=== PATIENT | female | born 1930 | race Caucasian/White ===

== ENCOUNTER 2016-09-18 13:57 | Emergency (ER) | payer MEDICARE, OTHER ==
[~2016-09-18] VITALS: Ht 152.4 cm; Wt 88.6 kg
[~2016-09-18 13:57] MED LIST: ASPIRIN; HYZAAR; LASIX; METOPROLOL
[2016-09-18 14:29] VITALS: Ht 152.4 cm; Wt 88.6 kg
[2016-09-18] MEDS ORDERED: morphine 4 MG/ML VIAL IV STA (14:44)
[2016-09-18] MEDS ORDERED: ONDANSETRON 4 MG INJ IV STA (14:44)
[2016-09-18] MEDS ORDERED: SOD CHLORIDE 0.9% 500 ML IV STA (14:44)
[2016-09-18] MEDS ORDERED: KETOROLAC 15 MG INJ IV STA (14:44)
[2016-09-18 15:03] LABS: ADD SCAN DIFF NO
[2016-09-18 15:12] LABS: BASOPHILS % 0.4 % (0.0-2.0); EOSINOPHILS # 0.1 10^3/ul (0.0-0.5); EOSINOPHILS % 1.8 % (0.0-7.0); HEMATOCRIT 33.4 % (37.0-47.0); LYMPHOCYTES # 1.1 10^3/ul (0.8-2.9); LYMPHOCYTES % 19.8 % (15.0-51.0); MEAN CORPUSCULAR HEMOGLOBIN 28.7 pg (29.0-33.0); MEAN CORPUSCULAR HGB CONC 32.9 g/dl (32.0-37.0); MEAN CORPUSCULAR VOLUME 87.2 fl (82.0-101.0); MEAN PLATELET VOLUME 9.4 fl (7.4-10.4); MONOCYTE # 0.4 10^3/ul (0.3-0.9); MONOCYTES % 6.8 % (0.0-11.0); NEUTROPHILS % 70.5 % (39.0-77.0); PLATELET COUNT 179 10^3/UL (140-415); RED BLOOD COUNT 3.83 10^6/ul (4.20-5.40); RED CELL DISTRIBUTION WIDTH 13.3 % (11.5-14.5); WHITE BLOOD COUNT 5.6 10^3/ul (4.8-10.8)
[2016-09-18 15:40] LABS: ALANINE AMINOTRANSFERASE 34 IU/L (13-69); ALBUMIN 4.8 g/dl (3.3-4.9); ALBUMIN/GLOBULIN RATIO 1.54; ALKALINE PHOSPHATASE 74 IU/L (42-121); ANION GAP 12 (8-16); ASPARTATE AMINO TRANSFERASE 33 IU/L (15-46); BILIRUBIN,INDIRECT 0.2 mg/dl (0-1.1); BILIRUBIN,TOTAL 0.2 mg/dl (0.2-1.3); BLOOD UREA NITROGEN 40 mg/dl (7-20); CALCIUM 9.5 mg/dl (8.4-10.2); CARBON DIOXIDE 28 mmol/L (21-31); CHLORIDE 104 mmol/L (97-110); CREATININE 1.04 mg/dl (0.44-1.00); GLUCOSE 93 mg/dl (70-220); POTASSIUM 4.3 mmol/L (3.5-5.1); SODIUM 140 mmol/L (135-144); TOTAL PROTEIN 7.9 g/dl (6.1-8.1)
[2016-09-18 15:53] LABS: TROPONIN-I < 0.012 ng/ml (0.00-0.12)
--- NOTE | 2016-09-18 15:54 | RADRPT ---
PROCEDURE: CHEST 1VW CLINICAL INDICATION: Right shoulder pain TECHNIQUE: Single frontal view of the chest was obtained COMPARISON: 01/13/2007 FINDINGS: The cardiac size is normal. Mild atherosclerotic calcifications are demonstrated. There is no pulmonary vascular congestion. The lungs are clear. No consolidation, effusion, or pneumothorax. Mild degenerative changes of the visualized osseous structures are visualized. IMPRESSION: 1. No acute cardiopulmonary process. 2. Atherosclerosis. RPTAT:PP .Papa Lowery MD, MD Date Time Electronically viewed and signed by .Papa Lowery MD, on 09/18/2016 15:54 .V/
--- NOTE | 2016-09-18 16:07 | RADRPT ---
PROCEDURE: Right shoulder two views CLINICAL INDICATION: Right shoulder pain. TECHNIQUE: AP and transscapular Y views of the right shoulder were obtained COMPARISON: None available FINDINGS: Diffuse osteopenia is identified. Impacted, mildly displaced fracture through the surgical neck of the proximal humerus is identified. The remaining osseous structures appear intact. No destructive bony lesions are observed. Moderate narrowing of the glenohumeral joint is seen. Soft tissues are unremarkable. IMPRESSION: Fracture through the surgical neck of the proximal right humerus. Osteopenia. Moderate degenerative change of the glenohumeral joint. If there is high clinical suspicion for additional traumatic injury, further evaluation with CT shou ld be considered.. RPTAT: AA .Trev Chakraborty MD, MD Date Time Electronically viewed and signed by .Trev Chakraborty MD, on 09/18/2016 16:07 .P/
[2016-09-18] MEDS ORDERED: ESOM40CA PO (16:10)
[2016-09-18] MEDS ORDERED: METO50TA16 PO (16:10)
[2016-09-18] MEDS ORDERED: ASPI-664 PO (16:12)
[2016-09-18] MEDS ORDERED: SERT100T PO (16:15)
[2016-09-18] MEDS ORDERED: VALS1TAB80 PO (16:21)
[2016-09-18] MEDS ORDERED: IBUP-1542 PO (16:41)
[2016-09-18] MEDS ORDERED: OXYC-279 PO (16:41)
--- NOTE | 2016-09-18 17:57 | RADRPT ---
PROCEDURE: Right knee radiographs. CLINICAL INDICATION: Trauma due to a fall. Right knee pain. TECHNIQUE: 4 views. Frontal, lateral, and obliques. COMPARISON: No prior studies are available for comparison. FINDINGS: There is no fracture or dislocation. The soft tissues are normal. There are degenerative changes with osteophytes arising from all 3 joint compartment margins. There is medial and lateral joint compartment narrowing. There is no lytic or blastic lesion. There is no radiopaque foreign body. IMPRESSION: 1. Moderate degenerative changes of the right knee. 2. No acute abnormality. RPTAT: QQ .David Ratliff MD, MD Date Time Electronically viewed and signed by .David Ratliff MD, on 09/18/2016 17:57 .R/
--- NOTE | 2016-09-18 17:58 | RADRPT ---
PROCEDURE: Left knee radiographs. CLINICAL INDICATION: Trauma due to a fall. Left knee pain. TECHNIQUE: Three views. Weight bearing. Frontal, lateral, and oblique. COMPARISON: No prior studies are available for comparison. FINDINGS: There is no fracture or dislocation. The soft tissues are normal. There are degenerative changes with osteophytes arising from all 3 joint compartment margins. There is medial joint compartment narrowing, subarticular sclerosis, and deformity. There is no lytic or blastic lesion. There is no radiopaque foreign body. IMPRESSION: 1. Severe degenerative changes of the left knee. 2. No acute abnormality. RPTAT: QQ .David Ratliff MD, MD Date Time Electronically viewed and signed by .David Ratliff MD, on 09/18/2016 17:58 .R/
[2016-09-18 18:52] VITALS: BP 142/52; PULSE 68; RESP 17
--- NOTE | 2016-09-18 20:42 | ERD ---
ER Documentation Chief Complaint Date/Time DATE: 09/18/16 TIME: 20:33 Chief Complaint right shoulder pain s/p mechanical fall at home HPI 86-year-old woman here for evaluation of the right shoulder pain after mechanical fall when she lost her balance. She does recall the entire episode and denies loss of consciousness. She has a long history of arthritis and difficulty ambulating secondary to bilateral knee pain. She fell onto her right shoulder although injured her bilateral knees anteriorly as well. She denies fevers or chills, no chest pain or shortness of breath, no vomiting or diarrhea, patient denies head or neck injury. ROS All systems reviewed and are negative except as per history of present illness. Medications Home Meds Active Scripts Ibuprofen* (Ibuprofen*) 600 Mg Tablet, 600 MG PO Q8 for PAIN AND/OR INFLAMMATION , #12 TAB Prov:FARIDEH CARR MD 09/18/16 Oxycodone HCl/Acetaminophen (Percocet 5-325 mg Tablet) 1 Each Tablet, 1 EACH PO TID for PAIN, #12 TAB Prov:FARIDEH CARR MD 09/18/16 Reported Medications Valsartan-Hydrochlorothiazide (Valsartan-HCTZ) 320-12.5 Mg Tablet, 1 TAB PO DAILY, #30 TAB 09/18/16 Sertraline Hcl* (Zoloft*) 100 Mg Tablet, 100 MG PO DAILY, #30 TAB 09/18/16 Aspirin* (Aspirin* EC) 81 Mg Tablet.dr, 81 MG PO DAILY, TAB 09/18/16 Esomeprazole Mag Trihydrate (Nexium) 40 Mg Capsule.dr, 40 MG PO DAILY, #30 CAP 09/18/16 Metoprolol Succinate* (Toprol XL*) 50 Mg Tab.er.24h, 50 MG PO DAILY, #30 TAB 09/18/16 Discontinued Reported Medications [Lasix] No Conflict Check 10/26/10 [Aspirin] No Conflict Check 10/26/10 [Hyzaar] No Conflict Check 10/26/10 [Metoprolol] No Conflict Check 10/26/10 Allergies Allergies: Coded Allergies: codeine (Unverified Allergy, Unknown, 09/18/16) Uncoded Allergies: UNKNOWN ANTIBIOTIC (Allergy, Unknown, 09/18/16) PMhx/Soc Obesity, congestive heart failure, hypertension, diabetes mellitus, osteoarthritis, coronary artery disease, chronic peripheral edema History of Surgery: No Anesthesia Reaction: No Hx Neurological Disorder: No Hx Respiratory Disorders: No Hx Cardiac Disorders: Yes (HTN HIGH CHOL) Hx Psychiatric Problems: No Hx Miscellaneous Medical Probl: No Hx Alcohol Use: Yes (SOCIALLY) Hx Substance Use: No Hx Tobacco Use: Yes Smoking Status: Never smoker FmHx Family History: No diabetes Physical Exam Vitals Vital Signs Date Time Temp Pulse Resp B/P Pulse Ox O2 Delivery O2 Flow Rate FiO2 09/18/16 18:52 68 17 142/52 99 Room Air 09/18/16 17:57 81 20 162/148 99 09/18/16 16:33 72 20 170/69 99 09/18/16 14:32 79 24 175/89 99 09/18/16 14:29 98.5 73 20 175/89 100 Physical Exam GENERAL: Well-developed, well-nourished, well-hydrated, in no apparent distress , looks nontoxic in appearance HEENT: Moist mucous membranes, pink conjunctiva, no cervical spine tenderness or step-off deformities, no goiter, no jaundice or icterus, extraocular movements intact without pain. No submandibular induration, and no pharyngeal erythema NEURO: Alert and oriented 3, cranial nerves II through XII intact bilaterally, pupils equal round reactive to light, no focal deficits or facial asymmetry, sensation intact distally Strength 5/5 in upper and lower extremities bilaterally CARDIAC: Regular rate and rhythm, no murmurs rubs or gallops LUNGS: Clear bilaterally no wheezing crackles or stridor ABDOMEN: Soft nontender, no guarding, no rigidity, no rebound, no psoas sign no obturator sign. Normoactive bowel sounds SKIN: Superficial abrasions to the anterior knees bilaterally, no lacerations or bleeding noted EXTREMITIES: Positive bony deformity at the right lateral shoulder although sensation to the axillary nerve, median, ulnar, radial nerves are intact bilaterally, patient has full range of motion at the knees both actively and passively without any bony deformity or tenderness. Manager Of Care strength equal bilateral, patient ambulatory. 1+ pitting edema in the lower extremities bilaterally, calves bilaterally symmetrical. PSYCH: Normal affect without agitation or irritability Result Diagram: 09/18/16 1500 09/18/16 1500 Results 24 hrs Laboratory Tests Test 09/18/16 15:00 White Blood Count 5.610^3/ul Red Blood Count 3.8310^6/ul Hemoglobin 11.0g/dl Hematocrit 33.4% Mean Corpuscular Volume 87.2fl Mean Corpuscular Hemoglobin 28.7pg Mean Corpuscular Hemoglobin Concent 32.9g/dl Red Cell Distribution Width 13.3% Platelet Count 47958^3/UL Mean Platelet Volume 9.4fl Neutrophils % 70.5% Lymphocytes % 19.8% Monocytes % 6.8% Eosinophils % 1.8% Basophils % 0.4% Nucleated Red Blood Cells % 0.0/100WBC Neutrophils # 4.010^3/ul Lymphocytes # 1.110^3/ul Monocytes # 0.410^3/ul Eosinophils # 0.110^3/ul Basophils # 0.010^3/ul Nucleated Red Blood Cells # 0.010^3/ul Sodium Level 140mmol/L Potassium Level 4.3mmol/L Chloride Level 104mmol/L Carbon Dioxide Level 28mmol/L Anion Gap 12 Blood Urea Nitrogen 40mg/dl Creatinine 1.04mg/dl Glucose Level 93mg/dl Calcium Level 9.5mg/dl Total Bilirubin 0.2mg/dl Direct Bilirubin 0.00mg/dl Indirect Bilirubin 0.2mg/dl Aspartate Amino Transf (AST/SGOT) 33IU/L Alanine Aminotransferase (ALT/SGPT) 34IU/L Alkaline Phosphatase 74IU/L Troponin I < 0.012ng/ml Total Protein 7.9g/dl Albumin 4.8g/dl Globulin 3.10g/dl Albumin/Globulin Ratio 1.54 Lipase 134U/L Current Medications Medications (Trade) Dose Ordered Sig/Rubio Route PRN Reason Start Time Stop Time Status Last Admin Dose Admin Sodium Chloride (NS) 500 ml @ 500 mls/hr Q1H STAT IV 09/18/16 14:44 09/18/16 15:43 DC 09/18/16 15:02 Morphine Sulfate (morphine) 4 mg ONCE STAT IV 09/18/16 14:44 09/18/16 14:46 DC 09/18/16 15:02 Ondansetron HCl (Zofran Inj) 4 mg ONCE STAT IV 09/18/16 14:44 09/18/16 14:46 DC 09/18/16 15:01 Ketorolac Tromethamine (Toradol) 15 mg ONCE STAT IV 09/18/16 14:44 09/18/16 14:46 DC 09/18/16 15:01 Procedures/MDM An IV line was established patient was placed on lunchroom monitor rhythm strip revealed a sinus rhythm at about 70 bpm with upright P and T waves. Patient was afebrile. EKG performed, read by me: 73 bpm, normal sinus rhythm, normal axis, no acute ST segment changes, narrow QRS complex, with good R-wave progression in precordial leads. Chest X-ray 1V Interpreted by me: Soft Tissue: No acute abnormalities Bones: No acute abnormalities Mediastinum/Cardiac Silhouette/Lungs: No acute abnormalities X-ray right shoulder 3V Interpreted by me: Bones: Proximal transverse fracture through the right humerus with mild displacement, no other fractures noted Joints: No dislocation Foreign body: None I administered 500 cc normal saline intravenously, morphine 4 mg IV, Zofran 4 mg IV, and later Toradol 50 mg IV for pain control. Patient's pain resolved after medications were administered. X-ray right knee 3V Interpreted by me: Bones: No fracture Joints: No dislocation Foreign body: None X-ray left knee 3V Interpreted by me: Bones: No fracture Joints: No dislocation Foreign body: None CBC was unremarkable, electrolytes revealed dehydration with a BUN/creatinine of 40/1, liver function tests normal, troponin negative. There is no emergent surgical indication at this time, distal pulses are equal, and patient is pain-free. I placed the right upper extremity in a shoulder immobilizer for comfort and supportive measures. Splint Assessment: Neurovascularly intact post splint placement with good fit. Differential diagnoses considered, included but not limited to acute coronary syndrome, pulmonary embolism, aortic dissection, abdominal aortic aneurysm, sepsis, stroke, meningitis, encephalitis, pneumonia, appendicitis, cholecystitis , bowel obstruction, pyelonephritis, nephrolithiasis, cystitis, as well as metabolic, hematologic, and electrolyte abnormalities. As well as abscess, cellulitis, fractures, and dislocations. Patient feels much better at this time, and vital signs are normal, symptoms have improved. I did give strict instructions to return to the ED if symptoms continue or worsen, patient will otherwise follow-up with primary care physician. Patient understood instructions and agreed to plan. Disclaimer: Inadvertent spelling and grammatical errors are likely due to EHR/ dictation software use and do not reflect on the overall quality of patient care. Also, please note that the electronic time recorded on this note does not necessarily reflect the actual time of the patient encounter. Departure Diagnosis: Primary Impression: Fall Encounter type: initial encounter Qualified Code: W19.XXXA - Fall, initial encounter Additional Impressions: Humerus surgical neck fracture Encounter type: initial encounter Fracture type: closed Fracture morphology : unspecified fracture morphology Fracture alignment: displaced Laterality: right Qualified Code: S42.211A - Closed displaced fracture of surgical neck of right humerus, unspecified fracture morphology, initial encounter Abrasion Osteoarthritis Osteoarthritis location: knee Osteoarthritis type: primary Laterality: bilateral Qualified Code: M17.0 - Primary osteoarthritis of both knees Obesity (BMI 30-39.9) Dehydration Condition: Good Patient Instructions: Dehydration (6Y-Adult), Fracture, Shoulder FARIDEH CARR MD Sep 18, 2016 20:42
== END 2016-09-18 19:20 | disposition home or self-care (01) ==
LOC: E/R 13:57
DX: S42.211A Unspecified displaced fracture of surgical neck of right humerus, initial encounter for closed fracture (principal); M17.0 Bilateral primary osteoarthritis of knee; E86.0 Dehydration; S80.212A Abrasion, left knee, initial encounter; S80.211A Abrasion, right knee, initial encounter; I10 Essential (primary) hypertension; I50.9 Heart failure, unspecified; E11.9 Type 2 diabetes mellitus without complications; I25.10 Atherosclerotic heart disease of native coronary artery without angina pectoris; E66.9 Obesity, unspecified; W18.39XA Other fall on same level, initial encounter; Y92.009 Unspecified place in unspecified non-institutional (private) residence as the place of occurrence of the external cause; Z87.891 Personal history of nicotine dependence; Z79.82 Long term (current) use of aspirin; Z68.38 Body mass index [BMI] 38.0-38.9, adult
CPT/HCPCS: 36415; 71010; 73030; 73562; 80053; 83690; 84484; 85025; 93005; 96374; 96375; 99285; J1885; J2270; J2405; J7040

== ENCOUNTER 2018-07-12 11:06 | Inpatient (IN) | payer MEDICARE, OTHER ==
[~2018-07-12] VITALS: Ht 142.2 cm; Wt 84.2 kg
[~2018-07-12 11:06] MED LIST changes: +ASPI-817 PO; -ASPIRIN; +ESOM40CA PO; -HYZAAR; +IBUP-1542 PO; -LASIX; +METO-319 PO; -METOPROLOL; +OXYC-279 PO; +SERT100T PO; +VALS1TAB80 PO
[2018-07-12] MEDS ORDERED: HYDROmorphONE 1 MG/ML SYG IV STA (11:18)
[2018-07-12] MEDS ORDERED: ONDANSETRON 4 MG INJ IV STA (11:18)
--- NOTE | 2018-07-12 11:38 | ERD ---
ER Documentation Chief Complaint Chief Complaint trip and fall at home c/o right hip and knee pain HPI This is an 88-year-old female who was walking in the kitchen and she slipped and fell to her right side. She is brought in by EMS complaining of right hip and right knee pain. There is no loss of consciousness and she denies any neck pain or focal neurological complaints. The pain in her right lower extremity is sharp and worse with movement. No numbness. Denies any low back pain or other extremity pain ROS All systems reviewed and are negative except as per history of present illness. Medications Home Meds Reported Medications Solifenacin* (Vesicare*) 5 Mg Tablet, 5 MG PO DAILY, TAB 07/12/18 Ropinirole Hcl* (Ropinirole Hcl*) 1 Mg Tablet, 1 MG PO HS, TAB 07/12/18 Valsartan-Hydrochlorothiazide (Valsartan-HCTZ) 320-12.5 Mg Tablet, 1 TAB PO DAILY, #30 TAB 07/12/18 Sertraline Hcl* (Sertraline Hcl*) 100 Mg Tablet, 100 MG PO DAILY, #30 TAB 07/12/18 Metoprolol Succinate* (Toprol XL*) 50 Mg Tab.er.24h, 50 MG PO DAILY, #30 TAB 07/12/18 Esomeprazole Mag Trihydrate (Nexium) 40 Mg Capsule.dr, 40 MG PO DAILY, #30 CAP 07/12/18 Aspirin* (Aspirin* EC) 325 Mg Tab, 325 MG PO Q OTHER DAY, TAB 07/12/18 Discontinued Reported Medications Valsartan-Hydrochlorothiazide (Valsartan-HCTZ) 320-12.5 Mg Tablet, 1 TAB PO DAILY, #30 TAB 09/18/16 Sertraline Hcl* (Zoloft*) 100 Mg Tablet, 100 MG PO DAILY, #30 TAB 09/18/16 Aspirin* (Aspirin* EC) 81 Mg Tablet.dr, 81 MG PO DAILY, TAB 09/18/16 Esomeprazole Mag Trihydrate (Nexium) 40 Mg Capsule.dr, 40 MG PO DAILY, #30 CAP 09/18/16 Metoprolol Succinate* (Toprol XL*) 50 Mg Tab.er.24h, 50 MG PO DAILY, #30 TAB 09/18/16 Discontinued Scripts Ibuprofen* (Ibuprofen*) 600 Mg Tablet, 600 MG PO Q8 for PAIN AND/OR INFLAMMATION, #12 TAB Prov:FARIDEH CARR MD 09/18/16 Oxycodone HCl/Acetaminophen (Percocet 5-325 mg Tablet) 1 Each Tablet, 1 EACH PO TID for PAIN, #12 TAB Prov:FARIDEH CARR MD 09/18/16 Allergies Allergies: Coded Allergies: codeine (Unverified Allergy, Unknown, 07/12/18) Uncoded Allergies: UNKNOWN ANTIBIOTIC (Allergy, Unknown, 09/18/16) PMhx/Soc History of Surgery: No Anesthesia Reaction: No Hx Neurological Disorder: No Hx Respiratory Disorders: No Hx Cardiac Disorders: Yes (HTN HIGH CHOL) Hx Psychiatric Problems: No Hx Miscellaneous Medical Probl: No Hx Alcohol Use: Yes (SOCIALLY) Hx Substance Use: No Hx Tobacco Use: Yes Smoking Status: Never smoker FmHx Family History: No coronary disease Physical Exam Vitals Vital Signs Date Temp Pulse Resp B/P (MAP) Pulse Ox O2 O2 Flow FiO2 Time Delivery Rate 07/12/18 98.1 70 18 160/129 100 11:26 (139) Physical Exam Const: Well-developed, well-nourished Head: Atraumatic, normocephalic Eyes: Normal Conjunctiva, PERRLA, EOMI, normal sclera, no nystagmus ENT: Normal External Ears, Nose and Mouth, moist mucus membranes. Neck: Full range of motion. No meningismus, no lymphadenopathy. Resp: Clear to auscultation bilaterally, no wheezing, rhonchi, rales Cardio: Regular rate and rhythm, no murmurs, S1 S2 present Abd: Soft, non tender x 4, non distended. Normal bowel sounds, no guarding or rebound, no pulsitile abdominal masses or bruits Skin: No petechiae or rashes, no ecchymosis , no maculopapular rash Back: No midline or flank tenderness Ext: No cyanosis, or edema, FROM x 4, right hip and knee have market decreased range of motion due to pain, right leg is shortened and externally rotated, neurovascularly intact x 4 Neur: Awake and alert, STR 5/5 x 4, sensation intact x 4, no focal findings, cerebellum intact Psych: Normal Mood and Affect Result Diagram: 07/12/18 1122 07/12/18 1122 Results 24 hrs Laboratory Tests Test 07/12/18 11:22 White Blood Count 7.3 10^3/ul Red Blood Count 3.92 10^6/ul Hemoglobin 10.7 g/dl Hematocrit 33.8 % Mean Corpuscular Volume 86.2 fl Mean Corpuscular Hemoglobin 27.3 pg Mean Corpuscular Hemoglobin Concent 31.7 g/dl Red Cell Distribution Width 14.6 % Platelet Count 218 10^3/UL Mean Platelet Volume 10.3 fl Immature Granulocytes % 0.500 % Neutrophils % 47.4 % Lymphocytes % 43.0 % Monocytes % 6.5 % Eosinophils % 2.2 % Basophils % 0.4 % Nucleated Red Blood Cells % 0.0 /100WBC Immature Granulocytes # 0.040 10^3/ul Neutrophils # 3.5 10^3/ul Lymphocytes # 3.1 10^3/ul Monocytes # 0.5 10^3/ul Eosinophils # 0.2 10^3/ul Basophils # 0.0 10^3/ul Nucleated Red Blood Cells # 0.0 10^3/ul Prothrombin Time 14.7 Sec Prothrombin Time Ratio 1.1 INR International Normalized Ratio 1.14 Activated Partial Thromboplast Time 27.5 Sec Sodium Level 143 mmol/L Potassium Level 4.5 mmol/L Chloride Level 105 mmol/L Carbon Dioxide Level 24 mmol/L Anion Gap 14 Blood Urea Nitrogen 49 mg/dl Creatinine 1.30 mg/dl Est Glomerular Filtrat Rate mL/min mL/min Glucose Level 112 mg/dl Calcium Level 9.6 mg/dl Total Bilirubin 0.4 mg/dl Direct Bilirubin 0.00 mg/dl Indirect Bilirubin 0.4 mg/dl Aspartate Amino Transf (AST/SGOT) 28 IU/L Alanine Aminotransferase (ALT/SGPT) 19 IU/L Alkaline Phosphatase 75 IU/L Troponin I < 0.012 ng/ml Total Protein 8.1 g/dl Albumin 4.4 g/dl Globulin 3.70 g/dl Albumin/Globulin Ratio 1.18 Current Medications Medications Dose Sig/Rubio Start Time Status Last (Trade) Ordered Route PRN Stop Time Admin Dose Reason Admin 0.5 mg ONCE STAT 07/12/18 DC 07/12/18 Hydromorphone IV 11:18 11:30 HCl 07/12/18 11:22 (Dilaudid) Ondansetron 4 mg ONCE STAT 07/12/18 DC 07/12/18 HCl (Zofran IV 11:18 11:29 Inj) 07/12/18 11:22 Procedures/MDM Ordering MD: FARHAN WILBURN DO Location: E/R Room/Bed: PROCEDURE: XR Chest. CLINICAL INDICATION: Trauma . Chest pain TECHNIQUE: Single frontal chest x-ray. COMPARISON: CHEST 09/18/2016 FINDINGS: The lungs are clear of acute infiltrates, edema, effusions, or masses. Calcific atherosclerosis of the aorta is present.. The cardiomediastinal silhouette is unremarkable. The osseous structures are intact. IMPRESSION: No acute cardiopulmonary disease. RPTAT: GG .Massimo Barnard MD, Date Time Electronically viewed and signed by .Massimo Barnard MD, on 07/12/2018 11:50 .L/ CC: FARHAN WILBURN DO [id number] Ordering MD: FARHAN WILBURN DO Location: E/R Room/Bed: PROCEDURE: XR Hip. CLINICAL INDICATION: Trauma TECHNIQUE: AP and lateral views of the right hip were performed. COMPARISON: CR HIP 08/18/2013; CR PELVIS 08/18/2013 FINDINGS: Borderline osteopenia. Comminuted displaced intertrochanteric right femoral fracture with possible focal subtrochanteric extension with varus angulation. Moderate right hip cartilage space narrowing and marginal osteophyte formation. IMPRESSION: 1. Borderline osteopenia. 2. Comminuted displaced intertrochanteric right femoral fracture with possible focal subtrochanteric extension and with varus angulation. 3. Moderate right hip osteoarthritis. RPTAT: AATT Physician Parker Date Time Electronically viewed and signed by Physician Parker on 0 07/12/2018 12:30 RG/ CC: FARHAN WILBURN DO [id number] Patient: ABHIJIT FUENTES : 1930 Age: 88 Sex: F MR #: [id number] DOS: 07/12/18 1118 Ordering MD: FARHAN WILBURN DO Location: E/R Room/Bed: PROCEDURE: XR knee CLINICAL INDICATION: Trauma TECHNIQUE: Single frontal supine view of the right knee COMPARISON: Radiographs right knee 09/18/2016 FINDINGS: The knee is obliqued. No obvious fracture on single oblique view. Tricompartmental marginal osteophyte formation and cartilage space narrowing most prominent likely in the tibio-femoral compartments. IMPRESSION: Single obliqued view of the right knee demonstrating no obvious fracture. Additional views may be obtained if clinically indicated. RPTAT: AATT Suzanne Harvey Physician Date Time Electronically viewed and signed by Suzanne Harvey Physician on 07/12/2018 12:27 RG/ CC: FARHAN WILBURN DO [id number] EKG: Rate/Rhythm: Normal sinus rhythm with PVCs, heart rate 78, right bundle branch block QRS, ST, QT: NORMAL CT, QRS, QT] Impression: Abnormal EKG We will consult orthopedics for operative repair of the fractured right hip. Will admit to panel Departure Diagnosis: Primary Impression: Closed right hip fracture Encounter type: initial encounter Qualified Codes: S72.001A - Fracture of unspecified part of neck of right femur, initial encounter for closed fracture Condition: Stable FARHAN WILBURN DO Jul 12, 2018 11:37
[2018-07-12] MEDS ORDERED: ESOM40CA PO (12:01)
[2018-07-12] MEDS ORDERED: ASPI325T32 PO (12:01)
[2018-07-12] MEDS ORDERED: METO-319 PO (12:02)
[2018-07-12] MEDS ORDERED: SERT-165 PO (12:02)
[2018-07-12] MEDS ORDERED: ROPI1TAB PO (12:03)
[2018-07-12] MEDS ORDERED: VALS1TAB80 PO (12:03)
[2018-07-12] MEDS ORDERED: SOLI5TAB2 PO (12:04)
[2018-07-12] MEDS ORDERED: SOD CHLORIDE 0.9% 1,000 ML IV SCH ×2 (12:45→13:00)
[2018-07-12] MEDS ORDERED: NACL 0.9% 3 ML SYG IV SCH (13:00)
[2018-07-12] MEDS ORDERED: ONDANSETRON 4 MG INJ IV PRN ×2 (13:00)
[2018-07-12] MEDS ORDERED: ACETAMINOPHEN 325 MG TAB PO PRN (13:00)
--- NOTE | 2018-07-12 13:27 | HP ---
Date/Time of Note Date/Time of Note DATE: 07/12/18 TIME: 13:27 Assessment/Plan VTE Prophylaxis Pharmacological prophylaxis: other Lines/Catheters IV Catheter Type (from [facility]): Saline Lock Assessment/Plan Hospital Course Patient is a elderly female the past medical history significant for hypertension, mood disorder, overactive bladder who presents to [facility] for mechanical fall leading to right hip fracture. Patient's daughters are at bedside to help with the story. Patient was going to her routine doctor's appointment and after the finished a doctor's appointment they are walking in the hallway when the patient seems to have lost her balance and attempted to catch herself on the wall. Patient's legs subsequently buckled and she fell incorrectly according to her daughters. Recently patient has been given complaining of 2 days of mild dizziness but it also should be of note that patient's daughter told us that she drinks nearly no water. Currently patient does have pain in her right hip otherwise is doing well. Patient denies chest pain, shortness of breath, headache, abdominal pain, nausea, vomiting. Objective Physical exam General: Patient is laying in bed and answers questions appropriately Mentation: Patient is alert and oriented 4, Head: Normocephalic atraumatic Eyes: EOMI, pupils reactive to light Neck: Supple, nontender, midline Respiratory: Clear to auscultation bilaterally Cardiovascular: regular rate, no obvious murmurs Gastrointestinal: non-tender to palpation, bowel sounds heard. Neurological: Moves all extremities spontaneously, right lower extremity with less movement secondary to pain Skin: No new skin lesions -Muscular skeletal: Very mild edema bilaterally, Assessment and plan Right hip fracture -Seen on x-ray -Orthopedic surgery consulted -Cardiology, Dr. Lopez, consulted for cardiac clearance -Patient had very high functional status before the fracture, no apparent signs of dementia and able to ambulate on her own. -Hold patient's aspirin, patient taking aspirin every other day, last dose was Thursday. Acute kidney injury -According to family, patient barely drinks any water, patient also on diuretic blood pressure medication -Hold hydrochlorothiazide and valsartan for AK I -Mildly hydrate -Nephrology on board - pending Dizziness -Very likely secondary above volume depletion and acute kidney injury -However cannot rule out other etiology as patient may have surgery soon, will order CT of the brain -Not severe however it is worrisome Mechanical fall -Patient appears to have lost her balance for her recent dizziness may have contributed, CT head pending -Patient will likely need PT after orthopedic surgery intervention Hypertension -Continue metoprolol, hold losartan and hydrochlorothiazide, -We will start patient on amlodipine, spoke with patient's family, since patient is not drinking very many fluids, hydrochlorthiazide is probably not the best idea, will need to discharge the patient with other medication instead of hydrochlorothiazide when leaving. Anemia -Mild, monitor Overactive bladder -Continue Vesicare Mood disorder -Continue sertraline Leg itching? swelling? 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 Disposition -Awaiting orthopedic evaluation -Awaiting cardiac clearance -Awaiting nephrology recommendations Result Diagram: 07/12/18 1122 07/12/18 1122 Results 24hrs Laboratory Tests Test 07/12/18 11:22 White Blood Count 7.3 # Red Blood Count 3.92 L Hemoglobin 10.7 L Hematocrit 33.8 L Mean Corpuscular Volume 86.2 Mean Corpuscular Hemoglobin 27.3 L Mean Corpuscular Hemoglobin Concent 31.7 L Red Cell Distribution Width 14.6 H Platelet Count 218 # Mean Platelet Volume 10.3 Immature Granulocytes % 0.500 H Neutrophils % 47.4 Lymphocytes % 43.0 Monocytes % 6.5 Eosinophils % 2.2 Basophils % 0.4 Nucleated Red Blood Cells % 0.0 Immature Granulocytes # 0.040 H Neutrophils # 3.5 Lymphocytes # 3.1 H Monocytes # 0.5 Eosinophils # 0.2 Basophils # 0.0 Nucleated Red Blood Cells # 0.0 Prothrombin Time 14.7 Prothrombin Time Ratio 1.1 INR International Normalized Ratio 1.14 Activated Partial Thromboplast Time 27.5 Sodium Level 143 Potassium Level 4.5 Chloride Level 105 Carbon Dioxide Level 24 Anion Gap 14 H Blood Urea Nitrogen 49 H Creatinine 1.30 H Est Glomerular Filtrat Rate mL/min Glucose Level 112 Calcium Level 9.6 Total Bilirubin 0.4 Direct Bilirubin 0.00 Indirect Bilirubin 0.4 Aspartate Amino Transf (AST/SGOT) 28 Alanine Aminotransferase (ALT/SGPT) 19 Alkaline Phosphatase 75 Troponin I < 0.012 Total Protein 8.1 Albumin 4.4 Globulin 3.70 H Albumin/Globulin Ratio 1.18 HPI/ROS Admit Date/Time Admit Date/Time PMH/Family/Social Past Medical History Medications Current Medications Sodium Chloride 1,000 ml @ 80 mls/hr [id number] IV ; Start 07/12/18 at 12:45; Stop 07/13/18 at 01:14 Ondansetron HCl (Zofran Inj) 4 mg BRIDGE ORDER PRN IV NAUSEA/VOMITING; Start 07/12/18 at 13:00; Stop 07/13/18 at 12:59 Acetaminophen (Tylenol Tab) 650 mg ER BRIDGE PRN PO .MILD PAIN 1-3 OR TEMP; Start 07/12/18 at 13:00; Stop 07/13/18 at 12:59 IV Flush (NS 3 ml) 3 ml PER PROTOCOL IV ; Start 07/12/18 at 13:00 Ondansetron HCl (Zofran Inj) 4 mg Q6H PRN IV NAUSEA/VOMITING; Start 07/12/18 at 13:00 Acetaminophen (Tylenol Tab) 650 mg Q6H PRN PO .PAIN 1-3 OR TEMP; Start 07/12/18 at 13:00 Acetaminophen/ Hydrocodone Bitart (Glynn (5/325)) 1 tab Q6H PRN PO .PAIN 4-6; Start 07/12/18 at 13:00 Morphine Sulfate (morphine) 2 mg Q4H PRN IV .PAIN 7-10; Start 07/12/18 at 13:00 Metoprolol Succinate (Toprol Xl) 50 mg DAILY PO ; Start 07/13/18 at 09:00; Status UNV Ropinirole HCl (Requip) 1 mg HS PO ; Start 07/12/18 at 21:00; Status UNV Sertraline HCl (Zoloft) 100 mg DAILY PO ; Start 07/13/18 at 09:00; Status UNV Solifenacin (Vesicare) 5 mg DAILY PO ; Start 07/13/18 at 09:00; Status UNV Pantoprazole (Protonix Tab) 40 mg DAILY@06 PO ; Start 07/13/18 at 06:00; Status UNV Sodium Chloride 1,000 ml @ 50 mls/hr Q20H IV ; Start 07/12/18 at 13:00; Stop 07/13/18 at 08:59 Hydralazine HCl (Apresoline) 10 mg Q4H PRN IV sbp >160; Start 07/12/18 at 13:30; Status UNV Amlodipine Besylate (Norvasc) 5 mg DAILY PO ; Start 07/13/18 at 09:00; Status UNV Coded Allergies: codeine (Unverified Allergy, Unknown, 07/12/18) Uncoded Allergies: UNKNOWN ANTIBIOTIC (Allergy, Unknown, 09/18/16) Social History Smoking Status: Never smoker Exam/Review of Systems Vital Signs Vitals Vital Signs Date Temp Pulse Resp B/P (MAP) Pulse Ox O2 O2 Flow FiO2 Time Delivery Rate 07/12/18 98.1 70 18 160/129 100 11:26 (139) FARIDEH MANTILLA Jul 12, 2018 13:27
[2018-07-12] MEDS ORDERED: morphine 2 MG INJ ONE (15:00)
[2018-07-12] MEDS: morphine 2 MG INJ IV PRN (15:01)
[2018-07-12 15:27] VITALS: BP 174/78; PULSE 78; RESP 18
[2018-07-12 16:14] VITALS: Ht 142.2 cm; Wt 84.2 kg
--- NOTE | 2018-07-12 16:32 | CONS ---
DATE OF ADMISSION: 07/12/2018 DATE OF CONSULTATION: 07/12/2018 TYPE OF CONSULTATION: Nephrology. REASON FOR CONSULTATION: Acute kidney injury. PHYSICIAN REQUESTING CONSULT: Dr. Farideh Ortiz. HISTORY OF PRESENT ILLNESS: This is an 88-year-old female with past medical history of hypertension, history of mood disorder, history of overactive bladder, who presents to [facility] after a mechanical fall leading to right hip fracture. The patient's history is obtained by randy glover's daughter at bedside. Accordingly, the patient was walking today to her physician's appointment w hen she underwent a mechanical fall. The patient developed severe pain. As a result he was brought in to [facility] where she had x-rays of the right hip which showed evidence of a f racture. The patient in the Emergency Room was given pain medications and was given IV fluids. In terms of patient's renal history, per patient and the patient's family, there is no prior history of acute kidney injury, or chronic kidney disease. The patient denies any hemoptysis, hematemesis, o r hematochezia. PAST MEDICAL HISTORY: History of hypertension, history of overactive bladder. FAMILY HISTORY: No family history of kidney disease. SOCIAL HISTORY: Does not drink, smoke or do drugs. PAST SURGICAL HISTORY: Reviewed. ALLERGIES: Have been reviewed, please see list. MEDICATIONS: The patient's medications have been reviewed. REVIEW OF SYSTEMS: A 14-point review of systems was conducted. Pertinent positives stated in HPI, o therwise negative. PHYSICAL EXAMINATION: VITAL SIGNS: Blood pressure is 142/63, respiration 20, pulse 71, temperature 98.1. HEENT: Head is normocephalic. NECK: Supple. HEART: Regular rate. LUNGS: Diminished breath sounds at the base. ABDOMEN: Soft, nontender to palpation. No rebound or guarding. EXTREMITIES: Negative for clubbing, cyanosis. Trace edema. DERMATOLOGIC: No rashes. MUSCULOSKELETAL: No joint effusions. NEUROLOGIC: No focal deficits. LABORATORY DATA: From 07/12/2018 was reviewed. IMAGING STUDIES: Were reviewed. ASSESSMENT AND PLAN: This is an 88-year-old female who presents with: 1. Nonoliguric acute kidney injury with unknown baseline creatinine. Etiology of acute kidney injur y is likely multifactorial secondary to diuretics, ARB , hemodynamics. The patient will have a full evaluation. Plan is to check UA with microanalysis. Will check urine electrolytes, calculate a FENa, fractional excretion of urea. Agree with giving the patient gentle IV hydration. Would hold diuretics and EMILIANO inhibitor or ARB at this time. Otherwise, continue current treatment plan, support cha care, renally dose all meds. We will also anticipate checking a renal ultrasound to rule out obst ruction although suspicion is low. 2. Anemia. Monitor hemoglobin and hematocrit levels. 3. Mineral bone disorder, monitor calcium and phosphorus levels. 4. Hypertension. Blood pressure is currently controlled. Continue metoprolol. Agree with holding EMILIANO inhibitor, diuretics. Will monitor closely. 5. Right hip fracture. The patient's x-ray was reviewed. The patient is being evaluated for possib le arthroplasty. Continue to monitor, continue pain control. 6. Dizziness, continue to monitor. CT scan of the brain is pending. 7. History of overactive bladder. Continue VESIcare. 8. History of restless leg syndrome. Continue medical management. 9. Lower extremity edema, etiology may be secondary to venous insufficiency. Continue to monitor. 10. Low suspicion for heart failure. Thank you, Dr. Ortiz, for this interesting consult. It will be a pleasure to follow patient with you belen escaleraout the hospital course. Dictated By: STEPH MARTINEZ DO NR/NTS Conf#: [id number] DID#: [id number] CC: FARIDEH ORTIZ MD;*EndCC*
--- NOTE | 2018-07-12 16:48 | RADRPT ---
Echocardiogram Report Patient Name: Monty FUENTEStient ID: [id number] : [id number] (88y 3m)Study Date: 07/12/2018 3:19:44 PM Gender: FAccession #: [id number] Tech: Location: Ref.Physician: FARIDEH MANTILLA Height(Cm): BSA: Weight(Kg): Quality: GoodAccount #: Procedures: Echocardiographic Report: Transthoracic echocardiogram with complete 2D, M-Mode, and doppler examination. Indications: Pre-op. Measurements: 2D/M Mode Doppler Measurement Value Normal Range Measurement Value Normal Range LVIDd 2D 4.8 [ 3.8 - 5.2 ] cm AV Peak William 1.5 [ 100.0 - 170.0 ] cm/sec LVIDs 2D 3.4 [ 2.2 - 3.5 ] cm AV Peak PG 9.0 [ 2.0 - 9.0 ] mmHg LVPWd 2D 1.2 [ 0.6 - 0.9 ] cm LVOT Mean William 0.5 [ 60.0 - 80.0 ] cm/sec IVSd 2D 1.2 [ 0.6 - 0.9 ] cm LVOT Mean PG 1.0 [ 1.0 - 3.0 ] mmHg AoR Diam 2D 2.5 [ 2.3 - 3.1 ] cm LVOT Peak William 0.8 [ 70.0 - 110.0 ] cm/sec EDV 2D 108.0 [ 46.0 - 106.0 ] ml LVOT Peak PG 3.0 [ 2.0 - 6.0 ] mmHg ESV 2D 47.4 [ 14.0 - 42.0 ] ml LVOT VTI 25.8 [ 20.0 - 30.0 ] cm EF 2D 56.1 [ 54.0 - 74.0 ] percent MV E Peak William 0.9 [ 60.0 - 130.0 ] cm/sec LA Dimen 2D 4.2 [ 2.7 - 3.8 ] cm MV A Peak William 1.2 [ 100.0 - 120.0 ] cm/sec MV E/A 0.7 [ 0.8 - 1.5 ] ratio MV Decel Time 127 [ 104 - 258 ] msec Lat E` William 0.1 [ 10.0 - 15.0 ] cm/sec Lateral E/E` 14.0 [ 1.0 - 2.0 ] ratio MV E/A 0.7 [ 0.8 - 1.5 ] ratio TR Peak William 2.3 [ 100.0 - 280.0 ] cm/sec TR Peak PG 22.0 mmHg RVSP 32.0 [ 10.0 - 36.0 ] mmHg RA Pressure 10.0 mmHg Findings: Left Ventricle: Normal left ventricular systolic function. Normal left ventricular cavity size. Mild concentric left ventricular hypertrophy. Ejection fraction is visually estimated at 60 %. Tissue Doppler/Mitral Doppler indices are consistent with impaired relaxation (Stage I diastolic dysfunction). Right Ventricle: Normal right ventricular size. Normal right ventricular systolic function. Left Atrium: There is mild enlargement of left atrium. Right Atrium: The right atrium is normal in size. Mitral Valve: Normal appearance of the mitral valve. Mild mitral annular calcification. Trace mitral regurgitation. Aortic Valve: No significant aortic stenosis or insufficiency. Aortic cusps appear mildly calcified. Tricuspid Valve: Normal appearance of the tricuspid valve. Estimated peak PA systolic pressure 32 mmHg. There is trace to mild tricuspid regurgitation. Pulmonic Valve: Pulmonic valve not well visualized. Pericardium: Normal pericardium with no significant pericardial effusion. Aorta: Normal aortic root. IVC: Normal size and normal respiratory collapse consistent with normal right atrial pressure. Conclusions: Normal left ventricular systolic function. Normal left ventricular cavity size. Mild concentric left ventricular hypertrophy. Ejection fraction is visually estimated at 60 %. Tissue Doppler/Mitral Doppler indices are consistent with impaired relaxation (Stage I diastolic dysfunction). Normal appearance of the mitral valve. Mild mitral annular calcification. Trace mitral regurgitation. No significant aortic stenosis or insufficiency. Aortic cusps appear mildly calcified. Normal appearance of the tricuspid valve. Estimated peak PA systolic pressure 32 mmHg. There is trace to mild tricuspid regurgitation. Electronically Signed By: Donaldo Lopez 2018-07-12 16:47:57 PDT
[2018-07-12] MEDS: HYDROCODONE/APAP (5/325) TAB PO PRN (17:32)
--- NOTE | 2018-07-12 17:35 | CONS ---
Assessment/Plan Assessment/Plan Hospital Course (Demo Recall) Cardiovascular preop evaluation Hip fracture Hypertension Chronic kidney disease Severe hip pain secondary to above History of mood disorder History of overactive bladder Recommendations: We will check a baseline EKG Continue with the beta-mirian including of the day of the surgery. I will start the patient on her metoprolol but I will start her nightly Her blood pressures currently elevated probably up partially at least related to her severe pain This was discussed with the patient daughter in detail and explained to her that given her multiple risk factors including advanced age and history of hypertension she would be at at least moderate risk of cardiovascular event. But otherwise no further cardiac workup would be indicated and patient considered optimized from the cardiac standpoint for proposed surgery. Thank you for his referral. We will continue to follow him with you MARIBEL ABARCA MD [facility] Consultation Date/Type/Reason Admit Date/Time Date of Consultation: Jul 12, 2018 Type of Consult Cardiology Reason for Consultation cv preop evaluation Requesting Provider: FARIDEH MANTILLA Date/Time of Note DATE: 07/12/18 TIME: 17:29 Hx of Present Illness Interventional cardiology consultation note Chief complaint: Status post fall with hip pain Reason for consult: Cardiovascular preop evaluation History of present illness: Thank you for this referral. History was obtained from the patient from discussion with HER-2 daughters review of the chart discussion physician staff. This is a very pleasant 89-year-old female (per family is reported her through age is 89 and not 88) with past medical history of hypertension, history of mood disorder, history of overactive bladder, who presents to [facility] after a mechanical fall leading to right hip fracture. Accordingly, the patient was walking today to her physician's appointment when she underwent a mechanical fall. No syncope or presyncope is reported. The patient developed severe sharp shooting pain in her hip which is worse with any movement and touch. As a result he was brought in to [facility] where she had x-rays of the right hip which showed evidence of a fracture. Patient is being considered for hip surgery we were kindly asked to evaluate and optimize prior to the surgery According to the family patient has never had any cardiac disorder. She never complains of any chest pain PND orthopnea. She does not walk much but according to daughters patient is very active for a 89-year-old PAST MEDICAL HISTORY: History of hypertension, history of overactive bladder. See above FAMILY HISTORY: No family history of kidney disease. SOCIAL HISTORY: Does not drink, smoke or do drugs. PAST SURGICAL HISTORY: Hysterectomy ALLERGIES: Codeine. Some antibiotic family is not sure at this point MEDICATIONS: The patient's medications have been reviewed. Review of system: Patient denies all others except for above-mentioned Past Medical History Home Meds Reported Medications Solifenacin* (Vesicare*) 5 Mg Tablet, 5 MG PO DAILY, TAB 07/12/18 Ropinirole Hcl* (Ropinirole Hcl*) 1 Mg Tablet, 1 MG PO HS, TAB 07/12/18 Valsartan-Hydrochlorothiazide (Valsartan-HCTZ) 320-12.5 Mg Tablet, 1 TAB PO DAILY, #30 TAB 07/12/18 Sertraline Hcl* (Sertraline Hcl*) 100 Mg Tablet, 100 MG PO DAILY, #30 TAB 07/12/18 Metoprolol Succinate* (Toprol XL*) 50 Mg Tab.er.24h, 50 MG PO DAILY, #30 TAB 07/12/18 Esomeprazole Mag Trihydrate (Nexium) 40 Mg Capsule.dr, 40 MG PO DAILY, #30 CAP 07/12/18 Aspirin* (Aspirin* EC) 325 Mg Tab, 325 MG PO Q OTHER DAY, TAB 07/12/18 Discontinued Reported Medications Valsartan-Hydrochlorothiazide (Valsartan-HCTZ) 320-12.5 Mg Tablet, 1 TAB PO DAILY, #30 TAB 09/18/16 Sertraline Hcl* (Zoloft*) 100 Mg Tablet, 100 MG PO DAILY, #30 TAB 09/18/16 Aspirin* (Aspirin* EC) 81 Mg Tablet.dr, 81 MG PO DAILY, TAB 09/18/16 Esomeprazole Mag Trihydrate (Nexium) 40 Mg Capsule.dr, 40 MG PO DAILY, #30 CAP 09/18/16 Metoprolol Succinate* (Toprol XL*) 50 Mg Tab.er.24h, 50 MG PO DAILY, #30 TAB 09/18/16 Discontinued Scripts Ibuprofen* (Ibuprofen*) 600 Mg Tablet, 600 MG PO Q8 for PAIN AND/OR INFLAMMATION, #12 TAB Prov:FARIDEH CARR MD 09/18/16 Oxycodone HCl/Acetaminophen (Percocet 5-325 mg Tablet) 1 Each Tablet, 1 EACH PO TID for PAIN, #12 TAB Prov:FARIDEH CARR MD 09/18/16 Medications Current Medications Sodium Chloride 1,000 ml @ 80 mls/hr [id number] IV ; Start 07/12/18 at 12:45; Stop 07/13/18 at 01:14 Ondansetron HCl (Zofran Inj) 4 mg BRIDGE ORDER PRN IV NAUSEA/VOMITING; Start 07/12/18 at 13:00; Stop 07/13/18 at 12:59 Acetaminophen (Tylenol Tab) 650 mg ER BRIDGE PRN PO .MILD PAIN 1-3 OR TEMP; Start 07/12/18 at 13:00; Stop 07/13/18 at 12:59 IV Flush (NS 3 ml) 3 ml PER PROTOCOL IV ; Start 07/12/18 at 13:00 Ondansetron HCl (Zofran Inj) 4 mg Q6H PRN IV NAUSEA/VOMITING; Start 07/12/18 at 13:00 Acetaminophen (Tylenol Tab) 650 mg Q6H PRN PO .PAIN 1-3 OR TEMP; Start 07/12/18 at 13:00 Acetaminophen/ Hydrocodone Bitart ([place] (5/325)) 1 tab Q6H PRN PO .PAIN 4-6; Start 07/12/18 at 13:00 Morphine Sulfate (morphine) 2 mg Q4H PRN IV .PAIN 7-10 Last administered on 07/12/18at 15:01; Admin Dose 2 MG; Start 07/12/18 at 13:00 Metoprolol Succinate (Toprol Xl) 50 mg DAILY PO ; Start 07/13/18 at 09:00 Ropinirole HCl (Requip) 1 mg HS PO ; Start 07/12/18 at 21:00 Sertraline HCl (Zoloft) 100 mg DAILY PO ; Start 07/13/18 at 09:00 Solifenacin (Vesicare) 5 mg DAILY PO ; Start 07/13/18 at 09:00 Pantoprazole (Protonix Tab) 40 mg DAILY@06 PO ; Start 07/13/18 at 06:00 Sodium Chloride 1,000 ml @ 50 mls/hr Q20H IV Last administered on 07/12/18at 17:14; Admin Dose 50 MLS/HR; Start 07/12/18 at 13:00; Stop 07/13/18 at 08:59 Hydralazine HCl (Apresoline) 10 mg Q4H PRN IV sbp >160; Start 07/12/18 at 13:30 Amlodipine Besylate (Norvasc) 5 mg DAILY PO ; Start 07/13/18 at 09:00 Allergies: Coded Allergies: codeine (Unverified Allergy, Unknown, 07/12/18) Uncoded Allergies: UNKNOWN ANTIBIOTIC (Allergy, Unknown, 09/18/16) Social History Smoking Status: Current every day smoker Exam/Review of Systems Vital Signs Vitals Vital Signs Date Temp Pulse Resp B/P (MAP) Pulse Ox O2 O2 Flow FiO2 Time Delivery Rate 07/12/18 98.4 78 18 174/78 99 Room Air 15:27 (110) Exam Exam General: no acute distress but appears to be in pain with any movement HEENT: NC/AT. pupils are equal. round. NECK: NO JVD. no stridor. CV: RRR. systolic murmur; no gallop or rubs. PULM: no wheezing or rhonchi. GI: SOFT, NT, ND, no rebound or guarding Extremity: trace B/L LE edema. no clubbing. neuro: awake and alert, OX3. Psych: calm and pleasant rectal: deferred Echocardiogram was personally reviewed which shows: Normal left ventricular systolic function. Normal left ventricular cavity size. Mild concentric left ventricular hypertrophy. Ejection fraction is visually estimated at 60 %. Tissue Doppler/Mitral Doppler indices are consistent with impaired relaxation (Stage I diastolic dysfunction). Normal appearance of the mitral valve. Mild mitral annular calcification. Trace mitral regurgitation. No significant aortic stenosis or insufficiency. Aortic cusps appear mildly calcified. Normal appearance of the tricuspid valve. Estimated peak PA systolic pressure 32 mmHg. There is trace to mild tricuspid regurgitation. Hip x-ray shows: 1. Borderline osteopenia. 2. Comminuted displaced intertrochanteric right femoral fracture with possible focal subtrochanteric extension and with varus angulation. 3. Moderate right hip osteoarthritis. Labs Result Diagram: 07/12/18 1122 07/12/18 1122 Results 24hrs Laboratory Tests Test 07/12/18 11:22 07/12/18 14:21 White Blood Count 7.3 # Red Blood Count 3.92 L Hemoglobin 10.7 L Hematocrit 33.8 L Mean Corpuscular Volume 86.2 Mean Corpuscular Hemoglobin 27.3 L Mean Corpuscular Hemoglobin Concent 31.7 L Red Cell Distribution Width 14.6 H Platelet Count 218 # Mean Platelet Volume 10.3 Immature Granulocytes % 0.500 H Neutrophils % 47.4 Lymphocytes % 43.0 Monocytes % 6.5 Eosinophils % 2.2 Basophils % 0.4 Nucleated Red Blood Cells % 0.0 Immature Granulocytes # 0.040 H Neutrophils # 3.5 Lymphocytes # 3.1 H Monocytes # 0.5 Eosinophils # 0.2 Basophils # 0.0 Nucleated Red Blood Cells # 0.0 Prothrombin Time 14.7 Prothrombin Time Ratio 1.1 INR International Normalized Ratio 1.14 Activated Partial Thromboplast Time 27.5 Sodium Level 143 Potassium Level 4.5 Chloride Level 105 Carbon Dioxide Level 24 Anion Gap 14 H Blood Urea Nitrogen 49 H Creatinine 1.30 H Est Glomerular Filtrat Rate mL/min Glucose Level 112 Calcium Level 9.6 Total Bilirubin 0.4 Direct Bilirubin 0.00 Indirect Bilirubin 0.4 Aspartate Amino Transf (AST/SGOT) 28 Alanine Aminotransferase (ALT/SGPT) 19 Alkaline Phosphatase 75 Troponin I < 0.012 Total Protein 8.1 Albumin 4.4 Globulin 3.70 H Albumin/Globulin Ratio 1.18 Urine Color YELLOW Urine Clarity SLIGHTLY CLOUDY A Urine pH 5.0 Urine Specific [place] 1.016 Urine Ketones NEGATIVE Urine Nitrite NEGATIVE Urine Bilirubin NEGATIVE Urine Urobilinogen NEGATIVE Urine Leukocyte Esterase NEGATIVE Urine Microscopic RBC 0 Urine Microscopic WBC 1 Urine Bacteria MANY A Urine Hemoglobin NEGATIVE Urine Random Creatinine 70.44 Urine Random Sodium 111 H Urine Glucose NEGATIVE Urine Total Protein 10.0 Medications Medications Current Medications Sodium Chloride 1,000 ml @ 80 mls/hr [id number] IV ; Start 07/12/18 at 12:45; Stop 07/13/18 at 01:14 Ondansetron HCl (Zofran Inj) 4 mg BRIDGE ORDER PRN IV NAUSEA/VOMITING; Start 07/12/18 at 13:00; Stop 07/13/18 at 12:59 Acetaminophen (Tylenol Tab) 650 mg ER BRIDGE PRN PO .MILD PAIN 1-3 OR TEMP; Start 07/12/18 at 13:00; Stop 07/13/18 at 12:59 IV Flush (NS 3 ml) 3 ml PER PROTOCOL IV ; Start 07/12/18 at 13:00 Ondansetron HCl (Zofran Inj) 4 mg Q6H PRN IV NAUSEA/VOMITING; Start 07/12/18 at 13:00 Acetaminophen (Tylenol Tab) 650 mg Q6H PRN PO .PAIN 1-3 OR TEMP; Start 07/12/18 at 13:00 Acetaminophen/ Hydrocodone Bitart ([place] (5/325)) 1 tab Q6H PRN PO .PAIN 4-6; Start 07/12/18 at 13:00 Morphine Sulfate (morphine) 2 mg Q4H PRN IV .PAIN 7-10 Last administered on 07/12/18at 15:01; Admin Dose 2 MG; Start 07/12/18 at 13:00 Metoprolol Succinate (Toprol Xl) 50 mg DAILY PO ; Start 07/13/18 at 09:00 Ropinirole HCl (Requip) 1 mg HS PO ; Start 07/12/18 at 21:00 Sertraline HCl (Zoloft) 100 mg DAILY PO ; Start 07/13/18 at 09:00 Solifenacin (Vesicare) 5 mg DAILY PO ; Start 07/13/18 at 09:00 Pantoprazole (Protonix Tab) 40 mg DAILY@06 PO ; Start 07/13/18 at 06:00 Sodium Chloride 1,000 ml @ 50 mls/hr Q20H IV Last administered on 07/12/18at 17:14; Admin Dose 50 MLS/HR; Start 07/12/18 at 13:00; Stop 07/13/18 at 08:59 Hydralazine HCl (Apresoline) 10 mg Q4H PRN IV sbp >160; Start 07/12/18 at 13:30 Amlodipine Besylate (Norvasc) 5 mg DAILY PO ; Start 07/13/18 at 09:00 MARIBEL ABARCA MD Jul 12, 2018 17:35
[2018-07-12 20:00] VITALS: BP 156/69; PULSE 78; RESP 18
[2018-07-12] MEDS: ROPINIROLE 1 MG TAB PO SCH (21:39)
[2018-07-12] MEDS: METOPROLOL (XL) 50 MG TAB PO SCH (21:40)
--- NOTE | 2018-07-12 23:12 | CONS ---
DATE OF ADMISSION: 07/12/2018 DATE OF CONSULTATION: 07/12/2018 HISTORY OF PRESENT ILLNESS: The patient is an 88-year-old female with a known history of hypertensio n, mood disorder, overactive bladder who was admitted on 07/12/2018 when she was brought into the [facility] room because of the painful swelling and limit of motion involving her right hip. She lost he r balance in the hallway of a doctor's office and fell landing on her right hip. Following the fall, there was a painful swelling and limit of motion involving her right hip. PHYSICAL EXAMINATION: GENERAL: My examination revealed an 88-year-old female who was not in any acute distress. EXTREMITIES: There was tenderness and swelling over the right hip. Range of motion of the right hip was not tested because of the obvious pain. There was an obvious shortening and external rotation o f the right lower extremity. There were no signs of acute neurovascular compromise involving the rig ht lower extremity. There was no neurovascular compromise involving the right lower extremity. DIAGNOSTIC STUDIES: X-rays of the right hip revealed an intertrochanteric fracture with subtrochante devora extension. There was a possible shadow that might be suggestive of femoral and basilar neck frac ture; however, this was not clear. DIAGNOSTIC IMPRESSION: Intertrochanteric fracture with subtrochanteric extension of the right hip. TREATMENT PLAN: To carry out the open reduction and internal fixation as soon as she can be medicall y cleared for surgery. Dictated By: JANIS GARCIA MD IK/NTS Conf#: [id number] DID#: [id number] CC: FARIDEH MANTILLA MD;*EndCC*
[2018-07-13 02:00] VITALS: BP 132/63; PULSE 72; RESP 17
[2018-07-13] MEDS: SOD CHLORIDE 0.9% 1,000 ML IV SCH ×3 (03:30→21:49)
[2018-07-13] MEDS: PANTOPRAZOLE (EC) 40 MG TAB PO SCH (06:05)
[2018-07-13] MEDS: morphine 2 MG INJ IV PRN ×3 (06:41→20:19)
[2018-07-13 08:00] VITALS: BP 120/56; PULSE 69; RESP 18
[2018-07-13] MEDS ORDERED: METOPROLOL (XL) 50 MG TAB PO SCH ×2 (09:00)
[2018-07-13] MEDS: SOLIFENACIN 5 MG TAB PO SCH (09:19)
[2018-07-13] MEDS: SERTRALINE 100 MG TAB PO SCH (09:19)
[2018-07-13] MEDS: AMLODIPINE 5 MG TAB PO SCH (09:19)
--- NOTE | 2018-07-13 11:26 | PN ---
Date/Time of Note Date/Time of Note DATE: 07/13/18 TIME: 11:26 Assessment/Plan VTE Prophylaxis Risk score (from Ns)>0 risk: 10 SCD applied (from Ns): Yes Pharmacological prophylaxis: NA/contraindicated Pharm contraindication: surgical contra Lines/Catheters IV Catheter Type (from Nrsg): Peripheral IV Urinary Cath still in place: Yes Reason Cath still needed: terminal illness/intractable pain Assessment/Plan Assessment/Plan 1. Right hip fracture s/p mechanical fall - Patient cleared from Cardiology perspective for surgical intervention - Ortho on board and plans for ORIF. Discussed discharge planning based on how patient progresses with PT following intervention - Patient had very high functional status before the fracture, no apparent signs of dementia and able to ambulate on her own. 2. Acute kidney injury - Cr improving after IVF - Nephrology on board and appreciate recommendations. - avoid nephrotoxic agents 3. Dizziness - CT head negative for acute abnormalities - most likely associated with dehydration 4. Hypertension - Continue metoprolol, hold losartan and hydrochlorothiazide, - will avoid restarting on hctz given patient does not hydrate well at home 5. Anemia - Mild, monitor 6. Overactive bladder - Continue Vesicare 7. Mood disorder -Continue sertraline 8. Restless leg syndrome - continue on ropinirole 9. Disposition - Patient cleared from cardiac and medical standpoint for surgical repair of right hip fracture Result Diagram: 07/13/18 0540 07/13/18 0541 Results 24hrs Laboratory Tests Test 07/12/18 14:21 07/13/18 05:40 07/13/18 05:41 Urine Color YELLOW Urine Clarity SLIGHTLY CLOUDY A Urine pH 5.0 Urine Specific [place] 1.016 Urine Ketones NEGATIVE Urine Nitrite NEGATIVE Urine Bilirubin NEGATIVE Urine Urobilinogen NEGATIVE Urine Leukocyte Esterase NEGATIVE Urine Microscopic RBC 0 Urine Microscopic WBC 1 Urine Bacteria MANY A Urine Hemoglobin NEGATIVE Urine Random Creatinine 70.44 Urine Random Sodium 111 H Urine Glucose NEGATIVE Urine Total Protein 10.0 White Blood Count 5.7 # Red Blood Count 3.43 L Hemoglobin 9.4 L Hematocrit 30.1 L Mean Corpuscular Volume 87.8 Mean Corpuscular Hemoglobin 27.4 L Mean Corpuscular 31.2 L Hemoglobin Concent Red Cell Distribution Width 14.1 Platelet Count 164 # Mean Platelet Volume 9.6 Immature Granulocytes % 0.500 H Neutrophils % 74.4 Lymphocytes % 17.5 Monocytes % 6.5 Eosinophils % 0.9 Basophils % 0.2 Nucleated Red Blood Cells % 0.0 Immature Granulocytes # 0.030 Neutrophils # 4.3 Lymphocytes # 1.0 Monocytes # 0.4 Eosinophils # 0.1 Basophils # 0.0 Nucleated Red Blood Cells # 0.0 Hemoglobin A1c 5.6 Sodium Level 142 Potassium Level 4.7 Chloride Level 107 Carbon Dioxide Level 28 Anion Gap 7 Blood Urea Nitrogen 38 #H Creatinine 1.06 H Est Glomerular Filtrat Rate mL/min Glucose Level 109 Calcium Level 8.7 Magnesium Level 2.0 Total Bilirubin 0.6 Direct Bilirubin 0.00 Indirect Bilirubin 0.6 Aspartate Amino 25 Transf (AST/SGOT) Alanine 20 Aminotransferase (ALT/SGPT) Alkaline Phosphatase 47 Total Protein 6.6 # Albumin 3.5 Globulin 3.10 Albumin/Globulin Ratio 1.12 Triglycerides Level 151 H Cholesterol Level 189 LDL Cholesterol, Calculated 119 HDL Cholesterol 40 Cholesterol/HDL Ratio 4.7 Thyroid Stimulating 0.314 L Hormone (TSH) Subjective 24 Hr Interval Summary Free Text/Dictation Patient is complaining of pain in right hip. Denies any chest pain or shortness of breath. Plan of care discussed with daughter at bedside Exam/Review of Systems Exam Vitals Vital Signs Date Temp Pulse Resp B/P (MAP) Pulse Ox O2 O2 Flow FiO2 Time Delivery Rate 07/13/18 98.6 69 18 120/56 96 08:00 (77) 07/12/18 Nasal 2.0 20:00 Cannula Intake and Output 07/12/18 07/12/18 07/13/18 1515:00 23:00 07:00 IntakeIntake Total 120 ml OutputOutput Total 350 ml 800 ml BalanceBalance -230 ml -800 ml Exam General: Patient is laying in bed and answers questions appropriately Neck: Supple, nontender, midline Respiratory: Clear to auscultation bilaterally. no wheezing Cardiovascular: regular rate and rhythm, no obvious murmurs Gastrointestinal: soft, non-tender to palpation, bowel sounds heard. Neurological: Moves all extremities spontaneously, right lower extremity with less movement secondary to pain Skin: No new skin lesions Results Results 24hrs Laboratory Tests Test 07/12/18 14:21 07/13/18 05:40 07/13/18 05:41 Urine Color YELLOW Urine Clarity SLIGHTLY CLOUDY A Urine pH 5.0 Urine Specific [place] 1.016 Urine Ketones NEGATIVE Urine Nitrite NEGATIVE Urine Bilirubin NEGATIVE Urine Urobilinogen NEGATIVE Urine Leukocyte Esterase NEGATIVE Urine Microscopic RBC 0 Urine Microscopic WBC 1 Urine Bacteria MANY A Urine Hemoglobin NEGATIVE Urine Random Creatinine 70.44 Urine Random Sodium 111 H Urine Glucose NEGATIVE Urine Total Protein 10.0 White Blood Count 5.7 # Red Blood Count 3.43 L Hemoglobin 9.4 L Hematocrit 30.1 L Mean Corpuscular Volume 87.8 Mean Corpuscular Hemoglobin 27.4 L Mean Corpuscular 31.2 L Hemoglobin Concent Red Cell Distribution Width 14.1 Platelet Count 164 # Mean Platelet Volume 9.6 Immature Granulocytes % 0.500 H Neutrophils % 74.4 Lymphocytes % 17.5 Monocytes % 6.5 Eosinophils % 0.9 Basophils % 0.2 Nucleated Red Blood Cells % 0.0 Immature Granulocytes # 0.030 Neutrophils # 4.3 Lymphocytes # 1.0 Monocytes # 0.4 Eosinophils # 0.1 Basophils # 0.0 Nucleated Red Blood Cells # 0.0 Hemoglobin A1c 5.6 Sodium Level 142 Potassium Level 4.7 Chloride Level 107 Carbon Dioxide Level 28 Anion Gap 7 Blood Urea Nitrogen 38 #H Creatinine 1.06 H Est Glomerular Filtrat Rate mL/min Glucose Level 109 Calcium Level 8.7 Magnesium Level 2.0 Total Bilirubin 0.6 Direct Bilirubin 0.00 Indirect Bilirubin 0.6 Aspartate Amino 25 Transf (AST/SGOT) Alanine 20 Aminotransferase (ALT/SGPT) Alkaline Phosphatase 47 Total Protein 6.6 # Albumin 3.5 Globulin 3.10 Albumin/Globulin Ratio 1.12 Triglycerides Level 151 H Cholesterol Level 189 LDL Cholesterol, Calculated 119 HDL Cholesterol 40 Cholesterol/HDL Ratio 4.7 Thyroid Stimulating 0.314 L Hormone (TSH) Medications Medication Current Medications Ondansetron HCl (Zofran Inj) 4 mg BRIDGE ORDER PRN IV NAUSEA/VOMITING; Start 07/12/18 at 13:00; Stop 07/13/18 at 12:59 Acetaminophen (Tylenol Tab) 650 mg ER BRIDGE PRN PO .MILD PAIN 1-3 OR TEMP; Start 07/12/18 at 13:00; Stop 07/13/18 at 12:59 IV Flush (NS 3 ml) 3 ml PER PROTOCOL IV ; Start 07/12/18 at 13:00 Ondansetron HCl (Zofran Inj) 4 mg Q6H PRN IV NAUSEA/VOMITING; Start 07/12/18 at 13:00 Acetaminophen (Tylenol Tab) 650 mg Q6H PRN PO .PAIN 1-3 OR TEMP; Start 07/12/18 at 13:00 Acetaminophen/ Hydrocodone Bitart ([place] (5/325)) 1 tab Q6H PRN PO .PAIN 4-6 Last administered on 07/12/18 17:32; Admin Dose 1 TAB; Start 07/12/18 at 13:00 Morphine Sulfate (morphine) 2 mg Q4H PRN IV .PAIN 7-10 Last administered on 07/13/18 11:00; Admin Dose 2 MG; Start 07/12/18 at 13:00 Ropinirole HCl (Requip) 1 mg HS PO Last administered on 07/12/18 21:39; Admin Dose 1 MG; Start 07/12/18 at 21:00 Sertraline HCl (Zoloft) 100 mg DAILY PO Last administered on 07/13/18 09:19; Admin Dose 100 MG; Start 07/13/18 at 09:00 Solifenacin (Vesicare) 5 mg DAILY PO Last administered on 07/13/18 09:19; Admin Dose 5 MG; Start 07/13/18 at 09:00 Pantoprazole (Protonix Tab) 40 mg DAILY@06 PO Last administered on 07/13/18 06:05; Admin Dose 40 MG; Start 07/13/18 at 06:00 Hydralazine HCl (Apresoline) 10 mg Q4H PRN IV sbp >160; Start 07/12/18 at 13:30 Amlodipine Besylate (Norvasc) 5 mg DAILY PO Last administered on 07/13/18 09:19; Admin Dose 5 MG; Start 07/13/18 at 09:00 Metoprolol Succinate (Toprol Xl) 50 mg QHS PO Last administered on 07/12/18 21:40; Admin Dose 50 MG; Start 07/12/18 at 21:30 Sodium Chloride 1,000 ml @ 50 mls/hr Q20H IV Last administered on 07/13/18 11:05; Admin Dose 50 MLS/HR; Start 07/13/18 at 03:30 SHIRLENE MCDANIEL MD Jul 13, 2018 11:26
[2018-07-13 14:00] VITALS: BP_SYST 107; BP_SYST 145; BP_DIAS 65; BP_DIAS 68; PULSE 107; PULSE 66; RESP 18; RESP 20
--- NOTE | 2018-07-13 14:43 | PN ---
DATE: 07/13/2018 SUBJECTIVE: The patient is stable. No events overnight. No fevers, chills, nausea, vomiting. OBJECTIVE: VITAL SIGNS: Blood pressure is 120/56, respiration 19, pulse 69, temperature 98.6. HEENT: Head is normocephalic. NECK: Supple. HEART: Regular rate. LUNGS: Show diminished breath sounds at the base. ABDOMEN: Soft, nontender to palpation without rebound or guarding. EXTREMITIES: Negative for clubbing, cyanosis. No edema. DERMATOLOGIC: No rashes. MUSCULOSKELETAL: No joint effusion. NEUROLOGIC: No change in exam. MEDICATIONS: Have been reviewed. LABORATORY DATA: Have been reviewed. MICROBIOLOGY: Urinalysis was reviewed. IMAGING STUDIES: Reviewed. ASSESSMENT AND PLAN: 1. Nonoliguric acute kidney injury with unknown baseline creatinine. Etiology is secondary to hemod ynamics, diuretics, ARB effect. The patient's renal function is improving with gentle IV hydration. The patient's urinalysis was reviewed, has a bland sediment. Renal ultrasound shows no significant evidence of obstruction. Plan will be to continue current treatment plan. Continue gentle IV hydrat ion. Continue supportive care, renally dose all meds. We would defer any diuretics, EMILIANO inhibitor a nd ARBs at this time. 2. Anemia. Monitor hemoglobin and hematocrit levels. 3. Mineral bone disorder. Monitor calcium and phosphorus levels. 4. Hypertension. The patient is currently normotensive. Continue to monitor. Continue current blo od pressure regimen. Continue pain control. 5. Restless leg syndrome. Continue Requip. 6. History of overactive bladder. We will continue VESIcare. 7. Right hip fracture. The patient is evaluated by orthopedist, pending right hip arthroplasty. 8. Lower extremity edema. We will continue to monitor. Likely due to venous insufficiency. The ashley stoner's 2D echo was reviewed with preserved ejection fraction. Dictated By: STEPH MARTINEZ DO NR/NTS Conf#: [id number] DID#: [id number] CC: FARIDEH MANTILLA MD; MARIBEL ABARCA MD; SHIRLENE MCDANIEL MD;*EndCC*
--- NOTE | 2018-07-13 17:35 | RADRPT ---
Vent Rate: 65 bpm RR Interval: 0 msec VA Interval: 198 msec QRS Duration: 130 msec QT Interval: 434 msec QTC Interval: 451 msec P-R-T [place]: 73 - 81 - 60 degrees Sinus rhythm with occasional premature ventricular complexes Right bundle branch block Abnormal ECG Electronically Signed By: Romeo Guaman
--- NOTE | 2018-07-13 18:24 | CONS ---
Consult Date/Type/Reason Admit Date/Time Jul 12, 2018 at 12:46 Initial Consult Date 07/12/18 Requesting Provider: FARIDEH MANTILLA Date/Time of Note DATE: 07/13/18 TIME: 18:22 Subjective Neurology follow-up progress note Subjective: Discussed with the staff and daughter. Patient with no chest pain or pressure no palpitation. She still has hip pain but appears to be better controlled at the moment Patient and family are awaiting surgery Objective: General: no acute distress but appears to be in pain with any movement HEENT: NC/AT. pupils are equal. round. NECK: NO JVD. no stridor. CV: RRR. systolic murmur; no gallop or rubs. PULM: no wheezing or rhonchi. GI: SOFT, NT, ND, no rebound or guarding Extremity: trace B/L LE edema. no clubbing. neuro: awake and alert, OX3. Psych: calm and pleasant rectal: deferred EKG was personally reviewed showed normal sinus rhythm with right bundle branch block Echocardiogram was personally reviewed which shows: Normal left ventricular systolic function. Normal left ventricular cavity size. Mild concentric left ventricular hypertrophy. Ejection fraction is visually estimated at 60 %. Tissue Doppler/Mitral Doppler indices are consistent with impaired relaxation (Stage I diastolic dysfunction). Normal appearance of the mitral valve. Mild mitral annular calcification. Trace mitral regurgitation. No significant aortic stenosis or insufficiency. Aortic cusps appear mildly calcified. Normal appearance of the tricuspid valve. Estimated peak PA systolic pressure 32 mmHg. There is trace to mild tricuspid regurgitation. Hip x-ray shows: 1. Borderline osteopenia. 2. Comminuted displaced intertrochanteric right femoral fracture with possible focal subtrochanteric extension and with varus angulation. 3. Moderate right hip osteoarthritis. Objective Vitals Vital Signs Date Temp Pulse Resp B/P (MAP) Pulse Ox O2 O2 Flow FiO2 Time Delivery Rate 07/13/18 98.6 66 18 145/65 96 14:00 (91) 07/13/18 Nasal 2.0 08:35 Cannula Intake and Output 07/12/18 07/12/18 07/13/18 1515:00 23:00 07:00 IntakeIntake Total 120 ml OutputOutput Total 350 ml 800 ml BalanceBalance -230 ml -800 ml Results/Medications Result Diagram: 07/13/18 0540 07/13/18 0541 Results 24 hrs Laboratory Tests Test 07/13/18 05:40 07/13/18 05:41 White Blood Count 5.7 # Red Blood Count 3.43 L Hemoglobin 9.4 L Hematocrit 30.1 L Mean Corpuscular Volume 87.8 Mean Corpuscular Hemoglobin 27.4 L Mean Corpuscular Hemoglobin Concent 31.2 L Red Cell Distribution Width 14.1 Platelet Count 164 # Mean Platelet Volume 9.6 Immature Granulocytes % 0.500 H Neutrophils % 74.4 Lymphocytes % 17.5 Monocytes % 6.5 Eosinophils % 0.9 Basophils % 0.2 Nucleated Red Blood Cells % 0.0 Immature Granulocytes # 0.030 Neutrophils # 4.3 Lymphocytes # 1.0 Monocytes # 0.4 Eosinophils # 0.1 Basophils # 0.0 Nucleated Red Blood Cells # 0.0 Hemoglobin A1c 5.6 Sodium Level 142 Potassium Level 4.7 Chloride Level 107 Carbon Dioxide Level 28 Anion Gap 7 Blood Urea Nitrogen 38 #H Creatinine 1.06 H Est Glomerular Filtrat Rate mL/min Glucose Level 109 Calcium Level 8.7 Magnesium Level 2.0 Total Bilirubin 0.6 Direct Bilirubin 0.00 Indirect Bilirubin 0.6 Aspartate Amino Transf (AST/SGOT) 25 Alanine Aminotransferase (ALT/SGPT) 20 Alkaline Phosphatase 47 Total Protein 6.6 # Albumin 3.5 Globulin 3.10 Albumin/Globulin Ratio 1.12 Triglycerides Level 151 H Cholesterol Level 189 LDL Cholesterol, Calculated 119 HDL Cholesterol 40 Cholesterol/HDL Ratio 4.7 Thyroid Stimulating Hormone (TSH) 0.314 L Home Meds Reported Medications Solifenacin* (Vesicare*) 5 Mg Tablet, 5 MG PO DAILY, TAB 07/12/18 Ropinirole Hcl* (Ropinirole Hcl*) 1 Mg Tablet, 1 MG PO HS, TAB 07/12/18 Valsartan-Hydrochlorothiazide (Valsartan-HCTZ) 320-12.5 Mg Tablet, 1 TAB PO DAILY, #30 TAB 07/12/18 Sertraline Hcl* (Sertraline Hcl*) 100 Mg Tablet, 100 MG PO DAILY, #30 TAB 07/12/18 Metoprolol Succinate* (Toprol XL*) 50 Mg Tab.er.24h, 50 MG PO DAILY, #30 TAB 07/12/18 Esomeprazole Mag Trihydrate (Nexium) 40 Mg Capsule.dr, 40 MG PO DAILY, #30 CAP 4/15/19 Aspirin* (Aspirin* EC) 325 Mg Tab, 325 MG PO Q OTHER DAY, TAB 07/12/18 Discontinued Reported Medications Valsartan-Hydrochlorothiazide (Valsartan-HCTZ) 320-12.5 Mg Tablet, 1 TAB PO DAILY, #30 TAB 09/18/16 Sertraline Hcl* (Zoloft*) 100 Mg Tablet, 100 MG PO DAILY, #30 TAB 09/18/16 Aspirin* (Aspirin* EC) 81 Mg Tablet.dr, 81 MG PO DAILY, TAB 09/18/16 Esomeprazole Mag Trihydrate (Nexium) 40 Mg Capsule.dr, 40 MG PO DAILY, #30 CAP 09/18/16 Metoprolol Succinate* (Toprol XL*) 50 Mg Tab.er.24h, 50 MG PO DAILY, #30 TAB 09/18/16 Discontinued Scripts Ibuprofen* (Ibuprofen*) 600 Mg Tablet, 600 MG PO Q8 for PAIN AND/OR INFLAMMATION, #12 TAB Prov:FARIDEH CARR MD 09/18/16 Oxycodone HCl/Acetaminophen (Percocet 5-325 mg Tablet) 1 Each Tablet, 1 EACH PO TID for PAIN, #12 TAB Prov:FARIDEH CARR MD 09/18/16 Medications Current Medications IV Flush (NS 3 ml) 3 ml PER PROTOCOL IV ; Start 07/12/18 at 13:00 Ondansetron HCl (Zofran Inj) 4 mg Q6H PRN IV NAUSEA/VOMITING; Start 07/12/18 at 13:00 Acetaminophen (Tylenol Tab) 650 mg Q6H PRN PO .PAIN 1-3 OR TEMP; Start 07/12/18 at 13:00 Acetaminophen/ Hydrocodone Bitart ([place] (5/325)) 1 tab Q6H PRN PO .PAIN 4-6 Last administered on 07/12/18at 17:32; Admin Dose 1 TAB; Start 07/12/18 at 13:00 Morphine Sulfate (morphine) 2 mg Q4H PRN IV .PAIN 7-10 Last administered on 07/13/18at 11:00; Admin Dose 2 MG; Start 07/12/18 at 13:00 Ropinirole HCl (Requip) 1 mg HS PO Last administered on 07/12/18at 21:39; Admin Dose 1 MG; Start 07/12/18 at 21:00 Sertraline HCl (Zoloft) 100 mg DAILY PO Last administered on 07/13/18at 09:19; Admin Dose 100 MG; Start 07/13/18 at 09:00 Solifenacin (Vesicare) 5 mg DAILY PO Last administered on 07/13/18at 09:19; Admin Dose 5 MG; Start 07/13/18 at 09:00 Pantoprazole (Protonix Tab) 40 mg DAILY@06 PO Last administered on 07/13/18at 06:05; Admin Dose 40 MG; Start 07/13/18 at 06:00 Hydralazine HCl (Apresoline) 10 mg Q4H PRN IV sbp >160; Start 07/12/18 at 13:30 Amlodipine Besylate (Norvasc) 5 mg DAILY PO Last administered on 07/13/18at 09:19; Admin Dose 5 MG; Start 07/13/18 at 09:00 Metoprolol Succinate (Toprol Xl) 50 mg QHS PO Last administered on 07/12/18at 21:40; Admin Dose 50 MG; Start 07/12/18 at 21:30 Sodium Chloride 1,000 ml @ 50 mls/hr Q20H IV Last administered on 07/13/18at 11:05; Admin Dose 50 MLS/HR; Start 07/13/18 at 03:30 Assessment/Plan Hospital Course (Demo Recall) Cardiovascular preop evaluation Hip fracture Hypertension Chronic kidney disease Severe hip pain secondary to above History of mood disorder History of overactive bladder Abnormal EKG right bundle branch block Recommendations: Continue with the beta-mirian including of the day of the surgery. Her blood pressures currently elevated probably up partially at least related to her severe pain appears to be better controlled now discussed with the patient daughter in detail and explained to her that given her multiple risk factors including advanced age and history of hypertension she would be at at least moderate risk of cardiovascular event. But otherwise no further cardiac workup would be indicated and patient considered optimized from the cardiac standpoint for proposed surgery. Thank you for his referral. We will continue to follow him with you MARIBEL ABARCA MD [facility] MARIBEL ABARCA MD Jul 13, 2018 18:24
[2018-07-13 20:00] VITALS: BP 165/72; PULSE 73; RESP 18
[2018-07-13 21:17] VITALS: BP 136/61; PULSE 73; RESP 16
[2018-07-13] MEDS: METOPROLOL (XL) 50 MG TAB PO SCH (21:50)
[2018-07-13] MEDS: ROPINIROLE 1 MG TAB PO SCH (22:51)
[2018-07-13] MEDS: HYDROCODONE/APAP (5/325) TAB PO PRN (22:55)
[2018-07-14] VITALS (26 sets, daily range): BP systolic 104–184; BP diastolic 53–82; PULSE 67–92; RESP 16–21
[2018-07-14] MEDS: PANTOPRAZOLE (EC) 40 MG TAB PO SCH (02:56)
[2018-07-14] MEDS: morphine 2 MG INJ IV PRN (06:42)
[2018-07-14] MEDS ORDERED: EPHEDrine 25 MG/5 ML SYG ONE (07:00)
[2018-07-14] MEDS ORDERED: CEFAZOLIN 1 GM INJ ONE (07:00)
[2018-07-14] MEDS ORDERED: DESFLURANE 15 MIN ONE (07:00)
--- NOTE | 2018-07-14 08:43 | PN ---
DATE: 07/14/2018 SUBJECTIVE: The patient is stable. The patient is pending a hip surgery today. No other events not ed. OBJECTIVE: VITAL SIGNS: Blood pressure is 166/71, pulse 60, temperature 98.6. HEENT: Head is normocephalic. NECK: Supple. HEART: Regular rate. LUNGS: Show diminished breath sounds at the base. ABDOMEN: Soft, nontender to palpation without rebound or guarding. EXTREMITIES: Negative for clubbing, cyanosis, no edema. DERMATOLOGIC: No rashes. MUSCULOSKELETAL: No joint effusion. NEUROLOGIC: No change in exam. MEDICATIONS: The patient's medications have been reviewed. LABORATORY DATA: From 07/13/2018 was reviewed. ASSESSMENT AND PLAN: 1. Nonoliguric acute kidney injury with unknown baseline creatinine. Etiology of acute kidney injur y is secondary to hemodynamics, diuretics, ARB effect. The patient's renal function has improved wit h gentle IV hydration and adjusting blood pressure regimen. At this point, continue current treatmen t plans, supportive care, renally dose all medicines. 2. Anemia. Continue to monitor hemoglobin and hematocrit levels. 3. Mineral bone disorder. Monitor calcium and phosphorus levels. 4. Hypertension. Continue current blood pressure regimen. Monitor closely and IV fluids. 5. Restless leg syndrome. Continue Requip. 6. Right hip fracture. The patient is pending arthroplasty. 7. Overactive bladder. Continue VESIcare. 8. Lower extremity edema, likely due to venous insufficiency. The patient is clinically compensated on exam. Dictated By: STEPH MARTINEZ DO NR/NTS Conf#: [id number] DID#: [id number] CC: FARIDEH MANTILLA MD; MARIBEL ABARCA MD; SHIRLENE MCDANIEL MD;*EndCC*
[2018-07-14] MEDS: AMLODIPINE 5 MG TAB PO SCH (08:55)
[2018-07-14] MEDS: SOLIFENACIN 5 MG TAB PO SCH (08:56)
[2018-07-14] MEDS: SERTRALINE 100 MG TAB PO SCH (08:56)
--- NOTE | 2018-07-14 09:21 | CONS ---
Consult Date/Type/Reason Admit Date/Time Jul 12, 2018 at 12:46 Initial Consult Date 07/12/18 Requesting Provider: FARIDEH MANTILLA Date/Time of Note DATE: 07/14/18 TIME: 09:19 Subjective Neurology follow-up progress note Subjective: Discussed with the staff and daughter. Patient with no chest pain or pressure no palpitation. no PND orthopnea. She still has hip pain but appears to be better controlled at the moment Patient and family are awaiting surgery Objective: General: no acute distress but appears to be in pain with any movement HEENT: NC/AT. pupils are equal. round. NECK: NO JVD. no stridor. CV: RRR. systolic murmur; no gallop or rubs. PULM: no wheezing or rhonchi. GI: SOFT, NT, ND, no rebound or guarding Extremity: trace B/L LE edema. no clubbing. neuro: awake and alert, OX3. Psych: calm and pleasant rectal: deferred EKG was personally reviewed showed normal sinus rhythm with right bundle branch block Echocardiogram was personally reviewed which shows: Normal left ventricular systolic function. Normal left ventricular cavity size. Mild concentric left ventricular hypertrophy. Ejection fraction is visually estimated at 60 %. Tissue Doppler/Mitral Doppler indices are consistent with impaired relaxation (Stage I diastolic dysfunction). Normal appearance of the mitral valve. Mild mitral annular calcification. Trace mitral regurgitation. No significant aortic stenosis or insufficiency. Aortic cusps appear mildly calcified. Normal appearance of the tricuspid valve. Estimated peak PA systolic pressure 32 mmHg. There is trace to mild tricuspid regurgitation. Hip x-ray shows: 1. Borderline osteopenia. 2. Comminuted displaced intertrochanteric right femoral fracture with possible focal subtrochanteric extension and with varus angulation. 3. Moderate right hip osteoarthritis. Objective Vitals Vital Signs Date Temp Pulse Resp B/P (MAP) Pulse Ox O2 O2 Flow FiO2 Time Delivery Rate 07/14/18 98.6 68 18 166/71 96 Nasal 07:58 (102) Cannula 07/13/18 2.0 08:35 Intake and Output 07/13/18 07/13/18 07/14/18 1515:00 23:00 07:00 IntakeIntake Total 1000 ml 1150 ml 800 ml OutputOutput Total 450 ml 500 ml BalanceBalance 1000 ml 700 ml 300 ml Results/Medications Result Diagram: 07/14/1818 07/14/18 0818 Results 24 hrs Laboratory Tests Test 07/14/18 07:27 07/14/18 08:18 Lab Scanned Report BLOOD TRANSFUSION White Blood Count 6.0 Red Blood Count 3.73 L Hemoglobin 10.4 L Hematocrit 32.8 L Mean Corpuscular Volume 87.9 Mean Corpuscular Hemoglobin 27.9 L Mean Corpuscular Hemoglobin Concent 31.7 L Red Cell Distribution Width 14.0 Platelet Count 140 Mean Platelet Volume 10.2 Immature Granulocytes % 0.500 H Neutrophils % 76.9 Lymphocytes % 13.8 L Monocytes % 7.9 Eosinophils % 0.7 Basophils % 0.2 Nucleated Red Blood Cells % 0.0 Immature Granulocytes # 0.030 Neutrophils # 4.6 Lymphocytes # 0.8 Monocytes # 0.5 Eosinophils # 0.0 Basophils # 0.0 Nucleated Red Blood Cells # 0.0 Sodium Level 141 Potassium Level 4.5 Chloride Level 107 Carbon Dioxide Level 26 Anion Gap 8 Blood Urea Nitrogen 29 H Creatinine 0.86 Est Glomerular Filtrat Rate mL/min Glucose Level 109 Calcium Level 8.6 Phosphorus Level 3.9 Magnesium Level 1.9 Home Meds Reported Medications Solifenacin* (Vesicare*) 5 Mg Tablet, 5 MG PO DAILY, TAB 07/12/18 Ropinirole Hcl* (Ropinirole Hcl*) 1 Mg Tablet, 1 MG PO HS, TAB 07/12/18 Valsartan-Hydrochlorothiazide (Valsartan-HCTZ) 320-12.5 Mg Tablet, 1 TAB PO DAILY, #30 TAB 07/12/18 Sertraline Hcl* (Sertraline Hcl*) 100 Mg Tablet, 100 MG PO DAILY, #30 TAB 07/12/18 Metoprolol Succinate* (Toprol XL*) 50 Mg Tab.er.24h, 50 MG PO DAILY, #30 TAB 07/12/18 Esomeprazole Mag Trihydrate (Nexium) 40 Mg Capsule.dr, 40 MG PO DAILY, #30 CAP 07/12/18 Aspirin* (Aspirin* EC) 325 Mg Tab, 325 MG PO Q OTHER DAY, TAB 07/12/18 Discontinued Reported Medications Valsartan-Hydrochlorothiazide (Valsartan-HCTZ) 320-12.5 Mg Tablet, 1 TAB PO DAILY, #30 TAB 6/22/17 Sertraline Hcl* (Zoloft*) 100 Mg Tablet, 100 MG PO DAILY, #30 TAB 09/18/16 Aspirin* (Aspirin* EC) 81 Mg Tablet.dr, 81 MG PO DAILY, TAB 09/18/16 Esomeprazole Mag Trihydrate (Nexium) 40 Mg Capsule.dr, 40 MG PO DAILY, #30 CAP 09/18/16 Metoprolol Succinate* (Toprol XL*) 50 Mg Tab.er.24h, 50 MG PO DAILY, #30 TAB 09/18/16 Discontinued Scripts Ibuprofen* (Ibuprofen*) 600 Mg Tablet, 600 MG PO Q8 for PAIN AND/OR INFLAMMATION, #12 TAB Prov:FARIDEH CARR MD 09/18/16 Oxycodone HCl/Acetaminophen (Percocet 5-325 mg Tablet) 1 Each Tablet, 1 EACH PO TID for PAIN, #12 TAB Prov:FARIDEH CARR MD 09/18/16 Medications Current Medications IV Flush (NS 3 ml) 3 ml PER PROTOCOL IV Last administered on 07/13/18at 21:54; Admin Dose 3 ML; Start 07/12/18 at 13:00 Ondansetron HCl (Zofran Inj) 4 mg Q6H PRN IV NAUSEA/VOMITING; Start 07/12/18 at 13:00 Acetaminophen (Tylenol Tab) 650 mg Q6H PRN PO .PAIN 1-3 OR TEMP; Start 07/12/18 at 13:00 Acetaminophen/ Hydrocodone Bitart ([place] (5/325)) 1 tab Q6H PRN PO .PAIN 4-6 Last administered on 07/13/18at 22:55; Admin Dose 1 TAB; Start 07/12/18 at 13:00 Morphine Sulfate (morphine) 2 mg Q4H PRN IV .PAIN 7-10 Last administered on 07/14/18at 06:42; Admin Dose 2 MG; Start 07/12/18 at 13:00 Ropinirole HCl (Requip) 1 mg HS PO Last administered on 07/13/18at 22:51; Admin Dose 1 MG; Start 07/12/18 at 21:00 Sertraline HCl (Zoloft) 100 mg DAILY PO Last administered on 07/13/18at 09:19; Admin Dose 100 MG; Start 07/13/18 at 09:00 Solifenacin (Vesicare) 5 mg DAILY PO Last administered on 07/13/18 09:19; Admin Dose 5 MG; Start 07/13/18 at 09:00 Pantoprazole (Protonix Tab) 40 mg DAILY@06 PO Last administered on 07/13/18at 06:05; Admin Dose 40 MG; Start 07/13/18 at 06:00 Hydralazine HCl (Apresoline) 10 mg Q4H PRN IV sbp >160; Start 07/12/18 at 13:30 Amlodipine Besylate (Norvasc) 5 mg DAILY PO Last administered on 07/13/18 09:19; Admin Dose 5 MG; Start 07/13/18 at 09:00 Metoprolol Succinate (Toprol Xl) 50 mg QHS PO Last administered on 07/13/18 21:50; Admin Dose 50 MG; Start 07/12/18 at 21:30 Sodium Chloride 1,000 ml @ 50 mls/hr Q20H IV Last administered on 07/13/18 21:49; Admin Dose 50 MLS/HR; Start 07/13/18 at 03:30 Assessment/Plan Hospital Course (Demo Recall) Cardiovascular preop evaluation Hip fracture Hypertension Chronic kidney disease Severe hip pain secondary to above History of mood disorder History of overactive bladder Abnormal EKG right bundle branch block Recommendations: Continue with the beta-mirian and norvasc. Her blood pressure is currently elevated probably up partially at least related to her severe pain discussed with the patient daughter in detail and explained to her that given her multiple risk factors including advanced age and history of hypertension she would be at at least moderate risk of cardiovascular event. But otherwise no further cardiac workup would be indicated and patient considered optimized from the cardiac standpoint for proposed surgery. awaiting ortho surgery Thank you for his referral. We will continue to follow him with you MARIBEL ABARCA MD [facility] MARIBEL ABARCA MD Jul 14, 2018 09:21
[2018-07-14] MEDS: hydrALAzine 20 MG INJ IV PRN (11:43)
--- NOTE | 2018-07-14 12:24 | PREAC ---
Date/Time of Note Date/Time of Note DATE: 07/14/18 TIME: 12:22 Anesthesia Eval and Record Evaluation Time Pre-Procedure Interview DATE: 07/14/18 TIME: 12:22 Age 88 Sex female NPO: 8 hrs Preoperative diagnosis right hip fracture Planned procedure ORIF right hip Past Medical History Past Medical History: Includes Cardio: HTN Renal: NISHANT Heme: Anemia Surgery & Anesthesia Issues No known issue Meds Anticoagulation: No Beta Barbara within 24 hr: Yes Reported Medications Solifenacin* (Vesicare*) 5 Mg Tablet, 5 MG PO DAILY, TAB 07/12/18 Ropinirole Hcl* (Ropinirole Hcl*) 1 Mg Tablet, 1 MG PO HS, TAB 07/12/18 Valsartan-Hydrochlorothiazide (Valsartan-HCTZ) 320-12.5 Mg Tablet, 1 TAB PO DAILY, #30 TAB 07/12/18 Sertraline Hcl* (Sertraline Hcl*) 100 Mg Tablet, 100 MG PO DAILY, #30 TAB 07/12/18 Metoprolol Succinate* (Toprol XL*) 50 Mg Tab.er.24h, 50 MG PO DAILY, #30 TAB 07/12/18 Esomeprazole Mag Trihydrate (Nexium) 40 Mg Capsule., 40 MG PO DAILY, #30 CAP 07/12/18 Aspirin* (Aspirin* EC) 325 Mg Tab, 325 MG PO Q OTHER DAY, TAB 07/12/18 Discontinued Reported Medications Valsartan-Hydrochlorothiazide (Valsartan-HCTZ) 320-12.5 Mg Tablet, 1 TAB PO DAILY, #30 TAB 09/18/16 Sertraline Hcl* (Zoloft*) 100 Mg Tablet, 100 MG PO DAILY, #30 TAB 09/18/16 Aspirin* (Aspirin* EC) 81 Mg Tablet., 81 MG PO DAILY, TAB 09/18/16 Esomeprazole Mag Trihydrate (Nexium) 40 Mg Capsule., 40 MG PO DAILY, #30 CAP 09/18/16 Metoprolol Succinate* (Toprol XL*) 50 Mg Tab.er.24h, 50 MG PO DAILY, #30 TAB 09/18/16 Discontinued Scripts Ibuprofen* (Ibuprofen*) 600 Mg Tablet, 600 MG PO Q8 for PAIN AND/OR INFLAMMATION, #12 TAB Prov:FARIDEH CARR MD 09/18/16 Oxycodone HCl/Acetaminophen (Percocet 5-325 mg Tablet) 1 Each Tablet, 1 EACH PO TID for PAIN, #12 TAB Prov:FARIDEH CARR MD 09/18/16 Current Medications IV Flush (NS 3 ml) 3 ml PER PROTOCOL IV Last administered on 07/13/18 21:54; Admin Dose 3 ML; Start 07/12/18 at 13:00 Ondansetron HCl (Zofran Inj) 4 mg Q6H PRN IV NAUSEA/VOMITING; Start 07/12/18 at 13:00 Acetaminophen (Tylenol Tab) 650 mg Q6H PRN PO .PAIN 1-3 OR TEMP; Start 07/12/18 at 13:00 Acetaminophen/ Hydrocodone Bitart ([place] (5/325)) 1 tab Q6H PRN PO .PAIN 4-6 Last administered on 07/13/18 22:55; Admin Dose 1 TAB; Start 07/12/18 at 13:00 Morphine Sulfate (morphine) 2 mg Q4H PRN IV .PAIN 7-10 Last administered on 07/14/18 06:42; Admin Dose 2 MG; Start 07/12/18 at 13:00 Ropinirole HCl (Requip) 1 mg HS PO Last administered on 07/13/18 22:51; Admin Dose 1 MG; Start 07/12/18 at 21:00 Sertraline HCl (Zoloft) 100 mg DAILY PO Last administered on 07/14/18 08:56; Admin Dose 100 MG; Start 07/13/18 at 09:00 Solifenacin (Vesicare) 5 mg DAILY PO Last administered on 07/14/18 08:56; Admin Dose 5 MG; Start 07/13/18 at 09:00 Pantoprazole (Protonix Tab) 40 mg DAILY@06 PO Last administered on 07/13/18 06:05; Admin Dose 40 MG; Start 07/13/18 at 06:00 Hydralazine HCl (Apresoline) 10 mg Q4H PRN IV sbp >160 Last administered on 07/14/18 11:43; Admin Dose 10 MG; Start 07/12/18 at 13:30 Amlodipine Besylate (Norvasc) 5 mg DAILY PO Last administered on 07/14/18 08:55; Admin Dose 5 MG; Start 07/13/18 at 09:00 Metoprolol Succinate (Toprol Xl) 50 mg QHS PO Last administered on 07/13/18at 21:50; Admin Dose 50 MG; Start 07/12/18 at 21:30 Sodium Chloride 1,000 ml @ 50 mls/hr Q20H IV Last administered on 07/13/18at 21:49; Admin Dose 50 MLS/HR; Start 07/13/18 at 03:30 Meds reviewed: Yes Allergies Coded Allergies: codeine (Unverified Allergy, Unknown, 07/12/18) Uncoded Allergies: UNKNOWN ANTIBIOTIC (Allergy, Unknown, 09/18/16) Allergies Reviewed: Yes Labs/Studies Labs Reviewed: Reviewed by anesthesiologist Result Diagram: 07/14/1818 07/14/1818 Laboratory Tests 07/14/18 08:18 Blood Bank Test 07/13/18 21:53 Antibody Screen NEGATIVE Blood Product Summary Counts Blood Type O POSITIVE Crossmatch Red Blood Cells test: N/A Studies: ECG (SR), CXR (The lungs are clear of acute infiltrates, edema, effusions, or masses. Calcific atherosclerosis of the aorta is present.. The cardiomediastinal silhouette is unremarkable. The osseous structures are intact. ), 2D Echo (EF 60%) Pre-procedure Exam Last vitals Vital Signs Date Temp Pulse Resp B/P (MAP) Pulse Ox O2 O2 Flow FiO2 Time Delivery Rate 07/14/18 98.6 68 18 166/71 96 Nasal 07:58 (102) Cannula 07/13/18 2.0 08:35 Airway: Adequate mouth opening Mallampati: Mallampati II Teeth: Normal Lung: Normal Heart: Normal ASA Physical Status ASA physical status: 3 Emergency: None Planned Anesthetic General/MAC: ETT Pre-operative Attestations Prior to commencing anesthesia and surgery, the patient was re-evaluated, there was verification of: *The patient's identity *The results of appropriate recent lab work and preoperative vital signs *The above evaluation not changing prior to induction *Anesthetic plan, risk benefits, alternative and complications discussed with patient/family; questions answered; patient/family understands, accepts and wishes to proceed. TANYA MARTINEZ Jul 14, 2018 12:24
[2018-07-14] MEDS ORDERED: FENTAnyl 50 MCG/ML VIAL ONE ×2 (13:37→13:44)
[2018-07-14] MEDS ORDERED: MIDAZOLAM 1 MG/ML 2 ML INJ ONE (13:37)
[2018-07-14] MEDS ORDERED: morphine SULFATE/PF (10 MG/10 ML) INJ ONE (13:37)
[2018-07-14] MEDS ORDERED: ETOMIDATE 20 MG INJ ONE (13:37)
[2018-07-14] MEDS ORDERED: ROCURONIUM 50 MG INJ ONE (14:34)
[2018-07-14] MEDS ORDERED: PROPOFOL 20 ML ONE (14:34)
[2018-07-14] MEDS ORDERED: ROPIVACAINE 0.5 % 30 ML VIAL ONE (14:35)
[2018-07-14] MEDS ORDERED: METOCLOPRAMIDE 10 MG INJ ONE (14:35)
[2018-07-14] MEDS ORDERED: ONDANSETRON 4 MG INJ ONE (14:35)
[2018-07-14] MEDS ORDERED: POLYMYXIN/BACITRACIN 1L IRRIG IRR ONE (14:50)
--- NOTE | 2018-07-14 15:16 | PN ---
Date/Time of Note Date/Time of Note DATE: 07/14/18 TIME: 15:10 Assessment/Plan VTE Prophylaxis Risk score (from Ns)>0 risk: 8 SCD applied (from Ns): Yes Pharmacological prophylaxis: NA/contraindicated Pharm contraindication: surgical contra Lines/Catheters IV Catheter Type (from Nrsg): Peripheral IV Urinary Cath still in place: Yes Reason Cath still needed: terminal illness/intractable pain Assessment/Plan Assessment/Plan 1. Right hip fracture s/p mechanical fall - plans for OR today with Dr. Ott. Appreciate consultation - Patient cleared from Cardiology perspective for surgical intervention - Patient had very high functional status before the fracture, no apparent signs of dementia and able to ambulate on her own. 2. Acute kidney injury- resolved - Nephrology on board and appreciate recommendations. - avoid nephrotoxic agents 3. Dizziness- resolved - CT head negative for acute abnormalities - most likely associated with dehydration 4. Hypertension - Continue metoprolol and will restart losartan given BP has been elevated - will avoid restarting on hctz given patient does not hydrate well at home 5. Anemia - Mild, monitor 6. Overactive bladder - Continue Vesicare 7. Mood disorder -Continue sertraline 8. Restless leg syndrome - continue on ropinirole 9. Disposition - Plans for ORIF today. Will determine placement based on progress with physical therapy following surgical intervention Result Diagram: 07/14/18 0818 07/14/18 0818 Results 24hrs Laboratory Tests Test 07/14/18 07:27 07/14/18 08:18 Lab Scanned Report BLOOD TRANSFUSION White Blood Count 6.0 Red Blood Count 3.73 L Hemoglobin 10.4 L Hematocrit 32.8 L Mean Corpuscular Volume 87.9 Mean Corpuscular Hemoglobin 27.9 L Mean Corpuscular Hemoglobin Concent 31.7 L Red Cell Distribution Width 14.0 Platelet Count 140 Mean Platelet Volume 10.2 Immature Granulocytes % 0.500 H Neutrophils % 76.9 Lymphocytes % 13.8 L Monocytes % 7.9 Eosinophils % 0.7 Basophils % 0.2 Nucleated Red Blood Cells % 0.0 Immature Granulocytes # 0.030 Neutrophils # 4.6 Lymphocytes # 0.8 Monocytes # 0.5 Eosinophils # 0.0 Basophils # 0.0 Nucleated Red Blood Cells # 0.0 Sodium Level 141 Potassium Level 4.5 Chloride Level 107 Carbon Dioxide Level 26 Anion Gap 8 Blood Urea Nitrogen 29 H Creatinine 0.86 Est Glomerular Filtrat Rate mL/min Glucose Level 109 Calcium Level 8.6 Phosphorus Level 3.9 Magnesium Level 1.9 Subjective 24 Hr Interval Summary Free Text/Dictation Patient states shes doing okay and pain currently controlled with medications. Plans for OR today. Exam/Review of Systems Exam Vitals Vital Signs Date Temp Pulse Resp B/P (MAP) Pulse Ox O2 O2 Flow FiO2 Time Delivery Rate 07/14/18 80 16 175/74 92 Nasal 1.0 12:23 (107) Cannula 07/14/18 98.6 07:58 Intake and Output 07/13/18 07/13/18 07/14/18 1515:00 23:00 07:00 IntakeIntake Total 1000 ml 1150 ml 800 ml OutputOutput Total 450 ml 500 ml BalanceBalance 1000 ml 700 ml 300 ml Exam General: Patient is laying in bed and answers questions appropriately Neck: Supple Respiratory: Clear to auscultation bilaterally. no wheezing Cardiovascular: regular rate and rhythm, no obvious murmurs Gastrointestinal: soft, non-tender to palpation, bowel sounds heard. Neurological: Moves all extremities spontaneously, right lower extremity with less movement secondary to pain Skin: No new skin lesions Results Results 24hrs Laboratory Tests Test 07/14/18 07:27 07/14/18 08:18 Lab Scanned Report BLOOD TRANSFUSION White Blood Count 6.0 Red Blood Count 3.73 L Hemoglobin 10.4 L Hematocrit 32.8 L Mean Corpuscular Volume 87.9 Mean Corpuscular Hemoglobin 27.9 L Mean Corpuscular Hemoglobin Concent 31.7 L Red Cell Distribution Width 14.0 Platelet Count 140 Mean Platelet Volume 10.2 Immature Granulocytes % 0.500 H Neutrophils % 76.9 Lymphocytes % 13.8 L Monocytes % 7.9 Eosinophils % 0.7 Basophils % 0.2 Nucleated Red Blood Cells % 0.0 Immature Granulocytes # 0.030 Neutrophils # 4.6 Lymphocytes # 0.8 Monocytes # 0.5 Eosinophils # 0.0 Basophils # 0.0 Nucleated Red Blood Cells # 0.0 Sodium Level 141 Potassium Level 4.5 Chloride Level 107 Carbon Dioxide Level 26 Anion Gap 8 Blood Urea Nitrogen 29 H Creatinine 0.86 Est Glomerular Filtrat Rate mL/min Glucose Level 109 Calcium Level 8.6 Phosphorus Level 3.9 Magnesium Level 1.9 Medications Medication Current Medications IV Flush (NS 3 ml) 3 ml PER PROTOCOL IV Last administered on 07/13/18 21:54; Admin Dose 3 ML; Start 07/12/18 at 13:00 Ondansetron HCl (Zofran Inj) 4 mg Q6H PRN IV NAUSEA/VOMITING; Start 07/12/18 at 13:00 Acetaminophen (Tylenol Tab) 650 mg Q6H PRN PO .PAIN 1-3 OR TEMP; Start 07/12/18 at 13:00 Acetaminophen/ Hydrocodone Bitart ([place] (5/325)) 1 tab Q6H PRN PO .PAIN 4-6 Last administered on 07/13/18 22:55; Admin Dose 1 TAB; Start 07/12/18 at 13:00 Morphine Sulfate (morphine) 2 mg Q4H PRN IV .PAIN 7-10 Last administered on 07/14/18 06:42; Admin Dose 2 MG; Start 07/12/18 at 13:00 Ropinirole HCl (Requip) 1 mg HS PO Last administered on 07/13/18 22:51; Admin Dose 1 MG; Start 07/12/18 at 21:00 Sertraline HCl (Zoloft) 100 mg DAILY PO Last administered on 07/14/18 08:56; Admin Dose 100 MG; Start 07/13/18 at 09:00 Solifenacin (Vesicare) 5 mg DAILY PO Last administered on 07/14/18 08:56; Admin Dose 5 MG; Start 07/13/18 at 09:00 Pantoprazole (Protonix Tab) 40 mg DAILY@06 PO Last administered on 07/13/18 06:05; Admin Dose 40 MG; Start 07/13/18 at 06:00 Hydralazine HCl (Apresoline) 10 mg Q4H PRN IV sbp >160 Last administered on 07/14/18 11:43; Admin Dose 10 MG; Start 07/12/18 at 13:30 Amlodipine Besylate (Norvasc) 5 mg DAILY PO Last administered on 07/14/18 08:55; Admin Dose 5 MG; Start 07/13/18 at 09:00 Metoprolol Succinate (Toprol Xl) 50 mg QHS PO Last administered on 07/13/18 21:50; Admin Dose 50 MG; Start 07/12/18 at 21:30 Sodium Chloride 1,000 ml @ 50 mls/hr Q20H IV Last administered on 07/13/18at 21:49; Admin Dose 50 MLS/HR; Start 07/13/18 at 03:30 SHIRLENE MCDANIEL MD Jul 14, 2018 15:15
[2018-07-14] MEDS ORDERED: HYDROmorphONE 1 MG/5 ML IV SYRINGE IV PRN ×3 (18:00)
[2018-07-14] MEDS ORDERED: hydrALAzine 20 MG INJ IV PRN (18:00)
[2018-07-14] MEDS ORDERED: NACL 0.9% 3 ML SYG IV SCH (18:00)
[2018-07-14] MEDS ORDERED: FENTAnyl 50 MCG/ML VIAL IV PRN ×2 (18:00)
[2018-07-14] MEDS ORDERED: DIPHENHYDRAMINE 50 MG INJ IV PRN (18:00)
[2018-07-14] MEDS ORDERED: MEPERIDINE 25 MG INJ IV PRN ×2 (18:00)
[2018-07-14] MEDS ORDERED: LABETALOL HCL 20MG INJ IV PRN (18:00)
[2018-07-14] MEDS ORDERED: EPHEDrine SULFATE 50 MG/5 ML SYG IV PRN (18:00)
[2018-07-14] MEDS ORDERED: ONDANSETRON 4 MG INJ IV PRN (18:00)
--- NOTE | 2018-07-14 18:07 | SIPON ---
Date/Time of Note Date/Time of Note DATE: 07/14/18 TIME: 18:00 Operative Report Preoperative Diagnosis intertrochanteric and subtrochanterfic fracture cody right femur Postoperative Diagnosis same Operation/Procedure Performed O.R.I.Fof right hip fracture Surgeon see signature line virtual customer assistant none Anesthesia: general Estimated blood loss: 100 - 150 ml's Transfusion Required none Specimen none Grafts/Implants deepak nail Complications none ULISES GARCIA MD Jul 14, 2018 18:07
--- NOTE | 2018-07-14 18:08 | HPN ---
Date/Time of Note Date/Time of Note DATE: 07/14/18 TIME: 18:08 Interval H&P Admission Note Pt. seen H&P reviewed: No system changes ULISES GARCIA MD Jul 14, 2018 18:08
[2018-07-14] MEDS: FENTAnyl 50 MCG/ML VIAL IV PRN ×2 (18:30→18:42)
[2018-07-14] MEDS ORDERED: CEFAZOLIN 2 GM/50 ML (PMX) 50 ML IVPB SCH (20:00)
[2018-07-14] MEDS: SOD CHLORIDE 0.9% 1,000 ML IV SCH (20:35)
--- NOTE | 2018-07-14 20:36 | OPR ---
DATE OF OPERATION: 07/14/2018 PREOPERATIVE DIAGNOSIS: Intertrochanteric and subtrochanteric fracture of the right hip. POSTOPERATIVE DIAGNOSIS: Intertrochanteric and subtrochanteric fracture of the right hip. PROCEDURE PERFORMED: Open reduction and internal fixation of the intertrochanteric and subtrochanter ic fracture of the right hip utilizing Gamma Nail System. SURGEON: Janis Ott MD ANESTHESIA: General anesthesia. PROCEDURE AND FINDINGS: Under general anesthesia, the patient was placed in supine position upon the fracture table. Utilizing fracture table and under fluoroscopic examination, preliminary manipulati ve reduction was carried out as much as possible. Because of the unusual situation, one leg of the c rutch had to be placed under the right femur and alignment of the fracture was manipulated and improv ed by lowering the fracture table during the period of manipulation. After confirming acceptable alignment, procedure was started. First, the greater trochanteric area o f the right hip was approached through the lateral longitudinal incision. By blunt and sharp dissect ion, the area was exposed and guide pin was threaded through the trochanter. After confirming the sa tisfactory position of the guide pin, opening was enlarged with the cannulated drill and reamer guide was introduced into the intramedullary canal. After proper adjustment, measurement was made and it was my impression that 32 cm long intramedullary xenia with a 125-degree angle was the proper choice. After reaming up to 12 mm, the selected intramedullary device in the length of 32 cm was pounded in. After the insertion of the intramedullary xenia and after proper adjustment, guide pin for the lag scr ew was properly positioned and the measurement revealed that the length of the lag screw might be 105 mm. After reaming along the guide pin for the lag screw, the selected lag screw in the size of 1.5 mm was screwed in. After confirming satisfactory alignment of the fracture and proper position of th e fixation device, 1 distal locking screw was placed enough to stabilize the system. After confirming satisfactory alignment of the fracture and proper position of the fixation device an d after irrigation and hemostasis, closure of the incision was carried out using 0 Vicryl for muscle and fascia and 2-0 Vicryl for subcutaneous tissues. Final skin closure was carried out with skin sta ples. Usual sterile pressure dressings were applied. The patient tolerated the entire procedure very well and was sent to the recovery room in excellent c ondition. Dictated By: JANIS ARCEO/NAVID Conf#: [id number] DID#: [id number] CC: FARIDEH MANTILLA MD; MARIBEL ABARCA MD; SHIRLENE MCDANIEL MD;*EndCC*
[2018-07-14] MEDS: ROPINIROLE 1 MG TAB PO SCH (21:08)
[2018-07-14] MEDS: METOPROLOL (XL) 50 MG TAB PO SCH (21:08)
[2018-07-14] MEDS: CEFAZOLIN 2 GM/50 ML (PMX) 50 ML IVPB SCH (22:30)
[2018-07-15 00:05] VITALS: BP 94/55; PULSE 93; RESP 20
[2018-07-15] MEDS ORDERED: SOD CHLORIDE 0.9% 250 ML IV ONE ×2 (01:00→07:00)
[2018-07-15] MEDS: morphine 2 MG INJ IV PRN (01:14)
[2018-07-15 01:57] VITALS: BP 98/60; PULSE 94; RESP 20
[2018-07-15] MEDS: PANTOPRAZOLE (EC) 40 MG TAB PO SCH (05:35)
[2018-07-15] MEDS: CEFAZOLIN 2 GM/50 ML (PMX) 50 ML IVPB SCH ×2 (05:36→15:44)
[2018-07-15] MEDS: SOD CHLORIDE 0.9% 1,000 ML IV SCH ×2 (05:37→15:43)
[2018-07-15 06:11] VITALS: BP 111/69; PULSE 82; RESP 20
[2018-07-15 07:24] VITALS: BP 126/58; PULSE 76; RESP 18
[2018-07-15] MEDS: SERTRALINE 100 MG TAB PO SCH (08:42)
[2018-07-15] MEDS: SOLIFENACIN 5 MG TAB PO SCH (08:42)
[2018-07-15] MEDS: AMLODIPINE 5 MG TAB PO SCH (08:42)
--- NOTE | 2018-07-15 08:43 | PN ---
DATE: 07/15/2018 SUBJECTIVE: The patient is status post arthroplasty yesterday. Overnight, the patient was noted to be hypotensive, was given fluid bolus and IV fluids. No other events noted. No hemoptysis, hemateme sis or hematochezia. OBJECTIVE: VITAL SIGNS: Blood pressure is 126/58, respirations 18, pulse 76, temperature 98.6. HEENT: Head is normocephalic. NECK: Supple. HEART: Regular rate. LUNGS: Show diminished breath sounds at the base. ABDOMEN: Soft, nontender to palpation without rebound or guarding. EXTREMITIES: Negative for clubbing, cyanosis, no edema. MUSCULOSKELETAL: The patient has dressing over right hip. NEUROLOGIC: No change in exam. DERMATOLOGIC: No rashes. MEDICATIONS: The patient's medications have been reviewed. LABORATORY DATA: Reviewed. ASSESSMENT AND PLAN: 1. Nonoliguric acute kidney injury with unknown baseline creatinine. Etiology of acute kidney injur y was initially secondary to hemodynamics, diuretics and ARB effect. The patient's renal function mills s improved; however, over the last 24 hours renal function is declined. This may be again due to hem odynamics, volume depletion. The patient is currently receiving IV fluids and continue. We will con tinue to monitor renal function and urinary output closely. 2. Anemia. Continue to monitor hemoglobin and hematocrit levels. 3. Mineral bone disorder. Monitor calcium and phosphorus levels. 4. Hypertension. The patient is currently on IV fluids. We will continue. 5. History of restless legs syndrome. Continue Requip. 6. Right hip fracture, status post arthroplasty, postop day #1. Continue to monitor. Follow up wit h surgery. 7. History of overactive bladder. 8. History of lower extremity edema. Continue to monitor. Dictated By: STEPH MARTINEZ DO NR/NTS Conf#: [id number] DID#: [id number] CC: MARIBEL ABARCA MD; FARIDEH MANTILLA MD; SHIRLENE MCDANIEL MD;*End*
--- NOTE | 2018-07-15 08:44 | CONS ---
Consult Date/Type/Reason Admit Date/Time Jul 12, 2018 at 12:46 Initial Consult Date 07/12/18 Type of Consultation: cv Requesting Provider: FARIDEH MANTILLA Date/Time of Note DATE: 07/15/18 TIME: 08:42 Subjective Neurology follow-up progress note Subjective: Discussed with the staff and daughter. Patient with no chest pain or pressure no palpitation. no PND orthopnea. She still has hip pain but better now sp hip surgery 07/14 Objective: General: no acute distress but appears to be in pain with any movement HEENT: NC/AT. pupils are equal. round. NECK: NO JVD. no stridor. CV: RRR. systolic murmur; no gallop or rubs. PULM: no wheezing or rhonchi. GI: SOFT, NT, ND, no rebound or guarding Extremity: trace B/L LE edema. no clubbing. neuro: awake and alert, OX3. Psych: calm and pleasant rectal: deferred EKG was personally reviewed showed normal sinus rhythm with right bundle branch block Echocardiogram was personally reviewed which shows: Normal left ventricular systolic function. Normal left ventricular cavity size. Mild concentric left ventricular hypertrophy. Ejection fraction is visually estimated at 60 %. Tissue Doppler/Mitral Doppler indices are consistent with impaired relaxation (Stage I diastolic dysfunction). Normal appearance of the mitral valve. Mild mitral annular calcification. Trace mitral regurgitation. No significant aortic stenosis or insufficiency. Aortic cusps appear mildly calcified. Normal appearance of the tricuspid valve. Estimated peak PA systolic pressure 32 mmHg. There is trace to mild tricuspid regurgitation. Objective Vitals Vital Signs Date Temp Pulse Resp B/P (MAP) Pulse Ox O2 O2 Flow FiO2 Time Delivery Rate 07/15/18 98.6 76 18 126/58 96 Nasal 07:24 (80) Cannula 07/15/18 2.0 06:11 Intake and Output 07/14/18 07/14/18 07/15/18 1515:00 23:00 07:00 IntakeIntake Total 280 ml 2050 ml 920 ml OutputOutput Total 300 ml 250 ml BalanceBalance 280 ml 1750 ml 670 ml Results/Medications Result Diagram: 07/15/18 0457 07/15/18 0457 Results 24 hrs Laboratory Tests Test 07/14/18 18:35 07/15/18 04:57 White Blood Count 11.4 #H 8.5 # Red Blood Count 4.07 L 3.25 #L Hemoglobin 11.2 L 9.0 L Hematocrit 37.8 28.8 #L Mean Corpuscular Volume 92.9 88.6 Mean Corpuscular Hemoglobin 27.5 L 27.7 L Mean Corpuscular Hemoglobin Concent 29.6 L 31.3 L Red Cell Distribution Width 14.2 14.3 Platelet Count 158 152 Mean Platelet Volume 10.5 H 10.4 Immature Granulocytes % 0.900 H 0.600 H Neutrophils % 82.1 H Segmented Neutrophils % (Manual) 81 H Lymphocytes % 9.0 L Lymphocytes % (Manual) 9 L Monocytes % 8.3 Monocytes % (Manual) 9 Eosinophils % 0.0 Basophils % 0.0 Myelocytes % (Manual) 1 H Nucleated Red Blood Cells % 0.0 0.0 Immature Granulocytes # 0.100 H 0.050 H Neutrophils # 7.0 Lymphocytes (Manual) 1.0 Lymphocytes # 0.8 Monocytes # 0.7 Monocytes # (Manual) 1.0 H Eosinophils # 0.0 Basophils # 0.0 Myelocytes # 0.1 H Nucleated Red Blood Cells # 0.0 Platelet Estimate NORMAL Polychromasia 3+ Poikilocytosis 1+ Ovalocytes 1+ Sodium Level 142 141 Potassium Level 4.2 4.3 Chloride Level 107 108 Carbon Dioxide Level 19 L 23 Anion Gap 16 #H 10 # Blood Urea Nitrogen 29 H 36 H Creatinine 1.04 H 1.42 H Est Glomerular Filtrat Rate mL/min Glucose Level 153 144 Calcium Level 8.5 8.0 L Phosphorus Level 5.3 H Magnesium Level 1.7 Home Meds Reported Medications Solifenacin* (Vesicare*) 5 Mg Tablet, 5 MG PO DAILY, TAB 07/12/18 Ropinirole Hcl* (Ropinirole Hcl*) 1 Mg Tablet, 1 MG PO HS, TAB 07/12/18 Valsartan-Hydrochlorothiazide (Valsartan-HCTZ) 320-12.5 Mg Tablet, 1 TAB PO DAILY, #30 TAB 07/12/18 Sertraline Hcl* (Sertraline Hcl*) 100 Mg Tablet, 100 MG PO DAILY, #30 TAB 07/12/18 Metoprolol Succinate* (Toprol XL*) 50 Mg Tab.er.24h, 50 MG PO DAILY, #30 TAB 07/12/18 Esomeprazole Mag Trihydrate (Nexium) 40 Mg Capsule.dr, 40 MG PO DAILY, #30 CAP 07/12/18 Aspirin* (Aspirin* EC) 325 Mg Tab, 325 MG PO Q OTHER DAY, TAB 07/12/18 Discontinued Reported Medications Valsartan-Hydrochlorothiazide (Valsartan-HCTZ) 320-12.5 Mg Tablet, 1 TAB PO DAILY, #30 TAB 09/18/16 Sertraline Hcl* (Zoloft*) 100 Mg Tablet, 100 MG PO DAILY, #30 TAB 09/18/16 Aspirin* (Aspirin* EC) 81 Mg Tablet.dr, 81 MG PO DAILY, TAB 09/18/16 Esomeprazole Mag Trihydrate (Nexium) 40 Mg Capsule.dr, 40 MG PO DAILY, #30 CAP 09/18/16 Metoprolol Succinate* (Toprol XL*) 50 Mg Tab.er.24h, 50 MG PO DAILY, #30 TAB 09/18/16 Discontinued Scripts Ibuprofen* (Ibuprofen*) 600 Mg Tablet, 600 MG PO Q8 for PAIN AND/OR INFLAMMATION, #12 TAB Prov:FARIDEH CARR MD 09/18/16 Oxycodone HCl/Acetaminophen (Percocet 5-325 mg Tablet) 1 Each Tablet, 1 EACH PO TID for PAIN, #12 TAB Prov:FARIDEH CARR MD 09/18/16 Medications Current Medications IV Flush (NS 3 ml) 3 ml PER PROTOCOL IV Last administered on 07/13/18at 21:54; Admin Dose 3 ML; Start 07/12/18 at 13:00 Ondansetron HCl (Zofran Inj) 4 mg Q6H PRN IV NAUSEA/VOMITING; Start 07/12/18 at 13:00 Acetaminophen (Tylenol Tab) 650 mg Q6H PRN PO .PAIN 1-3 OR TEMP; Start 07/12/18 at 13:00 Acetaminophen/ Hydrocodone Bitart ([place] (5/325)) 1 tab Q6H PRN PO .PAIN 4-6 Last administered on 07/13/18at 22:55; Admin Dose 1 TAB; Start 07/12/18 at 13:00 Morphine Sulfate (morphine) 2 mg Q4H PRN IV .PAIN 7-10 Last administered on 07/15/18at 01:14; Admin Dose 2 MG; Start 07/12/18 at 13:00 Ropinirole HCl (Requip) 1 mg HS PO Last administered on 07/14/18at 21:08; Admin Dose 1 MG; Start 07/12/18 at 21:00 Sertraline HCl (Zoloft) 100 mg DAILY PO Last administered on 07/14/18at 08:56; Admin Dose 100 MG; Start 07/13/18 at 09:00 Solifenacin (Vesicare) 5 mg DAILY PO Last administered on 07/14/18 08:56; Admin Dose 5 MG; Start 07/13/18 at 09:00 Pantoprazole (Protonix Tab) 40 mg DAILY@06 PO Last administered on 07/15/18 05:35; Admin Dose 40 MG; Start 07/13/18 at 06:00 Hydralazine HCl (Apresoline) 10 mg Q4H PRN IV sbp >160 Last administered on 07/14/18at 11:43; Admin Dose 10 MG; Start 07/12/18 at 13:30 Amlodipine Besylate (Norvasc) 5 mg DAILY PO Last administered on 07/14/18at 08:55; Admin Dose 5 MG; Start 07/13/18 at 09:00 Metoprolol Succinate (Toprol Xl) 50 mg QHS PO Last administered on 07/14/18at 21:08; Admin Dose 50 MG; Start 07/12/18 at 21:30 Sodium Chloride 1,000 ml @ 80 mls/hr [id number] IV Last administered on 07/14/18at 20:35; Admin Dose 80 MLS/HR; Start 07/14/18 at 17:38 IV Flush (NS 3 ml) 3 ml per protocol IV ; Start 07/14/18 at 18:00 Enoxaparin Sodium (Lovenox) 30 mg DAILY SC ; Start 07/15/18 at 09:00 Meperidine HCl (Demerol) 25 mg Q4H PRN IV SEVERE PAIN LEVEL 7-10; Start 07/14/18 at 18:00; Status UNV Cefazolin Sodium/ Dextrose 50 ml @ 100 mls/hr Q8H IVPB Last administered on 07/15/18at 05:36; Admin Dose 100 MLS/HR; Start 07/14/18 at 22:30; Stop 07/15/18 at 14:59 Assessment/Plan Hospital Course (Demo Recall) Cardiovascular preop evaluation Hip fracture: s/p surgery 07/14 Hypertension Chronic kidney disease Severe hip pain secondary to above History of mood disorder History of overactive bladder Abnormal EKG right bundle branch block . Postop anemia Recommendations: Continue with the beta-mirian and norvasc. Postop care as per orthopedic surgery Continue with a DVT and GI prophylaxis Follow H&H and renal function Thank you for his referral. We will continue to follow him with you MARIBEL ABARCA MD [facility] MARIBEL ABARCA MD Jul 15, 2018 08:44
[2018-07-15] MEDS: ENOXAPARIN 30 MG/0.3 ML SYG SC SCH (08:48)
[2018-07-15] MEDS: HYDROCODONE/APAP (5/325) TAB PO PRN ×2 (08:49→13:16)
--- NOTE | 2018-07-15 10:25 | PAC ---
Date/Time of Note Date/Time of Note DATE: 07/15/18 TIME: 10:24 Post-Anesthesia Notes Post-Anesthesia Note Last documented vital signs Vital Signs Date Temp Pulse Resp B/P (MAP) Pulse Ox O2 O2 Flow FiO2 Time Delivery Rate 07/15/18 98.6 76 18 126/58 96 Nasal 07:24 (80) Cannula 07/15/18 2.0 06:11 Activity: WNL Respiratory function: WNL Cardiovascular function: WNL Mental status: Baseline Pain reasonably controlled: Yes Hydration appropriate: Yes Nausea/Vomiting absent: No JOSE WILSON MD Jul 15, 2018 10:25
[2018-07-15] MEDS ORDERED: OXYCODONE/ACETAMINOPHEN (10/325) TAB PO PRN (14:00)
--- NOTE | 2018-07-15 14:04 | PN ---
Date/Time of Note Date/Time of Note DATE: 07/15/18 TIME: 13:58 Assessment/Plan VTE Prophylaxis Risk score (from Nsg)>0 risk: 9 SCD applied (from Nsg): Yes Pharmacological prophylaxis: LMWH Lines/Catheters IV Catheter Type (from Nrsg): Peripheral IV Urinary Cath still in place: Yes Reason Cath still needed: terminal illness/intractable pain Assessment/Plan Assessment/Plan 1. Right hip fracture s/p ORIF 07/14/18 - Appreciate ortho consultation. PT on board - ARU evaluation placed and CM aware 2. Acute kidney injury - Nephrology on board and appreciate recommendations. most likely secondary to hemodynamics - avoid nephrotoxic agents 3. Dizziness- resolved - CT head negative for acute abnormalities 4. Hypertension - stable 5. Anemia - Mild, monitor 6. Overactive bladder - Continue Vesicare 7. Mood disorder - Continue sertraline 8. Restless leg syndrome - continue on ropinirole 9. Disposition - PT on board and will place ARU consultation for evaluation Result Diagram: 07/15/18 0457 07/15/18 0457 Results 24hrs Laboratory Tests Test 07/14/18 18:35 07/15/18 04:57 White Blood Count 11.4 #H 8.5 # Red Blood Count 4.07 L 3.25 #L Hemoglobin 11.2 L 9.0 L Hematocrit 37.8 28.8 #L Mean Corpuscular Volume 92.9 88.6 Mean Corpuscular Hemoglobin 27.5 L 27.7 L Mean Corpuscular Hemoglobin Concent 29.6 L 31.3 L Red Cell Distribution Width 14.2 14.3 Platelet Count 158 152 Mean Platelet Volume 10.5 H 10.4 Immature Granulocytes % 0.900 H 0.600 H Neutrophils % 82.1 H Segmented Neutrophils % (Manual) 81 H Lymphocytes % 9.0 L Lymphocytes % (Manual) 9 L Monocytes % 8.3 Monocytes % (Manual) 9 Eosinophils % 0.0 Basophils % 0.0 Myelocytes % (Manual) 1 H Nucleated Red Blood Cells % 0.0 0.0 Immature Granulocytes # 0.100 H 0.050 H Neutrophils # 7.0 Lymphocytes (Manual) 1.0 Lymphocytes # 0.8 Monocytes # 0.7 Monocytes # (Manual) 1.0 H Eosinophils # 0.0 Basophils # 0.0 Myelocytes # 0.1 H Nucleated Red Blood Cells # 0.0 Platelet Estimate NORMAL Polychromasia 3+ Poikilocytosis 1+ Ovalocytes 1+ Sodium Level 142 141 Potassium Level 4.2 4.3 Chloride Level 107 108 Carbon Dioxide Level 19 L 23 Anion Gap 16 #H 10 # Blood Urea Nitrogen 29 H 36 H Creatinine 1.04 H 1.42 H Est Glomerular Filtrat Rate mL/min Glucose Level 153 144 Calcium Level 8.5 8.0 L Phosphorus Level 5.3 H Magnesium Level 1.7 Subjective 24 Hr Interval Summary Free Text/Dictation Patient states pain is controlled but per nursing, morphine has been causing hallucinations. Patient admits to feeling tired after working with PT this am but no acute chest pain or shortness of breath. Exam/Review of Systems Exam Vitals Vital Signs Date Temp Pulse Resp B/P (MAP) Pulse Ox O2 O2 Flow FiO2 Time Delivery Rate 07/15/18 Nasal 2.0 09:25 Cannula 07/15/18 98.6 76 18 126/58 96 07:24 (80) Intake and Output 07/14/18 07/14/18 07/15/18 1515:00 23:00 07:00 IntakeIntake Total 280 ml 2050 ml 920 ml OutputOutput Total 300 ml 250 ml BalanceBalance 280 ml 1750 ml 670 ml Exam General: Patient is laying in bed and answers questions appropriately Neck: Supple Respiratory: Clear to auscultation bilaterally. no wheezing Cardiovascular: regular rate and rhythm, no obvious murmurs Gastrointestinal: soft, non-tender to palpation, bowel sounds heard. Neurological: no focal deficits Ext: right hip dressing in place Skin: No new skin lesions Results Results 24hrs Laboratory Tests Test 07/14/18 18:35 07/15/18 04:57 White Blood Count 11.4 #H 8.5 # Red Blood Count 4.07 L 3.25 #L Hemoglobin 11.2 L 9.0 L Hematocrit 37.8 28.8 #L Mean Corpuscular Volume 92.9 88.6 Mean Corpuscular Hemoglobin 27.5 L 27.7 L Mean Corpuscular Hemoglobin Concent 29.6 L 31.3 L Red Cell Distribution Width 14.2 14.3 Platelet Count 158 152 Mean Platelet Volume 10.5 H 10.4 Immature Granulocytes % 0.900 H 0.600 H Neutrophils % 82.1 H Segmented Neutrophils % (Manual) 81 H Lymphocytes % 9.0 L Lymphocytes % (Manual) 9 L Monocytes % 8.3 Monocytes % (Manual) 9 Eosinophils % 0.0 Basophils % 0.0 Myelocytes % (Manual) 1 H Nucleated Red Blood Cells % 0.0 0.0 Immature Granulocytes # 0.100 H 0.050 H Neutrophils # 7.0 Lymphocytes (Manual) 1.0 Lymphocytes # 0.8 Monocytes # 0.7 Monocytes # (Manual) 1.0 H Eosinophils # 0.0 Basophils # 0.0 Myelocytes # 0.1 H Nucleated Red Blood Cells # 0.0 Platelet Estimate NORMAL Polychromasia 3+ Poikilocytosis 1+ Ovalocytes 1+ Sodium Level 142 141 Potassium Level 4.2 4.3 Chloride Level 107 108 Carbon Dioxide Level 19 L 23 Anion Gap 16 #H 10 # Blood Urea Nitrogen 29 H 36 H Creatinine 1.04 H 1.42 H Est Glomerular Filtrat Rate mL/min Glucose Level 153 144 Calcium Level 8.5 8.0 L Phosphorus Level 5.3 H Magnesium Level 1.7 Medications Medication Current Medications IV Flush (NS 3 ml) 3 ml PER PROTOCOL IV Last administered on 07/13/18at 21:54; Admin Dose 3 ML; Start 07/12/18 at 13:00 Ondansetron HCl (Zofran Inj) 4 mg Q6H PRN IV NAUSEA/VOMITING; Start 07/12/18 at 13:00 Acetaminophen (Tylenol Tab) 650 mg Q6H PRN PO .PAIN 1-3 OR TEMP; Start 07/12/18 at 13:00 Acetaminophen/ Hydrocodone Bitart ([place] (5/325)) 1 tab Q6H PRN PO .PAIN 4-6 Last administered on 07/15/18at 13:16; Admin Dose 1 TAB; Start 07/12/18 at 13:00 Morphine Sulfate (morphine) 2 mg Q4H PRN IV .PAIN 7-10 Last administered on 07/15/18 01:14; Admin Dose 2 MG; Start 07/12/18 at 13:00 Ropinirole HCl (Requip) 1 mg HS PO Last administered on 07/14/18 21:08; Admin Dose 1 MG; Start 07/12/18 at 21:00 Sertraline HCl (Zoloft) 100 mg DAILY PO Last administered on 07/15/18at 08:42; Admin Dose 100 MG; Start 07/13/18 at 09:00 Solifenacin (Vesicare) 5 mg DAILY PO Last administered on 07/15/18 08:42; Admin Dose 5 MG; Start 07/13/18 at 09:00 Pantoprazole (Protonix Tab) 40 mg DAILY@06 PO Last administered on 07/15/18 05:35; Admin Dose 40 MG; Start 07/13/18 at 06:00 Hydralazine HCl (Apresoline) 10 mg Q4H PRN IV sbp >160 Last administered on 07/14/18at 11:43; Admin Dose 10 MG; Start 07/12/18 at 13:30 Amlodipine Besylate (Norvasc) 5 mg DAILY PO Last administered on 07/15/18 08:42; Admin Dose 5 MG; Start 07/13/18 at 09:00 Metoprolol Succinate (Toprol Xl) 50 mg QHS PO Last administered on 07/14/18 21:08; Admin Dose 50 MG; Start 07/12/18 at 21:30 Sodium Chloride 1,000 ml @ 80 mls/hr [id number] IV Last administered on 07/14/18 20:35; Admin Dose 80 MLS/HR; Start 07/14/18 at 17:38 IV Flush (NS 3 ml) 3 ml per protocol IV ; Start 07/14/18 at 18:00 Enoxaparin Sodium (Lovenox) 30 mg DAILY SC Last administered on 07/15/18 08:48; Admin Dose 30 MG; Start 07/15/18 at 09:00 Meperidine HCl (Demerol) 25 mg Q4H PRN IV SEVERE PAIN LEVEL 7-10; Start 07/14/18 at 18:00; Status UNV Cefazolin Sodium/ Dextrose 50 ml @ 100 mls/hr Q8H IVPB Last administered on 07/15/18 05:36; Admin Dose 100 MLS/HR; Start 07/14/18 at 22:30; Stop 07/15/18 at 14:59 SHIRLENE MCDANIEL MD Jul 15, 2018 14:04
[2018-07-15 15:03] VITALS: BP 113/53; PULSE 78; RESP 19
[2018-07-15] MEDS: OXYCODONE/ACETAMINOPHEN (5/325) TAB PO PRN (19:07)
[2018-07-15 19:35] VITALS: BP 126/58; PULSE 82; RESP 18
[2018-07-15] MEDS: ROPINIROLE 1 MG TAB PO SCH (22:36)
[2018-07-15] MEDS: METOPROLOL (XL) 50 MG TAB PO SCH (22:37)
[2018-07-16 02:00] VITALS: BP 108/52; PULSE 89; RESP 18
[2018-07-16] MEDS: SOD CHLORIDE 0.9% 1,000 ML IV SCH (05:25)
[2018-07-16] MEDS: PANTOPRAZOLE (EC) 40 MG TAB PO SCH (05:28)
[2018-07-16] MEDS: OXYCODONE/ACETAMINOPHEN (5/325) TAB PO PRN (06:26)
[2018-07-16 07:38] VITALS: BP 119/62; PULSE 78; RESP 18
[2018-07-16] MEDS: SERTRALINE 100 MG TAB PO SCH (08:24)
[2018-07-16] MEDS: SOLIFENACIN 5 MG TAB PO SCH (08:24)
[2018-07-16] MEDS: ENOXAPARIN 30 MG/0.3 ML SYG SC SCH ×2 (08:29→08:42)
[2018-07-16] MEDS ORDERED: HYDROCODONE/APAP (5/325) TAB PO PRN (09:00)
--- NOTE | 2018-07-16 09:07 | PN ---
DATE: 07/16/2018 SUBJECTIVE: The patient is stable overnight. No fevers, chills, nausea, or vomiting. OBJECTIVE: VITAL SIGNS: Blood pressure is 119/62, respirations 18, pulse 97.2. HEENT: Head is normocephalic. NECK: Supple. HEART: Regular rate. LUNGS: Show diminished breath sounds at the base. ABDOMEN: Soft, nontender to palpation without rebound or guarding. EXTREMITIES: Negative for clubbing, cyanosis, no edema. DERMATOLOGIC: No rashes. MUSCULOSKELETAL: The patient has dressing over right hip, clean, dry, and intact. NEUROLOGIC: No change in exam. MEDICATIONS: Reviewed. LABORATORY DATA: Reviewed. The patient's hemoglobin is 6.8, BUN 41, creatinine 1.42. ASSESSMENT AND PLAN: 1. Nonoliguric acute kidney injury with unknown baseline creatinine. Etiology of acute kidney injur y is secondary to hemodynamics, questionable tubular injury. The patient's renal function has stabil ized in the last 24 hours. At this point, continue current treatment plans, supportive care, renally dose all medicines. We will continue gentle IV hydration. 2. Anemia. The patient had a drop in hemoglobin and hematocrit levels. Repeat hemoglobin level is pending. If remains low, consider blood transfusion. 3. Mineral bone disorder. Monitor calcium and phosphorus levels. 4. Hypotension. Blood pressure is improving. Continue gentle IV hydration. 5. History of restless legs syndrome. 6. Right hip fracture, status post arthroplasty, postop day #1. Continue to monitor. Follow up wit h surgery. Continue pain control. 7. History of overactive bladder. 8. Lower extremity edema. Continue to monitor. Dictated By: STEPH MARTINEZ DO NR/NTS Conf#: [id number] DID#: [id number] CC: FARIDEH MANTILLA MD; SHIRLENE MCDANIEL MD; MARIBEL ABARCA MD;*EndCC*
--- NOTE | 2018-07-16 12:09 | CONS ---
Consult Date/Type/Reason Admit Date/Time Jul 12, 2018 at 12:46 Initial Consult Date 07/12/18 Type of Consultation: cv Requesting Provider: FARIDEH MANTILLA Date/Time of Note DATE: 07/16/18 TIME: 12:07 Subjective Neurology follow-up progress note Subjective: Discussed with the staff Patient with no report of any chest pain or pressure no palpitation. no PND orthopnea. sp hip surgery 07/14 Objective: General: no acute distress but appears to be in pain with any movement HEENT: NC/AT. pupils are equal. round. NECK: NO JVD. no stridor. CV: RRR. systolic murmur; no gallop or rubs. PULM: no wheezing or rhonchi. GI: SOFT, NT, ND, no rebound or guarding Extremity: trace B/L LE edema. no clubbing. neuro: sleeping Psych: calm and pleasant rectal: deferred EKG was personally reviewed showed normal sinus rhythm with right bundle branch block Echocardiogram was personally reviewed which shows: Normal left ventricular systolic function. Normal left ventricular cavity size. Mild concentric left ventricular hypertrophy. Ejection fraction is visually estimated at 60 %. Tissue Doppler/Mitral Doppler indices are consistent with impaired relaxation (Stage I diastolic dysfunction). Normal appearance of the mitral valve. Mild mitral annular calcification. Trace mitral regurgitation. No significant aortic stenosis or insufficiency. Aortic cusps appear mildly calcified. Normal appearance of the tricuspid valve. Estimated peak PA systolic pressure 32 mmHg. There is trace to mild tricuspid regurgitation. Objective Vitals Vital Signs Date Temp Pulse Resp B/P (MAP) Pulse Ox O2 O2 Flow FiO2 Time Delivery Rate 07/16/18 97.2 18 119/62 98 07:38 (81) 07/16/18 89 02:00 07/15/18 Nasal 2.0 20:10 Cannula Intake and Output 07/15/18 07/15/18 07/16/18 1414:59 22:59 06:59 IntakeIntake Total 250 ml 845 ml 1000 ml OutputOutput Total 300 ml 375 ml BalanceBalance 250 ml 545 ml 625 ml Results/Medications Result Diagram: 07/16/18 1008 07/16/18 0501 Results 24 hrs Laboratory Tests Test 07/16/18 04:59 07/16/18 05:01 07/16/18 10:08 Iron Level < 10 L Total Iron Binding Capacity 198 L Percent Iron Saturation White Blood Count 6.1 # 7.5 # Red Blood Count 2.38 #L 2.54 L Hemoglobin 6.8 #*L 7.1 L Hematocrit 21.3 #L 22.7 L Mean Corpuscular Volume 89.5 89.4 Mean Corpuscular Hemoglobin 28.6 L 28.0 L Mean Corpuscular Hemoglobin Concent 31.9 L 31.3 L Red Cell Distribution Width 14.6 H 14.6 H Platelet Count 121 #L 136 L Mean Platelet Volume 10.8 H 10.1 Immature Granulocytes % 0.700 H 0.800 H Neutrophils % 82.9 H Segmented Neutrophils % (Manual) 86 H Lymphocytes % 10.2 L Lymphocytes % (Manual) 10 L Monocytes % 5.1 Monocytes % (Manual) 1 Eosinophils % 0.9 Eosinophils % (Manual) 2 Basophils % 0.1 Basophils % (Manual) 1 Nucleated Red Blood Cells % 0.0 0.0 Immature Granulocytes # 0.040 H 0.060 H Neutrophils # 6.2 Lymphocytes (Manual) 0.6 L Lymphocytes # 0.8 Monocytes # 0.4 Monocytes # (Manual) 0.0 L Eosinophils # 0.1 Basophils # 0.0 Basophils # (Manual) 0.0 Nucleated Red Blood Cells # 0.0 Platelet Estimate DECREASED Giant Platelets 2 H Anisocytosis 1+ Microcytosis 1+ Sodium Level 139 Potassium Level 3.9 Chloride Level 110 Carbon Dioxide Level 21 Anion Gap 8 Blood Urea Nitrogen 41 H Creatinine 1.42 H Est Glomerular Filtrat Rate mL/min Glucose Level 98 # Calcium Level 7.2 L Phosphorus Level 4.0 Magnesium Level 1.7 Home Meds Reported Medications Solifenacin* (Vesicare*) 5 Mg Tablet, 5 MG PO DAILY, TAB 07/12/18 Ropinirole Hcl* (Ropinirole Hcl*) 1 Mg Tablet, 1 MG PO HS, TAB 07/12/18 Valsartan-Hydrochlorothiazide (Valsartan-HCTZ) 320-12.5 Mg Tablet, 1 TAB PO DAILY, #30 TAB 07/12/18 Sertraline Hcl* (Sertraline Hcl*) 100 Mg Tablet, 100 MG PO DAILY, #30 TAB 07/12/18 Metoprolol Succinate* (Toprol XL*) 50 Mg Tab.er.24h, 50 MG PO DAILY, #30 TAB 07/12/18 Esomeprazole Mag Trihydrate (Nexium) 40 Mg Capsule.dr, 40 MG PO DAILY, #30 CAP 07/12/18 Aspirin* (Aspirin* EC) 325 Mg Tab, 325 MG PO Q OTHER DAY, TAB 07/12/18 Discontinued Reported Medications Valsartan-Hydrochlorothiazide (Valsartan-HCTZ) 320-12.5 Mg Tablet, 1 TAB PO DAILY, #30 TAB 09/18/16 Sertraline Hcl* (Zoloft*) 100 Mg Tablet, 100 MG PO DAILY, #30 TAB 09/18/16 Aspirin* (Aspirin* EC) 81 Mg Tablet.dr, 81 MG PO DAILY, TAB 09/18/16 Esomeprazole Mag Trihydrate (Nexium) 40 Mg Capsule.dr, 40 MG PO DAILY, #30 CAP 09/18/16 Metoprolol Succinate* (Toprol XL*) 50 Mg Tab.er.24h, 50 MG PO DAILY, #30 TAB 09/18/16 Discontinued Scripts Ibuprofen* (Ibuprofen*) 600 Mg Tablet, 600 MG PO Q8 for PAIN AND/OR INFLAMMATION, #12 TAB Prov:FARIDEH CARR MD 09/18/16 Oxycodone HCl/Acetaminophen (Percocet 5-325 mg Tablet) 1 Each Tablet, 1 EACH PO TID for PAIN, #12 TAB Prov:FARIDEH CARR MD 09/18/16 Medications Current Medications Ondansetron HCl (Zofran Inj) 4 mg Q6H PRN IV NAUSEA/VOMITING; Start 07/12/18 at 13:00 Acetaminophen (Tylenol Tab) 650 mg Q6H PRN PO .PAIN 1-3 OR TEMP; Start 07/12/18 at 13:00 Ropinirole HCl (Requip) 1 mg HS PO Last administered on 07/15/18at 22:36; Admin Dose 1 MG; Start 07/12/18 at 21:00 Sertraline HCl (Zoloft) 100 mg DAILY PO Last administered on 07/16/18at 08:24; Admin Dose 100 MG; Start 07/13/18 at 09:00 Solifenacin (Vesicare) 5 mg DAILY PO Last administered on 07/16/18at 08:24; Admin Dose 5 MG; Start 07/13/18 at 09:00 Pantoprazole (Protonix Tab) 40 mg DAILY@06 PO Last administered on 07/15/18 05:35; Admin Dose 40 MG; Start 07/13/18 at 06:00 Hydralazine HCl (Apresoline) 10 mg Q4H PRN IV sbp >160 Last administered on 07/14/18at 11:43; Admin Dose 10 MG; Start 07/12/18 at 13:30 Amlodipine Besylate (Norvasc) 5 mg DAILY PO Last administered on 07/15/18 08:42; Admin Dose 5 MG; Start 07/13/18 at 09:00; Status Hold Metoprolol Succinate (Toprol Xl) 50 mg QHS PO Last administered on 07/15/18 22:37; Admin Dose 50 MG; Start 07/12/18 at 21:30 Sodium Chloride 1,000 ml @ 40 mls/hr Q24H IV Last administered on 07/16/18 05:25; Admin Dose 80 MLS/HR; Start 07/14/18 at 17:38 IV Flush (NS 3 ml) 3 ml per protocol IV ; Start 07/14/18 at 18:00 Tramadol HCl (Ultram) 50 mg Q6H PRN PO MODERATE PAIN LEVEL 4-6; Start 07/16/18 at 09:00 Acetaminophen/ Hydrocodone Bitart ([place] (5/325)) 1 tab Q4H PRN PO PAIN LEVEL 7-10 Last administered on 07/16/18at 10:22; Admin Dose 1 TAB; Start 07/16/18 at 09:00 Aspirin (Aspirin) 81 mg BID PO ; Start 07/16/18 at 21:00 Assessment/Plan Hospital Course (Demo Recall) Cardiovascular preop evaluation Hip fracture: s/p surgery 07/14 Hypertension Chronic kidney disease Severe hip pain secondary to above History of mood disorder History of overactive bladder Abnormal EKG right bundle branch block . Postop anemia NISHANT Recommendations: Continue with the beta-mirian Postop care as per orthopedic surgery Continue with a DVT and GI prophylaxis Follow H&H and renal function Thank you for his referral. We will continue to follow him with you as needed over the weekend MARIBEL ABARCA MD [facility] MARIBEL ABARCA MD Jul 16, 2018 12:09
[2018-07-16] MEDS: traMADol 50 MG TAB PO PRN (13:31)
[2018-07-16 14:06] VITALS: BP 111/58; PULSE 78; RESP 19
--- NOTE | 2018-07-16 14:38 | PN ---
Date/Time of Note Date/Time of Note DATE: 07/16/18 TIME: 14:32 Assessment/Plan VTE Prophylaxis Risk score (from Ns)>0 risk: 12 SCD applied (from Ns): Yes Pharmacological prophylaxis: other Pharm contraindication: anticoag not tolerated Lines/Catheters IV Catheter Type (from Nrsg): Saline Lock Urinary Cath still in place: Yes Reason Cath still needed: terminal illness/intractable pain Assessment/Plan Assessment/Plan 1. Right hip fracture s/p ORIF 07/14/18 - Appreciate ortho consultation. PT on board and plans for ARU once stable 2. Acute kidney injury - Nephrology on board and appreciate recommendations. most likely secondary to hemodynamics - avoid nephrotoxic agents 3. Hypertension - stable 4. Anemia - Repeat 7.1 but in no acute respiratory distress so will hold off on transfusions - iron levels noted and will give IV iron - continue monitoring and if hgb <7 will transfuse. will d/c LMWH for now 5. Overactive bladder - Continue Vesicare 6. Mood disorder - Continue sertraline 7. Restless leg syndrome - continue on ropinirole 8. Disposition - Anemic this am and will continue monitoring hgb. Will start IV iron given low iron stores. Once stable, will d/c to ARU Result Diagram: 07/16/18 1008 07/16/18 0501 Results 24hrs Laboratory Tests Test 07/16/18 04:59 07/16/18 05:01 07/16/18 10:08 Iron Level < 10 L Total Iron Binding Capacity 198 L Percent Iron Saturation White Blood Count 6.1 # 7.5 # Red Blood Count 2.38 #L 2.54 L Hemoglobin 6.8 #*L 7.1 L Hematocrit 21.3 #L 22.7 L Mean Corpuscular Volume 89.5 89.4 Mean Corpuscular Hemoglobin 28.6 L 28.0 L Mean Corpuscular Hemoglobin Concent 31.9 L 31.3 L Red Cell Distribution Width 14.6 H 14.6 H Platelet Count 121 #L 136 L Mean Platelet Volume 10.8 H 10.1 Immature Granulocytes % 0.700 H 0.800 H Neutrophils % 82.9 H Segmented Neutrophils % (Manual) 86 H Lymphocytes % 10.2 L Lymphocytes % (Manual) 10 L Monocytes % 5.1 Monocytes % (Manual) 1 Eosinophils % 0.9 Eosinophils % (Manual) 2 Basophils % 0.1 Basophils % (Manual) 1 Nucleated Red Blood Cells % 0.0 0.0 Immature Granulocytes # 0.040 H 0.060 H Neutrophils # 6.2 Lymphocytes (Manual) 0.6 L Lymphocytes # 0.8 Monocytes # 0.4 Monocytes # (Manual) 0.0 L Eosinophils # 0.1 Basophils # 0.0 Basophils # (Manual) 0.0 Nucleated Red Blood Cells # 0.0 Platelet Estimate DECREASED Giant Platelets 2 H Anisocytosis 1+ Microcytosis 1+ Sodium Level 139 Potassium Level 3.9 Chloride Level 110 Carbon Dioxide Level 21 Anion Gap 8 Blood Urea Nitrogen 41 H Creatinine 1.42 H Est Glomerular Filtrat Rate mL/min Glucose Level 98 # Calcium Level 7.2 L Phosphorus Level 4.0 Magnesium Level 1.7 Subjective 24 Hr Interval Summary Free Text/Dictation Patient sleepy this am and per daughter secondary to pain medications. Adjustments made per family request. Exam/Review of Systems Exam Vitals Vital Signs Date Temp Pulse Resp B/P (MAP) Pulse Ox O2 O2 Flow FiO2 Time Delivery Rate 07/16/18 98.2 78 19 111/58 96 14:06 (75) 07/16/18 Nasal 2.0 09:00 Cannula Intake and Output 07/15/18 07/15/18 07/16/18 1515:00 23:00 07:00 IntakeIntake Total 250 ml 845 ml 1000 ml OutputOutput Total 300 ml 375 ml BalanceBalance 250 ml 545 ml 625 ml Exam General: Patient is laying in bed and answers questions appropriately Neck: Supple Respiratory: Clear to auscultation bilaterally. no wheezing Cardiovascular: regular rate and rhythm, no obvious murmurs Gastrointestinal: soft, non-tender to palpation, bowel sounds heard. Neurological: no focal deficits Ext: right hip dressing in place. Skin: No new skin lesions Results Results 24hrs Laboratory Tests Test 07/16/18 04:59 07/16/18 05:01 07/16/18 10:08 Iron Level < 10 L Total Iron Binding Capacity 198 L Percent Iron Saturation White Blood Count 6.1 # 7.5 # Red Blood Count 2.38 #L 2.54 L Hemoglobin 6.8 #*L 7.1 L Hematocrit 21.3 #L 22.7 L Mean Corpuscular Volume 89.5 89.4 Mean Corpuscular Hemoglobin 28.6 L 28.0 L Mean Corpuscular Hemoglobin Concent 31.9 L 31.3 L Red Cell Distribution Width 14.6 H 14.6 H Platelet Count 121 #L 136 L Mean Platelet Volume 10.8 H 10.1 Immature Granulocytes % 0.700 H 0.800 H Neutrophils % 82.9 H Segmented Neutrophils % (Manual) 86 H Lymphocytes % 10.2 L Lymphocytes % (Manual) 10 L Monocytes % 5.1 Monocytes % (Manual) 1 Eosinophils % 0.9 Eosinophils % (Manual) 2 Basophils % 0.1 Basophils % (Manual) 1 Nucleated Red Blood Cells % 0.0 0.0 Immature Granulocytes # 0.040 H 0.060 H Neutrophils # 6.2 Lymphocytes (Manual) 0.6 L Lymphocytes # 0.8 Monocytes # 0.4 Monocytes # (Manual) 0.0 L Eosinophils # 0.1 Basophils # 0.0 Basophils # (Manual) 0.0 Nucleated Red Blood Cells # 0.0 Platelet Estimate DECREASED Giant Platelets 2 H Anisocytosis 1+ Microcytosis 1+ Sodium Level 139 Potassium Level 3.9 Chloride Level 110 Carbon Dioxide Level 21 Anion Gap 8 Blood Urea Nitrogen 41 H Creatinine 1.42 H Est Glomerular Filtrat Rate mL/min Glucose Level 98 # Calcium Level 7.2 L Phosphorus Level 4.0 Magnesium Level 1.7 Medications Medication Current Medications Ondansetron HCl (Zofran Inj) 4 mg Q6H PRN IV NAUSEA/VOMITING; Start 07/12/18 at 13:00 Acetaminophen (Tylenol Tab) 650 mg Q6H PRN PO .PAIN 1-3 OR TEMP; Start 07/12/18 at 13:00 Ropinirole HCl (Requip) 1 mg HS PO Last administered on 07/15/18at 22:36; Admin Dose 1 MG; Start 07/12/18 at 21:00 Sertraline HCl (Zoloft) 100 mg DAILY PO Last administered on 07/16/18 08:24; Admin Dose 100 MG; Start 07/13/18 at 09:00 Solifenacin (Vesicare) 5 mg DAILY PO Last administered on 07/16/18at 08:24; Admin Dose 5 MG; Start 07/13/18 at 09:00 Pantoprazole (Protonix Tab) 40 mg DAILY@06 PO Last administered on 07/15/18at 05:35; Admin Dose 40 MG; Start 07/13/18 at 06:00 Hydralazine HCl (Apresoline) 10 mg Q4H PRN IV sbp >160 Last administered on 07/14/18 11:43; Admin Dose 10 MG; Start 07/12/18 at 13:30 Amlodipine Besylate (Norvasc) 5 mg DAILY PO Last administered on 07/15/18 08:42; Admin Dose 5 MG; Start 07/13/18 at 09:00; Status Hold Metoprolol Succinate (Toprol Xl) 50 mg QHS PO Last administered on 07/15/18at 22:37; Admin Dose 50 MG; Start 07/12/18 at 21:30 Sodium Chloride 1,000 ml @ 40 mls/hr Q24H IV Last administered on 07/16/18 05:25; Admin Dose 80 MLS/HR; Start 07/14/18 at 17:38 IV Flush (NS 3 ml) 3 ml per protocol IV ; Start 07/14/18 at 18:00 Tramadol HCl (Ultram) 50 mg Q6H PRN PO MODERATE PAIN LEVEL 4-6 Last administered on 07/16/18at 13:31; Admin Dose 50 MG; Start 07/16/18 at 09:00 Acetaminophen/ Hydrocodone Bitart ([place] (5/325)) 1 tab Q4H PRN PO PAIN LEVEL 7-10 Last administered on 07/16/18at 10:22; Admin Dose 1 TAB; Start 07/16/18 at 09:00 Aspirin (Aspirin) 81 mg BID PO ; Start 07/16/18 at 21:00 SHIRLENE MCDANIEL MD Jul 16, 2018 14:38
[2018-07-16] MEDS: SOD FERRIC GLUC COMPLX 125 MG in SOD CHLORIDE 0.9% 100 ML IVPB SCH (16:31)
[2018-07-16 19:20] VITALS: BP 119/60; PULSE 85; RESP 18
[2018-07-16] MEDS: ASPIRIN 81 MG TAB PO SCH (21:05)
[2018-07-16] MEDS: METOPROLOL (XL) 50 MG TAB PO SCH (21:06)
[2018-07-16] MEDS: POLYETHYLENE GLYCOL 17 GM PACKET PO SCH (21:06)
[2018-07-16] MEDS: ROPINIROLE 1 MG TAB PO SCH (21:06)
[2018-07-17] MEDS: PANTOPRAZOLE (EC) 40 MG TAB PO SCH (06:16)
[2018-07-17] MEDS: SOD CHLORIDE 0.9% 1,000 ML IV SCH ×3 (06:37→09:26)
[2018-07-17 07:42] VITALS: BP 117/57; PULSE 75; RESP 18
[2018-07-17] MEDS: SOLIFENACIN 5 MG TAB PO SCH (09:13)
[2018-07-17] MEDS: POLYETHYLENE GLYCOL 17 GM PACKET PO SCH (09:13)
[2018-07-17] MEDS: SERTRALINE 100 MG TAB PO SCH (09:14)
[2018-07-17] MEDS: traMADol 50 MG TAB PO PRN (09:19)
--- NOTE | 2018-07-17 10:12 | PN ---
Date/Time of Note Date/Time of Note DATE: 07/17/18 TIME: 10:09 Assessment/Plan VTE Prophylaxis Risk score (from Ns)>0 risk: 12 SCD applied (from Ns): Yes Pharmacological prophylaxis: other Pharm contraindication: anticoag not tolerated Lines/Catheters IV Catheter Type (from Nrsg): Peripheral IV Urinary Cath still in place: Yes Reason Cath still needed: terminal illness/intractable pain Assessment/Plan Assessment/Plan 1. Right hip fracture s/p ORIF 07/14/18 - Appreciate ortho consultation. PT on board and plans for ARU once stable 2. Acute kidney injury- improving - Nephrology on board and appreciate recommendations. most likely secondary to hemodynamics - avoid nephrotoxic agents 3. Hypertension - stable 4. Anemia, blood loss and iron deficiency - will order 1 unit PRBC and hold aspirin for now - iron levels noted and continue on IV iron. will need PO at time of discharge 5. Overactive bladder - Continue Vesicare 6. Mood disorder - Continue sertraline 7. Restless leg syndrome - continue on ropinirole 8. Disposition - Given low hgb will give 1 unit of PRBC and hold all anticoagulation. Monitor for any active bleeding - Renal function improving - Once hgb and renal function stable, will d/c to ARU Result Diagram: 07/17/187 07/17/187 Results 24hrs Laboratory Tests Test 07/17/18 04:47 White Blood Count 4.6 #L Red Blood Count 2.33 L Hemoglobin 6.6 *L Hematocrit 21.0 L Mean Corpuscular Volume 90.1 Mean Corpuscular Hemoglobin 28.3 L Mean Corpuscular Hemoglobin Concent 31.4 L Red Cell Distribution Width 14.7 H Platelet Count 134 L Mean Platelet Volume 10.9 H Immature Granulocytes % 0.700 H Neutrophils % 75.8 Lymphocytes % 14.0 L Monocytes % 7.7 Eosinophils % 1.8 Basophils % 0.0 Nucleated Red Blood Cells % 0.0 Immature Granulocytes # 0.030 Neutrophils # 3.5 Lymphocytes # 0.6 L Monocytes # 0.4 Eosinophils # 0.1 Basophils # 0.0 Nucleated Red Blood Cells # 0.0 Sodium Level 138 Potassium Level 4.2 Chloride Level 108 Carbon Dioxide Level 22 Anion Gap 8 Blood Urea Nitrogen 47 H Creatinine 1.34 H Est Glomerular Filtrat Rate mL/min Glucose Level 89 Calcium Level 7.8 L Phosphorus Level 4.2 Magnesium Level 2.1 Subjective 24 Hr Interval Summary Free Text/Dictation Patient complaining of pain after being cleaned/turned. She has not had a BM and also noted with low hgb this am. No acute overnight events. Per daughter, patient has been experiencing hallucinations and discussed pain medication and hospital delirium as most likely cause. Exam/Review of Systems Exam Vitals Vital Signs Date Temp Pulse Resp B/P (MAP) Pulse Ox O2 O2 Flow FiO2 Time Delivery Rate 07/17/18 99.0 75 18 117/57 98 Room Air 07:42 (77) 07/16/18 2.0 20:42 Intake and Output 07/16/18 07/16/18 07/17/18 1515:00 23:00 07:00 IntakeIntake Total 540 ml 680 ml 300 ml OutputOutput Total 800 ml 1300 ml BalanceBalance 540 ml -120 ml -1000 ml Exam General: Patient is laying in bed and answers questions appropriately. discomfort from pain Neck: Supple Respiratory: Clear to auscultation bilaterally. no wheezing Cardiovascular: regular rate and rhythm, no obvious murmurs Gastrointestinal: soft, non-tender to palpation, bowel sounds heard. Neurological: no focal deficits Ext: right hip dressing in place. Skin: No new skin lesions Results Results 24hrs Laboratory Tests Test 07/17/18 04:47 White Blood Count 4.6 #L Red Blood Count 2.33 L Hemoglobin 6.6 *L Hematocrit 21.0 L Mean Corpuscular Volume 90.1 Mean Corpuscular Hemoglobin 28.3 L Mean Corpuscular Hemoglobin Concent 31.4 L Red Cell Distribution Width 14.7 H Platelet Count 134 L Mean Platelet Volume 10.9 H Immature Granulocytes % 0.700 H Neutrophils % 75.8 Lymphocytes % 14.0 L Monocytes % 7.7 Eosinophils % 1.8 Basophils % 0.0 Nucleated Red Blood Cells % 0.0 Immature Granulocytes # 0.030 Neutrophils # 3.5 Lymphocytes # 0.6 L Monocytes # 0.4 Eosinophils # 0.1 Basophils # 0.0 Nucleated Red Blood Cells # 0.0 Sodium Level 138 Potassium Level 4.2 Chloride Level 108 Carbon Dioxide Level 22 Anion Gap 8 Blood Urea Nitrogen 47 H Creatinine 1.34 H Est Glomerular Filtrat Rate mL/min Glucose Level 89 Calcium Level 7.8 L Phosphorus Level 4.2 Magnesium Level 2.1 Medications Medication Current Medications Ondansetron HCl (Zofran Inj) 4 mg Q6H PRN IV NAUSEA/VOMITING; Start 07/12/18 at 13:00 Acetaminophen (Tylenol Tab) 650 mg Q6H PRN PO .PAIN 1-3 OR TEMP; Start 07/12/18 at 13:00 Ropinirole HCl (Requip) 1 mg HS PO Last administered on 07/16/18 21:06; Admin Dose 1 MG; Start 07/12/18 at 21:00 Sertraline HCl (Zoloft) 100 mg DAILY PO Last administered on 07/17/18 09:14; Admin Dose 100 MG; Start 07/13/18 at 09:00 Solifenacin (Vesicare) 5 mg DAILY PO Last administered on 07/17/18 09:13; Admin Dose 5 MG; Start 07/13/18 at 09:00 Pantoprazole (Protonix Tab) 40 mg DAILY@06 PO Last administered on 07/17/18 06:16; Admin Dose 40 MG; Start 07/13/18 at 06:00 Hydralazine HCl (Apresoline) 10 mg Q4H PRN IV sbp >160 Last administered on 07/14/18at 11:43; Admin Dose 10 MG; Start 07/12/18 at 13:30 Amlodipine Besylate (Norvasc) 5 mg DAILY PO Last administered on 07/15/18 08:42; Admin Dose 5 MG; Start 07/13/18 at 09:00; Status Hold Metoprolol Succinate (Toprol Xl) 50 mg QHS PO Last administered on 07/16/18 21:06; Admin Dose 50 MG; Start 07/12/18 at 21:30 Sodium Chloride 1,000 ml @ 40 mls/hr Q24H IV Last administered on 07/17/18 09:26; Admin Dose 40 MLS/HR; Start 07/14/18 at 17:38 IV Flush (NS 3 ml) 3 ml per protocol IV ; Start 07/14/18 at 18:00 Tramadol HCl (Ultram) 50 mg Q6H PRN PO MODERATE PAIN LEVEL 4-6 Last administered on 07/17/18 09:19; Admin Dose 50 MG; Start 07/16/18 at 09:00 Acetaminophen/ Hydrocodone Bitart ([place] (5/325)) 1 tab Q4H PRN PO PAIN LEVEL 7-10 Last administered on 07/16/18at 10:22; Admin Dose 1 TAB; Start 07/16/18 at 09:00 Aspirin (Aspirin) 81 mg BID PO Last administered on 07/16/18at 21:05; Admin Dose 81 MG; Start 07/16/18 at 21:00; Status Hold Ferric Sodium Gluconate Complex 125 mg/Sodium Chloride 100 ml @ 100 mls/hr DAILY@1300 IVPB Last administered on 07/16/18at 16:31; Admin Dose 100 MLS/HR; Start 07/16/18 at 16:00; Stop 07/18/18 at 13:59 Polyethylene Glycol (Miralax) 17 gm DAILY PO Last administered on 07/17/18at 09:13; Admin Dose 17 GM; Start 07/16/18 at 19:00 Senna/Docusate Sodium (Senokot-S) 1 tab BID PO ; Start 07/17/18 at 10:30; Status UNV Bisacodyl (Dulcolax) 10 mg DAILY PRN PO CONSTIPATION; Start 07/17/18 at 10:30; Status UNV SHIRLENE MCDANIEL MD Jul 17, 2018 10:12
[2018-07-17] MEDS ORDERED: BISACODYL (EC) 5 MG TAB PO PRN (10:30)
--- NOTE | 2018-07-17 10:39 | CONS ---
Assessment/Plan Assessment/Plan Assessment/Plan (Daily) 1. Nonoliguric acute kidney injury with unknown baseline creatinine. Etiology of acute kidney injury is secondary to hemodynamics, questionable tubular injury. renal function continues to improve. At this point, continue current treatment plans, supportive care, renally dose all medicines. We will continue gentle IV hydration. 2. Anemia. The patient had a drop in hemoglobin and hematocrit levels. agree with prbc 3. Mineral bone disorder. Monitor calcium and phosphorus levels. 4. Hypotension. Blood pressure is improving. Continue gentle IV hydration. 5. History of restless legs syndrome. 6. Right hip fracture, status post arthroplasty. Continue to monitor. Follow up with surgery. Continue pain control. 7. History of overactive bladder. 8. Lower extremity edema. Continue to monitor. Consultation Date/Type/Reason Admit Date/Time Jul 12, 2018 at 12:46 Initial Consult Date 07/12/18 Requesting Provider: FARIDEH MANTILLA Date/Time of Note DATE: 07/17/18 TIME: 10:38 24 HR Interval Summary Free Text/Dictation denies shortness of breath, n/v, or urinary issues d/w rn gen nad cv rrr pulm ctab abd soft, nd, nt +bs ext: no edema Exam/Review of Systems Exam Vitals Vital Signs Date Temp Pulse Resp B/P (MAP) Pulse Ox O2 O2 Flow FiO2 Time Delivery Rate 07/17/18 99.0 75 18 117/57 98 Room Air 07:42 (77) 07/16/18 2.0 20:42 Intake and Output 07/16/18 07/16/18 07/17/18 1515:00 23:00 07:00 IntakeIntake Total 540 ml 680 ml 300 ml OutputOutput Total 800 ml 1300 ml BalanceBalance 540 ml -120 ml -1000 ml Results Result Diagram: 07/17/18 0447 07/17/18 0447 Results 24hrs Laboratory Tests Test 07/17/18 04:47 White Blood Count 4.6 #L Red Blood Count 2.33 L Hemoglobin 6.6 *L Hematocrit 21.0 L Mean Corpuscular Volume 90.1 Mean Corpuscular Hemoglobin 28.3 L Mean Corpuscular Hemoglobin Concent 31.4 L Red Cell Distribution Width 14.7 H Platelet Count 134 L Mean Platelet Volume 10.9 H Immature Granulocytes % 0.700 H Neutrophils % 75.8 Lymphocytes % 14.0 L Monocytes % 7.7 Eosinophils % 1.8 Basophils % 0.0 Nucleated Red Blood Cells % 0.0 Immature Granulocytes # 0.030 Neutrophils # 3.5 Lymphocytes # 0.6 L Monocytes # 0.4 Eosinophils # 0.1 Basophils # 0.0 Nucleated Red Blood Cells # 0.0 Sodium Level 138 Potassium Level 4.2 Chloride Level 108 Carbon Dioxide Level 22 Anion Gap 8 Blood Urea Nitrogen 47 H Creatinine 1.34 H Est Glomerular Filtrat Rate mL/min Glucose Level 89 Calcium Level 7.8 L Phosphorus Level 4.2 Magnesium Level 2.1 Medications Medication Current Medications Ondansetron HCl (Zofran Inj) 4 mg Q6H PRN IV NAUSEA/VOMITING; Start 07/12/18 at 13:00 Acetaminophen (Tylenol Tab) 650 mg Q6H PRN PO .PAIN 1-3 OR TEMP; Start 07/12/18 at 13:00 Ropinirole HCl (Requip) 1 mg HS PO Last administered on 07/16/18at 21:06; Admin Dose 1 MG; Start 07/12/18 at 21:00 Sertraline HCl (Zoloft) 100 mg DAILY PO Last administered on 07/17/18at 09:14; Admin Dose 100 MG; Start 07/13/18 at 09:00 Solifenacin (Vesicare) 5 mg DAILY PO Last administered on 07/17/18at 09:13; Admin Dose 5 MG; Start 07/13/18 at 09:00 Pantoprazole (Protonix Tab) 40 mg DAILY@06 PO Last administered on 07/17/18at 06:16; Admin Dose 40 MG; Start 07/13/18 at 06:00 Hydralazine HCl (Apresoline) 10 mg Q4H PRN IV sbp >160 Last administered on 07/14/18at 11:43; Admin Dose 10 MG; Start 07/12/18 at 13:30 Amlodipine Besylate (Norvasc) 5 mg DAILY PO Last administered on 07/15/18at 08:42; Admin Dose 5 MG; Start 07/13/18 at 09:00; Status Hold Metoprolol Succinate (Toprol Xl) 50 mg QHS PO Last administered on 07/16/18at 21:06; Admin Dose 50 MG; Start 07/12/18 at 21:30 Sodium Chloride 1,000 ml @ 40 mls/hr Q24H IV Last administered on 07/17/18 09:26; Admin Dose 40 MLS/HR; Start 07/14/18 at 17:38 IV Flush (NS 3 ml) 3 ml per protocol IV ; Start 07/14/18 at 18:00 Tramadol HCl (Ultram) 50 mg Q6H PRN PO MODERATE PAIN LEVEL 4-6 Last administered on 07/17/18 09:19; Admin Dose 50 MG; Start 07/16/18 at 09:00 Acetaminophen/ Hydrocodone Bitart ([place] (5/325)) 1 tab Q4H PRN PO PAIN LEVEL 7-10 Last administered on 07/16/18 10:22; Admin Dose 1 TAB; Start 07/16/18 at 09:00 Aspirin (Aspirin) 81 mg BID PO Last administered on 07/16/18 21:05; Admin Dose 81 MG; Start 07/16/18 at 21:00; Status Hold Ferric Sodium Gluconate Complex 125 mg/Sodium Chloride 100 ml @ 100 mls/hr DAILY@1300 IVPB Last administered on 07/16/18at 16:31; Admin Dose 100 MLS/HR; Start 07/16/18 at 16:00; Stop 07/18/18 at 13:59 Polyethylene Glycol (Miralax) 17 gm DAILY PO Last administered on 07/17/18 09:13; Admin Dose 17 GM; Start 07/16/18 at 19:00 Senna/Docusate Sodium (Senokot-S) 1 tab BID PO ; Start 07/17/18 at 10:30 Bisacodyl (Dulcolax) 10 mg DAILY PRN PO CONSTIPATION; Start 07/17/18 at 10:30 GALE MANTILLA MD Jul 17, 2018 10:39
[2018-07-17] MEDS: SENNA/DOCUSATE NA (8.6MG/50MG) TAB PO SCH ×2 (13:34→21:07)
[2018-07-17 14:28] VITALS: BP 119/58; PULSE 73
[2018-07-17 17:02] VITALS: BP 120/58; PULSE 73; RESP 18
[2018-07-17] MEDS: SOD FERRIC GLUC COMPLX 125 MG in SOD CHLORIDE 0.9% 100 ML IVPB SCH (19:16)
[2018-07-17 19:20] VITALS: BP 129/61; PULSE 75; RESP 18
[2018-07-17] MEDS: ROPINIROLE 1 MG TAB PO SCH (21:07)
[2018-07-17] MEDS: METOPROLOL (XL) 50 MG TAB PO SCH (21:08)
[2018-07-18 02:00] VITALS: BP 135/64; PULSE 67; RESP 18
[2018-07-18] MEDS: PANTOPRAZOLE (EC) 40 MG TAB PO SCH (06:18)
[2018-07-18 08:52] VITALS: BP 149/66; PULSE 70; RESP 18
[2018-07-18] MEDS: POLYETHYLENE GLYCOL 17 GM PACKET PO SCH (08:58)
[2018-07-18] MEDS: SOLIFENACIN 5 MG TAB PO SCH (08:58)
[2018-07-18] MEDS: SERTRALINE 100 MG TAB PO SCH (08:58)
[2018-07-18] MEDS: SENNA/DOCUSATE NA (8.6MG/50MG) TAB PO SCH ×2 (08:58→20:26)
[2018-07-18] MEDS ORDERED: ALBUTEROL 0.083% (NEB) 2.5 MG/3 ML AMP HHN PRN (09:00)
[2018-07-18] MEDS: traMADol 50 MG TAB PO PRN ×2 (09:07→20:25)
[2018-07-18] MEDS ORDERED: BISACODYL 10 MG SUPP PR PRN (10:00)
--- NOTE | 2018-07-18 12:16 | CONS ---
Assessment/Plan Assessment/Plan Assessment/Plan (Daily) 1. Nonoliguric acute kidney injury with unknown baseline creatinine. Etiology of acute kidney injury is secondary to hemodynamics, questionable tubular injury. renal function continues to improve. At this point, continue current treatment plans, supportive care, renally dose all medicines. We will continue gentle IV hydration. 2. Anemia. s/p prbc. monitor hg 3. Mineral bone disorder. Monitor calcium and phosphorus levels. 4. Hypotension. Blood pressure is improving. Continue gentle IV hydration. 5. History of restless legs syndrome. 6. Right hip fracture, status post arthroplasty. Continue to monitor. Follow up with surgery. Continue pain control. 7. History of overactive bladder. 8. Lower extremity edema. Continue to monitor. Consultation Date/Type/Reason Admit Date/Time Jul 12, 2018 at 12:46 Initial Consult Date 07/12/18 Requesting Provider: FARIDEH MANTILLA Date/Time of Note DATE: 07/18/18 TIME: 12:15 24 HR Interval Summary Free Text/Dictation denies n/v, shortness of breath or urinary issues dw rn gen nad cv rrr pulm ctab abd soft, nd, nt +bs ext: no edema Exam/Review of Systems Exam Vitals Vital Signs Date Temp Pulse Resp B/P (MAP) Pulse Ox O2 O2 Flow FiO2 Time Delivery Rate 07/18/18 98.4 70 18 149/66 94 Room Air 08:52 (93) 07/18/18 1.0 08:00 Intake and Output 07/17/18 07/17/18 07/18/18 1515:00 23:00 07:00 IntakeIntake Total 20 ml 600 ml 420 ml OutputOutput Total 1200 ml 800 ml BalanceBalance 20 ml -600 ml -380 ml Results Result Diagram: 07/18/18 0446 07/18/18 0447 Results 24hrs Laboratory Tests Test 07/17/18 14:31 07/18/18 04:46 07/18/18 04:47 Albumin 2.6 L 2.7 L White Blood Count 4.1 L Red Blood Count 2.57 L Hemoglobin 7.2 L Hematocrit 22.9 L Mean Corpuscular Volume 89.1 Mean Corpuscular Hemoglobin 28.0 L Mean Corpuscular Hemoglobin Concent 31.4 L Red Cell Distribution Width 14.4 Platelet Count 142 Mean Platelet Volume 10.6 H Immature Granulocytes % 0.700 H Neutrophils % 72.3 Lymphocytes % 15.5 Monocytes % 8.6 Eosinophils % 2.7 Basophils % 0.2 Nucleated Red Blood Cells % 0.0 Immature Granulocytes # 0.030 Neutrophils # 2.9 Lymphocytes # 0.6 L Monocytes # 0.4 Eosinophils # 0.1 Basophils # 0.0 Nucleated Red Blood Cells # 0.0 Sodium Level 139 Potassium Level 4.4 Chloride Level 108 Carbon Dioxide Level 22 Anion Gap 9 Blood Urea Nitrogen 45 H Creatinine 1.14 H Glucose Level 98 Calcium Level 8.1 L Phosphorus Level 3.6 Magnesium Level 2.2 Medications Medication Current Medications Ondansetron HCl (Zofran Inj) 4 mg Q6H PRN IV NAUSEA/VOMITING; Start 07/12/18 at 13:00 Acetaminophen (Tylenol Tab) 650 mg Q6H PRN PO .PAIN 1-3 OR TEMP; Start 07/12/18 at 13:00 Ropinirole HCl (Requip) 1 mg HS PO Last administered on 07/17/18at 21:07; Admin Dose 1 MG; Start 07/12/18 at 21:00 Sertraline HCl (Zoloft) 100 mg DAILY PO Last administered on 07/18/18at 08:58; Admin Dose 100 MG; Start 07/13/18 at 09:00 Solifenacin (Vesicare) 5 mg DAILY PO Last administered on 07/18/18at 08:58; Admin Dose 5 MG; Start 07/13/18 at 09:00 Pantoprazole (Protonix Tab) 40 mg DAILY@06 PO Last administered on 07/18/18at 06:18; Admin Dose 40 MG; Start 07/13/18 at 06:00 Hydralazine HCl (Apresoline) 10 mg Q4H PRN IV sbp >160 Last administered on 07/14/18at 11:43; Admin Dose 10 MG; Start 07/12/18 at 13:30 Amlodipine Besylate (Norvasc) 5 mg DAILY PO Last administered on 07/15/18at 08:42; Admin Dose 5 MG; Start 07/13/18 at 09:00; Status Hold Metoprolol Succinate (Toprol Xl) 50 mg QHS PO Last administered on 07/17/18at 21:08; Admin Dose 50 MG; Start 07/12/18 at 21:30 Sodium Chloride 1,000 ml @ 40 mls/hr Q24H IV Last administered on 07/17/18 09:26; Admin Dose 40 MLS/HR; Start 07/14/18 at 17:38 IV Flush (NS 3 ml) 3 ml per protocol IV ; Start 07/14/18 at 18:00 Tramadol HCl (Ultram) 50 mg Q6H PRN PO MODERATE PAIN LEVEL 4-6 Last administered on 07/18/18 09:07; Admin Dose 50 MG; Start 07/16/18 at 09:00 Acetaminophen/ Hydrocodone Bitart ([place] (5/325)) 1 tab Q4H PRN PO PAIN LEVEL 7-10 Last administered on 07/16/18 10:22; Admin Dose 1 TAB; Start 07/16/18 at 09:00 Aspirin (Aspirin) 81 mg BID PO Last administered on 07/16/18 21:05; Admin Dose 81 MG; Start 07/16/18 at 21:00; Status Hold Ferric Sodium Gluconate Complex 125 mg/Sodium Chloride 100 ml @ 100 mls/hr DAILY@1300 IVPB Last administered on 07/17/18 19:16; Admin Dose 100 MLS/HR; Start 07/16/18 at 16:00; Stop 07/18/18 at 13:59 Polyethylene Glycol (Miralax) 17 gm DAILY PO Last administered on 07/18/18 08:58; Admin Dose 17 GM; Start 07/16/18 at 19:00 Senna/Docusate Sodium (Senokot-S) 1 tab BID PO Last administered on 07/18/18 08:58; Admin Dose 1 TAB; Start 07/17/18 at 10:30 Albuterol (Proventil 0.083% (Neb)) 2.5 mg Q2H RESP THERAPY PRN HHN SHORTNESS OF BREATH; Start 07/18/18 at 09:00 Bisacodyl (Dulcolax Supp) 10 mg DAILY PRN [place] CONSTIPATION Last administered on 07/18/18 10:33; Admin Dose 10 MG; Start 07/18/18 at 10:00 GALE MANTILLA MD Jul 18, 2018 12:16
--- NOTE | 2018-07-18 13:10 | PN ---
Date/Time of Note Date/Time of Note DATE: 07/18/18 TIME: 13:07 Assessment/Plan VTE Prophylaxis Risk score (from Ns)>0 risk: 6 SCD applied (from Ns): Yes Pharmacological prophylaxis: NA/contraindicated Pharm contraindication: anticoag not tolerated Lines/Catheters IV Catheter Type (from Nrsg): Peripheral IV Urinary Cath still in place: Yes Reason Cath still needed: terminal illness/intractable pain Assessment/Plan Assessment/Plan 1. Right hip fracture s/p ORIF 07/14/18 - Appreciate ortho consultation. PT on board and plans for ARU once stable 2. Acute kidney injury- improving - Nephrology on board and appreciate recommendations. most likely secondary to hemodynamics - avoid nephrotoxic agents 3. Hypertension - stable 4. Anemia, blood loss and iron deficiency - little improvement after 1 unit and will order another unit of PRBC - iron levels noted and continue on IV iron. will need PO at time of discharge 5. Overactive bladder - Continue Vesicare 6. Mood disorder - Continue sertraline 7. Restless leg syndrome - continue on ropinirole 8. Constipation - bowel regime and enema if no relief 9. Disposition - Will give another PRBC today and recheck hgb - Renal function continues to improve - Bowel regime for constipation - if hgb stable in the am, can d/c to ARU Result Diagram: 07/18/18 0446 07/18/18 0447 Results 24hrs Laboratory Tests Test 07/17/18 14:31 07/18/18 04:46 07/18/18 04:47 Albumin 2.6 L 2.7 L White Blood Count 4.1 L Red Blood Count 2.57 L Hemoglobin 7.2 L Hematocrit 22.9 L Mean Corpuscular Volume 89.1 Mean Corpuscular Hemoglobin 28.0 L Mean Corpuscular Hemoglobin Concent 31.4 L Red Cell Distribution Width 14.4 Platelet Count 142 Mean Platelet Volume 10.6 H Immature Granulocytes % 0.700 H Neutrophils % 72.3 Lymphocytes % 15.5 Monocytes % 8.6 Eosinophils % 2.7 Basophils % 0.2 Nucleated Red Blood Cells % 0.0 Immature Granulocytes # 0.030 Neutrophils # 2.9 Lymphocytes # 0.6 L Monocytes # 0.4 Eosinophils # 0.1 Basophils # 0.0 Nucleated Red Blood Cells # 0.0 Sodium Level 139 Potassium Level 4.4 Chloride Level 108 Carbon Dioxide Level 22 Anion Gap 9 Blood Urea Nitrogen 45 H Creatinine 1.14 H Glucose Level 98 Calcium Level 8.1 L Phosphorus Level 3.6 Magnesium Level 2.2 Subjective 24 Hr Interval Summary Free Text/Dictation Patient complaining of constipation and requesting to sit on bedside commode. No acute overnight events. Exam/Review of Systems Exam Vitals Vital Signs Date Temp Pulse Resp B/P (MAP) Pulse Ox O2 O2 Flow FiO2 Time Delivery Rate 07/18/18 98.4 70 18 149/66 94 Room Air 08:52 (93) 07/18/18 1.0 08:00 Intake and Output 07/17/18 07/17/18 07/18/18 1414:59 22:59 06:59 IntakeIntake Total 20 ml 600 ml 420 ml OutputOutput Total 1200 ml 800 ml BalanceBalance 20 ml -600 ml -380 ml Exam General: Patient is laying in bed and answers questions appropriately. discomfort from constipation Neck: Supple Respiratory: Clear to auscultation bilaterally. no wheezing Cardiovascular: regular rate and rhythm, no obvious murmurs Gastrointestinal: soft, discomfort to palpation, bowel sounds heard. Neurological: no focal deficits Ext: right hip dressing in place. Skin: No new skin lesions Results Results 24hrs Laboratory Tests Test 07/17/18 14:31 07/18/18 04:46 07/18/18 04:47 Albumin 2.6 L 2.7 L White Blood Count 4.1 L Red Blood Count 2.57 L Hemoglobin 7.2 L Hematocrit 22.9 L Mean Corpuscular Volume 89.1 Mean Corpuscular Hemoglobin 28.0 L Mean Corpuscular Hemoglobin Concent 31.4 L Red Cell Distribution Width 14.4 Platelet Count 142 Mean Platelet Volume 10.6 H Immature Granulocytes % 0.700 H Neutrophils % 72.3 Lymphocytes % 15.5 Monocytes % 8.6 Eosinophils % 2.7 Basophils % 0.2 Nucleated Red Blood Cells % 0.0 Immature Granulocytes # 0.030 Neutrophils # 2.9 Lymphocytes # 0.6 L Monocytes # 0.4 Eosinophils # 0.1 Basophils # 0.0 Nucleated Red Blood Cells # 0.0 Sodium Level 139 Potassium Level 4.4 Chloride Level 108 Carbon Dioxide Level 22 Anion Gap 9 Blood Urea Nitrogen 45 H Creatinine 1.14 H Glucose Level 98 Calcium Level 8.1 L Phosphorus Level 3.6 Magnesium Level 2.2 Medications Medication Current Medications Ondansetron HCl (Zofran Inj) 4 mg Q6H PRN IV NAUSEA/VOMITING; Start 07/12/18 at 13:00 Acetaminophen (Tylenol Tab) 650 mg Q6H PRN PO .PAIN 1-3 OR TEMP; Start 07/12/18 at 13:00 Ropinirole HCl (Requip) 1 mg HS PO Last administered on 07/17/18 21:07; Admin Dose 1 MG; Start 07/12/18 at 21:00 Sertraline HCl (Zoloft) 100 mg DAILY PO Last administered on 07/18/18 08:58; Admin Dose 100 MG; Start 07/13/18 at 09:00 Solifenacin (Vesicare) 5 mg DAILY PO Last administered on 07/18/18 08:58; Admin Dose 5 MG; Start 07/13/18 at 09:00 Pantoprazole (Protonix Tab) 40 mg DAILY@06 PO Last administered on 07/18/18 06:18; Admin Dose 40 MG; Start 07/13/18 at 06:00 Hydralazine HCl (Apresoline) 10 mg Q4H PRN IV sbp >160 Last administered on 07/14/18 11:43; Admin Dose 10 MG; Start 07/12/18 at 13:30 Amlodipine Besylate (Norvasc) 5 mg DAILY PO Last administered on 07/15/18 08:42; Admin Dose 5 MG; Start 07/13/18 at 09:00; Status Hold Metoprolol Succinate (Toprol Xl) 50 mg QHS PO Last administered on 07/17/18 21:08; Admin Dose 50 MG; Start 07/12/18 at 21:30 Sodium Chloride 1,000 ml @ 40 mls/hr Q24H IV Last administered on 07/17/18 09:26; Admin Dose 40 MLS/HR; Start 07/14/18 at 17:38 IV Flush (NS 3 ml) 3 ml per protocol IV ; Start 07/14/18 at 18:00 Tramadol HCl (Ultram) 50 mg Q6H PRN PO MODERATE PAIN LEVEL 4-6 Last administered on 07/18/18 09:07; Admin Dose 50 MG; Start 07/16/18 at 09:00 Acetaminophen/ Hydrocodone Bitart ([place] (5/325)) 1 tab Q4H PRN PO PAIN LEVEL 7-10 Last administered on 07/16/18 10:22; Admin Dose 1 TAB; Start 07/16/18 at 09:00 Aspirin (Aspirin) 81 mg BID PO Last administered on 07/16/18at 21:05; Admin Dose 81 MG; Start 07/16/18 at 21:00; Status Hold Ferric Sodium Gluconate Complex 125 mg/Sodium Chloride 100 ml @ 100 mls/hr DAILY@1300 IVPB Last administered on 07/17/18at 19:16; Admin Dose 100 MLS/HR; Start 07/16/18 at 16:00; Stop 07/18/18 at 13:59 Polyethylene Glycol (Miralax) 17 gm DAILY PO Last administered on 07/18/18 08:58; Admin Dose 17 GM; Start 07/16/18 at 19:00 Senna/Docusate Sodium (Senokot-S) 1 tab BID PO Last administered on 07/18/18 08:58; Admin Dose 1 TAB; Start 07/17/18 at 10:30 Albuterol (Proventil 0.083% (Neb)) 2.5 mg Q2H RESP THERAPY PRN HHN SHORTNESS OF BREATH; Start 07/18/18 at 09:00 Bisacodyl (Dulcolax Supp) 10 mg DAILY PRN [place] CONSTIPATION Last administered on 07/18/18at 10:33; Admin Dose 10 MG; Start 07/18/18 at 10:00 SHIRLENE MCDANIEL MD Jul 18, 2018 13:10
[2018-07-18] MEDS: SOD FERRIC GLUC COMPLX 125 MG in SOD CHLORIDE 0.9% 100 ML IVPB SCH (13:54)
[2018-07-18 17:19] VITALS: BP 141/66; PULSE 75; RESP 19
[2018-07-18 20:22] VITALS: BP 161/72; PULSE 72; RESP 17
[2018-07-18] MEDS: ROPINIROLE 1 MG TAB PO SCH (20:24)
[2018-07-18] MEDS: METOPROLOL (XL) 50 MG TAB PO SCH (20:25)
[2018-07-18 22:05] VITALS: BP 161/72; PULSE 72; RESP 18
[2018-07-19 02:15] VITALS: BP 135/62; PULSE 69; RESP 19
[2018-07-19] MEDS: SOD CHLORIDE 0.9% 1,000 ML IV SCH (06:08)
[2018-07-19] MEDS: PANTOPRAZOLE (EC) 40 MG TAB PO SCH (06:08)
[2018-07-19 08:00] VITALS: BP 168/72; PULSE 71; RESP 17
--- NOTE | 2018-07-19 08:53 | PN ---
DATE: 07/19/2018 SUBJECTIVE: The patient is stable, no events overnight. OBJECTIVE: VITAL SIGNS: Blood pressure is 135/62, respirations 19, pulse 69, temperature 98.2. HEENT: Head is normocephalic. NECK: Supple. HEART: Regular rate. LUNGS: Show diminished breath sounds at the base. ABDOMEN: Soft, nontender to palpation without rebound or guarding. EXTREMITIES: Negative for clubbing, cyanosis, no edema. DERMATOLOGIC: No rashes. MUSCULOSKELETAL: No joint effusion. NEUROLOGIC: No change in exam. MEDICATIONS: The patient's medications have been reviewed. LABORATORY DATA: From 07/19/2018 was reviewed. ASSESSMENT AND PLAN: 1. Nonoliguric acute kidney injury with unknown baseline creatinine. Etiology of acute kidney injur y is secondary to hemodynamics, possible tubular injury. Renal function is improved. At this point, we will discontinue IV fluids, continue supportive care and renally dose all medicines. 2. Anemia. The patient is status post blood transfusion, monitor hemoglobin and hematocrit levels. 3. Mineral bone disorder, monitor calcium and phosphorus levels. 4. Hypertension. Blood pressure improved. Continue to monitor. Discontinue IV fluids. 5. History of restless legs syndrome. 6. Right hip fracture, status post arthroplasty. Continue to monitor. Follow up with surgery. Con tinue pain control. 7. History of overactive bladder. 8. Leukopenia, mild. Continue to monitor. Dictated By: STEPH MARTINEZ DO NR/NTS Conf#: [id number] DID#: [id number] CC: FARIDEH MANITLLA MD; SHIRLENE MCDANIEL MD; MARIBEL ABARCA MD;*EndCC*
[2018-07-19] MEDS: POLYETHYLENE GLYCOL 17 GM PACKET PO SCH (09:10)
[2018-07-19] MEDS: SENNA/DOCUSATE NA (8.6MG/50MG) TAB PO SCH ×2 (09:11→21:48)
[2018-07-19] MEDS: SOLIFENACIN 5 MG TAB PO SCH (09:11)
[2018-07-19] MEDS: SERTRALINE 100 MG TAB PO SCH (09:11)
[2018-07-19] MEDS: ACETAMINOPHEN 325 MG TAB PO PRN ×2 (09:19→21:50)
[2018-07-19 09:21] VITALS: BP 158/70; PULSE 73
--- NOTE | 2018-07-19 11:32 | PN ---
Date/Time of Note Date/Time of Note DATE: 07/19/18 TIME: 11:30 Objective Vitals Vital Signs Date Temp Pulse Resp B/P (MAP) Pulse Ox O2 O2 Flow FiO2 Time Delivery Rate 07/19/18 73 158/70 09:21 (99) 07/19/18 98.4 17 97 08:00 07/18/18 Nasal 2.0 20:22 Cannula Intake and Output 07/18/18 07/18/18 07/19/18 1515:00 23:00 07:00 IntakeIntake Total 100 ml 1240 ml 960 ml OutputOutput Total 450 ml 1000 ml BalanceBalance -350 ml 1240 ml -40 ml Results Result Diagram: 07/19/186 07/19/18 0436 Medications Medications Current Medications Ondansetron HCl (Zofran Inj) 4 mg Q6H PRN IV NAUSEA/VOMITING; Start 07/12/18 at 13:00 Acetaminophen (Tylenol Tab) 650 mg Q6H PRN PO .PAIN 1-3 OR TEMP Last admi nistered on 07/19/18at 09:19; Admin Dose 650 MG; Start 07/12/18 at 13:00 Ropinirole HCl (Requip) 1 mg HS PO Last administered on 07/18/18 20:24; Admin Dose 1 MG; Start 07/12/18 at 21:00 Sertraline HCl (Zoloft) 100 mg DAILY PO Last administered on 07/19/18 09:11; Admin Dose 100 MG; Start 07/13/18 at 09:00 Solifenacin (Vesicare) 5 mg DAILY PO Last administered on 07/19/18 09:11; Admin Dose 5 MG; Start 07/13/18 at 09:00 Pantoprazole (Protonix Tab) 40 mg DAILY@06 PO Last administered on 07/19/18 06:08; Admin Dose 40 MG; Start 07/13/18 at 06:00 Hydralazine HCl (Apresoline) 10 mg Q4H PRN IV sbp >160 Last administered on 07/14/18 11:43; Admin Dose 10 MG; Start 07/12/18 at 13:30 Amlodipine Besylate (Norvasc) 5 mg DAILY PO Last administered on 07/15/18 08:42; Admin Dose 5 MG; Start 07/13/18 at 09:00; Status Hold Metoprolol Succinate (Toprol Xl) 50 mg QHS PO Last administered on 07/18/18 20:25; Admin Dose 50 MG; Start 07/12/18 at 21:30 IV Flush (NS 3 ml) 3 ml per protocol IV ; Start 07/14/18 at 18:00 Tramadol HCl (Ultram) 50 mg Q6H PRN PO MODERATE PAIN LEVEL 4-6 Last administere d on 07/18/18 20:25; Admin Dose 50 MG; Start 07/16/18 at 09:00 Acetaminophen/ Hydrocodone Bitart ([place] (5/325)) 1 tab Q4H PRN PO PAIN LEVEL 7-10 Last administered on 07/16/18 10:22; Admin Dose 1 TAB; Start 07/16/18 at 09:00 Aspirin (Aspirin) 81 mg BID PO Last administered on 07/16/18 21:05; Admin Dose 81 MG; Start 07/16/18 at 21:00; Status Hold Polyethylene Glycol (Miralax) 17 gm DAILY PO Last administered on 07/19/18 09:10; Admin Dose 17 GM; Start 07/16/18 at 19:00 Senna/Docusate Sodium (Senokot-S) 1 tab BID PO Last administered on 07/19/18 09:11; Admin Dose 1 TAB; Start 07/17/18 at 10:30 Albuterol (Proventil 0.083% (Neb)) 2.5 mg Q2H RESP THERAPY PRN HHN SHORTNESS OF BREATH; Start 07/18/18 at 09:00 Bisacodyl (Dulcolax Supp) 10 mg DAILY PRN [place] CONSTIPATION Last administered on 07/18/18at 10:33; Admin Dose 10 MG; Start 07/18/18 at 10:00 VTE Prophylaxis Risk score (from Nsg)>0 risk: 9 SCD applied (from Nsg): Yes Lines/Catheters IV Catheter Type: Goldman in Place: No Assessment/Plan Hospital Course Subjective Patient just complaining of right hip pain, has poor p.o. intake Objective Physical exam General: Patient is laying in bed and answers questions appropriately Mentation: Patient is alert and oriented 4, Head: Normocephalic atraumatic Eyes: EOMI, pupils reactive to light Neck: Supple, nontender, midline Respiratory: Clear to auscultation bilaterally Cardiovascular: regular rate, no obvious murmurs Gastrointestinal: non-tender to palpation, bowel sounds heard. Neurological: Moves all extremities spontaneously but limited to pain Skin: No new skin lesions Assessment/Plan 1. Right hip fracture s/p ORIF 07/14/18 - Appreciate ortho consultation. PT on board and plans for ARU once stable 2. Acute kidney injury- improving - Nephrology on board and appreciate recommendations. most likely secondary to hemodynamics - avoid nephrotoxic agents 3. Hypertension - stable 4. Anemia, blood loss and iron deficiency - stable after receiving blood. - iron levels noted and continue on IV iron. will need PO at time of discharge 5. Overactive bladder - Continue Vesicare 6. Mood disorder - Continue sertraline 7. Restless leg syndrome - continue on ropinirole 8. Constipation - bowel regimen and enema if no relief 9. Disposition - Renal function continues to improve - Bowel regimen for constipation - if hgb stable in the am, can d/c to ARU -FARIDEH Soto Jul 19, 2018 11:32
[2018-07-19] MEDS ORDERED: AMLODIPINE 5 MG TAB PO ONE (13:00)
[2018-07-19 15:00] VITALS: BP 142/68; PULSE 78; RESP 19
[2018-07-19] MEDS ORDERED: traMADol 50 MG TAB PO PRN (15:00)
--- NOTE | 2018-07-19 15:12 | CONS ---
Consult Date/Type/Reason Admit Date/Time Jul 12, 2018 at 12:46 Initial Consult Date 07/12/18 Type of Consultation: cv Requesting Provider: FARIDEH MANTILLA Date/Time of Note DATE: 07/19/18 TIME: 15:10 Subjective cardiology follow-up progress note Subjective: Discussed with the staff Patient with no report of any chest pain or pressure no palpitation. no PND orthopnea. still with hip pain worse with activity sp hip surgery 07/14 Objective: General: no acute distress but appears to be in pain with any movement HEENT: NC/AT. pupils are equal. round. NECK: NO JVD. no stridor. CV: RRR. systolic murmur; no gallop or rubs. PULM: no wheezing or rhonchi. GI: SOFT, NT, ND, no rebound or guarding Extremity: trace B/L LE edema. no clubbing. neuro: sleeping Psych: calm and pleasant rectal: deferred EKG was personally reviewed showed normal sinus rhythm with right bundle branch block Echocardiogram was personally reviewed which shows: Normal left ventricular systolic function. Normal left ventricular cavity size. Mild concentric left ventricular hypertrophy. Ejection fraction is visually estimated at 60 %. Tissue Doppler/Mitral Doppler indices are consistent with impaired relaxation (Stage I diastolic dysfunction). Normal appearance of the mitral valve. Mild mitral annular calcification. Trace mitral regurgitation. No significant aortic stenosis or insufficiency. Aortic cusps appear mildly calcified. Normal appearance of the tricuspid valve. Estimated peak PA systolic pressure 32 mmHg. There is trace to mild tricuspid regurgitation. Objective Vitals Vital Signs Date Temp Pulse Resp B/P (MAP) Pulse Ox O2 O2 Flow FiO2 Time Delivery Rate 07/19/18 98.2 78 19 142/68 96 15:00 (92) 07/18/18 Nasal 2.0 20:22 Cannula Intake and Output 07/18/18 07/18/18 07/19/18 1515:00 23:00 07:00 IntakeIntake Total 100 ml 1240 ml 960 ml OutputOutput Total 450 ml 1000 ml BalanceBalance -350 ml 1240 ml -40 ml Results/Medications Result Diagram: 07/19/18 0436 07/19/18 0436 Results 24 hrs Laboratory Tests Test 07/19/18 04:36 White Blood Count 4.7 L Red Blood Count 2.85 L Hemoglobin 8.1 L Hematocrit 25.3 L Mean Corpuscular Volume 88.8 Mean Corpuscular Hemoglobin 28.4 L Mean Corpuscular Hemoglobin Concent 32.0 Red Cell Distribution Width 14.3 Platelet Count 175 # Mean Platelet Volume 10.8 H Immature Granulocytes % 1.100 H Neutrophils % 74.4 Lymphocytes % 13.3 L Monocytes % 8.7 Eosinophils % 2.1 Basophils % 0.4 Nucleated Red Blood Cells % 0.4 H Immature Granulocytes # 0.050 H Neutrophils # 3.5 Lymphocytes # 0.6 L Monocytes # 0.4 Eosinophils # 0.1 Basophils # 0.0 Nucleated Red Blood Cells # 0.0 Sodium Level 140 Potassium Level 4.2 Chloride Level 108 Carbon Dioxide Level 24 Anion Gap 8 Blood Urea Nitrogen 38 H Creatinine 0.94 Glucose Level 83 Calcium Level 8.1 L Phosphorus Level 3.0 Magnesium Level 2.0 Albumin 2.4 L Home Meds Reported Medications Solifenacin* (Vesicare*) 5 Mg Tablet, 5 MG PO DAILY, TAB 07/12/18 Ropinirole Hcl* (Ropinirole Hcl*) 1 Mg Tablet, 1 MG PO HS, TAB 07/12/18 Valsartan-Hydrochlorothiazide (Valsartan-HCTZ) 320-12.5 Mg Tablet, 1 TAB PO DAILY, #30 TAB 07/12/18 Sertraline Hcl* (Sertraline Hcl*) 100 Mg Tablet, 100 MG PO DAILY, #30 TAB 07/12/18 Metoprolol Succinate* (Toprol XL*) 50 Mg Tab.er.24h, 50 MG PO DAILY, #30 TAB 07/12/18 Esomeprazole Mag Trihydrate (Nexium) 40 Mg Capsule.dr, 40 MG PO DAILY, #30 CAP 07/12/18 Aspirin* (Aspirin* EC) 325 Mg Tab, 325 MG PO Q OTHER DAY, TAB 07/12/18 Discontinued Reported Medications Valsartan-Hydrochlorothiazide (Valsartan-HCTZ) 320-12.5 Mg Tablet, 1 TAB PO DAILY, #30 TAB 09/18/16 Sertraline Hcl* (Zoloft*) 100 Mg Tablet, 100 MG PO DAILY, #30 TAB 09/18/16 Aspirin* (Aspirin* EC) 81 Mg Tablet.dr, 81 MG PO DAILY, TAB 09/18/16 Esomeprazole Mag Trihydrate (Nexium) 40 Mg Capsule.dr, 40 MG PO DAILY, #30 CAP 09/18/16 Metoprolol Succinate* (Toprol XL*) 50 Mg Tab.er.24h, 50 MG PO DAILY, #30 TAB 09/18/16 Discontinued Scripts Ibuprofen* (Ibuprofen*) 600 Mg Tablet, 600 MG PO Q8 for PAIN AND/OR INF LAMMATION, #12 TAB Prov:FARIDEH CARR MD 09/18/16 Oxycodone HCl/Acetaminophen (Percocet 5-325 mg Tablet) 1 Each Tablet, 1 EACH PO TID for PAIN, #12 TAB Prov:FARIDEH CARR MD 09/18/16 Medications Current Medications Ondansetron HCl (Zofran Inj) 4 mg Q6H PRN IV NAUSEA/VOMITING; Start 07/12/18 at 13:00 Acetaminophen (Tylenol Tab) 650 mg Q6H PRN PO .PAIN 1-3 OR TEMP Last administered on 07/19/18 09:19; Admin Dose 650 MG; Start 07/12/18 at 13:00 Ropinirole HCl (Requip) 1 mg HS PO Last administered on 07/18/18at 20:24; Admin Dose 1 MG; Start 07/12/18 at 21:00 Sertraline HCl (Zoloft) 100 mg DAILY PO Last administered on 07/19/18at 09:11; Admin Dose 100 MG; Start 07/13/18 at 09:00 Solifenacin (Vesicare) 5 mg DAILY PO Last administered on 07/19/18at 09:11; Admin Dose 5 MG; Start 07/13/18 at 09:00 Pantoprazole (Protonix Tab) 40 mg DAILY@06 PO Last administered on 07/19/18at 06:08; Admin Dose 40 MG; Start 07/13/18 at 06:00 Hydralazine HCl (Apresoline) 10 mg Q4H PRN IV sbp >160 Last administered on 07/14/18at 11:43; Admin Dose 10 MG; Start 07/12/18 at 13:30 Amlodipine Besylate (Norvasc) 5 mg DAILY PO Last administered on 07/15/18 08:42; Admin Dose 5 MG; Start 07/13/18 at 09:00 Metoprolol Succinate (Toprol Xl) 50 mg QHS PO Last administered on 4/21/19at 20:25; Admin Dose 50 MG; Start 07/12/18 at 21:30 IV Flush (NS 3 ml) 3 ml per protocol IV ; Start 07/14/18 at 18:00 Acetaminophen/ Hydrocodone Bitart ([place] (5/325)) 1 tab Q4H PRN PO PAIN LEVEL 7-10 Last administered on 07/16/18 10:22; Admin Dose 1 TAB; Start 07/16/18 at 09:00 Aspirin (Aspirin) 81 mg BID PO Last administered on 07/16/18at 21:05; Admin Dose 81 MG; Start 07/16/18 at 21:00; Status Hold Polyethylene Glycol (Miralax) 17 gm DAILY PO Last administered on 07/19/18 09:10; Admin Dose 17 GM; Start 07/16/18 at 19:00 Senna/Docusate Sodium (Senokot-S) 1 tab BID PO Last administered on 07/19/18at 09:11; Admin Dose 1 TAB; Start 07/17/18 at 10:30 Albuterol (Proventil 0.083% (Neb)) 2.5 mg Q2H RESP THERAPY PRN HHN SHORTNESS OF BREATH; Start 07/18/18 at 09:00 Bisacodyl (Dulcolax Supp) 10 mg DAILY PRN [place] CONSTIPATION Last administered on 07/18/18at 10:33; Admin Dose 10 MG; Start 07/18/18 at 10:00 Tramadol HCl (Ultram) 25 mg Q6H PRN PO MODERATE PAIN LEVEL 4-6; Start 07/19/18 at 15:00 Assessment/Plan Hospital Course (Demo Recall) Cardiovascular preop evaluation Hip fracture: s/p surgery 07/14 Hypertension Chronic kidney disease Severe hip pain secondary to above History of mood disorder History of overactive bladder Abnormal EKG right bundle branch block . Postop anemia NISHANT Recommendations: Continue with the beta-mirian Postop care as per orthopedic surgery Continue with a DVT and GI prophylaxis Follow H&H and renal function Thank you for his referral. We will continue to follow him with you MARIBEL ABARCA MD [facility] MARIBEL ABARCA MD Jul 19, 2018 15:12
[2018-07-19 20:18] VITALS: BP 168/69; PULSE 69; RESP 18
[2018-07-19] MEDS: ROPINIROLE 1 MG TAB PO SCH (21:48)
[2018-07-19] MEDS: METOPROLOL (XL) 50 MG TAB PO SCH (21:49)
--- NOTE | 2018-07-19 21:58 | PN ---
DATE: 07/19/2018 Stable vital signs. H and H is 8.1/25.3. After 1 unit of packed cells, one more unit is given. Inc ision is clean and dry even though there is a considerable swelling around the right hip. To be pizarro sferred to acute rehab in a day or two. No major problems. Dictated By: JANIS ARCEO/NAVID Conf#: [id number] DID#: [id number]
[2018-07-20 02:15] VITALS: BP 162/73; PULSE 68; RESP 18
[2018-07-20] MEDS: PANTOPRAZOLE (EC) 40 MG TAB PO SCH (06:43)
[2018-07-20 07:21] VITALS: BP 143/70; PULSE 72; RESP 19
--- NOTE | 2018-07-20 08:34 | PN ---
DATE: 07/20/2018 SUBJECTIVE: The patient is stable, no events overnight. OBJECTIVE: VITAL SIGNS: Blood pressure is 143/70, pulse 72, respirations 18, temperature 98.4. HEENT: Head is normocephalic. NECK: Supple. HEART: Regular rate. LUNGS: Show diminished breath sounds at the base. ABDOMEN: Soft, nontender to palpation without rebound or guarding. EXTREMITIES: Negative for clubbing, cyanosis, no edema. DERMATOLOGIC: No rashes. MUSCULOSKELETAL: No joint effusion. NEUROLOGIC: No change in exam. MEDICATIONS: Reviewed. LABORATORY DATA: Reviewed. ASSESSMENT AND PLAN: 1. Nonoliguric acute kidney injury with unknown baseline creatinine. Etiology is secondary to hemod ynamics. Renal function is improved. Continue current treatment plan, supportive care, renally dose all medications. 2. Anemia. Continue to monitor hemoglobin and hematocrit levels. 3. Mineral bone disorder. Continue to monitor calcium and phosphorus levels. 4. Hypertension. Continue current blood pressure regimen. 5. History of restless legs syndrome. Continue medical management. 6. Right hip fracture, status post arthroplasty. Continue physical therapy, continue pain control. 7. History of overactive bladder. 8. Mild leukopenia. Resolved. Dictated By: STEPH MARTINEZ DO NR/NTS Conf#: [id number] DID#: [id number] CC: FARIDEH MANTILLA MD; MARIBEL ABARCA MD;*End*
[2018-07-20] MEDS: POLYETHYLENE GLYCOL 17 GM PACKET PO SCH (09:00)
[2018-07-20] MEDS: SENNA/DOCUSATE NA (8.6MG/50MG) TAB PO SCH (09:00)
[2018-07-20] MEDS: SOLIFENACIN 5 MG TAB PO SCH (09:42)
[2018-07-20] MEDS: ACETAMINOPHEN 325 MG TAB PO PRN ×3 (09:43→21:02)
[2018-07-20] MEDS: AMLODIPINE 10 MG TAB PO SCH (09:44)
[2018-07-20] MEDS: SERTRALINE 100 MG TAB PO SCH (09:44)
[2018-07-20] MEDS: ASPIRIN 81 MG TAB PO SCH ×2 (09:45→20:57)
[2018-07-20] MEDS: DOCUSATE SODIUM 100 MG CAP PO SCH ×2 (11:29→20:58)
--- NOTE | 2018-07-20 12:29 | PN ---
Date/Time of Note Date/Time of Note DATE: 07/20/18 TIME: 12:28 Objective Vitals Vital Signs Date Temp Pulse Resp B/P (MAP) Pulse Ox O2 O2 Flow FiO2 Time Delivery Rate 07/20/18 98.4 72 19 143/70 96 07:21 (94) 07/20/18 2.0 04:08 07/20/18 Nasal 02:15 Cannula Intake and Output 07/19/18 07/19/18 07/20/18 1414:59 22:59 06:59 IntakeIntake Total 320 ml 100 ml 400 ml OutputOutput Total 100 ml 700 ml BalanceBalance 220 ml -600 ml 400 ml Results Result Diagram: 07/20/189 07/20/18428 Medications Medications Current Medications Ondansetron HCl (Zofran Inj) 4 mg Q6H PRN IV NAUSEA/VOMITING; Start 07/12/18 at 13:00 Acetaminophen (Tylenol Tab) 650 mg Q6H PRN PO .PAIN 1-3 OR TEMP Last adminis tered on 07/20/18at 09:43; Admin Dose 650 MG; Start 07/12/18 at 13:00 Ropinirole HCl (Requip) 1 mg HS PO Last administered on 07/19/18 21:48; Admin Dose 1 MG; Start 07/12/18 at 21:00 Sertraline HCl (Zoloft) 100 mg DAILY PO Last administered on 07/20/18 09:44; Admin Dose 100 MG; Start 07/13/18 at 09:00 Solifenacin (Vesicare) 5 mg DAILY PO Last administered on 07/20/18 09:42; Admin Dose 5 MG; Start 07/13/18 at 09:00 Pantoprazole (Protonix Tab) 40 mg DAILY@06 PO Last administered on 07/20/18 06:43; Admin Dose 40 MG; Start 07/13/18 at 06:00 Hydralazine HCl (Apresoline) 10 mg Q4H PRN IV sbp >160 Last administered on 07/14/18at 11:43; Admin Dose 10 MG; Start 07/12/18 at 13:30 Metoprolol Succinate (Toprol Xl) 50 mg QHS PO Last administered on 07/19/18at 21:49; Admin Dose 50 MG; Start 07/12/18 at 21:30 IV Flush (NS 3 ml) 3 ml per protocol IV Last administered on 07/19/18at 21:51; Admin Dose 3 ML; Start 07/14/18 at 18:00 Acetaminophen/ Hydrocodone Bitart ([place] (5/325)) 1 tab Q4H PRN PO PAIN LEVEL 7-10 Last administered on 07/16/18at 10:22; Admin Dose 1 TAB; Start 07/16/18 at 09:00 Aspirin (Aspirin) 81 mg BID PO Last administered on 07/20/18at 09:45; Admin Dose 81 MG; Start 07/16/18 at 21:00 Albuterol (Proventil 0.083% (Neb)) 2.5 mg Q2H RESP THERAPY PRN HHN SHORTNESS OF BREATH; Start 07/18/18 at 09:00 Bisacodyl (Dulcolax Supp) 10 mg DAILY PRN [place] CONSTIPATION Last administered on 07/18/18at 10:33; Admin Dose 10 MG; Start 07/18/18 at 10:00 Tramadol HCl (Ultram) 25 mg Q6H PRN PO MODERATE PAIN LEVEL 4-6; Start 07/19/18 at 15:00 Amlodipine Besylate (Norvasc) 10 mg DAILY PO Last administered on 07/20/18at 09:44; Admin Dose 10 MG; Start 07/20/18 at 09:00 Docusate Sodium (Colace) 100 mg BID PO ; Start 07/20/18 at 10:00 VTE Prophylaxis Risk score (from Ns)>0 risk: 5 SCD applied (from Ns): Yes Lines/Catheters IV Catheter Type: Goldman in Place: No Assessment/Plan Hospital Course Subjective Patient just complaining of right hip pain, otherwise doing well Objective Physical exam General: Patient is laying in bed and answers questions appropriately Mentation: Patient is alert and oriented 4, Head: Normocephalic atraumatic Eyes: EOMI, pupils reactive to light Neck: Supple, nontender, midline Respiratory: Clear to auscultation bilaterally Cardiovascular: regular rate, no obvious murmurs Gastrointestinal: non-tender to palpation, bowel sounds heard. Neurological: Moves all extremities spontaneously but limited to pain Skin: No new skin lesions Assessment/Plan 1. Right hip fracture s/p ORIF 07/14/18 - Appreciate ortho consultation. PT on board and plans for ARU once stable 2. Acute kidney injury- resolved - Nephrology on board and appreciate recommendations. most likely secondary to hemodynamics - avoid nephrotoxic agents 3. Hypertension - stable, some likely due to pain, but will add medications as needed 4. Anemia, blood loss and iron deficiency - stable after receiving blood. - iron levels noted and continue on IV iron. will need PO at time of discharge - restart asa 5. Overactive bladder - Continue Vesicare 6. Mood disorder - Continue sertraline 7. Restless leg syndrome - continue on ropinirole 8. Constipation - bowel regimen and enema if no relief 9. Disposition - Bowel regimen for constipation - if hgb stable in the am while on asa, can d/c to ARU FARIDEH MANTILLA Jul 20, 2018 12:29
[2018-07-20] MEDS ORDERED: LISINOPRIL 5 MG TAB PO SCH (12:30)
[2018-07-20 14:13] VITALS: BP 153/72; PULSE 70; RESP 18
--- NOTE | 2018-07-20 15:55 | CONS ---
Consult Date/Type/Reason Admit Date/Time Jul 12, 2018 at 12:46 Initial Consult Date 07/12/18 Type of Consultation: cv Requesting Provider: FARIDEH MANTILLA Date/Time of Note DATE: 07/20/18 TIME: 15:53 Subjective cardiology follow-up progress note Subjective: Discussed with the staff and family Patient with no report of any chest pain or pressure no palpitation. no PND orthopnea. still with hip pain worse with activity and does not want to move it much sp hip surgery 07/14 Objective: General: no acute distress but appears to be in pain with any movement HEENT: NC/AT. pupils are equal. round. NECK: NO JVD. no stridor. CV: RRR. systolic murmur; no gallop or rubs. PULM: no wheezing or rhonchi. GI: SOFT, NT, ND, no rebound or guarding Extremity: trace B/L LE edema. no clubbing. neuro: sleeping Psych: calm and pleasant rectal: deferred EKG was personally reviewed showed normal sinus rhythm with right bundle branch block Echocardiogram was personally reviewed which shows: Normal left ventricular systolic function. Normal left ventricular cavity size. Mild concentric left ventricular hypertrophy. Ejection fraction is visually estimated at 60 %. Tissue Doppler/Mitral Doppler indices are consistent with impaired relaxation (Stage I diastolic dysfunction). Normal appearance of the mitral valve. Mild mitral annular calcification. Trace mitral regurgitation. No significant aortic stenosis or insufficiency. Aortic cusps appear mildly calcified. Normal appearance of the tricuspid valve. Estimated peak PA systolic pressure 32 mmHg. There is trace to mild tricuspid regurgitation. Objective Vitals Vital Signs Date Temp Pulse Resp B/P (MAP) Pulse Ox O2 O2 Flow FiO2 Time Delivery Rate 07/20/18 98.0 70 18 153/72 94 Nasal 1.0 14:13 (99) Cannula Intake and Output 07/19/18 07/19/18 07/20/18 1515:00 23:00 07:00 IntakeIntake Total 320 ml 100 ml 400 ml OutputOutput Total 100 ml 700 ml BalanceBalance 220 ml -600 ml 400 ml Results/Medications Result Diagram: 07/20/18 0429 07/20/18 0429 Results 24 hrs Laboratory Tests Test 07/20/18 04:29 07/20/18 07:17 White Blood Count 4.9 Red Blood Count 2.97 L Hemoglobin 8.3 L Hematocrit 26.3 L Mean Corpuscular Volume 88.6 Mean Corpuscular Hemoglobin 27.9 L Mean Corpuscular Hemoglobin Concent 31.6 L Red Cell Distribution Width 14.4 Platelet Count 191 Mean Platelet Volume 10.1 Immature Granulocytes % 2.000 H Neutrophils % 68.3 Lymphocytes % 17.8 Monocytes % 9.1 Eosinophils % 2.4 Basophils % 0.4 Nucleated Red Blood Cells % 0.0 Immature Granulocytes # 0.100 H Neutrophils # 3.4 Lymphocytes # 0.9 Monocytes # 0.5 Eosinophils # 0.1 Basophils # 0.0 Nucleated Red Blood Cells # 0.0 Sodium Level 142 Potassium Level 4.0 Chloride Level 112 H Carbon Dioxide Level 25 Anion Gap 5 Blood Urea Nitrogen 31 H Creatinine 0.99 Glucose Level 84 Calcium Level 8.8 Phosphorus Level 2.9 Magnesium Level 2.0 Albumin 2.6 L Lab Scanned Report BLOOD TRANSFUSION Home Meds Reported Medications Solifenacin* (Vesicare*) 5 Mg Tablet, 5 MG PO DAILY, TAB 07/12/18 Ropinirole Hcl* (Ropinirole Hcl*) 1 Mg Tablet, 1 MG PO HS, TAB 07/12/18 Valsartan-Hydrochlorothiazide (Valsartan-HCTZ) 320-12.5 Mg Tablet, 1 TAB PO DAILY, #30 TAB 07/12/18 Sertraline Hcl* (Sertraline Hcl*) 100 Mg Tablet, 100 MG PO DAILY, #30 TAB 07/12/18 Metoprolol Succinate* (Toprol XL*) 50 Mg Tab.er.24h, 50 MG PO DAILY, #30 TAB 07/12/18 Esomeprazole Mag Trihydrate (Nexium) 40 Mg Capsule.dr, 40 MG PO DAILY, #30 CAP 07/12/18 Aspirin* (Aspirin* EC) 325 Mg Tab, 325 MG PO Q OTHER DAY, TAB 07/12/18 Medications Current Medications Ondansetron HCl (Zofran Inj) 4 mg Q6H PRN IV NAUSEA/VOMITING; Start 07/12/18 at 13:00 Acetaminophen (Tylenol Tab) 650 mg Q6H PRN PO .PAIN 1-3 OR TEMP Last administered on 07/20/18at 15:20; Admin Dose 650 MG; Start 07/12/18 at 13:00 Ropinirole HCl (Requip) 1 mg HS PO Last administered on 07/19/18 21:48; Admin Dose 1 MG; Start 07/12/18 at 21:00 Sertraline HCl (Zoloft) 100 mg DAILY PO Last administered on 07/20/18 09:44; Admin Dose 100 MG; Start 07/13/18 at 09:00 Solifenacin (Vesicare) 5 mg DAILY PO Last administered on 07/20/18 09:42; Admin Dose 5 MG; Start 07/13/18 at 09:00 Pantoprazole (Protonix Tab) 40 mg DAILY@06 PO Last administered on 07/20/18 06:43; Admin Dose 40 MG; Start 07/13/18 at 06:00 Hydralazine HCl (Apresoline) 10 mg Q4H PRN IV sbp >160 Last administered on 07/14/18 11:43; Admin Dose 10 MG; Start 07/12/18 at 13:30 Metoprolol Succinate (Toprol Xl) 50 mg QHS PO Last administered on 07/19/18 21:49; Admin Dose 50 MG; Start 07/12/18 at 21:30 IV Flush (NS 3 ml) 3 ml per protocol IV Last administered on 07/19/18 21:51; Admin Dose 3 ML; Start 07/14/18 at 18:00 Acetaminophen/ Hydrocodone Bitart ([place] (5/325)) 1 tab Q4H PRN PO PAIN LEVEL 7-10 Last administered on 07/16/18 10:22; Admin Dose 1 TAB; Start 07/16/18 at 09:00 Aspirin (Aspirin) 81 mg BID PO Last administered on 07/20/18 09:45; Admin Dose 81 MG; Start 07/16/18 at 21:00 Albuterol (Proventil 0.083% (Neb)) 2.5 mg Q2H RESP THERAPY PRN HHN SHORTNESS OF BREATH; Start 07/18/18 at 09:00 Bisacodyl (Dulcolax Supp) 10 mg DAILY PRN [place] CONSTIPATION Last administered on 07/18/18 10:33; Admin Dose 10 MG; Start 07/18/18 at 10:00 Tramadol HCl (Ultram) 25 mg Q6H PRN PO MODERATE PAIN LEVEL 4-6; Start 07/19/18 at 15:00 Amlodipine Besylate (Norvasc) 10 mg DAILY PO Last administered on 07/20/18at 09:44; Admin Dose 10 MG; Start 07/20/18 at 09:00 Docusate Sodium (Colace) 100 mg BID PO ; Start 07/20/18 at 10:00 Lisinopril (Zestril) 5 mg DAILY PO Last administered on 07/20/18at 14:40; Admin Dose 5 MG; Start 07/20/18 at 12:30 Assessment/Plan Hospital Course (Demo Recall) Cardiovascular preop evaluation Hip fracture: s/p surgery 07/14 Hypertension Chronic kidney disease Severe hip pain secondary to above History of mood disorder History of overactive bladder Abnormal EKG right bundle branch block . Postop anemia NISHANT Recommendations: Continue with the beta-mirian Postop care as per orthopedic surgery Continue with a DVT and GI prophylaxis Follow H&H and renal function PT as tolerated Thank you for his referral. We will continue to follow him with you MARIBEL ABARCA MD [facility] MARIBEL ABARCA MD Jul 20, 2018 15:55
[2018-07-20 20:05] VITALS: BP 179/74; PULSE 79; RESP 18
[2018-07-20] MEDS: ROPINIROLE 1 MG TAB PO SCH (20:57)
[2018-07-20] MEDS: METOPROLOL (XL) 50 MG TAB PO SCH (20:58)
[2018-07-21] VITALS (7 sets, daily range): BP systolic 139–189; BP diastolic 62–81; PULSE 61–74; RESP 18–19
[2018-07-21] MEDS: PANTOPRAZOLE (EC) 40 MG TAB PO SCH (05:46)
[2018-07-21] MEDS: hydrALAzine 20 MG INJ IV PRN (05:53)
--- NOTE | 2018-07-21 07:55 | CONS ---
Consult Date/Type/Reason Admit Date/Time Jul 12, 2018 at 12:46 Initial Consult Date 07/12/18 Type of Consultation: cv Requesting Provider: FARIDEH MANTILLA Date/Time of Note DATE: 07/21/18 TIME: 07:53 Subjective cardiology follow-up progress note Subjective: Discussed with the staff and daughter Patient with no report of any chest pain or pressure no palpitation. no PND orthopnea. still with hip pain worse with activity according to the daughter she is doing better today sp hip surgery 07/14 Objective: General: no acute distress but appears to be in pain with any movement HEENT: NC/AT. pupils are equal. round. NECK: NO JVD. no stridor. CV: RRR. systolic murmur; no gallop or rubs. PULM: no wheezing or rhonchi. GI: SOFT, NT, ND, no rebound or guarding Extremity: trace B/L LE edema. no clubbing. neuro: sleeping Psych: calm and pleasant rectal: deferred EKG was personally reviewed showed normal sinus rhythm with right bundle branch block Echocardiogram was personally reviewed which shows: Normal left ventricular systolic function. Normal left ventricular cavity size. Mild concentric left ventricular hypertrophy. Ejection fraction is visually estimated at 60 %. Tissue Doppler/Mitral Doppler indices are consistent with impaired relaxation (Stage I diastolic dysfunction). Normal appearance of the mitral valve. Mild mitral annular calcification. Trace mitral regurgitation. No significant aortic stenosis or insufficiency. Aortic cusps appear mildly calcified. Normal appearance of the tricuspid valve. Estimated peak PA systolic pressure 32 mmHg. There is trace to mild tricuspid regurgitation. Objective Vitals Vital Signs Date Temp Pulse Resp B/P (MAP) Pulse Ox O2 O2 Flow FiO2 Time Delivery Rate 07/21/18 61 167/68 06:53 (101) 07/21/18 97.8 18 100 02:55 07/20/18 Nasal 1.0 14:13 Cannula Intake and Output 07/20/18 07/20/18 07/21/18 1515:00 23:00 07:00 IntakeIntake Total 420 ml 340 ml 250 ml OutputOutput Total 1 ml BalanceBalance 419 ml 340 ml 250 ml Results/Medications Result Diagram: 07/21/18 0425 07/21/18 0425 Results 24 hrs Laboratory Tests Test 07/21/18 04:25 White Blood Count 6.1 # Red Blood Count 3.10 L Hemoglobin 8.7 L Hematocrit 27.4 L Mean Corpuscular Volume 88.4 Mean Corpuscular Hemoglobin 28.1 L Mean Corpuscular Hemoglobin Concent 31.8 L Red Cell Distribution Width 14.4 Platelet Count 229 Mean Platelet Volume 10.3 Immature Granulocytes % 2.600 H Neutrophils % 72.5 Lymphocytes % 14.3 L Monocytes % 7.5 Eosinophils % 2.8 Basophils % 0.3 Nucleated Red Blood Cells % 0.3 H Immature Granulocytes # 0.160 H Neutrophils # 4.4 Lymphocytes # 0.9 Monocytes # 0.5 Eosinophils # 0.2 Basophils # 0.0 Nucleated Red Blood Cells # 0.0 Sodium Level 142 Potassium Level 3.8 Chloride Level 110 Carbon Dioxide Level 27 Anion Gap 5 Blood Urea Nitrogen 27 H Creatinine 0.93 Est Glomerular Filtrat Rate mL/min Glucose Level 101 Calcium Level 8.6 Phosphorus Level 3.0 Magnesium Level 1.7 Home Meds Reported Medications Solifenacin* (Vesicare*) 5 Mg Tablet, 5 MG PO DAILY, TAB 07/12/18 Ropinirole Hcl* (Ropinirole Hcl*) 1 Mg Tablet, 1 MG PO HS, TAB 07/12/18 Valsartan-Hydrochlorothiazide (Valsartan-HCTZ) 320-12.5 Mg Tablet, 1 TAB PO DAILY, #30 TAB 07/12/18 Sertraline Hcl* (Sertraline Hcl*) 100 Mg Tablet, 100 MG PO DAILY, #30 TAB 07/12/18 Metoprolol Succinate* (Toprol XL*) 50 Mg Tab.er.24h, 50 MG PO DAILY, #30 TAB 07/12/18 Esomeprazole Mag Trihydrate (Nexium) 40 Mg Capsule.dr, 40 MG PO DAILY, #30 CAP 07/12/18 Aspirin* (Aspirin* EC) 325 Mg Tab, 325 MG PO Q OTHER DAY, TAB 07/12/18 Medications Current Medications Ondansetron HCl (Zofran Inj) 4 mg Q6H PRN IV NAUSEA/VOMITING; Start 07/12/18 at 13:00 Acetaminophen (Tylenol Tab) 650 mg Q6H PRN PO .PAIN 1-3 OR TEMP Last administered on 07/20/18at 21:02; Admin Dose 650 MG; Start 07/12/18 at 13:00 Ropinirole HCl (Requip) 1 mg HS PO Last administered on 07/20/18 20:57; Admin Dose 1 MG; Start 07/12/18 at 21:00 Sertraline HCl (Zoloft) 100 mg DAILY PO Last administered on 07/20/18 09:44; Admin Dose 100 MG; Start 07/13/18 at 09:00 Solifenacin (Vesicare) 5 mg DAILY PO Last administered on 07/20/18 09:42; Admin Dose 5 MG; Start 07/13/18 at 09:00 Pantoprazole (Protonix Tab) 40 mg DAILY@06 PO Last administered on 07/21/18 05:46; Admin Dose 40 MG; Start 07/13/18 at 06:00 Hydralazine HCl (Apresoline) 10 mg Q4H PRN IV sbp >160 Last administered on 07/21/18 05:53; Admin Dose 10 MG; Start 07/12/18 at 13:30 Metoprolol Succinate (Toprol Xl) 50 mg QHS PO Last administered on 07/20/18 20:58; Admin Dose 50 MG; Start 07/12/18 at 21:30 IV Flush (NS 3 ml) 3 ml per protocol IV Last administered on 07/19/18 21:51; Admin Dose 3 ML; Start 07/14/18 at 18:00 Acetaminophen/ Hydrocodone Bitart ([place] (5/325)) 1 tab Q4H PRN PO PAIN LEVEL 7-10 Last administered on 07/16/18 10:22; Admin Dose 1 TAB; Start 07/16/18 at 09:00 Aspirin (Aspirin) 81 mg BID PO Last administered on 07/20/18 20:57; Admin Dose 81 MG; Start 07/16/18 at 21:00 Albuterol (Proventil 0.083% (Neb)) 2.5 mg Q2H RESP THERAPY PRN HHN SHORTNESS OF BREATH; Start 07/18/18 at 09:00 Bisacodyl (Dulcolax Supp) 10 mg DAILY PRN [place] CONSTIPATION Last administered on 07/18/18 10:33; Admin Dose 10 MG; Start 07/18/18 at 10:00 Tramadol HCl (Ultram) 25 mg Q6H PRN PO MODERATE PAIN LEVEL 4-6; Start 07/19/18 at 15:00 Amlodipine Besylate (Norvasc) 10 mg DAILY PO Last administered on 07/20/18at 09:44; Admin Dose 10 MG; Start 07/20/18 at 09:00 Docusate Sodium (Colace) 100 mg BID PO ; Start 07/20/18 at 10:00 Lisinopril (Zestril) 5 mg DAILY PO Last administered on 07/20/18at 14:40; Admin Dose 5 MG; Start 07/20/18 at 12:30 Assessment/Plan Hospital Course (Demo Recall) Cardiovascular preop evaluation Hip fracture: s/p surgery 07/14 Hypertension Chronic kidney disease Severe hip pain secondary to above History of mood disorder History of overactive bladder Abnormal EKG right bundle branch block . Postop anemia NISHANT Recommendations: Continue with Norvasc and Toprol Clonidine as needed Postop care as per orthopedic surgery Continue with a DVT and GI prophylaxis Follow H&H and renal function PT as tolerated Thank you for his referral. We will continue to follow him with you MARIBEL ABARCA MD [facility] MARIBEL ABARCA MD Jul 21, 2018 07:55
[2018-07-21] MEDS: DOCUSATE SODIUM 100 MG CAP PO SCH ×2 (09:00→21:00)
[2018-07-21] MEDS: SOLIFENACIN 5 MG TAB PO SCH (09:03)
[2018-07-21] MEDS: SERTRALINE 100 MG TAB PO SCH (09:03)
[2018-07-21] MEDS: AMLODIPINE 10 MG TAB PO SCH (09:04)
[2018-07-21] MEDS: ASPIRIN 81 MG TAB PO SCH ×2 (09:05→21:33)
[2018-07-21] MEDS: ACETAMINOPHEN 325 MG TAB PO PRN ×2 (09:08→21:31)
[2018-07-21] MEDS ORDERED: LISINOPRIL 10 MG TAB PO SCH (09:30)
--- NOTE | 2018-07-21 10:19 | PN ---
DATE: 07/21/2018 SUBJECTIVE: The patient is stable, no events overnight. OBJECTIVE: VITAL SIGNS: Blood pressure is 180/74, pulse 74, respirations 19, temperature 98.6. HEENT: Head is normocephalic. NECK: Supple. HEART: Regular rate. LUNGS: Show diminished breath sounds at the base. ABDOMEN: Soft, nontender to palpation without rebound or guarding. EXTREMITIES: Negative for clubbing, cyanosis. No edema. DERMATOLOGIC: No rashes. MUSCULOSKELETAL: No joint effusion. NEUROLOGIC: No change in exam. MEDICATIONS: Reviewed. LABORATORY DATA: Reviewed. ASSESSMENT AND PLAN: 1. Nonoliguric acute kidney injury with unknown baseline creatinine. Etiology is secondary to hemod ynamics. Renal function is improved. Continue current treatment plan. 2. Anemia. Monitor hemoglobin and hematocrit levels. 3. Mineral bone disorder. Continue to monitor calcium and phosphorus levels. 4. Hypertension. Blood pressure remains elevated, we will up titrate lisinopril to 20 mg daily. Co ntinue to monitor. 4. History of restless legs syndrome. Continue current medical management. 5. Right hip fracture, status post arthroplasty. Continue physical therapy. 6. History of overactive bladder. Dictated By: STEPH MARTINEZ DO NR/NTS Conf#: [id number] DID#: [id number] CC: FARIDEH MANTILLA MD; MARIBEL ABARCA MD;*End*
--- NOTE | 2018-07-21 16:14 | PN ---
Date/Time of Note Date/Time of Note DATE: 07/21/18 TIME: 16:13 Objective Vitals Vital Signs Date Temp Pulse Resp B/P (MAP) Pulse Ox O2 O2 Flow FiO2 Time Delivery Rate 07/21/18 98.6 72 18 139/62 Nasal 13:49 (87) Cannula 07/21/18 93 08:50 07/21/18 2.0 08:00 Intake and Output 07/20/18 07/20/18 07/21/18 1515:00 23:00 07:00 IntakeIntake Total 420 ml 340 ml 250 ml OutputOutput Total 1 ml BalanceBalance 419 ml 340 ml 250 ml Results Result Diagram: 07/21/18 0425 07/21/185 Medications Medications Current Medications Ondansetron HCl (Zofran Inj) 4 mg Q6H PRN IV NAUSEA/VOMITING; Start 07/12/18 at 13:00 Acetaminophen (Tylenol Tab) 650 mg Q6H PRN PO .PAIN 1-3 OR TEMP Last administered on 07/21/18 09:08; Admin Dose 650 MG; Start 07/12/18 at 13:00 Ropinirole HCl (Requip) 1 mg HS PO Last administered on 07/20/18 20:57; Admin Dose 1 MG; Start 07/12/18 at 21:00 Sertraline HCl (Zoloft) 100 mg DAILY PO Last administered on 07/21/18 09:03; Admin Dose 100 MG; Start 07/13/18 at 09:00 Solifenacin (Vesicare) 5 mg DAILY PO Last administered on 07/21/18 09:03; Admin Dose 5 MG; Start 07/13/18 at 09:00 Pantoprazole (Protonix Tab) 40 mg DAILY@06 PO Last administered on 07/21/18 05:46; Admin Dose 40 MG; Start 07/13/18 at 06:00 Hydralazine HCl (Apresoline) 10 mg Q4H PRN IV sbp >160 Last administered on 07/21/18 05:53; Admin Dose 10 MG; Start 07/12/18 at 13:30 Metoprolol Succinate (Toprol Xl) 50 mg QHS PO Last administered on 07/20/18 20:58; Admin Dose 50 MG; Start 07/12/18 at 21:30 IV Flush (NS 3 ml) 3 ml per protocol IV Last administered on 07/19/18 21:51; Admin Dose 3 ML; Start 07/14/18 at 18:00 Acetaminophen/ Hydrocodone Bitart ([place] (5/325)) 1 tab Q4H PRN PO PAIN LEVEL 7-10 Last administered on 07/16/18 10:22; Admin Dose 1 TAB; Start 07/16/18 at 09:00 Aspirin (Aspirin) 81 mg BID PO Last administered on 07/21/18 09:05; Admin Dose 81 MG; Start 07/16/18 at 21:00 Albuterol (Proventil 0.083% (Neb)) 2.5 mg Q2H RESP THERAPY PRN HHN SHORTNESS OF BREATH; Start 07/18/18 at 09:00 Bisacodyl (Dulcolax Supp) 10 mg DAILY PRN [place] CONSTIPATION Last administered on 07/18/18at 10:33; Admin Dose 10 MG; Start 07/18/18 at 10:00 Tramadol HCl (Ultram) 25 mg Q6H PRN PO MODERATE PAIN LEVEL 4-6; Start 07/19/18 at 15:00 Amlodipine Besylate (Norvasc) 10 mg DAILY PO Last administered on 07/21/18 09:04; Admin Dose 10 MG; Start 07/20/18 at 09:00 Docusate Sodium (Colace) 100 mg BID PO ; Start 07/20/18 at 10:00 Clonidine (Catapres) 0.1 mg Q6H PRN PO SBP > 175 Last administered on 07/21/18 09:12; Admin Dose 0.1 MG; Start 07/21/18 at 08:00 Lisinopril (Zestril) 10 mg DAILY PO Last administered on 07/21/18 09:49; Admin Dose 10 MG; Start 07/21/18 at 09:30 VTE Prophylaxis Risk score (from Nsg)>0 risk: 6 SCD applied (from Nsg): Yes Lines/Catheters IV Catheter Type: Goldman in Place: No Assessment/Plan Hospital Course Subjective Was hypertensive overnight, patient doing better now Objective Physical exam General: Patient is laying in bed and answers questions appropriately Mentation: Patient is alert and oriented 4, Head: Normocephalic atraumatic Eyes: EOMI, pupils reactive to light Neck: Supple, nontender, midline Respiratory: Clear to auscultation bilaterally Cardiovascular: regular rate, no obvious murmurs Gastrointestinal: non-tender to palpation, bowel sounds heard. Neurological: Moves all extremities spontaneously but limited to pain Skin: No new skin lesions Assessment/Plan 1. Right hip fracture s/p ORIF 07/14/18 - Appreciate ortho consultation. PT on board and plans for ARU once stable 2. Acute kidney injury- resolved - Nephrology on board and appreciate recommendations. most likely secondary to hemodynamics - avoid nephrotoxic agents 3. Hypertension - stable, some likely due to pain, but will add medications as needed -Had episode of elevated hypertension overnight, adjust medications. 4. Anemia, blood loss and iron deficiency - stable after receiving blood. - iron levels noted and continue on IV iron. will need PO at time of discharge - restart asa 5. Overactive bladder - Continue Vesicare 6. Mood disorder - Continue sertraline 7. Restless leg syndrome - continue on ropinirole 8. Constipation - bowel regimen and enema if no relief 9. Disposition -We will need to ensure proper blood pressure control before transfer to acute rehab unit FARIDEH MANTILLA Jul 21, 2018 16:14
[2018-07-21] MEDS: METOPROLOL (XL) 50 MG TAB PO SCH (21:32)
[2018-07-21] MEDS: ROPINIROLE 1 MG TAB PO SCH (21:32)
[2018-07-22 02:28] VITALS: BP 139/69; PULSE 74; RESP 18
[2018-07-22] MEDS: PANTOPRAZOLE (EC) 40 MG TAB PO SCH (05:55)
[2018-07-22 07:30] VITALS: BP 168/74; PULSE 65; RESP 18
[2018-07-22] MEDS ORDERED: MAGNESIUM SULFATE 2 GM/50 ML 50 ML IVPB ONE (09:00)
[2018-07-22] MEDS ORDERED: LISINOPRIL 10 MG TAB PO SCH (09:00)
[2018-07-22] MEDS: ASPIRIN 81 MG TAB PO SCH (09:18)
[2018-07-22] MEDS: DOCUSATE SODIUM 100 MG CAP PO SCH (09:18)
[2018-07-22] MEDS: SOLIFENACIN 5 MG TAB PO SCH (09:18)
[2018-07-22] MEDS: SERTRALINE 100 MG TAB PO SCH (09:18)
[2018-07-22] MEDS: AMLODIPINE 10 MG TAB PO SCH (09:19)
[2018-07-22] MEDS: ACETAMINOPHEN 325 MG TAB PO PRN (09:24)
--- NOTE | 2018-07-22 09:29 | PN ---
DATE: 07/22/2018 SUBJECTIVE: The patient is stable. No events overnight. OBJECTIVE: VITAL SIGNS: Blood pressure is 168/74, pulse 65, respiration 18, temperature 98.7. HEENT: Head is normocephalic. NECK: Supple. HEART: Regular rate. LUNGS: Show diminished breath sounds at the base. ABDOMEN: Soft, nontender to palpation without rebound or guarding. EXTREMITIES: Negative for clubbing, cyanosis, no edema. DERMATOLOGIC: No rashes. MUSCULOSKELETAL: No joint effusion. NEUROLOGIC: No change in exam. MEDICATIONS: Reviewed. LABORATORY DATA: Has been reviewed. ASSESSMENT AND PLAN: 1. Nonoliguric acute kidney injury with unknown baseline creatinine. Etiology is secondary to hemod ynamics. Renal function is improved. Continue to monitor. 2. Hypomagnesemia. We will replete with magnesium sulfate. 3. Anemia. Monitor hemoglobin and hematocrit levels. 4. Mineral bone disorder, monitor calcium and phosphorus levels. 5. Hypertension. Blood pressure remains elevated, will increase lisinopril to 20 mg daily. Continu e to monitor. 6. History of restless leg syndrome. Continue current medical management. 7. Right hip fracture, status post arthroplasty. Continue physical therapy, pain control. 8. History of overactive bladder. Dictated By: STEPH MARTINEZ DO NR/NTS Conf#: [id number] DID#: [id number] CC: FARIDEH MANTILLA MD; MARIBEL ABARCA MD;*End*
[2018-07-22] MEDS ORDERED: MAGNESIUM OXIDE 400 MG TAB PO ONE (09:30)
[2018-07-22] MEDS ORDERED: LISI10TA2 PO (10:05)
[2018-07-22] MEDS ORDERED: ASPI-831 PO (10:05)
[2018-07-22] MEDS ORDERED: AMLO-147 PO (10:05)
--- NOTE | 2018-07-22 10:09 | DS ---
Date/Time of Note Date/Time of Note DATE: 07/22/18 TIME: 10:09 Discharge Summary Admission/Discharge Info Admit Date/Time Jul 12, 2018 at 12:46 Discharge Date/Time Patient Condition: Stable Hospital Course Patient is an elderly female past medical history significant for hypertension, anemia, overactive bladder, restless leg syndrome who presented to [facility] for mechanical fall and subsequent right hip fracture. Patient received ORIF on July 14, 2018 has been doing well. Patient was seen by nephrology for acute kidney injury and for hypertension. Patient received some blood for mild anemia and also has iron deficiency anemia. Patient had some blood pressure issues which is chronic for this patient and as long as blo od pressure is safe patient will be discharged to the acute rehab unit for rehabilitation status post Ortho hip fracture corrective surgery. Patient will need to be on aspirin for DVT prophylaxis for at least 6 weeks from the surgery and needs to follow-up with the orthopedic surgeon 1 week after discharge from the acute rehab unit. Discharge diagnosis Right hip fracture, status post ORIF on July 14, 2018 Acute kidney injury Hypertension Anemia Refractory overactive bladder Mood disorder Restless leg syndrome Constipation Home Meds Active Scripts Aspirin (Aspirin) 81 Mg Chew, 81 MG PO BID for 30 Days, TAB Prov:FARIDEH MANTILLA 07/22/18 Lisinopril* (Lisinopril*) 10 Mg Tablet, 20 MG PO DAILY for 30 Days, TAB Prov:FARIDEH MANTILLA 07/22/18 Amlodipine Besylate* (Amlodipine Besylate*) 10 Mg Tablet, 10 MG PO DAILY for 30 Days, TAB Prov:FARIDEH MANTILLA 07/22/18 Reported Medications Solifenacin* (Vesicare*) 5 Mg Tablet, 5 MG PO DAILY, TAB 07/12/18 Ropinirole Hcl* (Ropinirole Hcl*) 1 Mg Tablet, 1 MG PO HS, TAB 07/12/18 Sertraline Hcl* (Sertraline Hcl*) 100 Mg Tablet, 100 MG PO DAILY, #30 TAB 07/12/18 Metoprolol Succinate* (Toprol XL*) 50 Mg Tab.er.24h, 50 MG PO DAILY, #30 TAB 07/12/18 Esomeprazole Mag Trihydrate (Nexium) 40 Mg Capsule.dr, 40 MG PO DAILY, #30 CAP 07/12/18 Discontinued Reported Medications Valsartan-Hydrochlorothiazide (Valsartan-HCTZ) 320-12.5 Mg Tablet, 1 TAB PO DAILY, #30 TAB 07/12/18 Aspirin* (Aspirin* EC) 325 Mg Tab, 325 MG PO Q OTHER DAY, TAB 07/12/18 Primary Care Provider Andrew Rios MD Time spent on discharge: > 30 minutes Pending Labs Laboratory Tests Test 07/22/18 04:49 White Blood Count 6.8 10^3/ul (4.8-10.8) Red Blood Count 3.26 10^6/ul (4.20-5.40) Hemoglobin 9.1 g/dl (12.0-16.0) Hematocrit 28.9 % (37.0-47.0) Mean Corpuscular Volume 88.7 fl (82.0-101.0) Mean Corpuscular Hemoglobin 27.9 pg (29.0-33.0) Mean Corpuscular Hemoglobin Concent 31.5 g/dl (32.0-37.0) Red Cell Distribution Width 14.6 % (11.5-14.5) Platelet Count 246 10^3/UL (140-415) Mean Platelet Volume 9.9 fl (7.4-10.4) Immature Granulocytes % 2.900 % (0.001-0.429) Neutrophils % 70.0 % (39.0-77.0) Lymphocytes % 17.7 % (15.0-51.0) Monocytes % 5.6 % (0.0-11.0) Eosinophils % 3.4 % (0.0-7.0) Basophils % 0.4 % (0.0-2.0) Nucleated Red Blood Cells % 0.0 /100WBC (0.0-0.0) Immature Granulocytes # 0.200 10^3/ul (0.0-0.031) Neutrophils # 4.8 10^3/ul (1.6-7.5) Lymphocytes # 1.2 10^3/ul (0.8-2.9) Monocytes # 0.4 10^3/ul (0.3-0.9) Eosinophils # 0.2 10^3/ul (0.0-0.5) Basophils # 0.0 10^3/ul (0.0-0.1) Nucleated Red Blood Cells # 0.0 10^3/ul (0.0-0.0) Sodium Level 142 mmol/L (135-144) Potassium Level 3.9 mmol/L (3.5-5.1) Chloride Level 110 mmol/L (97-110) Carbon Dioxide Level 28 mmol/L (21-31) Anion Gap 4 (5-13) Blood Urea Nitrogen 24 mg/dl (7-20) Creatinine 0.94 mg/dl (0.44-1.00) Est Glomerular Filtrat Rate mL/min mL/min (>60) Glucose Level 103 mg/dl (70-220) Calcium Level 9.0 mg/dl (8.4-10.2) Phosphorus Level 3.4 mg/dl (2.5-4.9) Magnesium Level 1.6 mg/dl (1.7-2.5) FARIDEH MANTILLA Jul 22, 2018 10:09
[2018-07-22 12:10] VITALS: BP 151/69; PULSE 69; RESP 18
[2018-07-22 15:10] VITALS: BP 135/64; PULSE 72; RESP 18
[2018-07-22] MEDS ORDERED: HYDROCORTISONE 1% 26 GM RECT CR PR ONE (17:00)
== END 2018-07-22 15:20 | DRG 481 ==
LOC: E/R 11:06 → PP2 12:46 → SUATTDRO 12:47 → PP2 21:55 → MS1 07-13 21:00
PROVIDERS: ADMIT Internal Medicine; ATTEND Internal Medicine
PROC: 30233N1 Transfusion of Nonautologous Red Blood Cells into Peripheral Vein, Percutaneous Approach (ICD-10-PCS; 2018-07-14)
PROC: 0QS606Z Reposition Right Upper Femur with Intramedullary Internal Fixation Device, Open Approach (ICD-10-PCS; principal; 2018-07-14 13:00)
DX: S72.141A Displaced intertrochanteric fracture of right femur, initial encounter for closed fracture (principal); N17.9 Acute kidney failure, unspecified; D62 Acute posthemorrhagic anemia; I45.10 Unspecified right bundle-branch block; E78.00 Pure hypercholesterolemia, unspecified; I10 Essential (primary) hypertension; N32.81 Overactive bladder; G25.81 Restless legs syndrome; F39 Unspecified mood [affective] disorder; I95.9 Hypotension, unspecified; K59.00 Constipation, unspecified; W18.39XA Other fall on same level, initial encounter; Y92.59 Other trade areas as the place of occurrence of the external cause; M16.11 Unilateral primary osteoarthritis, right hip; S72.21XA Displaced subtrochanteric fracture of right femur, initial encounter for closed fracture; E83.42 Hypomagnesemia
CPT/HCPCS: 36415; 36430; 70450; 71045; 73500; 73510; 73530; 73560; 73700; 76775; 80048; 80053; 80061; 80069; 81001; 81003; 82040; 82043; 83036; 83540; 83735; 84100; 84155; 84300; 84443; 84484; 85025; 85610; 85730; 86850; 86900; 86901; 86920; 93005; 93306; 96374; 96375; 97110; 97162; 97530; J0360; J0690; J1170; J1650; J2175; J2250; J2270; J2274; J2405; J2765; J2795; J2916; J3010; J3475; J7030; J7040; P9016

== ENCOUNTER 2018-07-22 15:38 | Inpatient (IN) | payer MEDICARE, OTHER ==
[~2018-07-22] VITALS: Ht 144.8 cm; Wt 84.0 kg
[~2018-07-22 15:38] MED LIST changes: +AMLO-147 PO; -ASPI-817 PO; +ASPI-831 PO; +ASPI325T32 PO; -IBUP-1542 PO; +LISI10TA2 PO; -OXYC-279 PO; +ROPI1TAB PO; +SERT-165 PO; -SERT100T PO; +SOLI5TAB2 PO
[2018-07-22 15:57] VITALS: BP 161/75; PULSE 72; RESP 18
[2018-07-22] MEDS ORDERED: MAGNESIUM HYDROXIDE 30ML CUP PO PRN (16:00)
[2018-07-22] MEDS ORDERED: PENDING SANTYL ORDER FOR WOUND CARE XX PRN (16:00)
[2018-07-22] MEDS ORDERED: BISACODYL 10 MG SUPP PR PRN (16:00)
[2018-07-22] MEDS ORDERED: LACTULOSE 30ML CUP PO PRN (16:00)
[2018-07-22 16:13] VITALS: Ht 144.8 cm; Wt 84.0 kg
[2018-07-22] MEDS ORDERED: ONDANSETRON 4 MG INJ IV PRN (16:30)
[2018-07-22] MEDS ORDERED: hydrALAzine 20 MG INJ IV PRN (16:30)
[2018-07-22] MEDS ORDERED: HYDROCORTISONE 1% 26 GM RECT CR PR PRN (16:30)
[2018-07-22] MEDS ORDERED: traMADol 50 MG TAB GTB PRN (16:30)
[2018-07-22] MEDS ORDERED: HYDROCODONE/APAP (5/325) TAB PO PRN (16:30)
[2018-07-22 20:04] VITALS: BP 173/75; PULSE 78; RESP 18
[2018-07-22] MEDS ORDERED: METOPROLOL (XL) 50 MG TAB PO SCH (21:00)
[2018-07-22] MEDS: ACETAMINOPHEN 325 MG TAB PO PRN (21:04)
[2018-07-22] MEDS: ROPINIROLE 1 MG TAB PO SCH (21:04)
[2018-07-22] MEDS: ASPIRIN 81 MG TAB PO SCH (21:05)
[2018-07-22 22:00] VITALS: BP 160/72; PULSE 75; RESP 18
[2018-07-23 02:06] VITALS: BP 173/77; PULSE 73; RESP 18
[2018-07-23 04:01] VITALS: BP 144/67; PULSE 61
[2018-07-23] MEDS: PANTOPRAZOLE (EC) 40 MG TAB PO SCH (06:21)
[2018-07-23 07:30] VITALS: BP 153/72; PULSE 66; RESP 20
[2018-07-23] MEDS: SOLIFENACIN 5 MG TAB PO SCH (09:00)
[2018-07-23] MEDS ORDERED: LISINOPRIL 20 MG TAB PO SCH (09:00)
[2018-07-23] MEDS: ASPIRIN 81 MG TAB PO SCH ×2 (09:40→20:32)
[2018-07-23] MEDS: AMLODIPINE 10 MG TAB PO SCH (09:41)
[2018-07-23] MEDS: SERTRALINE 100 MG TAB PO SCH (09:42)
--- NOTE | 2018-07-23 09:50 | PN ---
DATE: 07/23/2018 SUBJECTIVE: The patient was transferred to acute rehabilitation. No other events noted. OBJECTIVE: VITAL SIGNS: Blood pressure is 153/72, respiratory rate 20, pulse 66, temperature 97.9. HEENT: Head is normocephalic. NECK: Supple. HEART: Regular rate. LUNGS: Show diminished breath sounds at base. ABDOMEN: Soft, nontender to palpation. No rebound or guarding. EXTREMITIES: Negative for clubbing, cyanosis, no edema. DERMATOLOGIC: No rashes. MUSCULOSKELETAL: No joint effusion. NEUROLOGIC: No change in exam. MEDICATIONS: Have been reviewed. LABORATORY DATA: Has been reviewed. ASSESSMENT AND PLAN: 1. Nonoliguric acute kidney injury with unknown baseline creatinine. Etiology secondary to hemodyna mics. Renal function is improved. Continue to monitor. 2. Hypomagnesemia. Continue to monitor and replete as needed. 3. Anemia. Monitor hemoglobin and hematocrit levels. 4. Mineral bone disorder, monitor calcium and phosphorus levels. 5. Hypertension. Continue current blood pressure regimen. 6. History of restless leg syndrome. 7. Right hip fracture, status post arthroplasty. Continue physical therapy. 8. Overactive bladder. Dictated By: STEPH MARTINEZ DO NR/NTS Conf#: [id number] DID#: [id number] CC: KIARA GARCIA MD;*EndCC*
[2018-07-23] MEDS: ACETAMINOPHEN 325 MG TAB PO PRN ×2 (12:11→21:33)
--- NOTE | 2018-07-23 12:49 | HP ---
Date/Time of Note Date/Time of Note DATE: 07/23/18 TIME: 12:48 Assessment/Plan VTE Prophylaxis Risk score (from Ns)>0 risk: 12 SCD applied (from Ns): Yes Pharmacological prophylaxis: NA/contraindicated Pharm contraindication: low risk/ambulating, other (asa bid) Lines/Catheters IV [facility]from [facility] Saline Lock Urinary Cath still in place: No Assessment/Plan Hospital Course SUBJECTIVE: No acute distress. OBJECTIVE: Vital signs-see below PHYSICAL EXAM: Constitutional: Adequately built, elderly female not in acute distress. HEENT: Head atraumatic and normocephalic. Eyes: Extraocular muscles intact. Anicteric sclerae. Pupils equal bilaterally, reactive to light. NECK: Supple without lymph node. CHEST: Clear and good breath sounds equally. No wheezing. No rhonchi. HEART: S1, S2. Regular rate and rhythm. ABDOMEN: Soft/non tender with no rebound tenderness. Bowel sounds were present. EXTREMITIES: RLE w/ intact dressing. No cyanosis, clubbing or edema. NEUROLOGIC: Alert and oriented x3. No focal deficit. No sensory deficit. PSYCHOSOCIAL: No signs of depression. INTEGUMENTARY: No open wounds. ASSESSMENT AND PLAN: 88-year-old female, status post right hip ORIF transferred to acute rehabilitation unit for inpatient rehab. Right hip fracture s/p ORIF 07/14/18 - DVT ppx,pain control - Rehab -Ortho f/u in 2 weeks Hypertension -Patient required couple of IV hydralazine doses overnight, at this time, I will increase Lopressor dose and monitor over 24 hours. Iron deficient anemia -Continue oral replacement Mood disorder -Continue sertraline Restless leg syndrome -on ropinirole Constipation - bowel regimen History of overactive bladder -Currently stable and patient refuses to take Vesicare DVT prophylaxis: Aspirin per orthopedic recommendations. Patient is medically stable for physical therapy and acute rehabilitation unit. Approximately 60 m spent on this history and physical. Patient is seen in collaboration with Result Diagram: 07/23/18 0717 07/23/18 0717 Results 24hrs Laboratory Tests Test 07/22/18 19:54 07/23/18 07:17 Urine Color YELLOW Urine Clarity SLIGHTLY CLOUDY A Urine pH 5.0 Urine Specific [place] 1.012 Urine Ketones NEGATIVE Urine Nitrite NEGATIVE Urine Bilirubin NEGATIVE Urine Urobilinogen NEGATIVE Urine Leukocyte Esterase 1+ H Urine Microscopic RBC 5 Urine Microscopic WBC 4 Urine Squamous Epithelial Cells MODERATE Urine Bacteria FEW A Urine Hemoglobin 2+ H Urine Glucose NEGATIVE Urine Total Protein NEGATIVE White Blood Count 6.2 Red Blood Count 3.34 L Hemoglobin 9.4 L Hematocrit 29.4 L Mean Corpuscular Volume 88.0 Mean Corpuscular Hemoglobin 28.1 L Mean Corpuscular Hemoglobin Concent 32.0 Red Cell Distribution Width 14.5 Platelet Count 263 Mean Platelet Volume 10.0 Immature Granulocytes % 2.600 H Neutrophils % 69.2 Segmented Neutrophils % (Manual) 69 Band Neutrophils % (Manual) 7 H Lymphocytes % 17.8 Lymphocytes % (Manual) 13 L Monocytes % 6.9 Monocytes % (Manual) 3 Eosinophils % 2.9 Eosinophils % (Manual) 7 Basophils % 0.6 Basophils % (Manual) 1 Nucleated Red Blood Cells % 0.0 Immature Granulocytes # 0.160 H Neutrophils # 4.3 Neutrophils # (Manual) 4.3 Band Neutrophils # 0.4 Lymphocytes (Manual) 0.8 Lymphocytes # 1.1 Monocytes # 0.4 Monocytes # (Manual) 0.1 L Eosinophils # 0.2 Basophils # 0.0 Basophils # (Manual) 0.0 Nucleated Red Blood Cells # 0.0 Platelet Estimate NORMAL Polychromasia 1+ Hypochromasia 1+ Anisocytosis 1+ Microcytosis 1+ Sodium Level 144 Potassium Level 4.7 Chloride Level 110 Carbon Dioxide Level 27 Anion Gap 7 Blood Urea Nitrogen 22 H Creatinine 0.89 Est Glomerular Filtrat Rate mL/min Glucose Level 104 Calcium Level 9.3 Total Bilirubin 0.3 Direct Bilirubin 0.00 Indirect Bilirubin 0.3 Aspartate Amino Transf (AST/SGOT) 65 H Alanine Aminotransferase (ALT/SGPT) 13 Alkaline Phosphatase 81 Total Protein 6.3 Albumin 3.0 L Globulin 3.30 H Albumin/Globulin Ratio 0.90 HPI/ROS Admit Date/Time Admit Date/Time Jul 22, 2018 at 15:38 Hx of Present Illness This is a 88-year-old female with a past medical history of hypertension, restless leg syndrome, overactive bladder, chronic anemia, admitted at [facility] on 07/12/2018 with right hip fracture secondary to mechanical fall. Patient underwent ORIF on 07/14/2018. Postoperative course was noted for acute kidney injury and hypertension which was optimized. Patient was then evaluated by physical therapist who recommended acute rehabilitation unit for further inpatient rehabilitation. At my encounter with the patient, she is comfortable, denies any chest pain, palpitation, shortness of breath, nausea, vomiting, abdominal pain, numbness, tingling, fever, chills, diarrhea or other constitutional symptoms. Labs with hemoglobin 9.4, hematocrit 29.4, otherwise unremarkable. Vital signs with blood pressure 153/72. ROS A 12 point review of system was assessed and is negative other than what is mentioned in HPI. PMH/Family/Social Past Medical History See HPI Medications Current Medications Magnesium Hydroxide (Milk Of Mag) 30 ml BID PRN PO CONSTIPATION; Start 07/22/18 at 16:00 Lactulose (Enulose) 20 gm DAILY PRN PO CONSTIPATION; Start 07/22/18 at 16:00 Bisacodyl (Dulcolax Supp) 10 mg DAILY PRN [place] CONSTIPATION; Start 07/22/18 at 16:00 Acetaminophen (Tylenol Tab) 650 mg Q4H PRN PO PAIN Last administered on 07/23/18at 12:11; Admin Dose 650 MG; Start 07/22/18 at 16:00 [facility] 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 PRN PRN XX WOUND CARE; Start 07/22/18 at 16:00 Amlodipine Besylate (Norvasc) 10 mg DAILY PO Last administered on 07/23/18at 09:41; Admin Dose 10 MG; Start 07/23/18 at 09:00 Clonidine (Catapres) 0.1 mg Q6H PRN PO ELEVATED BLOOD PRESSURE Last administered on 07/23/18at 02:11; Admin Dose 0.1 MG; Start 07/22/18 at 16:30 Acetaminophen/ Hydrocodone Bitart ([place] (5/325)) 1 tab Q4H PRN PO MODERATE PAIN LEVEL 4-6; Start 07/22/18 at 16:30 Lisinopril (Zestril) 20 mg DAILY PO Last administered on 07/23/18at 09:44; Admin Dose 20 MG; Start 07/23/18 at 09:00 Ondansetron HCl (Zofran Inj) 4 mg Q6H PRN IV NAUSEA AND/OR VOMITING; Start 07/22/18 at 16:30 Pantoprazole (Protonix Tab) 40 mg DAILY@06 PO Last administered on 07/23/18at 06:21; Admin Dose 40 MG; Start 07/23/18 at 06:00 Ropinirole HCl (Requip) 1 mg HS PO Last administered on 07/22/18at 21:04; Admin Dose 1 MG; Start 07/22/18 at 21:00 Sertraline HCl (Zoloft) 100 mg DAILY PO Last administered on 07/23/18at 09:42; Admin Dose 100 MG; Start 07/23/18 at 09:00 Solifenacin (Vesicare) 5 mg DAILY PO ; Start 07/23/18 at 09:00 Tramadol HCl (Ultram) 25 mg Q6H PRN GTB MODERATE PAIN LEVEL 4-6; Start 07/22/18 at 16:30 Aspirin (Aspirin) 81 mg BID PO Last administered on 07/23/18at 09:40; Admin Dose 81 MG; Start 07/22/18 at 21:00 Hydrocortisone (Procto-Juan Antonio) 1 applic DAILY PRN [place] HEMORROID PAIN/ITCHING; Start 07/22/18 at 16:30 Metoprolol Succinate (Toprol Xl) 50 mg Q12H PO ; Start 07/23/18 at 13:00 Coded Allergies: codeine (Unverified Allergy, Unknown, ITCHING, RASH, 07/14/18) Uncoded Allergies: UNKNOWN ANTIBIOTIC (Allergy, Unknown, 09/18/16) Past Surgical History See HPI Social History Denied history of alcohol, smoking or illicit drug use. Exam/Review of Systems Vital Signs Vitals Vital Signs Date Temp Pulse Resp B/P (MAP) Pulse Ox O2 O2 Flow FiO2 Time Delivery Rate 07/23/18 97.9 66 20 153/72 95 Nasal 2.0 07:30 (99) Cannula Intake and Output 07/22/18 07/22/18 07/23/18 1515:00 23:00 07:00 OutputOutput Total 150 ml BalanceBalance -150 ml DARLENE RODRÍGUEZ NP Jul 23, 2018 12:49
[2018-07-23] MEDS ORDERED: DOCUSATE SODIUM 100 MG CAP PO PRN (13:00)
[2018-07-23] MEDS ORDERED: METOPROLOL (XL) 50 MG TAB PO SCH (13:00)
[2018-07-23 14:00] VITALS: BP 154/70; PULSE 69; RESP 18
--- NOTE | 2018-07-23 14:38 | CONS ---
DATE OF ADMISSION: 07/22/2018 DATE OF CONSULTATION: 07/23/2018 REHABILITATION POST-ADMISSION PHYSICIAN EVALUATION REHABILITATION IMPAIRMENT CATEGORY: Right intertrochanteric hip fracture status post ORIF. ACTIVE COMORBIDITIES: 1. Acute pain syndrome. 2. Acute kidney injury. 3. Hypertension. 4. Anemia. 5. History of right shoulder fracture treated conservatively. Currently with decreased range of mot ion. 6. Impairments in self-care and mobility. HISTORY OF PRESENT ILLNESS: The patient is a very pleasant 88-year-old female who is status post a m echanical fall at home with resultant right intertrochanteric hip fracture. The patient was admitted to [facility] and did undergo an ORIF. Her hospital course has been notable for s ignificant pain, acute kidney injury, anemia, constipation with subsequent loose stools which now has improved, and significant impairments in self-care and mobility as compared to baseline. The patien t has been cleared to transfer to the rehabilitation unit for comprehensive interdisciplinary rehab c are. FUNCTIONAL HISTORY: Prior to recent events, she ambulated independently. Currently, she is a CITTIO assist for self-care and mobility tasks. I have reviewed the preadmission screen and patient's current functional status is consistent with e preadmission screen. FAMILY AND SOCIAL HISTORY: The patient lives at home with her family and hopes to return there upon discharge. PAST MEDICAL HISTORY: 1. History of right shoulder fracture treated conservatively, but with decreased range of motion. 2. Hypertension. 3. Overactive bladder. 4. Restless leg syndrome. 5. Mineral bone disease. CURRENT MEDICATIONS: 1. Norvasc 10 mg p.o. daily. 2. Aspirin 81 mg p.o. b.i.d. 3. Catapres p.r.n. 4. Colace 100 mg p.o. b.i.d. 5. Apresoline p.r.n. 6. [place] p.r.n. 7. Zestril 20 mg p.o. daily. 8. Toprol-XL 50 mg p.o. at bedtime. 9. Protonix 40 mg p.o. daily. 10. Requip 1 mg p.o. at bedtime. 11. Zoloft 100 mg p.o. daily. 12. VESIcare 5 mg p.o. daily. 13. Ultram p.r.n. 14. Hydrocortisone rectally p.r.n. ALLERGIES: CODEINE. PHYSICAL EXAMINATION: VITAL SIGNS: The patient is currently afebrile with stable vital signs. HEENT: Extraocular motions are intact. Oropharynx clear. NECK: Supple. LUNGS: Clear anteriorly. CARDIAC: S1, S2. ABDOMEN: Soft, nontender, positive bowel sounds. NEUROLOGIC: She is awake and alert. She is oriented to person and hospital. She does not know the date. She will follow simple 1-step commands. She demonstrates good strength in the left upper extr emity. She has good distal strength in the right upper extremity, but limited shoulder forward flexi on and abduction and she has antigravity strength in the left lower extremity. She is able to dorsif seun and plantar flex on the right. PLAN: The patient has been admitted for comprehensive interdisciplinary acute rehab and is anticipat ed to tolerate 3 hours of daily therapy in divided doses for at least 5/7 days a week. The treatment plan will include: 1. Physical therapy to focus on bed mobility, transfers, and household ambulation with the goal of h aving the patient reach a standby assist level at the wheelchair level and minimal assist for limited ambulation. 2. Occupational therapy to focus on hygiene, grooming, dressing, bathing, and toileting activities w ith the goal of having the patient reach a standby assist at the seated level. 3. Rehabilitation nursing for carryover of therapeutic interventions, the goal of continent of bowel and bladder, and the goal of pain adequately managed on oral medications. ESTIMATED LENGTH OF STAY: 14 days. DISPOSITION GOAL: Home with family. REHABILITATION BARRIER: Toe-touch weightbearing. INTERVENTION FOR BARRIER: Interdisciplinary approach. As a board certified network support specialist in physical medicine and rehabilitation, I attest that this patient qualifies for an interdisciplinary acute rehabilitation unit stay and is best managed a t this level of care. After thorough review of this patient's medical records and full examination I believe that this patient meets criteria for ARU level of care under CMS guidelines and is anticipat ed to make reasonable goals in a reasonable period of time as outlined above. Dictated By: KIARA GUTIÉRREZ/NAVID Conf#: [id number] DID#: [id number]
[2018-07-23] MEDS: ROPINIROLE 1 MG TAB PO SCH (20:32)
[2018-07-23] MEDS: FERROUS SULFATE (EC) 325 MG TAB PO SCH (20:32)
[2018-07-23] MEDS: METOPROLOL (XL) 50 MG TAB PO SCH (20:32)
[2018-07-23 20:35] VITALS: BP 146/67; PULSE 73; RESP 18
[2018-07-24 02:00] VITALS: BP 158/76; PULSE 71; RESP 18
[2018-07-24] MEDS: PANTOPRAZOLE (EC) 40 MG TAB PO SCH (06:20)
[2018-07-24 08:00] VITALS: BP 153/74; PULSE 76; RESP 18
[2018-07-24] MEDS: SOLIFENACIN 5 MG TAB PO SCH (09:00)
[2018-07-24] MEDS: METOPROLOL (XL) 50 MG TAB PO SCH ×3 (09:00→21:01)
[2018-07-24] MEDS: ASPIRIN 81 MG TAB PO SCH ×2 (09:15→21:00)
[2018-07-24] MEDS: SERTRALINE 100 MG TAB PO SCH (09:16)
[2018-07-24] MEDS: AMLODIPINE 10 MG TAB PO SCH (09:18)
[2018-07-24] MEDS: FERROUS SULFATE (EC) 325 MG TAB PO SCH ×2 (09:19→21:01)
[2018-07-24] MEDS: LISINOPRIL 20 MG TAB PO SCH (09:19)
--- NOTE | 2018-07-24 09:41 | PN ---
DATE: 07/24/2018 SUBJECTIVE: The patient is stable, no events overnight. OBJECTIVE: VITAL SIGNS: Blood pressure is 158/76, respiration 18, pulse 76, temperature 97.8. HEENT: Head is normocephalic. NECK: Supple. HEART: Regular rate. LUNGS: Show diminished breath sounds at the base. ABDOMEN: Soft, nontender to palpation. No rebound or guarding. EXTREMITIES: Negative for clubbing, cyanosis, no edema. DERMATOLOGIC: No rashes. MUSCULOSKELETAL: No joint effusion. NEUROLOGIC: No change in exam. MEDICATIONS: The patient's medications have been reviewed. LABORATORY DATA: Has been reviewed. ASSESSMENT AND PLAN: 1. Nonoliguric acute kidney injury with unknown baseline creatinine. Etiology is secondary to hemod ynamics. Renal function is improved. Continue current treatment plan, supportive care, renally dose all medication. 2. Hypomagnesemia. Continue to monitor and replete as needed. 3. Anemia. Monitor hemoglobin and hematocrit levels. 4. Mineral bone disorder. Monitor calcium and phosphorus levels. 5. Hypertension. Blood pressure controlled. Continue current blood pressure regimen, adjust as nee ded. 6. Right hip fracture, status post arthroplasty. Continue physical therapy. Dictated By: STEPH MARTINEZ DO NR/NTS Conf#: [id number] DID#: [id number] CC: FRANSISCO TOLEDO MD; KIARA GARCIA MD;*End*
--- NOTE | 2018-07-24 12:49 | PN ---
Date/Time of Note Date/Time of Note DATE: 07/24/18 TIME: 12:47 Assessment/Plan VTE Prophylaxis [place] [facility] risk: 11 SCD applied [place] [facility] Yes Pharmacological prophylaxis: heparin Lines/Catheters IV Catheter Type (from [facility]): Saline Lock Urinary Cath still in place: No Assessment/Plan Problems: (1) Closed right hip fracture Status: Acute Comment: Stable postoperatively now going through rehabilitation Qualifiers: Encounter type: initial encounter Qualified Codes: S72.001A - Fracture of unspecified part of neck of right femur, initial encounter for closed fracture (2) Status post open reduction with internal fixation of fracture Onset Date: ~ 07/14/2018 Status: Acute Comment: Recuperating well and in no apparent surgical complications (3) Hematuria Status: Acute Comment: Cultures pending. Will recheck in 2 days to make sure that this is clearing Qualifiers: Hematuria type: benign essential microscopic Qualified Codes: R31.1 - Benign essential microscopic hematuria (4) Iron deficiency anemia due to chronic blood loss Status: Chronic Comment: On oral replacement therapy. (5) Abnormal liver function test Status: Chronic Comment: Noted. Recheck in a few days (6) OAB (overactive bladder) Status: Chronic Comment: Noted. Result Diagram: 07/23/18 0717 07/23/18 0717 Subjective 24 Hr Interval Summary Free Text/Dictation Patient reports that she is doing well and is actually been sitting up now for over 4 hours. Constitutional: no complaints Respiratory: no complaints Cardiovascular: no complaints Gastrointestinal: no complaints Musculoskeletal: other (Occasional pain at operative site) Exam/Review of Systems Exam Vitals Vital Signs Date Temp Pulse Resp B/P (MAP) Pulse Ox O2 O2 Flow FiO2 Time Delivery Rate 07/24/18 97.8 71 18 158/76 95 Room Air 02:00 (103) 07/23/18 2.0 20:00 Intake and Output 07/23/18 07/23/18 07/24/18 1515:00 23:00 07:00 IntakeIntake Total 420 ml BalanceBalance 420 ml Constitutional: alert, oriented Neck: supple, non-tender Respiratory: clear to auscultation, normal air movement Medications Medication Current Medications Magnesium Hydroxide (Milk Of Mag) 30 ml BID PRN PO CONSTIPATION; Start 07/22/18 at 16:00 Lactulose (Enulose) 20 gm DAILY PRN PO CONSTIPATION; Start 07/22/18 at 16:00 Bisacodyl (Dulcolax Supp) 10 mg DAILY PRN [place] CONSTIPATION; Start 07/22/18 at 16:00 Acetaminophen (Tylenol Tab) 650 mg Q4H PRN PO PAIN Last administered on at 21:33; Admin Dose 650 MG; Start 07/22/18 at 16:00 Miscellaneous Information (Pending [facility]yl Order For Wound Care) 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 PRN PRN XX WOUND CARE; Start 07/22/18 at 16:00 Amlodipine Besylate (Norvasc) 10 mg DAILY PO Last administered on 07/24/18 09:18; Admin Dose 10 MG; Start 07/23/18 at 09:00 Clonidine (Catapres) 0.1 mg Q6H PRN PO ELEVATED BLOOD PRESSURE Last administered on 07/24/18 06:20; Admin Dose 0.1 MG; Start 07/22/18 at 16:30 Acetaminophen/ Hydrocodone Bitart ([place] (5/325)) 1 tab Q4H PRN PO MODERATE PAIN LEVEL 4-6; Start 07/22/18 at 16:30 Ondansetron HCl (Zofran Inj) 4 mg Q6H PRN IV NAUSEA AND/OR VOMITING; Start 07/22/18 at 16:30 Pantoprazole (Protonix Tab) 40 mg DAILY@06 PO Last administered on 07/24/18 06:20; Admin Dose 40 MG; Start 07/23/18 at 06:00 Ropinirole HCl (Requip) 1 mg HS PO Last administered on 07/23/18at 20:32; Admin Dose 1 MG; Start 07/22/18 at 21:00 Sertraline HCl (Zoloft) 100 mg DAILY PO Last administered on 07/24/18 09:16; Admin Dose 100 MG; Start 07/23/18 at 09:00 Solifenacin (Vesicare) 5 mg DAILY PO ; Start 07/23/18 at 09:00 Tramadol HCl (Ultram) 25 mg Q6H PRN GTB MODERATE PAIN LEVEL 4-6; Start 07/22/18 at 16:30 Aspirin (Aspirin) 81 mg BID PO Last administered on 07/24/18at 09:15; Admin Dose 81 MG; Start 07/22/18 at 21:00 Hydrocortisone (Procto-Juan Antonio) 1 applic DAILY PRN [place] HEMORROID PAIN/ITCHING; Start 07/22/18 at 16:30 Ferrous Sulfate (Ferrous Sulfate (Ec)) 325 mg BID PO Last administered on 07/24/18at 09:19; Admin Dose 325 MG; Start 07/23/18 at 21:00; Stop 08/22/18 at 20:59 Docusate Sodium (Colace) 100 mg BID PRN PO CONSTIPATION Last administered on 07/24/18at 12:11; Admin Dose 100 MG; Start 07/23/18 at 13:00 Lisinopril (Zestril) 40 mg DAILY PO Last administered on 07/24/18at 09:19; Admin Dose 40 MG; Start 07/24/18 at 09:00 Metoprolol Succinate (Toprol Xl) 50 mg Q12 PO Last administered on 07/24/18at 12:21; Admin Dose 50 MG; Start 07/24/18 at 11:00 Ascorbic Acid (Vitamin C) 500 mg BID PO ; Start 07/24/18 at 21:00; Stop 08/23/18 at 20:59 DARLIN MINOR MD Jul 24, 2018 12:49
[2018-07-24 14:00] VITALS: BP 137/69; PULSE 81; RESP 20
[2018-07-24] MEDS ORDERED: FOSFOMYCIN 3 GM PACKET PO ONE (14:00)
[2018-07-24 20:00] VITALS: BP 165/72; PULSE 67; RESP 18
[2018-07-24] MEDS: ROPINIROLE 1 MG TAB PO SCH (21:00)
[2018-07-24] MEDS: ASCORBIC ACID 500 MG TAB PO SCH (21:01)
[2018-07-25 02:30] VITALS: BP 181/79; PULSE 67; RESP 18
[2018-07-25 04:15] VITALS: BP 166/74; PULSE 62; RESP 18
[2018-07-25] MEDS: PANTOPRAZOLE (EC) 40 MG TAB PO SCH (06:01)
[2018-07-25 08:00] VITALS: BP 137/64; PULSE 67
[2018-07-25] MEDS ORDERED: MAGNESIUM OXIDE 400 MG TAB PO ONE ×2 (08:00→12:30)
--- NOTE | 2018-07-25 08:12 | PN ---
Date/Time of Note Date/Time of Note DATE: 07/25/18 TIME: 08:11 Subjective Comfortable. reports no BM for a few days Objective Vital Signs Date Temp Pulse Resp B/P (MAP) Pulse Ox O2 O2 Flow FiO2 Time Delivery Rate 07/25/18 98.1 62 18 166/74 95 Room Air 04:15 (104) 07/23/18 20:00 Intake and Output 07/24/18 07/24/18 07/25/18 1414:59 22:59 06:59 IntakeIntake Total 480 ml BalanceBalance 480 ml Exam pulm-cta abd-soft max transfer Results/Medications Result Diagram: 07/25/18 0639 07/25/18 0630 Results 24 hrs Laboratory Tests Test 07/25/18 06:30 07/25/18 06:39 Sodium Level 142 Potassium Level 3.7 Chloride Level 106 Carbon Dioxide Level 30 Anion Gap 6 Blood Urea Nitrogen 17 Creatinine 0.82 Est Glomerular Filtrat Rate mL/min Glucose Level 99 Calcium Level 8.6 Phosphorus Level 3.7 Magnesium Level 1.6 L White Blood Count 5.9 Red Blood Count 3.16 L Hemoglobin 8.8 L Hematocrit 28.2 L Mean Corpuscular Volume 89.2 Mean Corpuscular Hemoglobin 27.8 L Mean Corpuscular Hemoglobin Concent 31.2 L Red Cell Distribution Width 14.6 H Platelet Count 278 Mean Platelet Volume 9.9 Immature Granulocytes % 2.000 H Neutrophils % 68.6 Lymphocytes % 20.0 Monocytes % 6.7 Eosinophils % 2.4 Basophils % 0.3 Nucleated Red Blood Cells % 0.0 Immature Granulocytes # 0.120 H Neutrophils # 4.0 Lymphocytes # 1.2 Monocytes # 0.4 Eosinophils # 0.1 Basophils # 0.0 Nucleated Red Blood Cells # 0.0 Medications Current Medications Magnesium Hydroxide (Milk Of Mag) 30 ml BID PRN PO CONSTIPATION; Start 07/22/18 at 16:00 Lactulose (Enulose) 20 gm DAILY PRN PO CONSTIPATION; Start 07/22/18 at 16:00 Bisacodyl (Dulcolax Supp) 10 mg DAILY PRN [place] CONSTIPATION; Start 07/22/18 at 1 6:00 Acetaminophen (Tylenol Tab) 650 mg Q4H PRN PO PAIN Last administered on 07/23/18at 21:33; Admin Dose 650 MG; Start 07/22/18 at 16:00 Miscellaneous Information (Pending [facility] Order For Wound Care) 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 PRN PRN XX WOUND CARE; Start 07/22/18 at 16:00 Amlodipine Besylate (Norvasc) 10 mg DAILY PO Last administered on 07/24/18at 09:18; Admin Dose 10 MG; Start 07/23/18 at 09:00 Clonidine (Catapres) 0.1 mg Q6H PRN PO ELEVATED BLOOD PRESSURE Last administered on 07/25/18at 02:49; Admin Dose 0.1 MG; Start 07/22/18 at 16:30 Acetaminophen/ Hydrocodone Bitart ([place] (5/325)) 1 tab Q4H PRN PO MODERATE PAIN LEVEL 4-6; Start 07/22/18 at 16:30 Ondansetron HCl (Zofran Inj) 4 mg Q6H PRN IV NAUSEA AND/OR VOMITING; Start 07/22/18 at 16:30 Pantoprazole (Protonix Tab) 40 mg DAILY@06 PO Last administered on 07/25/18at 06:01; Admin Dose 40 MG; Start 07/23/18 at 06:00 Ropinirole HCl (Requip) 1 mg HS PO Last administered on 07/24/18at 21:00; Admin Dose 1 MG; Start 07/22/18 at 21:00 Sertraline HCl (Zoloft) 100 mg DAILY PO Last administered on 07/24/18at 09:16; Admin Dose 100 MG; Start 07/23/18 at 09:00 Solifenacin (Vesicare) 5 mg DAILY PO ; Start 07/23/18 at 09:00 Tramadol HCl (Ultram) 25 mg Q6H PRN GTB MODERATE PAIN LEVEL 4-6; Start 07/22/18 at 16:30 Aspirin (Aspirin) 81 mg BID PO Last administered on 07/24/18at 21:00; Admin Dose 81 MG; Start 07/22/18 at 21:00 Hydrocortisone (Procto-Juan Antonio) 1 applic DAILY PRN [place] HEMORROID PAIN/ITCHING; Start 07/22/18 at 16:30 Ferrous Sulfate (Ferrous Sulfate (Ec)) 325 mg BID PO Last administered on 07/24/18at 21:01; Admin Dose 325 MG; Start 07/23/18 at 21:00; Stop 08/22/18 at 20:59 Docusate Sodium (Colace) 100 mg BID PRN PO CONSTIPATION Last administered on 07/24/18at 12:11; Admin Dose 100 MG; Start 07/23/18 at 13:00 Lisinopril (Zestril) 40 mg DAILY PO Last administered on 07/24/18at 09:19; Admin Dose 40 MG; Start 07/24/18 at 09:00 Ascorbic Acid (Vitamin C) 500 mg BID PO Last administered on 07/24/18at 21:01; Admin Dose 500 MG; Start 07/24/18 at 21:00; Stop 08/23/18 at 20:59 Metoprolol Succinate (Toprol Xl) 50 mg Q12H PO ; Start 07/25/18 at 11:00 Assessment/Plan Additional Assessment/Plan Rehab- Right intertrochanteric hip fracture status post ORIF; History of right shoulder fracture arthropathy with decreased ROM Patient tolerating interdisciplinary rehab treatment plan Acute pain syndrome-continue current medications Acute kidney injury- improved Hypertension. Anemia- monitor KIARA GARCIA MD Jul 25, 2018 08:12
--- NOTE | 2018-07-25 08:29 | PN ---
DATE: 07/25/2018 SUBJECTIVE: The patient is stable. No events overnight. No fevers, chills, nausea, or vomiting. OBJECTIVE: VITAL SIGNS: Blood pressure is 166/74, respirations 18, pulse 62, temperature 98.1. HEENT: Head is normocephalic. NECK: Supple. HEART: Regular rate. LUNGS: Show diminished breath sounds at the base. ABDOMEN: Soft, nontender to palpation without rebound or guarding. EXTREMITIES: Negative for clubbing, cyanosis, no edema. DERMATOLOGIC: No rashes. MUSCULOSKELETAL: No joint effusion. NEUROLOGIC: No change in exam. MEDICATIONS: Reviewed. LABORATORY DATA: From 07/25/2018 was reviewed. Magnesium is 1.6. ASSESSMENT AND PLAN: 1. Nonoliguric acute kidney injury with unknown baseline creatinine. Etiology is secondary to hemod ynamics. Renal function is improved. Continue current treatment plans, supportive care, renally dos e all medicines. 2. Hypomagnesemia. We will replete with magnesium oxide. 3. Anemia. Monitor hemoglobin and hematocrit levels. 4. Mineral bone disorder. Monitor calcium and phosphorus levels. 5. Hypertension. Blood pressure remains elevated. We will continue to monitor and adjust as needed . 6. Right hip fracture, status post arthroplasty. Continue physical therapy. Dictated By: STEPH MARTINEZ DO NR/NTS Conf#: [id number] DID#: [id number] CC: KIARA GARCIA MD; FRANSISCO TOLEDO MD;*EndCC*
[2018-07-25] MEDS: SOLIFENACIN 5 MG TAB PO SCH (09:00)
[2018-07-25] MEDS: AMLODIPINE 10 MG TAB PO SCH (09:48)
[2018-07-25] MEDS: LISINOPRIL 20 MG TAB PO SCH (09:48)
[2018-07-25] MEDS: SERTRALINE 100 MG TAB PO SCH (09:48)
[2018-07-25] MEDS: ASCORBIC ACID 500 MG TAB PO SCH ×2 (09:48→21:06)
[2018-07-25] MEDS: ASPIRIN 81 MG TAB PO SCH ×2 (09:48→21:06)
[2018-07-25] MEDS: FERROUS SULFATE (EC) 325 MG TAB PO SCH ×2 (09:48→21:06)
[2018-07-25] MEDS: METOPROLOL (XL) 50 MG TAB PO SCH ×2 (12:10→23:18)
--- NOTE | 2018-07-25 12:30 | PN ---
Date/Time of Note Date/Time of Note DATE: 07/25/18 TIME: 12:27 Assessment/Plan VTE Prophylaxis Risk score [place] [facility] [place] risk: 11 SCD applied (from [facility] [place] Yes Pharmacological prophylaxis: heparin Lines/Catheters IV Catheter Type (from [facility]): Saline Lock Urinary Cath still in place: No Assessment/Plan Problems: (1) Closed right hip fracture Status: Acute Comment: Going through rehabilitation without issue Qualifiers: Encounter type: initial encounter Qualified Codes: S72.001A - Fracture of unspecified part of neck of right femur, initial encounter for closed fracture (2) Status post open reduction with internal fixation of fracture Onset Date: ~ 07/14/2018 Status: Acute Comment: Progressing with protocol the acute rehabilitation unit (3) Iron deficiency anemia due to chronic blood loss Status: Chronic Comment: On replacement therapy (4) Hematuria Status: Acute Comment: Scheduled for follow-up exam tomorrow Qualifiers: Hematuria type: benign essential microscopic Qualified Codes: R31.1 - Benign essential microscopic hematuria Result Diagram: 07/25/18 0639 07/25/18 0630 Results 24hrs Laboratory Tests Test 07/25/18 06:30 07/25/18 06:39 Sodium Level 142 Potassium Level 3.7 Chloride Level 106 Carbon Dioxide Level 30 Anion Gap 6 Blood Urea Nitrogen 17 Creatinine 0.82 Est Glomerular Filtrat Rate mL/min Glucose Level 99 Calcium Level 8.6 Phosphorus Level 3.7 Magnesium Level 1.6 L White Blood Count 5.9 Red Blood Count 3.16 L Hemoglobin 8.8 L Hematocrit 28.2 L Mean Corpuscular Volume 89.2 Mean Corpuscular Hemoglobin 27.8 L Mean Corpuscular Hemoglobin Concent 31.2 L Red Cell Distribution Width 14.6 H Platelet Count 278 Mean Platelet Volume 9.9 Immature Granulocytes % 2.000 H Neutrophils % 68.6 Lymphocytes % 20.0 Monocytes % 6.7 Eosinophils % 2.4 Basophils % 0.3 Nucleated Red Blood Cells % 0.0 Immature Granulocytes # 0.120 H Neutrophils # 4.0 Lymphocytes # 1.2 Monocytes # 0.4 Eosinophils # 0.1 Basophils # 0.0 Nucleated Red Blood Cells # 0.0 Subjective 24 Hr Interval Summary Constitutional: no complaints Respiratory: no complaints Cardiovascular: no complaints Gastrointestinal: no complaints Exam/Review of Systems Exam Vitals Vital Signs Date Temp Pulse Resp B/P (MAP) Pulse Ox O2 O2 Flow FiO2 Time Delivery Rate 07/25/18 98.4 67 137/64 Room Air 08:00 (88) 07/25/18 18 04:15 Intake and Output 07/24/18 07/24/18 07/25/18 1515:00 23:00 07:00 IntakeIntake Total 480 ml BalanceBalance 480 ml Exam Charming and pleasant woman in no aj distress Constitutional: alert, oriented Neck: supple, non-tender Respiratory: clear to auscultation, normal air movement Cardiovascular: regular rate and rhythm, nl pulses Results Results 24hrs Laboratory Tests Test 07/25/18 06:30 07/25/18 06:39 Sodium Level 142 Potassium Level 3.7 Chloride Level 106 Carbon Dioxide Level 30 Anion Gap 6 Blood Urea Nitrogen 17 Creatinine 0.82 Est Glomerular Filtrat Rate mL/min Glucose Level 99 Calcium Level 8.6 Phosphorus Level 3.7 Magnesium Level 1.6 L White Blood Count 5.9 Red Blood Count 3.16 L Hemoglobin 8.8 L Hematocrit 28.2 L Mean Corpuscular Volume 89.2 Mean Corpuscular Hemoglobin 27.8 L Mean Corpuscular Hemoglobin Concent 31.2 L Red Cell Distribution Width 14.6 H Platelet Count 278 Mean Platelet Volume 9.9 Immature Granulocytes % 2.000 H Neutrophils % 68.6 Lymphocytes % 20.0 Monocytes % 6.7 Eosinophils % 2.4 Basophils % 0.3 Nucleated Red Blood Cells % 0.0 Immature Granulocytes # 0.120 H Neutrophils # 4.0 Lymphocytes # 1.2 Monocytes # 0.4 Eosinophils # 0.1 Basophils # 0.0 Nucleated Red Blood Cells # 0.0 Medications Medication Current Medications Magnesium Hydroxide (Milk Of Mag) 30 ml BID PRN PO CONSTIPATION; Start 07/22/18 at 16:00 Lactulose (Enulose) 20 gm DAILY PRN PO CONSTIPATION; Start 07/22/18 at 16:00 Bisacodyl (Dulcolax Supp) 10 mg DAILY PRN [place] CONSTIPATION; Start 07/22/18 at 16:00 Acetaminophen (Tylenol Tab) 650 mg Q4H PRN PO PAIN Last administered on 07/23/18at 21:33; Admin Dose 650 MG; Start 07/22/18 at 16:00 [facility]isc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 PRN PRN XX WOUND CARE; Start 07/22/18 at 16:00 Amlodipine Besylate (Norvasc) 10 mg DAILY PO Last administered on 07/25/18 09:48; Admin Dose 10 MG; Start 07/23/18 at 09:00 Clonidine (Catapres) 0.1 mg Q6H PRN PO ELEVATED BLOOD PRESSURE Last administered on 07/25/18 02:49; Admin Dose 0.1 MG; Start 07/22/18 at 16:30 Acetaminophen/ Hydrocodone Bitart ([place] (5/325)) 1 tab Q4H PRN PO MODERATE PAIN LEVEL 4-6; Start 07/22/18 at 16:30 Ondansetron HCl (Zofran Inj) 4 mg Q6H PRN IV NAUSEA AND/OR VOMITING; Start 07/22/18 at 16:30 Pantoprazole (Protonix Tab) 40 mg DAILY@06 PO Last administered on 07/25/18 06:01; Admin Dose 40 MG; Start 07/23/18 at 06:00 Ropinirole HCl (Requip) 1 mg HS PO Last administered on 07/24/18 21:00; Admin Dose 1 MG; Start 07/22/18 at 21:00 Sertraline HCl (Zoloft) 100 mg DAILY PO Last administered on 07/25/18 09:48; Admin Dose 100 MG; Start 07/23/18 at 09:00 Solifenacin (Vesicare) 5 mg DAILY PO ; Start 07/23/18 at 09:00 Tramadol HCl (Ultram) 25 mg Q6H PRN GTB MODERATE PAIN LEVEL 4-6; Start 07/22/18 at 16:30 Aspirin (Aspirin) 81 mg BID PO Last administered on 07/25/18 09:48; Admin Dose 81 MG; Start 07/22/18 at 21:00 Hydrocortisone (Procto-Juan Antonio) 1 applic DAILY PRN [place] HEMORROID PAIN/ITCHING; Start 07/22/18 at 16:30 Ferrous Sulfate (Ferrous Sulfate (Ec)) 325 mg BID PO Last administered on 07/25/18 09:48; Admin Dose 325 MG; Start 07/23/18 at 21:00; Stop 08/22/18 at 20:59 Docusate Sodium (Colace) 100 mg BID PRN PO CONSTIPATION Last administered on 4/27/19at 12:11; Admin Dose 100 MG; Start 07/23/18 at 13:00 Lisinopril (Zestril) 40 mg DAILY PO Last administered on 07/25/18 09:48; Admin Dose 40 MG; Start 07/24/18 at 09:00 Ascorbic Acid (Vitamin C) 500 mg BID PO Last administered on 07/25/18 09:48; Admin Dose 500 MG; Start 07/24/18 at 21:00; Stop 08/23/18 at 20:59 Metoprolol Succinate (Toprol Xl) 50 mg Q12H PO Last administered on 07/25/18 12:10; Admin Dose 50 MG; Start 07/25/18 at 11:00 DARLIN MINOR MD Jul 25, 2018 12:30
[2018-07-25 20:30] VITALS: BP 191/78; PULSE 70
[2018-07-25] MEDS: ROPINIROLE 1 MG TAB PO SCH (21:06)
[2018-07-25 23:00] VITALS: BP 145/62; PULSE 68; RESP 18
[2018-07-26 02:30] VITALS: BP 152/76; PULSE 68; RESP 18
[2018-07-26] MEDS: PANTOPRAZOLE (EC) 40 MG TAB PO SCH (06:07)
[2018-07-26 08:00] VITALS: BP 137/64; PULSE 70; RESP 19
[2018-07-26] MEDS: SOLIFENACIN 5 MG TAB PO SCH (09:00)
[2018-07-26] MEDS: MAGNESIUM OXIDE 400 MG TAB PO SCH (09:34)
--- NOTE | 2018-07-26 09:34 | PN ---
DATE: 07/26/2018 SUBJECTIVE: The patient is stable, no events overnight. OBJECTIVE: VITAL SIGNS: Blood pressure is 152/76, respirations 18, pulse 68, temperature 98.2. HEENT: Head is normocephalic. NECK: Supple. HEART: Regular rate. LUNGS: Show diminished breath sounds at the base. ABDOMEN: Soft, nontender to palpation. No rebound or guarding. EXTREMITIES: Negative for clubbing, cyanosis, no edema. DERMATOLOGIC: No rashes. MUSCULOSKELETAL: No joint effusion. NEUROLOGIC: No change in exam. MEDICATIONS: Reviewed. LABORATORY DATA: Reviewed. ASSESSMENT AND PLAN: 1. Nonoliguric acute kidney injury with unknown baseline creatinine. Etiology is secondary to hemod ynamics. Renal function is improved. Continue current treatment plan, supportive care, renally dose all medicines. 2. Hypomagnesemia. Continue to monitor and replete as needed. 3. Anemia. Continue to monitor hemoglobin and hematocrit levels. 4. Mineral bone disorder, monitor calcium and phosphorus levels. 5. Hypertension. Blood pressure is elevated, but improving. Continue current blood pressure regime n, adjust as needed. 6. Right hip fracture, status post arthroplasty. Continue physical therapy. Dictated By: STEPH MARTINEZ DO NR/NTS Conf#: [id number] DID#: [id number] CC: KIARA GARCIA MD; FRANSISCO TOLEDO MD;*End*
[2018-07-26] MEDS: ASPIRIN 81 MG TAB PO SCH ×2 (09:35→21:07)
[2018-07-26] MEDS: SERTRALINE 100 MG TAB PO SCH (09:35)
[2018-07-26] MEDS: LISINOPRIL 20 MG TAB PO SCH (09:41)
[2018-07-26] MEDS: FERROUS SULFATE (EC) 325 MG TAB PO SCH ×2 (09:43→21:08)
[2018-07-26] MEDS: AMLODIPINE 10 MG TAB PO SCH (09:43)
[2018-07-26] MEDS: ASCORBIC ACID 500 MG TAB PO SCH ×2 (09:43→21:08)
--- NOTE | 2018-07-26 11:21 | PN ---
Date/Time of Note Date/Time of Note DATE: 07/26/18 TIME: 11: Assessment/Plan VTE Prophylaxis Risk score (from Ns)>0 risk: 11 SCD applied (from Ns): Yes Pharmacological prophylaxis: other (aspirin per ortho) Lines/Catheters IV Catheter Type (from Nrs): Saline Lock Urinary Cath still in place: No Assessment/Plan Hospital Course SUBJECTIVE: No acute distress.no hematuria reported. OBJECTIVE: Vital signs-see below PHYSICAL EXAM: Constitutional: Adequately built, elderly female not in acute distress. HEENT: Head atraumatic and normocephalic. Eyes: Extraocular muscles intact. Anicteric sclerae. Pupils equal bilaterally, reactive to light. NECK: Supple without lymph node. CHEST: Clear and good breath sounds equally. No wheezing. No rhonchi. HEART: S1, S2. Regular rate and rhythm. ABDOMEN: Soft/non tender with no rebound tenderness. Bowel sounds were present. EXTREMITIES: RLE w/ intact dressing. No cyanosis, clubbing or edema. NEUROLOGIC: Alert and oriented x3. No focal deficit. No sensory deficit. PSYCHOSOCIAL: No signs of depression. INTEGUMENTARY: No open wounds. ASSESSMENT AND PLAN: 88-year-old female, status post right hip ORIF transferred to acute rehabilitation unit for inpatient rehab. Right hip fracture s/p ORIF 07/14/18 - DVT ppx,pain control - Rehab -Ortho f/u in 2 weeks Hypertension -Ricky stable.cont.antihypertensives. Iron deficient anemia -Continue oral replacement Mood disorder -Continue sertraline Restless leg syndrome -on ropinirole Constipation - bowel regimen History of overactive bladder -Currently stable and patient refuses to take Vesicare. Her bladder fxn is stable. DVT prophylaxis: Aspirin per orthopedic recommendations. Patient is seen in collaboration with Result Diagram: 07/25/18 0639 07/25/18 0630 Exam/Review of Systems Exam Vitals Vital Signs Date Temp Pulse Resp B/P (MAP) Pulse Ox O2 O2 Flow FiO2 Time Delivery Rate 07/26/18 98.2 68 18 152/76 94 Room Air 02:30 (101) 07/25/18 08:00 Intake and Output 07/25/18 07/25/18 07/26/18 1515:00 23:00 07:00 IntakeIntake Total 490 ml 300 ml BalanceBalance 490 ml 300 ml Medications Medication Current Medications Magnesium Hydroxide (Milk Of Mag) 30 ml BID PRN PO CONSTIPATION; Start 07/22/18 at 16:00 Lactulose (Enulose) 20 gm DAILY PRN PO CONSTIPATION Last administered on 9at 14:25; Admin Dose 20 GM; Start 07/22/18 at 16:00 Bisacodyl (Dulcolax Supp) 10 mg DAILY PRN [place] CONSTIPATION; Start 07/22/18 at 16:00 Acetaminophen (Tylenol Tab) 650 mg Q4H PRN PO PAIN Last administered on 07/23/18at 21:33; Admin Dose 650 MG; Start 07/22/18 at 16:00 Miscellaneous Information (Pending [facility] Order For Wound Care) 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 PRN PRN XX WOUND CARE; Start 07/22/18 at 16:00 Amlodipine Besylate (Norvasc) 10 mg DAILY PO Last administered on 07/26/18at 09:43; Admin Dose 10 MG; Start 07/23/18 at 09:00 Clonidine (Catapres) 0.1 mg Q6H PRN PO ELEVATED BLOOD PRESSURE Last admi nistered on 07/25/18at 21:06; Admin Dose 0.1 MG; Start 07/22/18 at 16:30 Acetaminophen/ Hydrocodone Bitart ([place] (5/325)) 1 tab Q4H PRN PO MODERATE PAIN LEVEL 4-6; Start 07/22/18 at 16:30 Ondansetron HCl (Zofran Inj) 4 mg Q6H PRN IV NAUSEA AND/OR VOMITING; Start 07/22/18 at 16:30 Pantoprazole (Protonix Tab) 40 mg DAILY@06 PO Last administered on 07/26/18at 06:07; Admin Dose 40 MG; Start 07/23/18 at 06:00 Ropinirole HCl (Requip) 1 mg HS PO Last administered on 07/25/18at 21:06; Admin Dose 1 MG; Start 07/22/18 at 21:00 Sertraline HCl (Zoloft) 100 mg DAILY PO Last administered on 07/26/18at 09:35; Admin Dose 100 MG; Start 07/23/18 at 09:00 Solifenacin (Vesicare) 5 mg DAILY PO ; Start 07/23/18 at 09:00 Tramadol HCl (Ultram) 25 mg Q6H PRN GTB MODERATE PAIN LEVEL 4-6; Start 07/22/18 at 16:30 Aspirin (Aspirin) 81 mg BID PO Last administered on 07/26/18 09:35; Admin Dose 81 MG; Start 07/22/18 at 21:00 Hydrocortisone (Procto-Juan Antonio) 1 applic DAILY PRN [place] HEMORROID PAIN/ITCHING; Start 07/22/18 at 16:30 Ferrous Sulfate (Ferrous Sulfate (Ec)) 325 mg BID PO Last administered on 07/26/18 09:43; Admin Dose 325 MG; Start 07/23/18 at 21:00; Stop 08/22/18 at 20:59 Docusate Sodium (Colace) 100 mg BID PRN PO CONSTIPATION Last administered on 07/24/18 12:11; Admin Dose 100 MG; Start 07/23/18 at 13:00 Lisinopril (Zestril) 40 mg DAILY PO Last administered on 07/26/18 09:41; Admin Dose 40 MG; Start 07/24/18 at 09:00 Ascorbic Acid (Vitamin C) 500 mg BID PO Last administered on 07/26/18 09:43; Admin Dose 500 MG; Start 07/24/18 at 21:00; Stop 08/23/18 at 20:59 Metoprolol Succinate (Toprol Xl) 50 mg Q12H PO Last administered on 07/25/18 23:18; Admin Dose 50 MG; Start 07/25/18 at 11:00 Magnesium Oxide (Mag-Ox 400) 400 mg DAILY PO Last administered on 07/26/18 09:34; Admin Dose 400 MG; Start 07/26/18 at 09:00 DARLENE RODRÍGUEZ NP Jul 26, 2018 11:21
[2018-07-26] MEDS: METOPROLOL (XL) 50 MG TAB PO SCH ×2 (11:59→23:14)
--- NOTE | 2018-07-26 13:26 | PN ---
Date/Time of Note Date/Time of Note DATE: 07/26/18 TIME: 13:25 Objective Vital Signs Date Temp Pulse Resp B/P (MAP) Pulse Ox O2 O2 Flow FiO2 Time Delivery Rate 07/26/18 98.2 68 18 152/76 94 Room Air 02:30 (101) 07/25/18 08:00 Intake and Output 07/25/18 07/25/18 07/26/18 1414:59 22:59 06:59 IntakeIntake Total 490 ml 300 ml BalanceBalance 490 ml 300 ml Exam INTERDISCIPLINARY TEAM CONFERENCE Attended by PT, OT, ST, Monotype Setter, Social Work, Rehabilitation Nursing, Land Surveying Party Chief and Bead FlipperAirplane Gastank Liner Assembler Exam: Pulm- cta Abd-soft BOWEL- Cont BLADDER-Cont SKIN- improving OT- DRESSING-max/dep BATHING-dep TOILETING-dep PT- BED MOBILITY-max TRANSFERS-max AMBULATION- UA WHEELCHAIR- mod A/P- Interdisciplinary team conference held today. Please see interdisciplinary sheet. Working toward d.c. on 08/09 with post discharge follow up of physical therapy, occupational therapy. 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 PRN PRN XX WOUND CARE; Start 07/22/18 at 16:00 Amlodipine Besylate (Norvasc) 10 mg DAILY PO Last administered on 07/26/18at 09:43; Admin Dose 10 MG; Start 07/23/18 at 09:00 Clonidine (Catapres) 0.1 mg Q6H PRN PO ELEVATED BLOOD PRESSURE Last administered on 07/25/18at 21:06; Admin Dose 0.1 MG; Start 07/22/18 at 16:30 Acetaminophen/ Hydrocodone Bitart ([place] (5/325)) 1 tab Q4H PRN PO MODERATE PAIN LEVEL 4-6; Start 07/22/18 at 16:30 Ondansetron HCl (Zofran Inj) 4 mg Q6H PRN IV NAUSEA AND/OR VOMITING; Start 07/22/18 at 16:30 Pantoprazole (Protonix Tab) 40 mg DAILY@06 PO Last administered on 07/26/18 06:07; Admin Dose 40 MG; Start 07/23/18 at 06:00 Ropinirole HCl (Requip) 1 mg HS PO Last administered on 07/25/18 21:06; Admin Dose 1 MG; Start 07/22/18 at 21:00 Sertraline HCl (Zoloft) 100 mg DAILY PO Last administered on 07/26/18 09:35; Admin Dose 100 MG; Start 07/23/18 at 09:00 Solifenacin (Vesicare) 5 mg DAILY PO ; Start 07/23/18 at 09:00 Tramadol HCl (Ultram) 25 mg Q6H PRN GTB MODERATE PAIN LEVEL 4-6; Start 07/22/18 at 16:30 Aspirin (Aspirin) 81 mg BID PO Last administered on 07/26/18 09:35; Admin Dose 81 MG; Start 07/22/18 at 21:00 Hydrocortisone (Procto-Juan Antonio) 1 applic DAILY PRN [place] HEMORROID PAIN/ITCHING; Start 07/22/18 at 16:30 Ferrous Sulfate (Ferrous Sulfate (Ec)) 325 mg BID PO Last administered on 07/26/18 09:43; Admin Dose 325 MG; Start 07/23/18 at 21:00; Stop 08/22/18 at 20:59 Docusate Sodium (Colace) 100 mg BID PRN PO CONSTIPATION Last administered on 07/24/18 12:11; Admin Dose 100 MG; Start 07/23/18 at 13:00 Lisinopril (Zestril) 40 mg DAILY PO Last administered on 07/26/18 09:41; Admin Dose 40 MG; Start 07/24/18 at 09:00 Ascorbic Acid (Vitamin C) 500 mg BID PO Last administered on 07/26/18 09:43; Admin Dose 500 MG; Start 07/24/18 at 21:00; Stop 08/23/18 at 20:59 Metoprolol Succinate (Toprol Xl) 50 mg Q12H PO Last administered on 07/26/18at 11:59; Admin Dose 50 MG; Start 07/25/18 at 11:00 Magnesium Oxide (Mag-Ox 400) 400 mg DAILY PO Last administered on 07/26/18at 09:34; Admin Dose 400 MG; Start 07/26/18 at 09:00 KIARA GARCIA MD Jul 26, 2018 13:25
[2018-07-26 20:00] VITALS: BP 158/70; PULSE 70; RESP 18
[2018-07-26] MEDS: ROPINIROLE 1 MG TAB PO SCH (21:10)
[2018-07-26 23:12] VITALS: BP 129/70; PULSE 70; RESP 18
[2018-07-26] MEDS: ACETAMINOPHEN 325 MG TAB PO PRN (23:14)
[2018-07-27 04:00] VITALS: BP 147/72; PULSE 68; RESP 18
[2018-07-27] MEDS: PANTOPRAZOLE (EC) 40 MG TAB PO SCH ×2 (06:30→20:19)
[2018-07-27] MEDS: ACETAMINOPHEN 325 MG TAB PO PRN (08:04)
[2018-07-27 08:11] VITALS: BP 171/74; PULSE 66; RESP 20
[2018-07-27] MEDS: MAGNESIUM OXIDE 400 MG TAB PO SCH (08:47)
[2018-07-27] MEDS: AMLODIPINE 10 MG TAB PO SCH (08:47)
[2018-07-27] MEDS: ASCORBIC ACID 500 MG TAB PO SCH ×2 (08:47→20:19)
[2018-07-27] MEDS: LISINOPRIL 20 MG TAB PO SCH (08:48)
[2018-07-27] MEDS: ASPIRIN 81 MG TAB PO SCH ×2 (08:48→20:19)
[2018-07-27] MEDS: SERTRALINE 100 MG TAB PO SCH (08:48)
[2018-07-27] MEDS: FERROUS SULFATE (EC) 325 MG TAB PO SCH ×2 (09:00→20:19)
[2018-07-27] MEDS: MULTIVITAMINS THERAPEUTIC TAB PO SCH (09:00)
--- NOTE | 2018-07-27 09:00 | PN ---
DATE: 07/27/2018 SUBJECTIVE: The patient is stable, no events overnight. No fevers, chills, nausea, or vomiting. OBJECTIVE: VITAL SIGNS: Blood pressure is 171/74, pulse 66, respirations 20, temperature 98.1. HEENT: Head is normocephalic. NECK: Supple. HEART: Regular rate. LUNGS: Show diminished breath sounds at the base. ABDOMEN: Soft, nontender to palpation. No rebound or guarding. EXTREMITIES: Negative for clubbing, cyanosis, no edema. DERMATOLOGIC: No rashes. MUSCULOSKELETAL: No joint effusion. NEUROLOGIC: No change in exam. MEDICATIONS: Reviewed. LABORATORY DATA: Reviewed. ASSESSMENT AND PLAN: 1. Nonoliguric acute kidney injury on top of chronic kidney disease. Etiology of acute kidney injur y is secondary to hemodynamics. Renal function is improved. Continue current treatment plans, suppo rtive care, renally dose all medicines. 2. Hypomagnesemia. Continue to monitor and replete as needed. 3. Anemia. Monitor hemoglobin and hematocrit levels. 4. Mineral bone disorder, monitor calcium and phosphorus levels. 5. Hypertension. Continue current blood pressure regimen. Blood pressure appears to be improving. Adjust medications as needed. 6. Right hip fracture, status post arthroplasty. Continue physical therapy. Dictated By: STEPH MARTINEZ DO NR/NTS Conf#: [id number] DID#: [id number] CC: FRANSISCO TOLEDO MD; KIARA GARCIA MD;*EndCC*
[2018-07-27] MEDS ORDERED: AL HYDROX/MG HYDROX/SIMETH 30 ML CUP PO PRN (12:00)
--- NOTE | 2018-07-27 12:00 | PN ---
Date/Time of Note Date/Time of Note DATE: 07/27/18 TIME: 11:58 Assessment/Plan VTE Prophylaxis Risk score (from Ns)>0 risk: 13 SCD applied (from Ns): Yes Pharmacological prophylaxis: other (asa bid) Lines/Catheters IV [facility]from [facility] Saline Lock Urinary Cath still in place: No Assessment/Plan Hospital Course SUBJECTIVE: Had some acid reflux/epigastric discomfort w/meals. OBJECTIVE: Vital signs-see below PHYSICAL EXAM: Constitutional: Adequately built, elderly female not in acute distress. HEENT: Head atraumatic and normocephalic. Eyes: Extraocular muscles intact. Anicteric sclerae. Pupils equal bilaterally, reactive to light. NECK: Supple without lymph node. CHEST: Clear and good breath sounds equally. No wheezing. No rhonchi. HEART: S1, S2. Regular rate and rhythm. ABDOMEN: Soft/non tender with no rebound tenderness. Bowel sounds were present. EXTREMITIES: RLE w/ intact dressing. No cyanosis, clubbing or edema. NEUROLOGIC: Alert and oriented x3. No focal deficit. No sensory deficit. PSYCHOSOCIAL: No signs of depression. INTEGUMENTARY: No open wounds. ASSESSMENT AND PLAN: 88-year-old female, status post right hip ORIF transferred to acute rehabilitation unit for inpatient rehab. Right hip fracture s/p ORIF 07/14/18 - DVT ppx,pain control - Rehab - Ortho f/u in 2 weeks Hypertension -Ricky stable.cont.antihypertensives. Iron deficient anemia -Continue oral replacement Mood disorder -Continue sertraline Restless leg syndrome -on ropinirole Constipation - bowel regimen History of overactive bladder -Currently stable and patient refuses to take Vesicare. Her bladder fxn is stable. Possible GERD -Start PPI bid, Carafate,PRN Mylanta -Outpatient EGD eval after dc. DVT prophylaxis: Aspirin per orthopedic recommendations. Patient is seen in collaboration with Result Diagram: 07/25/18 0639 07/25/18 0630 Results 24hrs Laboratory Tests Test 07/27/18 01:00 Urine Color YELLOW Urine Clarity SLIGHTLY CLOUDY A Urine pH 6.0 Urine Specific [place] 1.012 Urine Ketones NEGATIVE Urine Nitrite NEGATIVE Urine Bilirubin NEGATIVE Urine Urobilinogen NEGATIVE Urine Leukocyte Esterase TRACE A Urine Microscopic RBC 0 Urine Microscopic WBC 4 Urine Squamous Epithelial Cells FEW Urine Bacteria FEW A Urine Hemoglobin NEGATIVE Urine Glucose NEGATIVE Urine Total Protein NEGATIVE Exam/Review of Systems Exam Vitals Vital Signs Date Temp Pulse Resp B/P (MAP) Pulse Ox O2 O2 Flow FiO2 Time Delivery Rate 07/27/18 98.1 66 20 171/74 97 Room Air 08:11 (106) 07/25/18 08:00 Intake and Output 07/26/18 07/26/18 07/27/18 1515:00 23:00 07:00 IntakeIntake Total 400 ml OutputOutput Total 200 ml BalanceBalance -200 ml 400 ml Results Results 24hrs Laboratory Tests Test 07/27/18 01:00 Urine Color YELLOW Urine Clarity SLIGHTLY CLOUDY A Urine pH 6.0 Urine Specific [place] 1.012 Urine Ketones NEGATIVE Urine Nitrite NEGATIVE Urine Bilirubin NEGATIVE Urine Urobilinogen NEGATIVE Urine Leukocyte Esterase TRACE A Urine Microscopic RBC 0 Urine Microscopic WBC 4 Urine Squamous Epithelial Cells FEW Urine Bacteria FEW A Urine Hemoglobin NEGATIVE Urine Glucose NEGATIVE Urine Total Protein NEGATIVE Medications Medication Current Medications Magnesium Hydroxide (Milk Of Mag) 30 ml BID PRN PO CONSTIPATION; Start 07/22/18 at 16:00 Lactulose (Enulose) 20 gm DAILY PRN PO CONSTIPATION Last administered on 07/25/18at 14:25; Admin Dose 20 GM; Start 07/22/18 at 16:00 Bisacodyl (Dulcolax Supp) 10 mg DAILY PRN [place] CONSTIPATION; Start 07/22/18 at 16:00 Acetaminophen (Tylenol Tab) 650 mg Q4H PRN PO PAIN Last administered on 07/27/18at 08:04; Admin Dose 650 MG; Start 07/22/18 at 16:00 Miscellaneous Information (Pending Santyl Order For Wound Care) 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 PRN PRN XX WOUND CARE; Start 07/22/18 at 16:00 Amlodipine Besylate (Norvasc) 10 mg DAILY PO Last administered on 07/27/18at 08:47; Admin Dose 10 MG; Start 07/23/18 at 09:00 Clonidine (Catapres) 0.1 mg Q6H PRN PO ELEVATED BLOOD PRESSURE Last administered on 07/25/18at 21:06; Admin Dose 0.1 MG; Start 07/22/18 at 16:30 Acetaminophen/ Hydrocodone Bitart ([place] (5/325)) 1 tab Q4H PRN PO MODERATE PAIN LEVEL 4-6; Start 07/22/18 at 16:30 Ondansetron HCl (Zofran Inj) 4 mg Q6H PRN IV NAUSEA AND/OR VOMITING; Start 07/22/18 at 16:30 Pantoprazole (Protonix Tab) 40 mg DAILY@06 PO Last administered on 07/27/18 06:30; Admin Dose 40 MG; Start 07/23/18 at 06:00 Ropinirole HCl (Requip) 1 mg HS PO Last administered on 07/26/18 21:10; Admin Dose 1 MG; Start 07/22/18 at 21:00 Sertraline HCl (Zoloft) 100 mg DAILY PO Last administered on 07/27/18 08:48; Admin Dose 100 MG; Start 07/23/18 at 09:00 Tramadol HCl (Ultram) 25 mg Q6H PRN GTB MODERATE PAIN LEVEL 4-6; Start 07/22/18 at 16:30 Aspirin (Aspirin) 81 mg BID PO Last administered on 07/27/18 08:48; Admin Dose 81 MG; Start 07/22/18 at 21:00 Hydrocortisone (Procto-Juan Antonio) 1 applic DAILY PRN [place] HEMORROID PAIN/ITCHING; Start 07/22/18 at 16:30 Ferrous Sulfate (Ferrous Sulfate (Ec)) 325 mg BID PO Last administered on 07/26/18 21:08; Admin Dose 325 MG; Start 07/23/18 at 21:00; Stop 08/22/18 at 20:59 Docusate Sodium (Colace) 100 mg BID PRN PO CONSTIPATION Last administered on 07/24/18 12:11; Admin Dose 100 MG; Start 07/23/18 at 13:00 Lisinopril (Zestril) 40 mg DAILY PO Last administered on 07/27/18 08:48; Admin Dose 40 MG; Start 07/24/18 at 09:00 Ascorbic Acid (Vitamin C) 500 mg BID PO Last administered on 07/27/18 08:47; Admin Dose 500 MG; Start 07/24/18 at 21:00; Stop 08/23/18 at 20:59 Metoprolol Succinate (Toprol Xl) 50 mg Q12H PO Last administered on 07/26/18 23:14; Admin Dose 50 MG; Start 07/25/18 at 11:00 Magnesium Oxide (Mag-Ox 400) 400 mg DAILY PO Last administered on 07/27/18at 08:47; Admin Dose 400 MG; Start 07/26/18 at 09:00 Multivitamins Therapeutic (Theragran) 1 tab DAILY PO ; Start 07/27/18 at 09:00 DARLENE RODRÍGUEZ NP Jul 27, 2018 12:00
[2018-07-27] MEDS: SUCRALFATE (100 MG/ML) 10ML CUP PO SCH ×3 (12:53→20:19)
[2018-07-27] MEDS: METOPROLOL (XL) 50 MG TAB PO SCH ×2 (12:53→22:04)
--- NOTE | 2018-07-27 13:12 | PN ---
Date/Time of Note Date/Time of Note DATE: 07/27/18 TIME: 13:11 Subjective She reports her pain has improved Objective Vital Signs Date Temp Pulse Resp B/P (MAP) Pulse Ox O2 O2 Flow FiO2 Time Delivery Rate 07/27/18 98.1 66 20 171/74 97 Room Air 08:11 (106) 07/25/18 08:00 Intake and Output 07/26/18 07/26/18 07/27/18 1515:00 23:00 07:00 IntakeIntake Total 400 ml OutputOutput Total 200 ml BalanceBalance -200 ml 400 ml Exam [id number] mod assist wheelchair propulsion Results/Medications Result Diagram: 07/25/18 0639 07/25/18 0630 Results 24 hrs Laboratory Tests Test 07/27/18 01:00 Urine Color YELLOW Urine Clarity SLIGHTLY CLOUDY A Urine pH 6.0 Urine Specific [place] 1.012 Urine Ketones NEGATIVE Urine Nitrite NEGATIVE Urine Bilirubin NEGATIVE Urine Urobilinogen NEGATIVE Urine Leukocyte Esterase TRACE A Urine Microscopic RBC 0 Urine Microscopic WBC 4 Urine Squamous Epithelial Cells FEW Urine Bacteria FEW A Urine Hemoglobin NEGATIVE Urine Glucose NEGATIVE Urine Total Protein NEGATIVE Medications Current Medications Magnesium Hydroxide (Milk Of Mag) 30 ml BID PRN PO CONSTIPATION; Start 07/22/18 at 16:00 Lactulose (Enulose) 20 gm DAILY PRN PO CONSTIPATION Last administered on 07/25/18at 14:25; Admin Dose 20 GM; Start 07/22/18 at 16:00 Bisacodyl (Dulcolax Supp) 10 mg DAILY PRN [place] CONSTIPATION; Start 07/22/18 at 16:00 Acetaminophen (Tylenol Tab) 650 mg Q4H PRN PO PAIN Last administered on 07/27/18at 08:04; Admin Dose 650 MG; Start 07/22/18 at 16:00 Miscellaneous Information (Pending Santyl Order For Wound Care) 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 PRN PRN XX WOUND CARE; Start 07/22/18 at 16:00 Amlodipine Besylate (Norvasc) 10 mg DAILY PO Last administered on 07/27/18at 08:47; Admin Dose 10 MG; Start 07/23/18 at 09:00 Clonidine (Catapres) 0.1 mg Q6H PRN PO ELEVATED BLOOD PRESSURE Last administered on 07/25/18at 21:06; Admin Dose 0.1 MG; Start 07/22/18 at 16:30 Acetaminophen/ Hydrocodone Bitart ([place] (5/325)) 1 tab Q4H PRN PO MODERATE PAIN LEVEL 4-6; Start 07/22/18 at 16:30 Ondansetron HCl (Zofran Inj) 4 mg Q6H PRN IV NAUSEA AND/OR VOMITING; Start 07/22/18 at 16:30 Ropinirole HCl (Requip) 1 mg HS PO Last administered on 07/26/18 21:10; Admin Dose 1 MG; Start 07/22/18 at 21:00 Sertraline HCl (Zoloft) 100 mg DAILY PO Last administered on 07/27/18 08:48; Admin Dose 100 MG; Start 07/23/18 at 09:00 Tramadol HCl (Ultram) 25 mg Q6H PRN GTB MODERATE PAIN LEVEL 4-6; Start 07/22/18 at 16:30 Aspirin (Aspirin) 81 mg BID PO Last administered on 07/27/18 08:48; Admin Dose 81 MG; Start 07/22/18 at 21:00 Hydrocortisone (Procto-Juan Antonio) 1 applic DAILY PRN [place] HEMORROID PAIN/ITCHING; Start 07/22/18 at 16:30 Ferrous Sulfate (Ferrous Sulfate (Ec)) 325 mg BID PO Last administered on 07/26/18 21:08; Admin Dose 325 MG; Start 07/23/18 at 21:00; Stop 08/22/18 at 20:59 Docusate Sodium (Colace) 100 mg BID PRN PO CONSTIPATION Last administered on 07/24/18 12:11; Admin Dose 100 MG; Start 07/23/18 at 13:00 Lisinopril (Zestril) 40 mg DAILY PO Last administered on 07/27/18 08:48; Admin Dose 40 MG; Start 07/24/18 at 09:00 Ascorbic Acid (Vitamin C) 500 mg BID PO Last administered on 07/27/18 08:47; Admin Dose 500 MG; Start 07/24/18 at 21:00; Stop 08/23/18 at 20:59 Metoprolol Succinate (Toprol Xl) 50 mg Q12H PO Last administered on 07/27/18 12:53; Admin Dose 50 MG; Start 07/25/18 at 11:00 Magnesium Oxide (Mag-Ox 400) 400 mg DAILY PO Last administered on 07/27/18at 08:47; Admin Dose 400 MG; Start 07/26/18 at 09:00 Multivitamins Therapeutic (Theragran) 1 tab DAILY PO ; Start 07/27/18 at 09:00 Pantoprazole (Protonix Tab) 40 mg BID PO ; Start 07/27/18 at 21:00 Al Hydrox/Mg Hydrox/Simethicone (Mag-Al Plus) 30 ml Q4H PRN PO GASTROINTESTINAL UPSET; Start 07/27/18 at 12:00 Sucralfate (Carafate Susp) 1 gm QID PO Last administered on 07/27/18at 12:53; Ad min Dose 1 GM; Start 07/27/18 at 13:00; Stop 08/10/18 at 12:59 Assessment/Plan Additional Assessment/Plan Rehab- Right intertrochanteric hip fracture status post ORIF; 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 Anemia- monitor KIARA GARCIA MD Jul 27, 2018 13:12
[2018-07-27] MEDS ORDERED: ALPRAZOLAM 0.25 MG TAB PO PRN ×2 (17:00→20:30)
--- NOTE | 2018-07-27 19:47 | CONS ---
DATE OF ADMISSION: 07/22/2018 DATE OF CONSULTATION: 07/27/2018 TYPE OF CONSULTATION: Psychological. REFERRING PHYSICIAN: Kiara Suarez MD CONSULTING PSYCHOLOGIST: Rosibel Batista, PhD. REASON FOR CONSULTATION: This consultation was requested by Dr. Moreno Suarez in order to evaluate the cognitive and emotional functioning of this patient related to her present medical condition. HISTORY OF PRESENT ILLNESS: The patient is an 88-year-old female. The patient had a fall at home and fractured her right hip. The patient was admitted to [facility] and did undergo an ORIF. The patient was cleared medically and sent to the acute rehabilitation unit for acute multidisciplinary rehabilitation. The patient was independent prior to the fall. The patient is presently incapacitated by the fall. The patient is very anxious about what has happened. The patient does have a history of depression and has been on antidepressant medications for the last 2 to 3 years. The patient is motivated to get better and wants to return to her previous level of functioning. FAMILY AND SOCIAL HISTORY: The patient reports that she lives in a home with her daughter in her daughter's house. The patient does want to return there after discharge. MEDICATIONS: The patient is currently on Zoloft 100 mg daily. SUBSTANCE USE: The patient reports that she does not smoke at the present time, but she used to have 1 every now and then with her coffee needing a cigarette. She used to drink but "not too much." Overall, the patient does not seem to have a problem with substance use, but does still smoke time to time. MENTAL STATUS EXAMINATION: APPEARANCE: The patient was seen in bed. She appears to be of average height and weight. The patient is right-handed. BEHAVIOR: The patient was cooperative during the consultation. The patient did report that she was not feeling well. The patient did attempt to answer all questions presented to him by the interviewer. MOOD AND AFFECT: The patient's mood appears to be depressed. Affect does appear to be anxious. PERCEPTION: The patient reports no hallucinations or delusions. The patient was alert to person, place, situation and time. MEMORY AND COGNITION: The patient's memory and cognition appear to be relatively intact given her age and what is going on. The patient was able to remember a recent and remote events. The patient was able to state partially the name of the hospital as "[facility]." The patient was able to state the month and the year. The patient after a time able to say who the president of [facility]. Originally, she could not, but after time she could. The patient was actually able to do 1 serial 7 subtraction from 100, but made 3 errors prior to that and then after that made 2 other areas and could not go any further. Overall, given her age and the fact that she has had a significant level of trauma her overall cognitions appear to be adequate. INTELLIGENCE: Intelligence would appear to fall in the average range. INSIGHT: Fair. JUDGMENT: Fair. THOUGHT CONTENT: The patient is concerned about her present medical condition. The patient does want to return home as soon as possible. The patient did state that she had just woken up with a very bad dream and that she is very anxious and depressed about it. The patient does want to get better and is motivated to try what she can to help herself through. DIAGNOSTIC IMPRESSION: 1. F33.1, major depressive disorder, recurrent, moderate. 2. F06.32. Mood disorder due to right hip fracture with depressive like episode. Thank you very much, Dr. Moreno Suarez, for referring this individual. Please do not hesitate to call if you have additional questions. Dictated By: ROSIBEL BATISTA PHD ZOHRA/NAVID Conf#: [id number] DID#: [id number] CC: KIARA SUAREZ MD;*EndCC* MTDD
[2018-07-27 20:00] VITALS: BP 157/67; PULSE 63; RESP 20
[2018-07-27] MEDS: ROPINIROLE 1 MG TAB PO SCH (20:19)
[2018-07-27 22:05] VITALS: BP 163/73; PULSE 68
[2018-07-28 01:54] VITALS: BP 136/62; PULSE 64; RESP 18
[2018-07-28] MEDS ORDERED: ALPRAZOLAM 0.25 MG TAB PO PRN (05:00)
[2018-07-28 08:30] VITALS: BP 149/70; PULSE 65; RESP 18
--- NOTE | 2018-07-28 08:45 | PN ---
DATE: 07/28/2018 SUBJECTIVE: The patient is stable, no events overnight. The patient's blood pressure remains elevat ed, although improved this morning. No other events noted. OBJECTIVE: VITAL SIGNS: Blood pressure is 136/62, respirations 18, pulse 64, temperature 97.9. HEENT: Head is normocephalic. NECK: Supple. HEART: Regular rate. LUNGS: Show diminished breath sounds at the base. ABDOMEN: Soft, nontender to palpation. No rebound or guarding. EXTREMITIES: Negative for clubbing, cyanosis, no edema. DERMATOLOGIC: No rashes. MUSCULOSKELETAL: No joint effusion. NEUROLOGIC: No change in exam. MEDICATIONS: Reviewed. LABORATORY DATA: Reviewed. ASSESSMENT AND PLAN: 1. Nonoliguric acute kidney injury on top of chronic kidney disease. Etiology of acute kidney injur y is secondary to hemodynamics. Renal function is improved. Continue current treatment plans, suppo rtive care, renally dose all medicines. 2. Hypertension. Blood pressure remains elevated, we will start the patient on low-dose hydralazine . Monitor blood pressure levels closely. Adjust medications as needed. 3. Anemia. Monitor hemoglobin and hematocrit levels. 4. Mineral bone disorder. Monitor calcium and phosphorus levels. 5. Hypomagnesemia. Continue to monitor and replete. 6. Right hip fracture, status post arthroplasty. Continue physical therapy. Dictated By: STEPH MARTINEZ DO NR/NTS Conf#: [id number] DID#: [id number] CC: KIARA GARCIA MD; FRANSISCO TOLEDO MD;*End*
[2018-07-28] MEDS: SUCRALFATE (100 MG/ML) 10ML CUP PO SCH ×4 (08:48→20:21)
[2018-07-28] MEDS: FERROUS SULFATE (EC) 325 MG TAB PO SCH ×2 (08:48→20:21)
[2018-07-28] MEDS: SERTRALINE 100 MG TAB PO SCH (08:48)
[2018-07-28] MEDS: ASCORBIC ACID 500 MG TAB PO SCH ×2 (08:48→20:21)
[2018-07-28] MEDS: MULTIVITAMINS THERAPEUTIC TAB PO SCH (08:48)
[2018-07-28] MEDS: ASPIRIN 81 MG TAB PO SCH ×2 (08:48→20:21)
[2018-07-28] MEDS: MAGNESIUM OXIDE 400 MG TAB PO SCH (08:49)
[2018-07-28] MEDS: AMLODIPINE 10 MG TAB PO SCH (08:49)
[2018-07-28] MEDS: LISINOPRIL 20 MG TAB PO SCH (08:49)
[2018-07-28] MEDS: PANTOPRAZOLE (EC) 40 MG TAB PO SCH ×2 (08:49→20:21)
[2018-07-28] MEDS: ACETAMINOPHEN 325 MG TAB PO PRN (11:28)
[2018-07-28] MEDS: METOPROLOL (XL) 50 MG TAB PO SCH ×2 (11:29→22:48)
--- NOTE | 2018-07-28 11:53 | PN ---
Date/Time of Note Date/Time of Note DATE: 07/28/18 TIME: 11:51 Assessment/Plan VTE Prophylaxis Risk score (from Ns)>0 risk: 13 SCD applied (from Ns): Yes Pharmacological prophylaxis: NA/contraindicated Pharm contraindication: other (asa) Lines/Catheters IV C[facility]ter Type (from [facility] Saline Lock Urinary Cath still in place: No Assessment/Plan Hospital Course SUBJECTIVE: no acute distress... OBJECTIVE: Vital signs-see below PHYSICAL EXAM: Constitutional: Adequately built, elderly female not in acute distress. HEENT: Head atraumatic and normocephalic. Eyes: Extraocular muscles intact. Anicteric sclerae. Pupils equal bilaterally, reactive to light. NECK: Supple without lymph node. CHEST: Clear and good breath sounds equally. No wheezing. No rhonchi. HEART: S1, S2. Regular rate and rhythm. ABDOMEN: Soft/non tender with no rebound tenderness. Bowel sounds were present. EXTREMITIES: RLE w/ intact dressing. No cyanosis, clubbing or edema. NEUROLOGIC: Alert and oriented x3. No focal deficit. No sensory deficit. PSYCHOSOCIAL: No signs of depression. INTEGUMENTARY: No open wounds. ASSESSMENT AND PLAN: 88-year-old female, status post right hip ORIF transferred to acute rehabilitation unit for inpatient rehab. Right hip fracture s/p ORIF 07/14/18 - DVT ppx,pain control - Rehab - Ortho f/u in 2 weeks Hypertension -stable.cont.antihypertensives. Iron deficient anemia -Continue oral replacement Mood disorder -Continue sertraline Restless leg syndrome -on ropinirole Constipation - bowel regimen History of overactive bladder -Currently stable and patient refuses to take Vesicare. Her bladder fxn is stable. Possible GERD -stable -cont.current regimen -Outpatient EGD eval after dc. DVT prophylaxis: Aspirin per orthopedic recommendations. Patient is seen in collaboration with Result Diagram: 07/25/18 0639 07/25/18 0630 Exam/Review of Systems Exam Vitals Vital Signs Date Temp Pulse Resp B/P (MAP) Pulse Ox O2 O2 Flow FiO2 Time Delivery Rate 07/28/18 97.9 65 18 149/70 99 Room Air 08:30 (96) 07/25/18 08:00 Intake and Output 07/27/18 07/27/18 07/28/18 1515:00 23:00 07:00 IntakeIntake Total 700 ml 200 ml BalanceBalance 700 ml 200 ml Medications Medication Current Medications Magnesium Hydroxide (Milk Of Mag) 30 ml BID PRN PO CONSTIPATION; Start 07/22/18 at 16:00 Lactulose (Enulose) 20 gm DAILY PRN PO CONSTIPATION Last administered on 07/25/18 14:25; Admin Dose 20 GM; Start 07/22/18 at 16:00 Bisacodyl (Dulcolax Supp) 10 mg DAILY PRN [place] CONSTIPATION; Start 07/22/18 at 16:00 Acetaminophen (Tylenol Tab) 650 mg Q4H PRN PO PAIN Last administered on 07/28/18 11:28; Admin Dose 650 MG; Start 07/22/18 at 16:00 Miscellaneous Information (Pending Santyl Order For Wound Care) 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 PRN PRN XX WOUND CARE; Start 07/22/18 at 16:00 Amlodipine Besylate (Norvasc) 10 mg DAILY PO Last administered on 07/28/18at 08:49; Admin Dose 10 MG; Start 07/23/18 at 09:00 Clonidine (Catapres) 0.1 mg Q6H PRN PO ELEVATED BLOOD PRESSURE Last administer ed on 07/25/18 21:06; Admin Dose 0.1 MG; Start 07/22/18 at 16:30 Acetaminophen/ Hydrocodone Bitart ([place] (5/325)) 1 tab Q4H PRN PO MODERATE PAIN LEVEL 4-6; Start 07/22/18 at 16:30 Ondansetron HCl (Zofran Inj) 4 mg Q6H PRN IV NAUSEA AND/OR VOMITING; Start 07/22/18 at 16:30 Ropinirole HCl (Requip) 1 mg HS PO Last administered on 07/27/18 20:19; Admin Dose 1 MG; Start 07/22/18 at 21:00 Sertraline HCl (Zoloft) 100 mg DAILY PO Last administered on 07/28/18 08:48; Admin Dose 100 MG; Start 07/23/18 at 09:00 Tramadol HCl (Ultram) 25 mg Q6H PRN GTB MODERATE PAIN LEVEL 4-6 Last administered on 07/27/18 16:04; Admin Dose 25 MG; Start 07/22/18 at 16:30 Aspirin (Aspirin) 81 mg BID PO Last administered on 07/28/18 08:48; Admin Dose 81 MG; Start 07/22/18 at 21:00 Hydrocortisone (Procto-Juan Antonio) 1 applic DAILY PRN [place] HEMORROID PAIN/ITCHING; Start 07/22/18 at 16:30 Ferrous Sulfate (Ferrous Sulfate (Ec)) 325 mg BID PO Last administered on 07/28/18 08:48; Admin Dose 325 MG; Start 07/23/18 at 21:00; Stop 08/22/18 at 20:59 Docusate Sodium (Colace) 100 mg BID PRN PO CONSTIPATION Last administered on 07/24/18 12:11; Admin Dose 100 MG; Start 07/23/18 at 13:00 Lisinopril (Zestril) 40 mg DAILY PO Last administered on 07/28/18 08:49; Admin Dose 40 MG; Start 07/24/18 at 09:00 Ascorbic Acid (Vitamin C) 500 mg BID PO Last administered on 07/28/18 08:48; Admin Dose 500 MG; Start 07/24/18 at 21:00; Stop 08/23/18 at 20:59 Metoprolol Succinate (Toprol Xl) 50 mg Q12H PO Last administered on 07/28/18 11:29; Admin Dose 50 MG; Start 07/25/18 at 11:00 Magnesium Oxide (Mag-Ox 400) 400 mg DAILY PO Last administered on 07/28/18 08:49; Admin Dose 400 MG; Start 07/26/18 at 09:00 Multivitamins Therapeutic (Theragran) 1 tab DAILY PO Last administered on 07/28/18 08:48; Admin Dose 1 TAB; Start 07/27/18 at 09:00 Pantoprazole (Protonix Tab) 40 mg BID PO Last administered on 07/28/18 08:49; Admin Dose 40 MG; Start 07/27/18 at 21:00 Al Hydrox/Mg Hydrox/Simethicone (Mag-Al Plus) 30 ml Q4H PRN PO GASTROINTESTINAL UPSET; Start 07/27/18 at 12:00 Sucralfate (Carafate Susp) 1 gm QID PO Last administered on 07/28/18 08:48; Admin Dose 1 GM; Start 07/27/18 at 13:00; Stop 08/10/18 at 12:59 Alprazolam (Xanax) 0.125 mg Q12H PRN PO ANXIETY Last administered on 07/27/18at 20:37; Admin Dose 0.125 MG; Start 07/27/18 at 20:30 DARLENE RODRÍGUEZ NP July 28, 2018 11:53
--- NOTE | 2018-07-28 13:17 | PN ---
Date/Time of Note Date/Time of Note DATE: 07/28/18 TIME: 13:16 Subjective Reports feeling better today Objective Vital Signs Date Temp Pulse Resp B/P (MAP) Pulse Ox O2 O2 Flow FiO2 Time Delivery Rate 07/28/18 97.9 65 18 149/70 99 Room Air 08:30 (96) 07/25/18 08:00 Intake and Output 07/27/18 07/27/18 07/28/18 1515:00 23:00 07:00 IntakeIntake Total 700 ml 200 ml BalanceBalance 700 ml 200 ml Exam pulm-cta max transfer Results/Medications Result Diagram: 07/25/18 0639 07/25/18 0630 Medications Current Medications Magnesium Hydroxide (Milk Of Mag) 30 ml BID PRN PO CONSTIPATION; Start 07/22/18 at 16:00 Lactulose (Enulose) 20 gm DAILY PRN PO CONSTIPATION Last administered on 07/25/18at 14:25; Admin Dose 20 GM; Start 07/22/18 at 16:00 Bisacodyl (Dulcolax Supp) 10 mg DAILY PRN [place] CONSTIPATION; Start 07/22/18 at 16:00 Acetaminophen (Tylenol Tab) 650 mg Q4H PRN PO PAIN Last administered on 07/28/18at 11:28; Admin Dose 650 MG; Start 07/22/18 at 16:00 [facility]isc[facility] 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 PRN PRN XX WOUND CARE; Start 07/22/18 at 16:00 Amlodipine Besylate (Norvasc) 10 mg DAILY PO Last administered on 07/28/18at 08:49; Admin Dose 10 MG; Start 07/23/18 at 09:00 Clonidine (Catapres) 0.1 mg Q6H PRN PO ELEVATED BLOOD PRESSURE Last administered on 07/25/18at 21:06; Admin Dose 0.1 MG; Start 07/22/18 at 16:30 Acetaminophen/ Hydrocodone Bitart ([place] (5/325)) 1 tab Q4H PRN PO MODERATE PAIN LEVEL 4-6; Start 07/22/18 at 16:30 Ondansetron HCl (Zofran Inj) 4 mg Q6H PRN IV NAUSEA AND/OR VOMITING; Start 07/22/18 at 16:30 Ropinirole HCl (Requip) 1 mg HS PO Last administered on 07/27/18 20:19; Admin Dose 1 MG; Start 07/22/18 at 21:00 Sertraline HCl (Zoloft) 100 mg DAILY PO Last administered on 07/28/18 08:48; Admin Dose 100 MG; Start 07/23/18 at 09:00 Tramadol HCl (Ultram) 25 mg Q6H PRN GTB MODERATE PAIN LEVEL 4-6 Last admin istered on 07/27/18 16:04; Admin Dose 25 MG; Start 07/22/18 at 16:30 Aspirin (Aspirin) 81 mg BID PO Last administered on 07/28/18 08:48; Admin Dose 81 MG; Start 07/22/18 at 21:00 Hydrocortisone (Procto-Juan Antonio) 1 applic DAILY PRN [place] HEMORROID PAIN/ITCHING; Start 07/22/18 at 16:30 Ferrous Sulfate (Ferrous Sulfate (Ec)) 325 mg BID PO Last administered on 07/28/18 08:48; Admin Dose 325 MG; Start 07/23/18 at 21:00; Stop 08/22/18 at 20:59 Docusate Sodium (Colace) 100 mg BID PRN PO CONSTIPATION Last administered on 07/24/18 12:11; Admin Dose 100 MG; Start 07/23/18 at 13:00 Lisinopril (Zestril) 40 mg DAILY PO Last administered on 07/28/18 08:49; Admin Dose 40 MG; Start 07/24/18 at 09:00 Ascorbic Acid (Vitamin C) 500 mg BID PO Last administered on 07/28/18 08:48; Admin Dose 500 MG; Start 07/24/18 at 21:00; Stop 08/23/18 at 20:59 Metoprolol Succinate (Toprol Xl) 50 mg Q12H PO Last administered on 07/28/18 11:29; Admin Dose 50 MG; Start 07/25/18 at 11:00 Magnesium Oxide (Mag-Ox 400) 400 mg DAILY PO Last administered on 07/28/18 08:49; Admin Dose 400 MG; Start 07/26/18 at 09:00 Multivitamins Therapeutic (Theragran) 1 tab DAILY PO Last administered on 07/28/18 08:48; Admin Dose 1 TAB; Start 07/27/18 at 09:00 Pantoprazole (Protonix Tab) 40 mg BID PO Last administered on 07/28/18at 08:49; Admin Dose 40 MG; Start 07/27/18 at 21:00 Al Hydrox/Mg Hydrox/Simethicone (Mag-Al Plus) 30 ml Q4H PRN PO GASTROINTESTINAL UPSET; Start 07/27/18 at 12:00 Sucralfate (Carafate Susp) 1 gm QID PO Last administered on 07/28/18at 08:48; Admin Dose 1 GM; Start 07/27/18 at 13:00; Stop 08/10/18 at 12:59 Alprazolam (Xanax) 0.125 mg Q12H PRN PO ANXIETY Last administered on 07/27/18at 20:37; Admin Dose 0.125 MG; Start 07/27/18 at 20:30 Assessment/Plan Additional Assessment/Plan Rehab- Right intertrochanteric hip fracture status post ORIF; 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 Anemia- monitor GI- improved, less bloating and stomach upset. Continue current meds KIARA GARCIA MD July 28, 2018 13:17
[2018-07-28 14:00] VITALS: BP 116/56; PULSE 69; RESP 16
[2018-07-28 20:00] VITALS: BP 148/68; PULSE 72; RESP 18
[2018-07-28] MEDS: ROPINIROLE 1 MG TAB PO SCH (20:21)
[2018-07-28 22:40] VITALS: BP 165/70; PULSE 75
[2018-07-29 04:30] VITALS: BP 155/71; PULSE 71; RESP 20
[2018-07-29 07:30] VITALS: BP 147/76; PULSE 69; RESP 18
[2018-07-29] MEDS: SUCRALFATE (100 MG/ML) 10ML CUP PO SCH ×4 (08:18→21:27)
[2018-07-29] MEDS: SERTRALINE 100 MG TAB PO SCH (08:18)
[2018-07-29] MEDS: LISINOPRIL 20 MG TAB PO SCH (08:19)
[2018-07-29] MEDS: PANTOPRAZOLE (EC) 40 MG TAB PO SCH ×2 (08:19→17:25)
[2018-07-29] MEDS: AMLODIPINE 10 MG TAB PO SCH (08:19)
[2018-07-29] MEDS: ASPIRIN 81 MG TAB PO SCH ×2 (08:21→21:27)
[2018-07-29] MEDS: FERROUS SULFATE (EC) 325 MG TAB PO SCH ×2 (09:33→21:27)
[2018-07-29] MEDS: ASCORBIC ACID 500 MG TAB PO SCH ×2 (09:33→21:27)
[2018-07-29] MEDS: MAGNESIUM OXIDE 400 MG TAB PO SCH (09:33)
[2018-07-29] MEDS: MULTIVITAMINS THERAPEUTIC TAB PO SCH (09:33)
--- NOTE | 2018-07-29 10:11 | PN ---
DATE: 07/29/2018 SUBJECTIVE: The patient is stable, no events overnight. OBJECTIVE: VITAL SIGNS: Blood pressure is 147/76, pulse 69, respiration 18, temperature 97.9. HEENT: Head is normocephalic. NECK: Supple. HEART: Regular rate. LUNGS: Show diminished breath sounds at the base. ABDOMEN: Soft, nontender to palpation without rebound or guarding. EXTREMITIES: Negative for clubbing, cyanosis, no edema. DERMATOLOGIC: No rashes. MUSCULOSKELETAL: No joint effusion. NEUROLOGIC: No change in exam. MEDICATIONS: The patient's medications have been reviewed. LABORATORY DATA: Has been reviewed. ASSESSMENT AND PLAN: 1. Nonoliguric acute kidney injury on top of chronic kidney disease. Etiology of NISHANT is secondary t o hemodynamics. Renal function is improved. Continue current treatment plan, supportive care, renal ly dose all meds. 2. Hypertension. Blood pressure is elevated, but slowly improving. Continue current blood pressure regimen. 3. Anemia. Monitor hemoglobin and hematocrit levels. 4. Mineral bone disorder, monitor calcium and phosphorus levels. 5. Hypomagnesemia. Continue to monitor and replete as needed. 6. Hip fracture, status post arthroplasty. Continue physical therapy. Dictated By: STEPH MARTINEZ DO NR/NTS Conf#: [id number] DID#: [id number] CC: FRANSISCO TOLEDO MD; KIARA GARCIA MD;*End*
[2018-07-29] MEDS ORDERED: ONDANSETRON (ODT) 4 MG TAB ODT PRN (11:00)
--- NOTE | 2018-07-29 11:35 | PN ---
Date/Time of Note Date/Time of Note DATE: 07/29/18 TIME: 11:34 Subjective No new complaints Objective Vital Signs Date Temp Pulse Resp B/P (MAP) Pulse Ox O2 O2 Flow FiO2 Time Delivery Rate 07/29/18 97.9 69 18 147/76 94 Room Air 07:30 (99) 07/25/18 08:00 Intake and Output 07/28/18 07/28/18 07/29/18 1515:00 23:00 07:00 IntakeIntake Total 400 ml 300 ml OutputOutput Total 400 ml BalanceBalance 400 ml -100 ml Exam pulm-cta abd-soft max transfer Results/Medications Result Diagram: 07/25/18 0639 07/29/18 0607 Results 24 hrs Laboratory Tests Test 07/29/18 06:07 Sodium Level 141 Potassium Level 4.4 Chloride Level 104 Carbon Dioxide Level 28 Anion Gap 9 Blood Urea Nitrogen 22 H Creatinine 0.81 Est Glomerular Filtrat Rate mL/min Glucose Level 105 Calcium Level 8.9 Phosphorus Level 3.7 Magnesium Level 2.0 Medications Current Medications Magnesium Hydroxide (Milk Of Mag) 30 ml BID PRN PO CONSTIPATION; Start 07/22/18 at 16:00 Lactulose (Enulose) 20 gm DAILY PRN PO CONSTIPATION Last administered on 07/25/18at 14:25; Admin Dose 20 GM; Start 07/22/18 at 16:00 Bisacodyl (Dulcolax Supp) 10 mg DAILY PRN [place] CONSTIPATION; Start 07/22/18 at 16:00 Acetaminophen (Tylenol Tab) 650 mg Q4H PRN PO PAIN Last administered on 07/28/18at 11:28; Admin Dose 650 MG; Start 07/22/18 at 16:00 Miscellaneous Information (Pending [facility] Order For Wound Care) 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 PRN PRN XX WOUND CARE; Start 07/22/18 at 16:00 Amlodipine Besylate (Norvasc) 10 mg DAILY PO Last administered on 07/29/18at 08:1 9; Admin Dose 10 MG; Start 07/23/18 at 09:00 Clonidine (Catapres) 0.1 mg Q6H PRN PO ELEVATED BLOOD PRESSURE Last administered on 07/25/18at 21:06; Admin Dose 0.1 MG; Start 07/22/18 at 16:30 Acetaminophen/ Hydrocodone Bitart ([place] (5/325)) 1 tab Q4H PRN PO MODERATE PAIN LEVEL 4-6; Start 07/22/18 at 16:30 Ropinirole HCl (Requip) 1 mg HS PO Last administered on 07/28/18 20:21; Admin Dose 1 MG; Start 07/22/18 at 21:00 Sertraline HCl (Zoloft) 100 mg DAILY PO Last administered on 07/29/18 08:18; A dmin Dose 100 MG; Start 07/23/18 at 09:00 Tramadol HCl (Ultram) 25 mg Q6H PRN GTB MODERATE PAIN LEVEL 4-6 Last administered on 07/27/18 16:04; Admin Dose 25 MG; Start 07/22/18 at 16:30 Aspirin (Aspirin) 81 mg BID PO Last administered on 07/29/18 08:21; Admin Dose 81 MG; Start 07/22/18 at 21:00 Hydrocortisone (Procto-Juan Antonio) 1 applic DAILY PRN [place] HEMORROID PAIN/ITCHING; Start 07/22/18 at 16:30 Ferrous Sulfate (Ferrous Sulfate (Ec)) 325 mg BID PO Last administered on 07/29/18 09:33; Admin Dose 325 MG; Start 07/23/18 at 21:00; Stop 08/22/18 at 20:59 Docusate Sodium (Colace) 100 mg BID PRN PO CONSTIPATION Last administered on 07/24/18 12:11; Admin Dose 100 MG; Start 07/23/18 at 13:00 Lisinopril (Zestril) 40 mg DAILY PO Last administered on 07/29/18 08:19; Admin Dose 40 MG; Start 07/24/18 at 09:00 Ascorbic Acid (Vitamin C) 500 mg BID PO Last administered on 07/29/18 09:33; Admin Dose 500 MG; Start 07/24/18 at 21:00; Stop 08/23/18 at 20:59 Metoprolol Succinate (Toprol Xl) 50 mg Q12H PO Last administered on 07/28/18 22:48; Admin Dose 50 MG; Start 07/25/18 at 11:00 Magnesium Oxide (Mag-Ox 400) 400 mg DAILY PO Last administered on 07/29/18 09:33; Admin Dose 400 MG; Start 07/26/18 at 09:00 Multivitamins Therapeutic (Theragran) 1 tab DAILY PO Last administered on 07/29/18at 09:33; Admin Dose 1 TAB; Start 07/27/18 at 09:00 Pantoprazole (Protonix Tab) 40 mg BID PO Last administered on 07/29/18at 08:19; Admin Dose 40 MG; Start 07/27/18 at 21:00 Al Hydrox/Mg Hydrox/Simethicone (Mag-Al Plus) 30 ml Q4H PRN PO GASTROINTESTINAL UPSET; Start 07/27/18 at 12:00 Sucralfate (Carafate Susp) 1 gm QID PO Last administered on 07/29/18at 08:18; Admin Dose 1 GM; Start 07/27/18 at 13:00; Stop 08/10/18 at 12:59 Alprazolam (Xanax) 0.125 mg Q12H PRN PO ANXIETY Last administered on 07/27/18at 20:37; Admin Dose 0.125 MG; Start 07/27/18 at 20:30 Ondansetron HCl (Zofran Odt) 4 mg Q6H PRN ODT NAUSEA AND/OR VOMITING; Start 07/29/18 at 11:00 Assessment/Plan Additional Assessment/Plan Rehab- Right intertrochanteric hip fracture status post ORIF; 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 Await follow up xray Acute pain syndrome-continue current medications Acute kidney injury- improved Hypertension. Anemia- monitor GI- improved, less bloating and stomach upset. Continue current meds KIARA GARCIA MD July 29, 2018 11:35
[2018-07-29] MEDS: ACETAMINOPHEN 325 MG TAB PO PRN ×2 (11:43→22:08)
[2018-07-29] MEDS: METOPROLOL (XL) 50 MG TAB PO SCH ×2 (11:44→22:09)
[2018-07-29 14:30] VITALS: BP 122/60; PULSE 69; RESP 20
--- NOTE | 2018-07-29 14:52 | PN ---
Date/Time of Note Date/Time of Note DATE: 07/29/18 TIME: 14:51 Assessment/Plan VTE Prophylaxis Risk score (from Ns)>0 risk: 13 SCD applied (from Ns): Yes Pharmacological prophylaxis: other (aspirin) Lines/Catheters IV Catheter Type (from Nrs): [place] Urinary Cath still in place: No Assessment/Plan Hospital Course SUBJECTIVE: no acute distress..no further heart burn. able to eat more. OBJECTIVE: Vital signs-see below PHYSICAL EXAM: Constitutional: Adequately built, elderly female not in acute distress. HEENT: Head atraumatic and normocephalic. Eyes: Extraocular muscles intact. Anicteric sclerae. Pupils equal bilaterally, reactive to light. NECK: Supple without lymph node. CHEST: Clear and good breath sounds equally. No wheezing. No rhonchi. HEART: S1, S2. Regular rate and rhythm. ABDOMEN: Soft/non tender with no rebound tenderness. Bowel sounds were present. EXTREMITIES: RLE w/ intact dressing. No cyanosis, clubbing or edema. NEUROLOGIC: Alert and oriented x3. No focal deficit. No sensory deficit. PSYCHOSOCIAL: No signs of depression. INTEGUMENTARY: No open wounds. ASSESSMENT AND PLAN: 88-year-old female, status post right hip ORIF transferred to acute rehabilitation unit for inpatient rehab. Right hip fracture s/p ORIF 07/14/18 - DVT ppx,pain control - Rehab - Ortho f/u in 2 weeks Hypertension -Ricky stable.cont.antihypertensives. Iron deficient anemia -Continue oral replacement Mood disorder -Continue sertraline Restless leg syndrome -on ropinirole Constipation - bowel regimen History of overactive bladder -Currently stable and patient refuses to take Vesicare. Her bladder fxn is stable. GERD -symptoms resolved -cont.ppi -Outpatient EGD eval after dc if symptoms recur. DVT prophylaxis: Aspirin per orthopedic recommendations. Patient is seen in collaboration with Result Diagram: 07/25/18 0639 07/29/18 0607 Results 24hrs Laboratory Tests Test 07/29/18 06:07 Sodium Level 141 Potassium Level 4.4 Chloride Level 104 Carbon Dioxide Level 28 Anion Gap 9 Blood Urea Nitrogen 22 H Creatinine 0.81 Est Glomerular Filtrat Rate mL/min Glucose Level 105 Calcium Level 8.9 Phosphorus Level 3.7 Magnesium Level 2.0 Exam/Review of Systems Exam Vitals Vital Signs Date Temp Pulse Resp B/P (MAP) Pulse Ox O2 O2 Flow FiO2 Time Delivery Rate 07/29/18 97.9 69 18 147/76 94 Room Air 07:30 (99) 07/25/18 08:00 Intake and Output 07/28/18 07/28/18 07/29/18 1515:00 23:00 07:00 IntakeIntake Total 400 ml 300 ml OutputOutput Total 400 ml BalanceBalance 400 ml -100 ml Results Results 24hrs Laboratory Tests Test 07/29/18 06:07 Sodium Level 141 Potassium Level 4.4 Chloride Level 104 Carbon Dioxide Level 28 Anion Gap 9 Blood Urea Nitrogen 22 H Creatinine 0.81 Est Glomerular Filtrat Rate mL/min Glucose Level 105 Calcium Level 8.9 Phosphorus Level 3.7 Magnesium Level 2.0 Medications Medication Current Medications Magnesium Hydroxide (Milk Of Mag) 30 ml BID PRN PO CONSTIPATION; Start 07/22/18 at 16:00 Lactulose (Enulose) 20 gm DAILY PRN PO CONSTIPATION Last administered on 07/25/18at 14:25; Admin Dose 20 GM; Start 07/22/18 at 16:00 Bisacodyl (Dulcolax Supp) 10 mg DAILY PRN [place] CONSTIPATION; Start 07/22/18 at 16:00 Acetaminophen (Tylenol Tab) 650 mg Q4H PRN PO PAIN Last administered on 07/29/18at 11:43; Admin Dose 650 MG; Start 07/22/18 at 16:00 Miscellaneous Information (Pending [facility] Order For Wound Care) 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 PRN PRN XX WOUND CARE; Start 07/22/18 at 16:00 Amlodipine Besylate (Norvasc) 10 mg DAILY PO Last administered on 07/29/18at 08:19; Admin Dose 10 MG; Start 07/23/18 at 09:00 Clonidine (Catapres) 0.1 mg Q6H PRN PO ELEVATED BLOOD PRESSURE Last administered on 07/25/18at 21:06; Admin Dose 0.1 MG; Start 07/22/18 at 16:30 Acetaminophen/ Hydrocodone Bitart ([place] (5/325)) 1 tab Q4H PRN PO MODERATE PAIN LEVEL 4-6; Start 07/22/18 at 16:30 Ropinirole HCl (Requip) 1 mg HS PO Last administered on 07/28/18 20:21; Admin Dose 1 MG; Start 07/22/18 at 21:00 Sertraline HCl (Zoloft) 100 mg DAILY PO Last administered on 07/29/18 08:18; Admin Dose 100 MG; Start 07/23/18 at 09:00 Tramadol HCl (Ultram) 25 mg Q6H PRN GTB MODERATE PAIN LEVEL 4-6 Last administered on 07/27/18 16:04; Admin Dose 25 MG; Start 07/22/18 at 16:30 Aspirin (Aspirin) 81 mg BID PO Last administered on 07/29/18 08:21; Admin Dose 81 MG; Start 07/22/18 at 21:00 Hydrocortisone (Procto-Juan Antonio) 1 applic DAILY PRN [place] HEMORROID PAIN/ITCHING; Start 07/22/18 at 16:30 Ferrous Sulfate (Ferrous Sulfate (Ec)) 325 mg BID PO Last administered on 07/29/18 09:33; Admin Dose 325 MG; Start 07/23/18 at 21:00; Stop 08/22/18 at 20:59 Docusate Sodium (Colace) 100 mg BID PRN PO CONSTIPATION Last administered on 07/24/18 12:11; Admin Dose 100 MG; Start 07/23/18 at 13:00 Lisinopril (Zestril) 40 mg DAILY PO Last administered on 07/29/18 08:19; Admin Dose 40 MG; Start 07/24/18 at 09:00 Ascorbic Acid (Vitamin C) 500 mg BID PO Last administered on 07/29/18 09:33; Admin Dose 500 MG; Start 07/24/18 at 21:00; Stop 08/23/18 at 20:59 Metoprolol Succinate (Toprol Xl) 50 mg Q12H PO Last administered on 07/29/18 11:44; Admin Dose 50 MG; Start 07/25/18 at 11:00 Magnesium Oxide (Mag-Ox 400) 400 mg DAILY PO Last administered on 07/29/18 09:33; Admin Dose 400 MG; Start 07/26/18 at 09:00 Multivitamins Therapeutic (Theragran) 1 tab DAILY PO Last administered on 07/29/18 09:33; Admin Dose 1 TAB; Start 07/27/18 at 09:00 Pantoprazole (Protonix Tab) 40 mg BID PO Last administered on 07/29/18at 08:19; Admin Dose 40 MG; Start 07/27/18 at 21:00 Al Hydrox/Mg Hydrox/Simethicone (Mag-Al Plus) 30 ml Q4H PRN PO GASTROINTESTINAL UPSET; Start 07/27/18 at 12:00 Sucralfate (Carafate Susp) 1 gm QID PO Last administered on 07/29/18at 12:37; Admin Dose 1 GM; Start 07/27/18 at 13:00; Stop 08/10/18 at 12:59 Alprazolam (Xanax) 0.125 mg Q12H PRN PO ANXIETY Last administered on 07/27/18at 20:37; Admin Dose 0.125 MG; Start 07/27/18 at 20:30 Ondansetron HCl (Zofran Odt) 4 mg Q6H PRN ODT NAUSEA AND/OR VOMITING; Start 07/29/18 at 11:00 DARLENE RODRÍGUEZ NP July 29, 2018 14:52
[2018-07-29] MEDS ORDERED: PANTOPRAZOLE (EC) 40 MG TAB PO SCH (18:00)
[2018-07-29 20:00] VITALS: BP 134/62; PULSE 76; RESP 18
--- NOTE | 2018-07-29 21:06 | PN ---
DATE: 07/29/2018 Fifteen days postop. Stable vital signs. Tolerating limited mobilization without any weightbearing on the right lower extremity. Repeating x-rays of the right hip. If the radiologic findings and the right hip is satisfactory, then we can probably put some weight on the left lower extremity. Dictated By: JANIS ARCEO/NAVID Conf#: [id number] DID#: [id number]
[2018-07-29] MEDS: ROPINIROLE 1 MG TAB PO SCH (21:27)
[2018-07-30 02:00] VITALS: BP 118/62; PULSE 72; RESP 18
[2018-07-30] MEDS: PANTOPRAZOLE (EC) 40 MG TAB PO SCH ×2 (06:40→17:37)
[2018-07-30 07:30] VITALS: BP 163/72; PULSE 68; RESP 20
[2018-07-30] MEDS: SUCRALFATE (100 MG/ML) 10ML CUP PO SCH ×4 (08:34→21:08)
[2018-07-30] MEDS: AMLODIPINE 10 MG TAB PO SCH (08:35)
[2018-07-30] MEDS: SERTRALINE 100 MG TAB PO SCH (08:35)
[2018-07-30] MEDS: LISINOPRIL 20 MG TAB PO SCH (08:36)
[2018-07-30] MEDS: MULTIVITAMINS THERAPEUTIC TAB PO SCH (08:38)
[2018-07-30] MEDS: ASCORBIC ACID 500 MG TAB PO SCH ×2 (08:38→21:09)
[2018-07-30] MEDS: MAGNESIUM OXIDE 400 MG TAB PO SCH (08:38)
[2018-07-30] MEDS: FERROUS SULFATE (EC) 325 MG TAB PO SCH ×2 (08:38→21:08)
[2018-07-30] MEDS: ASPIRIN 81 MG TAB PO SCH ×2 (08:38→21:09)
--- NOTE | 2018-07-30 08:47 | PN ---
DATE: 07/30/2018 SUBJECTIVE: The patient is stable, no events overnight. No fevers, chills, nausea, or vomiting. OBJECTIVE: VITAL SIGNS: Blood pressure is 118/62, pulse 76, respirations 20, temperature 98.1. HEENT: Head is normocephalic. NECK: Supple. HEART: Regular rate. LUNGS: Show diminished breath sounds at the base. ABDOMEN: Soft, nontender to palpation without rebound or guarding. EXTREMITIES: Negative for clubbing, cyanosis, no edema. DERMATOLOGIC: No rashes. MUSCULOSKELETAL: No joint effusion. NEUROLOGIC: No change in exam. MEDICATIONS: Reviewed. LABORATORY DATA: Reviewed. ASSESSMENT AND PLAN: 1. Nonoliguric acute kidney injury. Etiology is secondary to hemodynamics. Renal function is impro luanne. Continue current treatment plan, supportive care, renally dose all medications. 2. Hypertension. Blood pressure is improving. Continue current blood pressure regimen, adjust as n eeded. 3. Anemia. Monitor hemoglobin and hematocrit levels. 4. Mineral bone disorder, monitor calcium and phosphorus levels. 5. Hypomagnesemia. Continue to monitor and replete as needed. 6. Hip fracture, status post arthroplasty. Continue physical therapy, continue pain control. Dictated By: STEPH MARTINEZ DO NR/NTS Conf#: [id number] DID#: [id number] CC: KIARA GARCIA MD; FRANSISCO TOLEDO MD;*EndCC*
--- NOTE | 2018-07-30 10:33 | PN ---
Date/Time of Note Date/Time of Note DATE: 07/30/18 TIME: 10:32 Subjective Comfortable Objective Vital Signs Date Temp Pulse Resp B/P (MAP) Pulse Ox O2 O2 Flow FiO2 Time Delivery Rate 07/30/18 97.5 68 20 163/72 96 Room Air 07:30 (102) Intake and Output 07/29/18 07/29/18 07/30/18 1515:00 23:00 07:00 IntakeIntake Total 200 ml OutputOutput Total 200 ml BalanceBalance 0 ml Exam pulm-cta max transfer Results/Medications Result Diagram: 07/29/18 0607 Medications Current Medications Magnesium Hydroxide (Milk Of Mag) 30 ml BID PRN PO CONSTIPATION; Start 07/22/18 at 16:00 Lactulose (Enulose) 20 gm DAILY PRN PO CONSTIPATION Last administered on 07/25/18at 14:25; Admin Dose 20 GM; Start 07/22/18 at 16:00 Bisacodyl (Dulcolax Supp) 10 mg DAILY PRN [place] CONSTIPATION; Start 07/22/18 at 16:00 Acetaminophen (Tylenol Tab) 650 mg Q4H PRN PO PAIN Last administered on 07/29/18 t 22:08; Admin Dose 650 MG; Start 07/22/18 at 16:00 Miscellaneous Information (Pending [facility] Order For Wound Care) 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 PRN PRN XX WOUND CARE; Start 07/22/18 at 16:00 Amlodipine Besylate (Norvasc) 10 mg DAILY PO Last administered on 07/30/18at 08:35; Admin Dose 10 MG; Start 07/23/18 at 09:00 Clonidine (Catapres) 0.1 mg Q6H PRN PO ELEVATED BLOOD PRESSURE Last administered on 07/25/18at 21:06; Admin Dose 0.1 MG; Start 07/22/18 at 16:30 Acetaminophen/ Hydrocodone Bitart ([place] (5/325)) 1 tab Q4H PRN PO MODERATE PAIN LEVEL 4-6; Start 07/22/18 at 16:30 Ropinirole HCl (Requip) 1 mg HS PO Last administered on 07/29/18at 21:27; Admin Dose 1 MG; Start 07/22/18 at 21:00 Sertraline HCl (Zoloft) 100 mg DAILY PO Last administered on 07/30/18 08:35; Admin Dose 100 MG; Start 07/23/18 at 09:00 Tramadol HCl (Ultram) 25 mg Q6H PRN GTB MODERATE PAIN LEVEL 4-6 Last administered on 07/27/18 16:04; Admin Dose 25 MG; Start 07/22/18 at 16:30 Aspirin (Aspirin) 81 mg BID PO Last administered on 07/30/18 08:38; Admin Dose 81 MG; Start 07/22/18 at 21:00 Hydrocortisone (Procto-Juan Antonio) 1 applic DAILY PRN [place] HEMORROID PAIN/ITCHING; Start 07/22/18 at 16:30 Ferrous Sulfate (Ferrous Sulfate (Ec)) 325 mg BID PO Last administered on 07/30/18 08:38; Admin Dose 325 MG; Start 07/23/18 at 21:00; Stop 08/22/18 at 20:59 Docusate Sodium (Colace) 100 mg BID PRN PO CONSTIPATION Last administered on 07/24/18 12:11; Admin Dose 100 MG; Start 07/23/18 at 13:00 Lisinopril (Zestril) 40 mg DAILY PO Last administered on 07/30/18 08:36; Admin Dose 40 MG; Start 07/24/18 at 09:00 Ascorbic Acid (Vitamin C) 500 mg BID PO Last administered on 07/30/18 08:38; Admin Dose 500 MG; Start 07/24/18 at 21:00; Stop 08/23/18 at 20:59 Metoprolol Succinate (Toprol Xl) 50 mg Q12H PO Last administered on 07/29/18 22:09; Admin Dose 50 MG; Start 07/25/18 at 11:00 Magnesium Oxide (Mag-Ox 400) 400 mg DAILY PO Last administered on 07/30/18 08:38; Admin Dose 400 MG; Start 07/26/18 at 09:00 Multivitamins Therapeutic (Theragran) 1 tab DAILY PO Last administered on 07/30/18 08:38; Admin Dose 1 TAB; Start 07/27/18 at 09:00 Al Hydrox/Mg Hydrox/Simethicone (Mag-Al Plus) 30 ml Q4H PRN PO GASTROINTESTINAL UPSET; Start 07/27/18 at 12:00 Sucralfate (Carafate Susp) 1 gm QID PO Last administered on 07/30/18at 08:34; Admin Dose 1 GM; Start 07/27/18 at 13:00; Stop 08/10/18 at 12:59 Alprazolam (Xanax) 0.125 mg Q12H PRN PO ANXIETY Last administered on 07/27/18at 20:37; Admin Dose 0.125 MG; Start 07/27/18 at 20:30 Ondansetron HCl (Zofran Odt) 4 mg Q6H PRN ODT NAUSEA AND/OR VOMITING; Start 07/29/18 at 11:00 Pantoprazole (Protonix Tab) 40 mg 0600,1800 PO Last administered on 07/30/18at 06:40; Admin Dose 40 MG; Start 07/29/18 at 18:00 Assessment/Plan Additional Assessment/Plan Rehab- Right intertrochanteric hip fracture status post ORIF; 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 Anemia- monitor GI- improved, less bloating and stomach upset. Continue current meds KIARA GARICA MD July 30, 2018 10:33
[2018-07-30] MEDS: METOPROLOL (XL) 50 MG TAB PO SCH ×2 (12:12→23:00)
--- NOTE | 2018-07-30 12:34 | PN ---
Date/Time of Note Date/Time of Note DATE: 07/30/18 TIME: 12:34 Assessment/Plan VTE Prophylaxis Risk score (from Nsg)>0 risk: 13 SCD applied (from Nsg): Yes Pharmacological prophylaxis: other (asa per ortho) Lines/Catheters IV Catheter Type (from Nrsg): Saline Lock Urinary Cath still in place: No Assessment/Plan Hospital Course SUBJECTIVE: no acute distress..no further heart burn. able to eat more. OBJECTIVE: Vital signs-see below PHYSICAL EXAM: Constitutional: Adequately built, elderly female not in acute distress. HEENT: Head atraumatic and normocephalic. Eyes: Extraocular muscles intact. Anicteric sclerae. Pupils equal bilaterally, reactive to light. NECK: Supple without lymph node. CHEST: Clear and good breath sounds equally. No wheezing. No rhonchi. HEART: S1, S2. Regular rate and rhythm. ABDOMEN: Soft/non tender with no rebound tenderness. Bowel sounds were present. EXTREMITIES: RLE w/ intact dressing. No cyanosis, clubbing or edema. NEUROLOGIC: Alert and oriented x3. No focal deficit. No sensory deficit. PSYCHOSOCIAL: No signs of depression. INTEGUMENTARY: No open wounds. ASSESSMENT AND PLAN: 88-year-old female, status post right hip ORIF transferred to acute rehabilitation unit for inpatient rehab. Right hip fracture s/p ORIF 07/14/18 - DVT ppx,pain control - Rehab - Ortho f/u in 2 weeks Hypertension -Ricky stable.cont.antihypertensives. Iron deficient anemia -Continue oral replacement Mood disorder -Continue sertraline Restless leg syndrome -on ropinirole Constipation - bowel regimen History of overactive bladder -Currently stable and patient refuses to take Vesicare. Her bladder fxn is stable. GERD -symptoms resolved -cont.ppi -Outpatient EGD eval after dc if symptoms recur. DVT prophylaxis: Aspirin per orthopedic recommendations. Patient is seen in collaboration with Result Diagram: 07/29/18 0607 Exam/Review of Systems Exam Vitals Vital Signs Date Temp Pulse Resp B/P (MAP) Pulse Ox O2 O2 Flow FiO2 Time Delivery Rate 07/30/18 97.5 68 20 163/72 96 Room Air 07:30 (102) Intake and Output 07/29/18 07/29/18 07/30/18 1515:00 23:00 07:00 IntakeIntake Total 200 ml OutputOutput Total 200 ml BalanceBalance 0 ml Medications Medication Current Medications Magnesium Hydroxide (Milk Of Mag) 30 ml BID PRN PO CONSTIPATION; Start 07/22/18 at 16:00 Lactulose (Enulose) 20 gm DAILY PRN PO CONSTIPATION Last administered on 07/25/18 14:25; Admin Dose 20 GM; Start 07/22/18 at 16:00 Bisacodyl (Dulcolax Supp) 10 mg DAILY PRN [place] CONSTIPATION; Start 07/22/18 at 16:00 Acetaminophen (Tylenol Tab) 650 mg Q4H PRN PO PAIN Last administered on 9at 22:08; Admin Dose 650 MG; Start 07/22/18 at 16:00 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 PRN PRN XX WOUND CARE; Start 07/22/18 at 16:00 Amlodipine Besylate (Norvasc) 10 mg DAILY PO Last administered on 07/30/18 08:35; Admin Dose 10 MG; Start 07/23/18 at 09:00 Clonidine (Catapres) 0.1 mg Q6H PRN PO ELEVATED BLOOD PRESSURE Last administered on 07/25/18 21:06; Admin Dose 0.1 MG; Start 07/22/18 at 16:30 Acetaminophen/ Hydrocodone Bitart ([place] (5/325)) 1 tab Q4H PRN PO MODERATE PAIN LEVEL 4-6; Start 07/22/18 at 16:30 Ropinirole HCl (Requip) 1 mg HS PO Last administered on 07/29/18 21:27; Admin Dose 1 MG; Start 07/22/18 at 21:00 Sertraline HCl (Zoloft) 100 mg DAILY PO Last administered on 07/30/18 08:35; Admin Dose 100 MG; Start 07/23/18 at 09:00 Tramadol HCl (Ultram) 25 mg Q6H PRN GTB MODERATE PAIN LEVEL 4-6 Last administered on 07/27/18 16:04; Admin Dose 25 MG; Start 07/22/18 at 16:30 Aspirin (Aspirin) 81 mg BID PO Last administered on 07/30/18 08:38; Admin Dose 81 MG; Start 07/22/18 at 21:00 Hydrocortisone (Procto-Juan Antonio) 1 applic DAILY PRN [place] HEMORROID PAIN/ITCHING; Start 07/22/18 at 16:30 Ferrous Sulfate (Ferrous Sulfate (Ec)) 325 mg BID PO Last administered on 07/30/18 08:38; Admin Dose 325 MG; Start 07/23/18 at 21:00; Stop 08/22/18 at 20:59 Docusate Sodium (Colace) 100 mg BID PRN PO CONSTIPATION Last administered on 12:11; Admin Dose 100 MG; Start 07/23/18 at 13:00 Lisinopril (Zestril) 40 mg DAILY PO Last administered on 07/30/18 08:36; Admin Dose 40 MG; Start 07/24/18 at 09:00 Ascorbic Acid (Vitamin C) 500 mg BID PO Last administered on 07/30/18 08:38; Admin Dose 500 MG; Start 07/24/18 at 21:00; Stop 08/23/18 at 20:59 Metoprolol Succinate (Toprol Xl) 50 mg Q12H PO Last administered on 07/30/18 12:12; Admin Dose 50 MG; Start 07/25/18 at 11:00 Magnesium Oxide (Mag-Ox 400) 400 mg DAILY PO Last administered on 07/30/18 08:38; Admin Dose 400 MG; Start 07/26/18 at 09:00 Multivitamins Therapeutic (Theragran) 1 tab DAILY PO Last administered on 07/30/18 08:38; Admin Dose 1 TAB; Start 07/27/18 at 09:00 Al Hydrox/Mg Hydrox/Simethicone (Mag-Al Plus) 30 ml Q4H PRN PO GASTROINTESTINAL UPSET; Start 07/27/18 at 12:00 Sucralfate (Carafate Susp) 1 gm QID PO Last administered on 07/30/18 12:12; Admin Dose 1 GM; Start 07/27/18 at 13:00; Stop 08/10/18 at 12:59 Alprazolam (Xanax) 0.125 mg Q12H PRN PO ANXIETY Last administered on 07/27/18 20:37; Admin Dose 0.125 MG; Start 07/27/18 at 20:30 Ondansetron HCl (Zofran Odt) 4 mg Q6H PRN ODT NAUSEA AND/OR VOMITING; Start 07/29/18 at 11:00 Pantoprazole (Protonix Tab) 40 mg 0600,1800 PO Last administered on 07/30/18at 06:40; Admin Dose 40 MG; Start 07/29/18 at 18:00 DARLENE RODRÍGUEZ NP July 30, 2018 12:34
[2018-07-30 14:00] VITALS: BP 111/57; PULSE 71; RESP 18
[2018-07-30 19:52] VITALS: BP 156/72; PULSE 79; RESP 19
[2018-07-30] MEDS: ROPINIROLE 1 MG TAB PO SCH (21:08)
[2018-07-30] MEDS: ACETAMINOPHEN 325 MG TAB PO PRN (21:08)
[2018-07-31 02:39] VITALS: BP 127/61; PULSE 78; RESP 19
[2018-07-31] MEDS: PANTOPRAZOLE (EC) 40 MG TAB PO SCH ×2 (06:58→18:00)
[2018-07-31] MEDS: SUCRALFATE (100 MG/ML) 10ML CUP PO SCH ×4 (09:51→20:59)
[2018-07-31] MEDS: FERROUS SULFATE (EC) 325 MG TAB PO SCH ×2 (09:55→20:58)
[2018-07-31] MEDS: SERTRALINE 100 MG TAB PO SCH (09:56)
[2018-07-31] MEDS: MAGNESIUM OXIDE 400 MG TAB PO SCH (09:56)
[2018-07-31] MEDS: ASPIRIN 81 MG TAB PO SCH ×2 (09:56→20:59)
[2018-07-31] MEDS: MULTIVITAMINS THERAPEUTIC TAB PO SCH (09:56)
[2018-07-31] MEDS: AMLODIPINE 10 MG TAB PO SCH (10:00)
[2018-07-31] MEDS: LISINOPRIL 20 MG TAB PO SCH (10:00)
[2018-07-31] MEDS: ASCORBIC ACID 500 MG TAB PO SCH ×2 (10:14→20:59)
--- NOTE | 2018-07-31 11:18 | PN ---
Date/Time of Note Date/Time of Note DATE: 07/31/18 TIME: 11:16 Assessment/Plan VTE Prophylaxis Risk score (from Ns)>0 risk: 13 SCD applied (from Ns): Yes Pharmacological prophylaxis: heparin Lines/Catheters IV C[facility]ter Type [facility]from [facility] Saline Lock Urinary Cath still in place: No Assessment/Plan Problems: (1) Closed right hip fracture Status: Acute Comment: Progressing after open fixation. Continue with acute rehabilitation protocol expect good rehab potential Qualifiers: Encounter type: initial encounter Qualified Codes: S72.001A - Fracture of unspecified part of neck of right femur, initial encounter for closed fracture (2) Status post open reduction with internal fixation of fracture Onset Date: ~ 07/14/2018 Status: Acute Comment: Successful outcome (3) Iron deficiency anemia due to chronic blood loss Status: Chronic Comment: Continue with replacement therapy (4) OAB (overactive bladder) Status: Chronic Comment: Noted and stable on treatment Result Diagram: 07/29/18 0607 Subjective 24 Hr Interval Summary Free Text/Dictation Patient is up and actually using the bedside commode but able to converse Constitutional: no complaints Exam/Review of Systems Exam Vitals Vital Signs Date Temp Pulse Resp B/P (MAP) Pulse Ox O2 O2 Flow FiO2 Time Delivery Rate 07/31/18 97.8 78 19 127/61 95 Room Air 02:39 (83) Intake and Output 07/30/18 07/30/18 07/31/18 1515:00 23:00 07:00 IntakeIntake Total 680 ml BalanceBalance 680 ml Constitutional: alert, oriented Respiratory: clear to auscultation, normal air movement Medications Medication Current Medications Magnesium Hydroxide (Milk Of Mag) 30 ml BID PRN PO CONSTIPATION Last administered on 07/31/18at 06:59; Admin Dose 30 ML; Start 07/22/18 at 16:00 Lactulose (Enulose) 20 gm DAILY PRN PO CONSTIPATION Last administered on 07/25/18at 14:25; Admin Dose 20 GM; Start 07/22/18 at 16:00 Bisacodyl (Dulcolax Supp) 10 mg DAILY PRN [place] CONSTIPATION; Start 07/22/18 at 16:00 Acetaminophen (Tylenol Tab) 650 mg Q4H PRN PO PAIN Last administered on 07/30/18at 21:08; Admin Dose 650 MG; Start 07/22/18 at 16:00 Miscellaneous Information (Pending [facility] Order For Wound Care) 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 PRN PRN XX WOUND CARE; Start 07/22/18 at 16:00 Amlodipine Besylate (Norvasc) 10 mg DAILY PO Last administered on 07/31/18 10:00; Admin Dose 10 MG; Start 07/23/18 at 09:00 Clonidine (Catapres) 0.1 mg Q6H PRN PO ELEVATED BLOOD PRESSURE Last administered on 07/25/18 21:06; Admin Dose 0.1 MG; Start 07/22/18 at 16:30 Acetaminophen/ Hydrocodone Bitart ([place] (5/325)) 1 tab Q4H PRN PO MODERATE PAIN LEVEL 4-6; Start 07/22/18 at 16:30 Ropinirole HCl (Requip) 1 mg HS PO Last administered on 07/30/18 21:08; Admin Dose 1 MG; Start 07/22/18 at 21:00 Sertraline HCl (Zoloft) 100 mg DAILY PO Last administered on 07/31/18 09:56; Admin Dose 100 MG; Start 07/23/18 at 09:00 Tramadol HCl (Ultram) 25 mg Q6H PRN GTB MODERATE PAIN LEVEL 4-6 Last administered on 07/27/18 16:04; Admin Dose 25 MG; Start 07/22/18 at 16:30 Aspirin (Aspirin) 81 mg BID PO Last administered on 07/31/18 09:56; Admin Dose 81 MG; Start 07/22/18 at 21:00 Hydrocortisone (Procto-Juan Antonio) 1 applic DAILY PRN [place] HEMORROID PAIN/ITCHING; Start 07/22/18 at 16:30 Ferrous Sulfate (Ferrous Sulfate (Ec)) 325 mg BID PO Last administered on 07/31/18 09:55; Admin Dose 325 MG; Start 07/23/18 at 21:00; Stop 08/22/18 at 20:59 Docusate Sodium (Colace) 100 mg BID PRN PO CONSTIPATION Last administered on 07/24/18 12:11; Admin Dose 100 MG; Start 07/23/18 at 13:00 Lisinopril (Zestril) 40 mg DAILY PO Last administered on 07/31/18 10:00; Admin Dose 40 MG; Start 07/24/18 at 09:00 Ascorbic Acid (Vitamin C) 500 mg BID PO Last administered on 07/31/18 10:14; Admin Dose 500 MG; Start 07/24/18 at 21:00; Stop 08/23/18 at 20:59 Metoprolol Succinate (Toprol Xl) 50 mg Q12H PO Last administered on 07/30/18 12:12; Admin Dose 50 MG; Start 07/25/18 at 11:00 Magnesium Oxide (Mag-Ox 400) 400 mg DAILY PO Last administered on 07/31/18 09:56; Admin Dose 400 MG; Start 07/26/18 at 09:00 Multivitamins Therapeutic (Theragran) 1 tab DAILY PO Last administered on 07/31/18 09:56; Admin Dose 1 TAB; Start 07/27/18 at 09:00 Al Hydrox/Mg Hydrox/Simethicone (Mag-Al Plus) 30 ml Q4H PRN PO GASTROINTESTINAL UPSET; Start 07/27/18 at 12:00 Sucralfate (Carafate Susp) 1 gm QID PO Last administered on 07/31/18 09:51; Admin Dose 1 GM; Start 07/27/18 at 13:00; Stop 08/10/18 at 12:59 Alprazolam (Xanax) 0.125 mg Q12H PRN PO ANXIETY Last administered on 07/27/18at 20:37; Admin Dose 0.125 MG; Start 07/27/18 at 20:30 Ondansetron HCl (Zofran Odt) 4 mg Q6H PRN ODT NAUSEA AND/OR VOMITING; Start 07/29/18 at 11:00 Pantoprazole (Protonix Tab) 40 mg 0600,1800 PO Last administered on 07/31/18 06:58; Admin Dose 40 MG; Start 07/29/18 at 18:00 DARLIN MINOR MD July 31, 2018 11:18
--- NOTE | 2018-07-31 11:36 | PN ---
Date/Time of Note Date/Time of Note DATE: 07/31/18 TIME: 11:36 Subjective Would like to have a BM Objective Vital Signs Date Temp Pulse Resp B/P (MAP) Pulse Ox O2 O2 Flow FiO2 Time Delivery Rate 07/31/18 97.8 78 19 127/61 95 Room Air 02:39 (83) Intake and Output 07/30/18 07/30/18 07/31/18 1515:00 23:00 07:00 IntakeIntake Total 680 ml BalanceBalance 680 ml Exam pulm-cta abd-soft max Results/Medications Result Diagram: 07/29/18 0607 Medications Current Medications Magnesium Hydroxide (Milk Of Mag) 30 ml BID PRN PO CONSTIPATION Last administered on 07/31/18at 06:59; Admin Dose 30 ML; Start 07/22/18 at 16:00 Lactulose (Enulose) 20 gm DAILY PRN PO CONSTIPATION Last administered on 07/25/18 14:25; Admin Dose 20 GM; Start 07/22/18 at 16:00 Bisacodyl (Dulcolax Supp) 10 mg DAILY PRN [place] CONSTIPATION; Start 07/22/18 at 16:00 Acetaminophen (Tylenol Tab) 650 mg Q4H PRN PO PAIN Last administered on 07/30/18 21:08; Admin Dose 650 MG; Start 07/22/18 at 16:00 Miscellaneous Information (Pending [facility] Order For Wound Care) 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 PRN PRN XX WOUND CARE; Start 07/22/18 at 16:00 Amlodipine Besylate (Norvasc) 10 mg DAILY PO Last administered on 07/31/18at 10:00; Admin Dose 10 MG; Start 07/23/18 at 09:00 Clonidine (Catapres) 0.1 mg Q6H PRN PO ELEVATED BLOOD PRESSURE Last administered on 07/25/18 21:06; Admin Dose 0.1 MG; Start 07/22/18 at 16:30 Acetaminophen/ Hydrocodone Bitart ([place] (5/325)) 1 tab Q4H PRN PO MODERATE PAIN LEVEL 4-6; Start 07/22/18 at 16:30 Ropinirole HCl (Requip) 1 mg HS PO Last administered on 07/30/18 21:08; Admin Dose 1 MG; Start 07/22/18 at 21:00 Sertraline HCl (Zoloft) 100 mg DAILY PO Last administered on 07/31/18 09:56; Admin Dose 100 MG; Start 07/23/18 at 09:00 Tramadol HCl (Ultram) 25 mg Q6H PRN GTB MODERATE PAIN LEVEL 4-6 Last administered on 07/27/18 16:04; Admin Dose 25 MG; Start 07/22/18 at 16:30 Aspirin (Aspirin) 81 mg BID PO Last administered on 07/31/18 09:56; Admin Dose 81 MG; Start 07/22/18 at 21:00 Hydrocortisone (Procto-Juan Antonio) 1 applic DAILY PRN [place] HEMORROID PAIN/ITCHING; Start 07/22/18 at 16:30 Ferrous Sulfate (Ferrous Sulfate (Ec)) 325 mg BID PO Last administered on 07/31/18 09:55; Admin Dose 325 MG; Start 07/23/18 at 21:00; Stop 08/22/18 at 20:59 Docusate Sodium (Colace) 100 mg BID PRN PO CONSTIPATION Last administered on 07/24/18 12:11; Admin Dose 100 MG; Start 07/23/18 at 13:00 Lisinopril (Zestril) 40 mg DAILY PO Last administered on 07/31/18 10:00; Admin Dose 40 MG; Start 07/24/18 at 09:00 Ascorbic Acid (Vitamin C) 500 mg BID PO Last administered on 07/31/18 10:14; Admin Dose 500 MG; Start 07/24/18 at 21:00; Stop 08/23/18 at 20:59 Metoprolol Succinate (Toprol Xl) 50 mg Q12H PO Last administered on 07/30/18 12:12; Admin Dose 50 MG; Start 07/25/18 at 11:00 Magnesium Oxide (Mag-Ox 400) 400 mg DAILY PO Last administered on 07/31/18 09:56; Admin Dose 400 MG; Start 07/26/18 at 09:00 Multivitamins Therapeutic (Theragran) 1 tab DAILY PO Last administered on 07/31/18 09:56; Admin Dose 1 TAB; Start 07/27/18 at 09:00 Al Hydrox/Mg Hydrox/Simethicone (Mag-Al Plus) 30 ml Q4H PRN PO GASTROINTESTINAL UPSET; Start 07/27/18 at 12:00 Sucralfate (Carafate Susp) 1 gm QID PO Last administered on 07/31/18at 09:51; Admin Dose 1 GM; Start 07/27/18 at 13:00; Stop 08/10/18 at 12:59 Alprazolam (Xanax) 0.125 mg Q12H PRN PO ANXIETY Last administered on 07/27/18at 20:37; Admin Dose 0.125 MG; Start 07/27/18 at 20:30 Ondansetron HCl (Zofran Odt) 4 mg Q6H PRN ODT NAUSEA AND/OR VOMITING; Start 07/29/18 at 11:00 Pantoprazole (Protonix Tab) 40 mg 0600,1800 PO Last administered on 07/31/18at 06:58; Admin Dose 40 MG; Start 07/29/18 at 18:00 Assessment/Plan Additional Assessment/Plan Rehab- Right intertrochanteric hip fracture status post ORIF; 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 Anemia- monitor KIARA GARCIA MD July 31, 2018 11:36
[2018-07-31] MEDS: METOPROLOL (XL) 50 MG TAB PO SCH ×2 (12:20→22:53)
--- NOTE | 2018-07-31 12:33 | CONS ---
Assessment/Plan Assessment/Plan Hospital Course (Demo Recall) 1. Nonoliguric acute kidney injury. Etiology is secondary to hemodynamics. Renal function is improved. Continue current treatment plan, supportive care, renally dose all medications. 2. Hypertension. Blood pressure is improving. Continue current blood pressure regimen, adjust as needed. 3. Anemia. Monitor hemoglobin and hematocrit levels. 4. Mineral bone disorder, monitor calcium and phosphorus levels. 5. Hypomagnesemia. Continue to monitor and replete as needed. 6. Hip fracture, status post arthroplasty. Continue physical therapy, continue pain control. Consultation Date/Type/Reason Admit Date/Time Jul 22, 2018 at 15:38 Initial Consult Date Date/Time of Note DATE: 07/31/18 TIME: 12:32 24 HR Interval Summary Free Text/Dictation doing ok denies n/v, shortness of breath or urinary issues dw rn gen nad cv rrr pulm ctab abd soft, nd, nt +bs ext: no edema Exam/Review of Systems Exam Vitals Vital Signs Date Temp Pulse Resp B/P (MAP) Pulse Ox O2 O2 Flow FiO2 Time Delivery Rate 07/31/18 97.8 78 19 127/61 95 Room Air 02:39 (83) Intake and Output 07/30/18 07/30/18 07/31/18 1414:59 22:59 06:59 IntakeIntake Total 680 ml BalanceBalance 680 ml Results Result Diagram: 07/29/18 0607 Medications Medication Current Medications Magnesium Hydroxide (Milk Of Mag) 30 ml BID PRN PO CONSTIPATION Last administered on 07/31/18at 06:59; Admin Dose 30 ML; Start 07/22/18 at 16:00 Lactulose (Enulose) 20 gm DAILY PRN PO CONSTIPATION Last administered on 07/25/18at 14:25; Admin Dose 20 GM; Start 07/22/18 at 16:00 Bisacodyl (Dulcolax Supp) 10 mg DAILY PRN [place] CONSTIPATION; Start 07/22/18 at 16:00 Acetaminophen (Tylenol Tab) 650 mg Q4H PRN PO PAIN Last administered on 07/30/18at 21:08; Admin Dose 650 MG; Start 07/22/18 at 16:00 [facility] 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 PRN PRN XX WOUND CARE; Start 07/22/18 at 16:00 Amlodipine Besylate (Norvasc) 10 mg DAILY PO Last administered on 07/31/18 10:00; Admin Dose 10 MG; Start 07/23/18 at 09:00 Clonidine (Catapres) 0.1 mg Q6H PRN PO ELEVATED BLOOD PRESSURE Last administered on 07/25/18 21:06; Admin Dose 0.1 MG; Start 07/22/18 at 16:30 Acetaminophen/ Hydrocodone Bitart ([place] (5/325)) 1 tab Q4H PRN PO MODERATE PAIN LEVEL 4-6; Start 07/22/18 at 16:30 Ropinirole HCl (Requip) 1 mg HS PO Last administered on 07/30/18 21:08; Admin Dose 1 MG; Start 07/22/18 at 21:00 Sertraline HCl (Zoloft) 100 mg DAILY PO Last administered on 07/31/18 09:56; Admin Dose 100 MG; Start 07/23/18 at 09:00 Tramadol HCl (Ultram) 25 mg Q6H PRN GTB MODERATE PAIN LEVEL 4-6 Last administered on 07/27/18 16:04; Admin Dose 25 MG; Start 07/22/18 at 16:30 Aspirin (Aspirin) 81 mg BID PO Last administered on 07/31/18 09:56; Admin Dose 81 MG; Start 07/22/18 at 21:00 Hydrocortisone (Procto-Juan Antonio) 1 applic DAILY PRN [place] HEMORROID PAIN/ITCHING; Start 07/22/18 at 16:30 Ferrous Sulfate (Ferrous Sulfate (Ec)) 325 mg BID PO Last administered on 07/31/18 09:55; Admin Dose 325 MG; Start 07/23/18 at 21:00; Stop 08/22/18 at 20:59 Docusate Sodium (Colace) 100 mg BID PRN PO CONSTIPATION Last administered on 07/24/18 12:11; Admin Dose 100 MG; Start 07/23/18 at 13:00 Lisinopril (Zestril) 40 mg DAILY PO Last administered on 07/31/18 10:00; Admin Dose 40 MG; Start 07/24/18 at 09:00 Ascorbic Acid (Vitamin C) 500 mg BID PO Last administered on 07/31/18 10:14; Admin Dose 500 MG; Start 07/24/18 at 21:00; Stop 08/23/18 at 20:59 Metoprolol Succinate (Toprol Xl) 50 mg Q12H PO Last administered on 07/31/18at 12:20; Admin Dose 50 MG; Start 07/25/18 at 11:00 Magnesium Oxide (Mag-Ox 400) 400 mg DAILY PO Last administered on 07/31/18 09:56; Admin Dose 400 MG; Start 07/26/18 at 09:00 Multivitamins Therapeutic (Theragran) 1 tab DAILY PO Last administered on 07/31/18at 09:56; Admin Dose 1 TAB; Start 07/27/18 at 09:00 Al Hydrox/Mg Hydrox/Simethicone (Mag-Al Plus) 30 ml Q4H PRN PO GASTROINTESTINAL UPSET; Start 07/27/18 at 12:00 Sucralfate (Carafate Susp) 1 gm QID PO Last administered on 07/31/18 09:51; Admin Dose 1 GM; Start 07/27/18 at 13:00; Stop 08/10/18 at 12:59 Alprazolam (Xanax) 0.125 mg Q12H PRN PO ANXIETY Last administered on 07/27/18at 20:37; Admin Dose 0.125 MG; Start 07/27/18 at 20:30 Ondansetron HCl (Zofran Odt) 4 mg Q6H PRN ODT NAUSEA AND/OR VOMITING; Start 07/29/18 at 11:00 Pantoprazole (Protonix Tab) 40 mg 0600,1800 PO Last administered on 07/31/18at 06:58; Admin Dose 40 MG; Start 07/29/18 at 18:00 GALE MANTILLA MD July 31, 2018 12:33
[2018-07-31 15:10] VITALS: BP 112/55; PULSE 71; RESP 18
[2018-07-31 20:06] VITALS: BP 123/70; PULSE 77; RESP 18
[2018-07-31] MEDS: ROPINIROLE 1 MG TAB PO SCH (20:58)
[2018-08-01 02:54] VITALS: BP 144/67; PULSE 70; RESP 18
[2018-08-01] MEDS: PANTOPRAZOLE (EC) 40 MG TAB PO SCH ×2 (06:57→18:00)
[2018-08-01 07:00] VITALS: BP 130/60; PULSE 63; RESP 18
[2018-08-01] MEDS: SUCRALFATE (100 MG/ML) 10ML CUP PO SCH ×4 (09:00→21:00)
[2018-08-01] MEDS: MULTIVITAMINS THERAPEUTIC TAB PO SCH (09:38)
[2018-08-01] MEDS: MAGNESIUM OXIDE 400 MG TAB PO SCH (09:38)
[2018-08-01] MEDS: SERTRALINE 100 MG TAB PO SCH (09:38)
[2018-08-01] MEDS: ASCORBIC ACID 500 MG TAB PO SCH ×2 (09:38→21:10)
[2018-08-01] MEDS: FERROUS SULFATE (EC) 325 MG TAB PO SCH ×2 (09:38→21:10)
[2018-08-01] MEDS: LISINOPRIL 20 MG TAB PO SCH (09:38)
[2018-08-01] MEDS: AMLODIPINE 10 MG TAB PO SCH (09:39)
[2018-08-01] MEDS: ASPIRIN 81 MG TAB PO SCH ×2 (09:40→21:10)
[2018-08-01] MEDS: METOPROLOL (XL) 50 MG TAB PO SCH ×2 (12:20→23:00)
--- NOTE | 2018-08-01 12:33 | CONS ---
Assessment/Plan Assessment/Plan Hospital Course (Demo Recall) 1. Nonoliguric acute kidney injury. Etiology is secondary to hemodynamics. Renal function is improved. Continue current treatment plan, supportive care, renally dose all medications. 2. Hypertension. Blood pressure is improving. Continue current blood pressure regimen, adjust as needed. 3. Anemia. Monitor hemoglobin and hematocrit levels. 4. Mineral bone disorder, monitor calcium and phosphorus levels. 5. Hypomagnesemia. Continue to monitor and replete as needed. 6. Hip fracture, status post arthroplasty. Continue physical therapy, continue pain control. Consultation Date/Type/Reason Admit Date/Time Jul 22, 2018 at 15:38 Initial Consult Date Date/Time of Note DATE: 08/01/18 TIME: 12:32 24 HR Interval Summary Free Text/Dictation denies n/v, shortness of breath tolerating po d/w rn gen nad cv rrr pulm ctab abd soft, nd, nt +bs ext: no edema Exam/Review of Systems Exam Vitals Vital Signs Date Temp Pulse Resp B/P (MAP) Pulse Ox O2 O2 Flow FiO2 Time Delivery Rate 08/01/18 98.2 63 18 130/60 96 Room Air 07:00 (83) Intake and Output 07/31/18 07/31/18 08/01/18 1414:59 22:59 06:59 OutputOutput Total 1 ml BalanceBalance -1 ml Results Result Diagram: 07/29/18 0607 Medications Medication Current Medications Magnesium Hydroxide (Milk Of Mag) 30 ml BID PRN PO CONSTIPATION Last administered on 07/31/18at 06:59; Admin Dose 30 ML; Start 07/22/18 at 16:00 Lactulose (Enulose) 20 gm DAILY PRN PO CONSTIPATION Last administered on 07/25/18at 14:25; Admin Dose 20 GM; Start 07/22/18 at 16:00 Bisacodyl (Dulcolax Supp) 10 mg DAILY PRN [place] CONSTIPATION; Start 07/22/18 at 16:00 Acetaminophen (Tylenol Tab) 650 mg Q4H PRN PO PAIN Last administered on 07/30/18at 21:08; Admin Dose 650 MG; Start 07/22/18 at 16:00 [facility] 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 PRN PRN XX WOUND CARE; Start 07/22/18 at 16:00 Amlodipine Besylate (Norvasc) 10 mg DAILY PO Last administered on 08/01/18 09:39; Admin Dose 10 MG; Start 07/23/18 at 09:00 Clonidine (Catapres) 0.1 mg Q6H PRN PO ELEVATED BLOOD PRESSURE Last administered on 07/25/18 21:06; Admin Dose 0.1 MG; Start 07/22/18 at 16:30 Acetaminophen/ Hydrocodone Bitart ([place] (5/325)) 1 tab Q4H PRN PO MODERATE PAIN LEVEL 4-6; Start 07/22/18 at 16:30 Ropinirole HCl (Requip) 1 mg HS PO Last administered on 07/31/18 20:58; Admin Dose 1 MG; Start 07/22/18 at 21:00 Sertraline HCl (Zoloft) 100 mg DAILY PO Last administered on 08/01/18 09:38; Admin Dose 100 MG; Start 07/23/18 at 09:00 Tramadol HCl (Ultram) 25 mg Q6H PRN GTB MODERATE PAIN LEVEL 4-6 Last administered on 07/27/18 16:04; Admin Dose 25 MG; Start 07/22/18 at 16:30 Aspirin (Aspirin) 81 mg BID PO Last administered on 08/01/18 09:40; Admin Dose 81 MG; Start 07/22/18 at 21:00 Hydrocortisone (Procto-Juan Antonio) 1 applic DAILY PRN [place] HEMORROID PAIN/ITCHING; Start 07/22/18 at 16:30 Ferrous Sulfate (Ferrous Sulfate (Ec)) 325 mg BID PO Last administered on 08/01/18 09:38; Admin Dose 325 MG; Start 07/23/18 at 21:00; Stop 08/22/18 at 20:59 Docusate Sodium (Colace) 100 mg BID PRN PO CONSTIPATION Last administered on 07/24/18 12:11; Admin Dose 100 MG; Start 07/23/18 at 13:00 Lisinopril (Zestril) 40 mg DAILY PO Last administered on 08/01/18 09:38; Admin Dose 40 MG; Start 07/24/18 at 09:00 Ascorbic Acid (Vitamin C) 500 mg BID PO Last administered on 08/01/18 09:38; Admin Dose 500 MG; Start 07/24/18 at 21:00; Stop 08/23/18 at 20:59 Metoprolol Succinate (Toprol Xl) 50 mg Q12H PO Last administered on 08/01/18 12:20; Admin Dose 50 MG; Start 07/25/18 at 11:00 Magnesium Oxide (Mag-Ox 400) 400 mg DAILY PO Last administered on 08/01/18 09:38; Admin Dose 400 MG; Start 07/26/18 at 09:00 Multivitamins Therapeutic (Theragran) 1 tab DAILY PO Last administered on 08/01/18at 09:38; Admin Dose 1 TAB; Start 07/27/18 at 09:00 Al Hydrox/Mg Hydrox/Simethicone (Mag-Al Plus) 30 ml Q4H PRN PO GASTROINTESTINAL UPSET; Start 07/27/18 at 12:00 Sucralfate (Carafate Susp) 1 gm QID PO Last administered on 07/31/18 09:51; Admin Dose 1 GM; Start 07/27/18 at 13:00; Stop 08/10/18 at 12:59 Alprazolam (Xanax) 0.125 mg Q12H PRN PO ANXIETY Last administered on 07/27/18at 20:37; Admin Dose 0.125 MG; Start 07/27/18 at 20:30 Ondansetron HCl (Zofran Odt) 4 mg Q6H PRN ODT NAUSEA AND/OR VOMITING; Start 07/29/18 at 11:00 Pantoprazole (Protonix Tab) 40 mg 0600,1800 PO Last administered on 08/01/18at 06:57; Admin Dose 40 MG; Start 07/29/18 at 18:00 GALE MANTILLA MD August 01, 2018 12:33
--- NOTE | 2018-08-01 13:53 | PN ---
Date/Time of Note Date/Time of Note DATE: 08/01/18 TIME: 13:52 Assessment/Plan VTE Prophylaxis Risk score (from [facility])>0 risk: 11 SCD applied (from [facility]): Yes Pharmacological prophylaxis: heparin Lines/Catheters IV Catheter Type (from [facility]): Saline Lock Urinary Cath still in place: No Assessment/Plan Problems: (1) Closed right hip fracture Status: Acute Comment: Repaired and now going thru rehab Qualifiers: Encounter type: initial encounter Qualified Codes: S72.001A - Fracture of unspecified part of neck of right femur, initial encounter for closed fracture (2) Status post open reduction with internal fixation of fracture Onset Date: ~ 07/14/2018 Status: Acute Comment: No surgical complications (3) Iron deficiency anemia due to chronic blood loss Status: Chronic Comment: On replacement Result Diagram: 07/29/18 0607 Subjective 24 Hr Interval Summary Constitutional: no complaints Respiratory: no complaints Cardiovascular: no complaints Exam/Review of Systems Exam Vitals Vital Signs Date Temp Pulse Resp B/P (MAP) Pulse Ox O2 O2 Flow FiO2 Time Delivery Rate 08/01/18 98.2 63 18 130/60 96 Room Air 07:00 (83) Intake and Output 07/31/18 07/31/18 08/01/18 1515:00 23:00 07:00 OutputOutput Total 1 ml BalanceBalance -1 ml Constitutional: alert Respiratory: clear to auscultation, normal air movement Cardiovascular: regular rate and rhythm, nl pulses Medications Medication Current Medications Magnesium Hydroxide (Milk Of Mag) 30 ml BID PRN PO CONSTIPATION Last administered on 07/31/18at 06:59; Admin Dose 30 ML; Start 07/22/18 at 16:00 Lactulose (Enulose) 20 gm DAILY PRN PO CONSTIPATION Last administered on 07/25/18at 14:25; Admin Dose 20 GM; Start 07/22/18 at 16:00 Bisacodyl (Dulcolax Supp) 10 mg DAILY PRN [place] CONSTIPATION; Start 07/22/18 at 16:00 Acetaminophen (Tylenol Tab) 650 mg Q4H PRN PO PAIN Last administered on 07/30/18at 21:08; Admin Dose 650 MG; Start 07/22/18 at 16:00 Miscellaneous Information (Pending [facility] Order For Wound Care) 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 PRN PRN XX WOUND CARE; Start 07/22/18 at 16:00 Amlodipine Besylate (Norvasc) 10 mg DAILY PO Last administered on 08/01/18 09:39; Admin Dose 10 MG; Start 07/23/18 at 09:00 Clonidine (Catapres) 0.1 mg Q6H PRN PO ELEVATED BLOOD PRESSURE Last administered on 07/25/18 21:06; Admin Dose 0.1 MG; Start 07/22/18 at 16:30 Acetaminophen/ Hydrocodone Bitart ([place] (5/325)) 1 tab Q4H PRN PO MODERATE PAIN LEVEL 4-6; Start 07/22/18 at 16:30 Ropinirole HCl (Requip) 1 mg HS PO Last administered on 07/31/18 20:58; Admin Dose 1 MG; Start 07/22/18 at 21:00 Sertraline HCl (Zoloft) 100 mg DAILY PO Last administered on 08/01/18 09:38; Admin Dose 100 MG; Start 07/23/18 at 09:00 Tramadol HCl (Ultram) 25 mg Q6H PRN GTB MODERATE PAIN LEVEL 4-6 Last administered on 07/27/18 16:04; Admin Dose 25 MG; Start 07/22/18 at 16:30 Aspirin (Aspirin) 81 mg BID PO Last administered on 08/01/18 09:40; Admin Dose 81 MG; Start 07/22/18 at 21:00 Hydrocortisone (Procto-Juan Antonio) 1 applic DAILY PRN [place] HEMORROID PAIN/ITCHING; Start 07/22/18 at 16:30 Ferrous Sulfate (Ferrous Sulfate (Ec)) 325 mg BID PO Last administered on 08/01/18 09:38; Admin Dose 325 MG; Start 07/23/18 at 21:00; Stop 08/22/18 at 20:59 Docusate Sodium (Colace) 100 mg BID PRN PO CONSTIPATION Last administered on 07/24/18 12:11; Admin Dose 100 MG; Start 07/23/18 at 13:00 Lisinopril (Zestril) 40 mg DAILY PO Last administered on 08/01/18 09:38; Admin Dose 40 MG; Start 07/24/18 at 09:00 Ascorbic Acid (Vitamin C) 500 mg BID PO Last administered on 08/01/18 09:38; Admin Dose 500 MG; Start 07/24/18 at 21:00; Stop 08/23/18 at 20:59 Metoprolol Succinate (Toprol Xl) 50 mg Q12H PO Last administered on 08/01/18 12:20; Admin Dose 50 MG; Start 07/25/18 at 11:00 Magnesium Oxide (Mag-Ox 400) 400 mg DAILY PO Last administered on 08/01/18 09:38; Admin Dose 400 MG; Start 07/26/18 at 09:00 Multivitamins Therapeutic (Theragran) 1 tab DAILY PO Last administered on 08/01/18 09:38; Admin Dose 1 TAB; Start 07/27/18 at 09:00 Al Hydrox/Mg Hydrox/Simethicone (Mag-Al Plus) 30 ml Q4H PRN PO GASTROINTESTINAL UPSET; Start 07/27/18 at 12:00 Sucralfate (Carafate Susp) 1 gm QID PO Last administered on 07/31/18 09:51; Admin Dose 1 GM; Start 07/27/18 at 13:00; Stop 08/10/18 at 12:59 Alprazolam (Xanax) 0.125 mg Q12H PRN PO ANXIETY Last administered on 07/27/18 20:37; Admin Dose 0.125 MG; Start 07/27/18 at 20:30 Ondansetron HCl (Zofran Odt) 4 mg Q6H PRN ODT NAUSEA AND/OR VOMITING; Start 07/29/18 at 11:00 Pantoprazole (Protonix Tab) 40 mg 0600,1800 PO Last administered on 08/01/18 06:57; Admin Dose 40 MG; Start 07/29/18 at 18:00 ADRLIN MINOR MD August 01, 2018 13:53
[2018-08-01 14:00] VITALS: BP 150/67; PULSE 57; RESP 18
[2018-08-01 20:00] VITALS: BP 128/60; PULSE 79; RESP 18
[2018-08-01] MEDS: ROPINIROLE 1 MG TAB PO SCH (21:10)
[2018-08-02 02:30] VITALS: BP 143/67; PULSE 76; RESP 18
[2018-08-02] MEDS: PANTOPRAZOLE (EC) 40 MG TAB PO SCH ×2 (06:00→17:51)
[2018-08-02 07:00] VITALS: BP 143/59; PULSE 72; RESP 18
[2018-08-02] MEDS: SUCRALFATE (100 MG/ML) 10ML CUP PO SCH ×2 (09:00→13:00)
[2018-08-02] MEDS: SERTRALINE 100 MG TAB PO SCH (09:12)
[2018-08-02] MEDS: ASPIRIN 81 MG TAB PO SCH ×2 (09:12→21:20)
[2018-08-02] MEDS: LISINOPRIL 20 MG TAB PO SCH (09:13)
[2018-08-02] MEDS: MAGNESIUM OXIDE 400 MG TAB PO SCH (09:13)
[2018-08-02] MEDS: ASCORBIC ACID 500 MG TAB PO SCH ×2 (09:13→21:18)
[2018-08-02] MEDS: MULTIVITAMINS THERAPEUTIC TAB PO SCH (09:13)
[2018-08-02] MEDS: FERROUS SULFATE (EC) 325 MG TAB PO SCH ×2 (09:13→21:18)
[2018-08-02] MEDS: AMLODIPINE 10 MG TAB PO SCH (09:13)
--- NOTE | 2018-08-02 09:40 | PN ---
Date/Time of Note Date/Time of Note DATE: 08/02/18 TIME: 09:39 Objective Vital Signs Date Temp Pulse Resp B/P (MAP) Pulse Ox O2 O2 Flow FiO2 Time Delivery Rate 08/02/18 97.9 72 18 143/59 95 Room Air 07:00 (87) Intake and Output 08/01/18 08/01/18 08/02/18 1515:00 23:00 07:00 IntakeIntake Total 240 ml 1200 ml OutputOutput Total 800 ml 400 ml BalanceBalance 240 ml 400 ml -400 ml Exam INTERDISCIPLINARY TEAM CONFERENCE Attended by PT, OT, ST, Facility Maintenance Manager, Social Work, Rehabilitation Nursing, Personal Lines Account Manager and Deputy Director Of FinanceDrum Tender Exam: Pulm- cta Abd-soft BOWEL- Cont BLADDER-Cont SKIN- improving OT- DRESSING- mod BATHING-mod TOILETING-mod PT- BED MOBILITY-mod TRANSFERS-mod AMBULATION-max 5 feet A/P- Interdisciplinary team conference held today. Please see interdisciplinary sheet. Working toward d.c. on 08/12 with post discharge follow up of physical therapy, occupational therapy. Results/Medications Result Diagram: 07/29/18 0607 Medications Current Medications Magnesium Hydroxide (Milk Of Mag) 30 ml BID PRN PO CONSTIPATION Last administered on 07/31/18at 06:59; Admin Dose 30 ML; Start 07/22/18 at 16:00 Lactulose (Enulose) 20 gm DAILY PRN PO CONSTIPATION Last administered on 07/25/18at 14:25; Admin Dose 20 GM; Start 07/22/18 at 16:00 Bisacodyl (Dulcolax Supp) 10 mg DAILY PRN [place] CONSTIPATION; Start 07/22/18 at 16:00 Acetaminophen (Tylenol Tab) 650 mg Q4H PRN PO PAIN Last administered on 07/30/18at 21:08; Admin Dose 650 MG; Start 07/22/18 at 16:00 Miscellaneous Information (Pending [facility] Order For Wound Care) 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 PRN PRN XX WOUND CARE; Start 07/22/18 at 16:00 Amlodipine Besylate (Norvasc) 10 mg DAILY PO Last administered on 08/02/18at 09:13; Admin Dose 10 MG; Start 07/23/18 at 09:00 Clonidine (Catapres) 0.1 mg Q6H PRN PO ELEVATED BLOOD PRESSURE Last administered on 07/25/18 21:06; Admin Dose 0.1 MG; Start 07/22/18 at 16:30 Acetaminophen/ Hydrocodone Bitart ([place] (5/325)) 1 tab Q4H PRN PO MODERATE PAIN LEVEL 4-6; Start 07/22/18 at 16:30 Ropinirole HCl (Requip) 1 mg HS PO Last administered on 08/01/18 21:10; Admin Dose 1 MG; Start 07/22/18 at 21:00 Sertraline HCl (Zoloft) 100 mg DAILY PO Last administered on 08/02/18 09:12; Admin Dose 100 MG; Start 07/23/18 at 09:00 Tramadol HCl (Ultram) 25 mg Q6H PRN GTB MODERATE PAIN LEVEL 4-6 Last administered on 07/27/18 16:04; Admin Dose 25 MG; Start 07/22/18 at 16:30 Aspirin (Aspirin) 81 mg BID PO Last administered on 08/02/18 09:12; Admin Dose 81 MG; Start 07/22/18 at 21:00 Hydrocortisone (Procto-Juan Antonio) 1 applic DAILY PRN [place] HEMORROID PAIN/ITCHING; Start 07/22/18 at 16:30 Ferrous Sulfate (Ferrous Sulfate (Ec)) 325 mg BID PO Last administered on 08/02/18 09:13; Admin Dose 325 MG; Start 07/23/18 at 21:00; Stop 08/22/18 at 20:59 Docusate Sodium (Colace) 100 mg BID PRN PO CONSTIPATION Last administered on 07/24/18 12:11; Admin Dose 100 MG; Start 07/23/18 at 13:00 Lisinopril (Zestril) 40 mg DAILY PO Last administered on 08/02/18 09:13; Admin Dose 40 MG; Start 07/24/18 at 09:00 Ascorbic Acid (Vitamin C) 500 mg BID PO Last administered on 08/02/18 09:13; Admin Dose 500 MG; Start 07/24/18 at 21:00; Stop 08/23/18 at 20:59 Metoprolol Succinate (Toprol Xl) 50 mg Q12H PO Last administered on 08/01/18 12:20; Admin Dose 50 MG; Start 07/25/18 at 11:00 Magnesium Oxide (Mag-Ox 400) 400 mg DAILY PO Last administered on 08/02/18 09:13; Admin Dose 400 MG; Start 07/26/18 at 09:00 Multivitamins Therapeutic (Theragran) 1 tab DAILY PO Last administered on 08/02/18 09:13; Admin Dose 1 TAB; Start 07/27/18 at 09:00 Al Hydrox/Mg Hydrox/Simethicone (Mag-Al Plus) 30 ml Q4H PRN PO GASTROINTESTINAL UPSET; Start 07/27/18 at 12:00 Sucralfate (Carafate Susp) 1 gm QID PO Last administered on 07/31/18 09:51; Admin Dose 1 GM; Start 07/27/18 at 13:00; Stop 08/10/18 at 12:59 Alprazolam (Xanax) 0.125 mg Q12H PRN PO ANXIETY Last administered on 07/27/18at 20:37; Admin Dose 0.125 MG; Start 07/27/18 at 20:30 Ondansetron HCl (Zofran Odt) 4 mg Q6H PRN ODT NAUSEA AND/OR VOMITING; Start 07/29/18 at 11:00 Pantoprazole (Protonix Tab) 40 mg 0600,1800 PO Last administered on 08/01/18 06:57; Admin Dose 40 MG; Start 07/29/18 at 18:00 KIARA GARCIA MD August 02, 2018 09:40
--- NOTE | 2018-08-02 11:01 | PN ---
DATE: 08/02/2018 SUBJECTIVE: The patient is stable, no events overnight. No fevers, chills, nausea, or vomiting. OBJECTIVE: VITAL SIGNS: Blood pressure is 143/67, respirations 18, pulse 76, temperature 97.8. HEENT: Head is normocephalic. NECK: Supple. HEART: Regular rate. LUNGS: Show diminished breath sounds at the base. ABDOMEN: Soft, nontender to palpation. No rebound or guarding. EXTREMITIES: Negative for clubbing, cyanosis, no edema. DERMATOLOGIC: No rashes. MUSCULOSKELETAL: No joint effusion. NEUROLOGIC: No change in exam. MEDICATIONS: The patient's medications have been reviewed. LABORATORY DATA: Reviewed. ASSESSMENT AND PLAN: 1. Nonoliguric acute kidney injury. Etiology is secondary to hemodynamics. Renal function is impro luanne. Continue current plans, supportive care, renally dose all medicines. 2. Hypertension. Blood pressure has improved. Continue current blood pressure regimen, adjust as n eeded. 3. Anemia. Continue to monitor hemoglobin and hematocrit levels. 4. Mineral bone disorder, monitor calcium and phosphorus levels. 5. Hypomagnesemia. Continue to monitor and replete. 6. Hip fracture status post arthroplasty. Continue physical therapy. Dictated By: STEPH MARTINEZ DO NR/NTS Conf#: [id number] DID#: [id number] CC: FRANSISCO TOLEDO MD; KIARA GARCIA MD;*End*
[2018-08-02] MEDS: METOPROLOL (XL) 50 MG TAB PO SCH ×2 (12:04→23:13)
[2018-08-02 14:00] VITALS: BP 115/57; PULSE 70; RESP 18
[2018-08-02] MEDS: ACETAMINOPHEN 325 MG TAB PO PRN (14:28)
--- NOTE | 2018-08-02 14:40 | PN ---
Date/Time of Note Date/Time of Note DATE: 08/02/18 TIME: 14:38 Assessment/Plan VTE Prophylaxis Risk score (from Nsg)>0 risk: 12 SCD applied (from Nsg): Yes Pharmacological prophylaxis: other (asa per ortho) Lines/Catheters IV Catheter Type (from Nrsg): Saline Lock Urinary Cath still in place: No Assessment/Plan Hospital Course SUBJECTIVE: no acute distress. Tolerates physical therapy well. OBJECTIVE: Vital signs-see below PHYSICAL EXAM: Constitutional: Adequately built, elderly female not in acute distress. HEENT: Head atraumatic and normocephalic. Eyes: Extraocular muscles intact. Anicteric sclerae. Pupils equal bilaterally, reactive to light. NECK: Supple without lymph node. CHEST: Clear and good breath sounds equally. No wheezing. No rhonchi. HEART: S1, S2. Regular rate and rhythm. ABDOMEN: Soft/non tender with no rebound tenderness. Bowel sounds were present. EXTREMITIES: RLE w/ intact dressing. No cyanosis, clubbing or edema. NEUROLOGIC: Alert and oriented x3. No focal deficit. No sensory deficit. PSYCHOSOCIAL: No signs of depression. INTEGUMENTARY: No open wounds. ASSESSMENT AND PLAN: 88-year-old female, status post right hip ORIF transferred to acute rehabilitation unit for inpatient rehab. Right hip fracture s/p ORIF 07/14/18 - DVT ppx,pain control - Rehab - Ortho f/u in 2 weeks Hypertension -stable.cont.antihypertensives. Iron deficient anemia -Continue oral replacement Mood disorder -Continue sertraline Restless leg syndrome -on ropinirole Constipation - bowel regimen History of overactive bladder -Currently stable and patient refuses to take Vesicare. Her bladder fxn is stable. GERD -symptoms resolved -cont.ppi -Outpatient EGD eval after dc if symptoms recur. DVT prophylaxis: Aspirin per orthopedic recommendations. Patient is seen in collaboration with Result Diagram: 07/29/18 0607 Exam/Review of Systems Exam Vitals Vital Signs Date Temp Pulse Resp B/P (MAP) Pulse Ox O2 O2 Flow FiO2 Time Delivery Rate 08/02/18 97.9 72 18 143/59 95 Room Air 07:00 (87) Intake and Output 08/01/18 08/01/18 08/02/18 1515:00 23:00 07:00 IntakeIntake Total 240 ml 1200 ml OutputOutput Total 800 ml 400 ml BalanceBalance 240 ml 400 ml -400 ml Medications Medication Current Medications Magnesium Hydroxide (Milk Of Mag) 30 ml BID PRN PO CONSTIPATION Last administered on 07/31/18 06:59; Admin Dose 30 ML; Start 07/22/18 at 16:00 Lactulose (Enulose) 20 gm DAILY PRN PO CONSTIPATION Last administered on 07/25/18 14:25; Admin Dose 20 GM; Start 07/22/18 at 16:00 Bisacodyl (Dulcolax Supp) 10 mg DAILY PRN [place] CONSTIPATION; Start 07/22/18 at 16:00 Acetaminophen (Tylenol Tab) 650 mg Q4H PRN PO PAIN Last administered on 08/02/18 14:28; Admin Dose 650 MG; Start 07/22/18 at 16:00 Miscellaneous Information (Pending [facility] Order For Wound Care) 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 PRN PRN XX WOUND CARE; Start 07/22/18 at 16:00 Amlodipine Besylate (Norvasc) 10 mg DAILY PO Last administered on 08/02/18 09:13; Admin Dose 10 MG; Start 07/23/18 at 09:00 Clonidine (Catapres) 0.1 mg Q6H PRN PO ELEVATED BLOOD PRESSURE Last administered on 07/25/18 21:06; Admin Dose 0.1 MG; Start 07/22/18 at 16:30 Acetaminophen/ Hydrocodone Bitart ([place] (5/325)) 1 tab Q4H PRN PO MODERATE PAIN LEVEL 4-6; Start 07/22/18 at 16:30 Ropinirole HCl (Requip) 1 mg HS PO Last administered on 08/01/18 21:10; Admin Dose 1 MG; Start 07/22/18 at 21:00 Sertraline HCl (Zoloft) 100 mg DAILY PO Last administered on 08/02/18 09:12; Admin Dose 100 MG; Start 07/23/18 at 09:00 Tramadol HCl (Ultram) 25 mg Q6H PRN GTB MODERATE PAIN LEVEL 4-6 Last administered on 07/27/18 16:04; Admin Dose 25 MG; Start 07/22/18 at 16:30 Aspirin (Aspirin) 81 mg BID PO Last administered on 08/02/18 09:12; Admin Dose 81 MG; Start 07/22/18 at 21:00 Hydrocortisone (Procto-Juan Antonio) 1 applic DAILY PRN [place] HEMORROID PAIN/ITCHING; Start 07/22/18 at 16:30 Ferrous Sulfate (Ferrous Sulfate (Ec)) 325 mg BID PO Last administered on 08/02/18 09:13; Admin Dose 325 MG; Start 07/23/18 at 21:00; Stop 08/22/18 at 20:59 Docusate Sodium (Colace) 100 mg BID PRN PO CONSTIPATION Last administered on 07/24/18 12:11; Admin Dose 100 MG; Start 07/23/18 at 13:00 Lisinopril (Zestril) 40 mg DAILY PO Last administered on 08/02/18 09:13; Admin Dose 40 MG; Start 07/24/18 at 09:00 Ascorbic Acid (Vitamin C) 500 mg BID PO Last administered on 08/02/18 09:13; Admin Dose 500 MG; Start 07/24/18 at 21:00; Stop 08/23/18 at 20:59 Metoprolol Succinate (Toprol Xl) 50 mg Q12H PO Last administered on 08/02/18 12:04; Admin Dose 50 MG; Start 07/25/18 at 11:00 Magnesium Oxide (Mag-Ox 400) 400 mg DAILY PO Last administered on 08/02/18 09:13; Admin Dose 400 MG; Start 07/26/18 at 09:00 Multivitamins Therapeutic (Theragran) 1 tab DAILY PO Last administered on 08/02/18 09:13; Admin Dose 1 TAB; Start 07/27/18 at 09:00 Al Hydrox/Mg Hydrox/Simethicone (Mag-Al Plus) 30 ml Q4H PRN PO GASTROINTESTINAL UPSET; Start 07/27/18 at 12:00 Sucralfate (Carafate Susp) 1 gm QID PO Last administered on 07/31/18 09:51; Admin Dose 1 GM; Start 07/27/18 at 13:00; Stop 08/10/18 at 12:59 Alprazolam (Xanax) 0.125 mg Q12H PRN PO ANXIETY Last administered on 07/27/18 20:37; Admin Dose 0.125 MG; Start 07/27/18 at 20:30 Ondansetron HCl (Zofran Odt) 4 mg Q6H PRN ODT NAUSEA AND/OR VOMITING; Start 07/29/18 at 11:00 Pantoprazole (Protonix Tab) 40 mg 0600,1800 PO Last administered on 08/01/18at 06:57; Admin Dose 40 MG; Start 07/29/18 at 18:00 Gabapentin (Neurontin) 100 mg HS PO ; Start 08/02/18 at 21:00 DARLENE RODRÍGUEZ NP August 02, 2018 14:40
[2018-08-02 20:00] VITALS: BP 137/64; PULSE 68; RESP 18
[2018-08-02] MEDS: GABAPENTIN 100 MG CAP PO SCH (21:00)
[2018-08-02] MEDS: ROPINIROLE 1 MG TAB PO SCH (21:19)
[2018-08-03 02:32] VITALS: BP 130/59; PULSE 64; RESP 18
[2018-08-03] MEDS: PANTOPRAZOLE (EC) 40 MG TAB PO SCH ×2 (06:42→17:56)
[2018-08-03 07:30] VITALS: BP 119/58; PULSE 73; RESP 20
[2018-08-03] MEDS: LISINOPRIL 20 MG TAB PO SCH (09:00)
[2018-08-03] MEDS: FERROUS SULFATE (EC) 325 MG TAB PO SCH ×2 (09:00→22:06)
[2018-08-03] MEDS: AMLODIPINE 10 MG TAB PO SCH (09:00)
[2018-08-03] MEDS: ASPIRIN 81 MG TAB PO SCH ×2 (09:00→22:06)
[2018-08-03] MEDS: ASCORBIC ACID 500 MG TAB PO SCH ×2 (09:01→22:06)
[2018-08-03] MEDS: MULTIVITAMINS THERAPEUTIC TAB PO SCH (09:01)
[2018-08-03] MEDS: MAGNESIUM OXIDE 400 MG TAB PO SCH (09:01)
[2018-08-03] MEDS: SERTRALINE 100 MG TAB PO SCH (09:02)
--- NOTE | 2018-08-03 09:33 | PN ---
DATE: 08/03/2018 SUBJECTIVE: The patient is stable, no events overnight. OBJECTIVE: VITAL SIGNS: Blood pressure is 119/58, respirations 20, pulse 73, temperature 98.3. HEENT: Head is normocephalic. NECK: Supple. HEART: Regular rate. LUNGS: Show diminished breath sounds at the base. ABDOMEN: Soft, nontender to palpation without rebound or guarding. EXTREMITIES: Negative for clubbing, cyanosis, no edema. DERMATOLOGIC: No rashes. MUSCULOSKELETAL: No joint effusion. NEUROLOGIC: No change in exam. MEDICATIONS: Reviewed. LABORATORY DATA: Reviewed. ASSESSMENT AND PLAN: 1. Nonoliguric acute kidney injury. Etiology is secondary to hemodynamics. Renal function is impro luanne. Continue current treatment plan, supportive care, renally dose all medications. 2. Hypertension, controlled. Continue current blood pressure management. 3. Anemia. Continue to monitor hemoglobin and hematocrit levels. 4. Mineral bone disorder, monitor calcium and phosphorus levels. 5. Hypomagnesemia. Continue to monitor and replete. 6. Hip fracture, status post arthroplasty. Continue physical therapy. Dictated By: STEPH MARTINEZ DO NR/NTS Conf#: [id number] DID#: [id number] CC: FRANSISCO TOLEDO MD; KIARA GARCIA MD;*EndCC*
[2018-08-03] MEDS: METOPROLOL (XL) 50 MG TAB PO SCH ×2 (11:00→22:08)
--- NOTE | 2018-08-03 12:53 | PN ---
Date/Time of Note Date/Time of Note DATE: 08/03/18 TIME: 12:52 Subjective Up for activities Objective Vital Signs Date Temp Pulse Resp B/P (MAP) Pulse Ox O2 O2 Flow FiO2 Time Delivery Rate 08/03/18 98.3 73 20 119/58 97 Room Air 07:30 (78) Intake and Output 08/02/18 08/02/18 08/03/18 1515:00 23:00 07:00 IntakeIntake Total 1200 ml 240 ml OutputOutput Total 1000 ml BalanceBalance 200 ml 240 ml Exam mod transfer mod ambulation 15 feet with PT Results/Medications Medications Current Medications Magnesium Hydroxide (Milk Of Mag) 30 ml BID PRN PO CONSTIPATION Last administered on 07/31/18 06:59; Admin Dose 30 ML; Start 07/22/18 at 16:00 Lactulose (Enulose) 20 gm DAILY PRN PO CONSTIPATION Last administered on 07/25/18 14:25; Admin Dose 20 GM; Start 07/22/18 at 16:00 Bisacodyl (Dulcolax Supp) 10 mg DAILY PRN [place] CONSTIPATION; Start 07/22/18 at 16:00 Acetaminophen (Tylenol Tab) 650 mg Q4H PRN PO PAIN Last administered on 08/02/18 14:28; Admin Dose 650 MG; Start 07/22/18 at 16:00 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 PRN PRN XX WOUND CARE; Start 07/22/18 at 16:00 Amlodipine Besylate (Norvasc) 10 mg DAILY PO Last administered on 08/02/18at 09:1 3; Admin Dose 10 MG; Start 07/23/18 at 09:00 Clonidine (Catapres) 0.1 mg Q6H PRN PO ELEVATED BLOOD PRESSURE Last administered on 07/25/18 21:06; Admin Dose 0.1 MG; Start 07/22/18 at 16:30 Acetaminophen/ Hydrocodone Bitart ([place] (5/325)) 1 tab Q4H PRN PO MODERATE PAIN LEVEL 4-6; Start 07/22/18 at 16:30 Ropinirole HCl (Requip) 1 mg HS PO Last administered on 08/02/18 21:19; Admin Dose 1 MG; Start 07/22/18 at 21:00 Sertraline HCl (Zoloft) 100 mg DAILY PO Last administered on 08/03/18 09:02; Admin Dose 100 MG; Start 07/23/18 at 09:00 Tramadol HCl (Ultram) 25 mg Q6H PRN GTB MODERATE PAIN LEVEL 4-6 Last administered on 07/27/18 16:04; Admin Dose 25 MG; Start 07/22/18 at 16:30 Aspirin (Aspirin) 81 mg BID PO Last administered on 08/03/18 09:00; Admin Dose 81 MG; Start 07/22/18 at 21:00 Hydrocortisone (Procto-Juan Antonio) 1 applic DAILY PRN [place] HEMORROID PAIN/ITCHING; Start 07/22/18 at 16:30 Ferrous Sulfate (Ferrous Sulfate (Ec)) 325 mg BID PO Last administered on 08/03/18 09:00; Admin Dose 325 MG; Start 07/23/18 at 21:00; Stop 08/22/18 at 20:59 Docusate Sodium (Colace) 100 mg BID PRN PO CONSTIPATION Last administered on 07/24/18 12:11; Admin Dose 100 MG; Start 07/23/18 at 13:00 Lisinopril (Zestril) 40 mg DAILY PO Last administered on 08/03/18 09:00; Admin Dose 40 MG; Start 07/24/18 at 09:00 Ascorbic Acid (Vitamin C) 500 mg BID PO Last administered on 08/03/18 09:01; Admin Dose 500 MG; Start 07/24/18 at 21:00; Stop 08/23/18 at 20:59 Metoprolol Succinate (Toprol Xl) 50 mg Q12H PO Last administered on 08/02/18 23:13; Admin Dose 50 MG; Start 07/25/18 at 11:00 Magnesium Oxide (Mag-Ox 400) 400 mg DAILY PO Last administered on 08/03/18 09:01; Admin Dose 400 MG; Start 07/26/18 at 09:00 Multivitamins Therapeutic (Theragran) 1 tab DAILY PO Last administered on 08/03/18 09:01; Admin Dose 1 TAB; Start 07/27/18 at 09:00 Al Hydrox/Mg Hydrox/Simethicone (Mag-Al Plus) 30 ml Q4H PRN PO GASTROINTESTINAL UPSET; Start 07/27/18 at 12:00 Alprazolam (Xanax) 0.125 mg Q12H PRN PO ANXIETY Last administered on 07/27/18at 20:37; Admin Dose 0.125 MG; Start 07/27/18 at 20:30 Ondansetron HCl (Zofran Odt) 4 mg Q6H PRN ODT NAUSEA AND/OR VOMITING; Start 07/29/18 at 11:00 Pantoprazole (Protonix Tab) 40 mg 0600,1800 PO Last administered on 08/03/18at 06:42; Admin Dose 40 MG; Start 07/29/18 at 18:00 Gabapentin (Neurontin) 100 mg HS PO ; Start 08/02/18 at 21:00 Assessment/Plan Additional Assessment/Plan Rehab- Right intertrochanteric hip fracture status post ORIF; 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 Anemia- monitor KIARA GARCIA MD August 03, 2018 12:53
[2018-08-03] MEDS: ACETAMINOPHEN 325 MG TAB PO PRN ×2 (13:44→22:07)
[2018-08-03 14:00] VITALS: BP 118/57; PULSE 74
--- NOTE | 2018-08-03 14:35 | PN ---
Date/Time of Note Date/Time of Note DATE: 08/03/18 TIME: 14:34 Assessment/Plan VTE Prophylaxis Risk score (from Nsg)>0 risk: 12 SCD applied (from Ns): Yes Pharmacological prophylaxis: other (ASPIRIN PLUS AMBULATION PER ORTHO) Lines/Catheters IV Catheter Type (from Nrs): Saline Lock Urinary Cath still in place: No Assessment/Plan Hospital Course SUBJECTIVE: no acute distress. Tolerates physical therapy well. OBJECTIVE: Vital signs-see below PHYSICAL EXAM: Constitutional: Adequately built, elderly female not in acute distress. HEENT: Head atraumatic and normocephalic. Eyes: Extraocular muscles intact. Anicteric sclerae. Pupils equal bilaterally, reactive to light. NECK: Supple without lymph node. CHEST: Clear and good breath sounds equally. No wheezing. No rhonchi. HEART: S1, S2. Regular rate and rhythm. ABDOMEN: Soft/non tender with no rebound tenderness. Bowel sounds were present. EXTREMITIES: RLE w/ intact dressing. No cyanosis, clubbing or edema. NEUROLOGIC: Alert and oriented x3. No focal deficit. No sensory deficit. PSYCHOSOCIAL: No signs of depression. INTEGUMENTARY: No open wounds. ASSESSMENT AND PLAN: 88-year-old female, status post right hip ORIF transferred to acute rehabilitation unit for inpatient rehab. Right hip fracture s/p ORIF 07/14/18 - DVT ppx,pain control - Rehab - Ortho f/u in 2 weeks Hypertension -stable.cont.antihypertensives. Iron deficient anemia -Continue oral replacement Mood disorder -Continue sertraline Restless leg syndrome -on ropinirole Constipation - bowel regimen History of overactive bladder -Currently stable and patient refuses to take Vesicare. Her bladder fxn is stable. GERD -symptoms resolved -cont.ppi -Outpatient EGD eval after dc if symptoms recur. DVT prophylaxis: Aspirin per orthopedic recommendations. Patient is seen in collaboration with Exam/Review of Systems Exam Vitals Vital Signs Date Temp Pulse Resp B/P (MAP) Pulse Ox O2 O2 Flow FiO2 Time Delivery Rate 08/03/18 97.6 74 118/57 97 Room Air 14:00 (77) 08/03/18 20 07:30 Intake and Output 08/02/18 08/02/18 08/03/18 1414:59 22:59 06:59 IntakeIntake Total 1200 ml 240 ml OutputOutput Total 1000 ml BalanceBalance 200 ml 240 ml Medications Medication Current Medications Magnesium Hydroxide (Milk Of Mag) 30 ml BID PRN PO CONSTIPATION Last administ ered on 07/31/18 06:59; Admin Dose 30 ML; Start 07/22/18 at 16:00 Lactulose (Enulose) 20 gm DAILY PRN PO CONSTIPATION Last administered on 07/25/18 14:25; Admin Dose 20 GM; Start 07/22/18 at 16:00 Bisacodyl (Dulcolax Supp) 10 mg DAILY PRN [place] CONSTIPATION; Start 07/22/18 at 16:00 Acetaminophen (Tylenol Tab) 650 mg Q4H PRN PO PAIN Last administered on 08/03/18 13:44; Admin Dose 650 MG; Start 07/22/18 at 16:00 Miscellaneous Information (Pending Santyl Order For Wound Care) 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 PRN PRN XX WOUND CARE; Start 07/22/18 at 16:00 Amlodipine Besylate (Norvasc) 10 mg DAILY PO Last administered on 08/02/18 09:13; Admin Dose 10 MG; Start 07/23/18 at 09:00 Clonidine (Catapres) 0.1 mg Q6H PRN PO ELEVATED BLOOD PRESSURE Last administered on 07/25/18 21:06; Admin Dose 0.1 MG; Start 07/22/18 at 16:30 Acetaminophen/ Hydrocodone Bitart ([place] (5/325)) 1 tab Q4H PRN PO MODERATE JAMIE N LEVEL 4-6; Start 07/22/18 at 16:30 Ropinirole HCl (Requip) 1 mg HS PO Last administered on 08/02/18 21:19; Admin Dose 1 MG; Start 07/22/18 at 21:00 Sertraline HCl (Zoloft) 100 mg DAILY PO Last administered on 08/03/18 09:02; Admin Dose 100 MG; Start 07/23/18 at 09:00 Tramadol HCl (Ultram) 25 mg Q6H PRN GTB MODERATE PAIN LEVEL 4-6 Last administered on 07/27/18 16:04; Admin Dose 25 MG; Start 07/22/18 at 16:30 Aspirin (Aspirin) 81 mg BID PO Last administered on 08/03/18 09:00; Admin Dose 81 MG; Start 07/22/18 at 21:00 Hydrocortisone (Procto-Juan Antonio) 1 applic DAILY PRN [place] HEMORROID PAIN/ITCHING; Start 07/22/18 at 16:30 Ferrous Sulfate (Ferrous Sulfate (Ec)) 325 mg BID PO Last administered on 08/03/18 09:00; Admin Dose 325 MG; Start 07/23/18 at 21:00; Stop 08/22/18 at 20:59 Docusate Sodium (Colace) 100 mg BID PRN PO CONSTIPATION Last administered on 07/24/18 12:11; Admin Dose 100 MG; Start 07/23/18 at 13:00 Lisinopril (Zestril) 40 mg DAILY PO Last administered on 08/03/18 09:00; Admin Dose 40 MG; Start 07/24/18 at 09:00 Ascorbic Acid (Vitamin C) 500 mg BID PO Last administered on 08/03/18 09:01; Admin Dose 500 MG; Start 07/24/18 at 21:00; Stop 08/23/18 at 20:59 Metoprolol Succinate (Toprol Xl) 50 mg Q12H PO Last administered on 08/02/18 23:13; Admin Dose 50 MG; Start 07/25/18 at 11:00 Magnesium Oxide (Mag-Ox 400) 400 mg DAILY PO Last administered on 08/03/18 09:01; Admin Dose 400 MG; Start 07/26/18 at 09:00 Multivitamins Therapeutic (Theragran) 1 tab DAILY PO Last administered on 08/03/18 09:01; Admin Dose 1 TAB; Start 07/27/18 at 09:00 Al Hydrox/Mg Hydrox/Simethicone (Mag-Al Plus) 30 ml Q4H PRN PO GASTROINTESTINAL UPSET; Start 07/27/18 at 12:00 Alprazolam (Xanax) 0.125 mg Q12H PRN PO ANXIETY Last administered on 07/27/18 20:37; Admin Dose 0.125 MG; Start 07/27/18 at 20:30 Ondansetron HCl (Zofran Odt) 4 mg Q6H PRN ODT NAUSEA AND/OR VOMITING; Start 07/29/18 at 11:00 Pantoprazole (Protonix Tab) 40 mg 0600,1800 PO Last administered on 08/03/18at 06:42; Admin Dose 40 MG; Start 07/29/18 at 18:00 Gabapentin (Neurontin) 100 mg HS PO ; Start 08/02/18 at 21:00 DARLENE RODRÍGUEZ NP August 03, 2018 14:35
[2018-08-03 20:12] VITALS: BP 133/61; PULSE 77; RESP 18
[2018-08-03] MEDS: GABAPENTIN 100 MG CAP PO SCH (21:00)
[2018-08-03] MEDS: ROPINIROLE 1 MG TAB PO SCH (22:08)
[2018-08-04 02:06] VITALS: BP 143/66; PULSE 71; RESP 18
[2018-08-04] MEDS: PANTOPRAZOLE (EC) 40 MG TAB PO SCH ×2 (06:52→18:00)
[2018-08-04 07:30] VITALS: BP 140/63; PULSE 74; RESP 20
--- NOTE | 2018-08-04 08:50 | PN ---
DATE: 08/04/2018 SUBJECTIVE: The patient is stable. No events overnight. OBJECTIVE: VITAL SIGNS: Blood pressure is 140/63, respirations 20, pulse 74, temperature 98.0. HEENT: Head is normocephalic. NECK: Supple. HEART: Regular rate. LUNGS: Show diminished breath sounds at the base. ABDOMEN: Soft, nontender to palpation without rebound or guarding. EXTREMITIES: Negative for clubbing, cyanosis, no edema. DERMATOLOGIC: No rashes. MUSCULOSKELETAL: No joint effusion. NEUROLOGIC: No change in exam. MEDICATIONS: The patient's medications have been reviewed. LABORATORY DATA: Has been reviewed. ASSESSMENT AND PLAN: 1. Nonoliguric acute kidney injury. Etiology is secondary to hemodynamics. Renal function is impro luanne. Continue current treatment plan. Continue supportive care and renally dose all medications. 2. Anemia. Monitor hemoglobin and hematocrit levels. 3. Mineral bone disorder, monitor calcium and phosphorus levels. 4. Hypomagnesemia. Continue to monitor and replete. 5. Hip fracture, status post arthroplasty. Dictated By: STEPH BOWLING/NAVID Conf#: [id number] DID#: [id number]
[2018-08-04] MEDS: FERROUS SULFATE (EC) 325 MG TAB PO SCH ×2 (09:43→21:52)
[2018-08-04] MEDS: MULTIVITAMINS THERAPEUTIC TAB PO SCH (09:44)
[2018-08-04] MEDS: MAGNESIUM OXIDE 400 MG TAB PO SCH (09:45)
[2018-08-04] MEDS: ASCORBIC ACID 500 MG TAB PO SCH ×2 (09:45→21:52)
[2018-08-04] MEDS: ASPIRIN 81 MG TAB PO SCH ×2 (09:45→21:52)
[2018-08-04] MEDS: SERTRALINE 100 MG TAB PO SCH (09:46)
[2018-08-04] MEDS: AMLODIPINE 10 MG TAB PO SCH (09:47)
[2018-08-04] MEDS: LISINOPRIL 20 MG TAB PO SCH (09:48)
[2018-08-04] MEDS: METOPROLOL (XL) 50 MG TAB PO SCH (11:56)
--- NOTE | 2018-08-04 12:33 | PN ---
Date/Time of Note Date/Time of Note DATE: 08/04/18 TIME: 12:32 Subjective Feeling better Objective Vital Signs Date Temp Pulse Resp B/P (MAP) Pulse Ox O2 O2 Flow FiO2 Time Delivery Rate 08/04/18 98.0 74 20 140/63 95 Room Air 07:30 (88) Intake and Output 08/03/18 08/03/18 08/04/18 1515:00 23:00 07:00 IntakeIntake Total 980 ml 200 ml OutputOutput Total 450 ml BalanceBalance 980 ml -250 ml Exam pulm-cta min transfer mod amb 5 feet Results/Medications Medications Current Medications Magnesium Hydroxide (Milk Of Mag) 30 ml BID PRN PO CONSTIPATION Last admin istered on 07/31/18 06:59; Admin Dose 30 ML; Start 07/22/18 at 16:00 Lactulose (Enulose) 20 gm DAILY PRN PO CONSTIPATION Last administered on 07/25/18 14:25; Admin Dose 20 GM; Start 07/22/18 at 16:00 Bisacodyl (Dulcolax Supp) 10 mg DAILY PRN [place] CONSTIPATION; Start 07/22/18 at 16:00 Acetaminophen (Tylenol Tab) 650 mg Q4H PRN PO PAIN Last administered on 08/03/18 13:44; Admin Dose 650 MG; Start 07/22/18 at 16:00 Miscellaneous Information (Pending Santyl Order For Wound Care) 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 PRN PRN XX WOUND CARE; Start 07/22/18 at 16:00 Amlodipine Besylate (Norvasc) 10 mg DAILY PO Last administered on 08/04/18at 09:47; Admin Dose 10 MG; Start 07/23/18 at 09:00 Clonidine (Catapres) 0.1 mg Q6H PRN PO ELEVATED BLOOD PRESSURE Last administered on 07/25/18 21:06; Admin Dose 0.1 MG; Start 07/22/18 at 16:30 Acetaminophen/ Hydrocodone Bitart ([place] (5/325)) 1 tab Q4H PRN PO MODERATE PAIN LEVEL 4-6; Start 07/22/18 at 16:30 Ropinirole HCl (Requip) 1 mg HS PO Last administered on 08/03/18 22:08; Admin Dose 1 MG; Start 07/22/18 at 21:00 Sertraline HCl (Zoloft) 100 mg DAILY PO Last administered on 08/04/18 09:46; Admin Dose 100 MG; Start 07/23/18 at 09:00 Tramadol HCl (Ultram) 25 mg Q6H PRN GTB MODERATE PAIN LEVEL 4-6 Last administered on 07/27/18 16:04; Admin Dose 25 MG; Start 07/22/18 at 16:30 Aspirin (Aspirin) 81 mg BID PO Last administered on 08/04/18 09:45; Admin Dose 81 MG; Start 07/22/18 at 21:00 Hydrocortisone (Procto-Juan Antonio) 1 applic DAILY PRN [place] HEMORROID PAIN/ITCHING; Start 07/22/18 at 16:30 Ferrous Sulfate (Ferrous Sulfate (Ec)) 325 mg BID PO Last administered on 08/04/18 09:43; Admin Dose 325 MG; Start 07/23/18 at 21:00; Stop 08/22/18 at 20:59 Docusate Sodium (Colace) 100 mg BID PRN PO CONSTIPATION Last administered on 07/24/18 12:11; Admin Dose 100 MG; Start 07/23/18 at 13:00 Lisinopril (Zestril) 40 mg DAILY PO Last administered on 08/04/18 09:48; Admin Dose 40 MG; Start 07/24/18 at 09:00 Ascorbic Acid (Vitamin C) 500 mg BID PO Last administered on 08/04/18 09:45; Admin Dose 500 MG; Start 07/24/18 at 21:00; Stop 08/23/18 at 20:59 Metoprolol Succinate (Toprol Xl) 50 mg Q12H PO Last administered on 08/04/18 11:56; Admin Dose 50 MG; Start 07/25/18 at 11:00 Magnesium Oxide (Mag-Ox 400) 400 mg DAILY PO Last administered on 08/04/18 09:45; Admin Dose 400 MG; Start 07/26/18 at 09:00 Multivitamins Therapeutic (Theragran) 1 tab DAILY PO Last administered on 08/04/18 09:44; Admin Dose 1 TAB; Start 07/27/18 at 09:00 Al Hydrox/Mg Hydrox/Simethicone (Mag-Al Plus) 30 ml Q4H PRN PO GASTROINTESTINAL UPSET; Start 07/27/18 at 12:00 Alprazolam (Xanax) 0.125 mg Q12H PRN PO ANXIETY Last administered on 07/27/18at 20:37; Admin Dose 0.125 MG; Start 07/27/18 at 20:30 Ondansetron HCl (Zofran Odt) 4 mg Q6H PRN ODT NAUSEA AND/OR VOMITING; Start 07/29/18 at 11:00 Pantoprazole (Protonix Tab) 40 mg 0600,1800 PO Last administered on 08/04/18at 06:52; Admin Dose 40 MG; Start 07/29/18 at 18:00 Gabapentin (Neurontin) 100 mg WITH DINNER PO ; Start 08/04/18 at 17:35 Assessment/Plan Additional Assessment/Plan Rehab- Right intertrochanteric hip fracture status post ORIF; 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 Anemia- monitor KIARA GARCIA MD August 04, 2018 12:33
--- NOTE | 2018-08-04 12:50 | PN ---
Date/Time of Note Date/Time of Note DATE: 08/04/18 TIME: 12:50 Assessment/Plan VTE Prophylaxis Risk score (from Ns)>0 risk: 11 SCD applied (from Ns): Yes Pharmacological prophylaxis: other (aspirin per ortho) Lines/Catheters IV Catheter Type (from Nrs): Saline Lock Urinary Cath still in place: No Assessment/Plan Hospital Course SUBJECTIVE: no acute distress. Tolerates physical therapy well. OBJECTIVE: Vital signs-see below PHYSICAL EXAM: Constitutional: Adequately built, elderly female not in acute distress. HEENT: Head atraumatic and normocephalic. Eyes: Extraocular muscles intact. Anicteric sclerae. Pupils equal bilaterally, reactive to light. NECK: Supple without lymph node. CHEST: Clear and good breath sounds equally. No wheezing. No rhonchi. HEART: S1, S2. Regular rate and rhythm. ABDOMEN: Soft/non tender with no rebound tenderness. Bowel sounds were present. EXTREMITIES: RLE w/ intact dressing. No cyanosis, clubbing or edema. NEUROLOGIC: Alert and oriented x3. No focal deficit. No sensory deficit. PSYCHOSOCIAL: No signs of depression. INTEGUMENTARY: No open wounds. ASSESSMENT AND PLAN: 88-year-old female, status post right hip ORIF transferred to acute rehabilitation unit for inpatient rehab. Right hip fracture s/p ORIF 07/14/18 - DVT ppx,pain control - Rehab - Ortho f/u in 2 weeks Hypertension -stable.cont.antihypertensives. Iron deficient anemia -Continue oral replacement Mood disorder -Continue sertraline Restless leg syndrome -on ropinirole Constipation - bowel regimen History of overactive bladder -Currently stable and patient refuses to take Vesicare. Her bladder fxn is stable. GERD -symptoms improved -cont.ppi -Outpatient EGD eval after dc if symptoms recur. DVT prophylaxis: Aspirin per orthopedic recommendations. Patient is seen in collaboration with Exam/Review of Systems Exam Vitals Vital Signs Date Temp Pulse Resp B/P (MAP) Pulse Ox O2 O2 Flow FiO2 Time Delivery Rate 08/04/18 98.0 74 20 140/63 95 Room Air 07:30 (88) Intake and Output 08/03/18 08/03/18 08/04/18 1515:00 23:00 07:00 IntakeIntake Total 980 ml 200 ml OutputOutput Total 450 ml BalanceBalance 980 ml -250 ml Medications Medication Current Medications Magnesium Hydroxide (Milk Of Mag) 30 ml BID PRN PO CONSTIPATION Last administered on 07/31/18 06:59; Admin Dose 30 ML; Start 07/22/18 at 16:00 Lactulose (Enulose) 20 gm DAILY PRN PO CONSTIPATION Last administered on 07/25/18 14:25; Admin Dose 20 GM; Start 07/22/18 at 16:00 Bisacodyl (Dulcolax Supp) 10 mg DAILY PRN [place] CONSTIPATION; Start 07/22/18 at 16:00 Acetaminophen (Tylenol Tab) 650 mg Q4H PRN PO PAIN Last administered on 08/03/18 13:44; Admin Dose 650 MG; Start 07/22/18 at 16:00 Miscellaneous Information (Pending Santyl Order For Wound Care) 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 PRN PRN XX WOUND CARE; Start 07/22/18 at 16:00 Amlodipine Besylate (Norvasc) 10 mg DAILY PO Last administered on 08/04/18 09:47; Admin Dose 10 MG; Start 07/23/18 at 09:00 Clonidine (Catapres) 0.1 mg Q6H PRN PO ELEVATED BLOOD PRESSURE Last administered on 07/25/18 21:06; Admin Dose 0.1 MG; Start 07/22/18 at 16:30 Acetaminophen/ Hydrocodone Bitart ([place] (5/325)) 1 tab Q4H PRN PO MODERATE PAIN LEVEL 4-6; Start 07/22/18 at 16:30 Ropinirole HCl (Requip) 1 mg HS PO Last administered on 08/03/18 22:08; Admin Dose 1 MG; Start 07/22/18 at 21:00 Sertraline HCl (Zoloft) 100 mg DAILY PO Last administered on 08/04/18 09:46; Admin Dose 100 MG; Start 07/23/18 at 09:00 Tramadol HCl (Ultram) 25 mg Q6H PRN GTB MODERATE PAIN LEVEL 4-6 Last administered on 07/27/18 16:04; Admin Dose 25 MG; Start 07/22/18 at 16:30 Aspirin (Aspirin) 81 mg BID PO Last administered on 08/04/18 09:45; Admin Dose 81 MG; Start 07/22/18 at 21:00 Hydrocortisone (Procto-Juan Antonio) 1 applic DAILY PRN [place] HEMORROID PAIN/ITCHING; Start 07/22/18 at 16:30 Ferrous Sulfate (Ferrous Sulfate (Ec)) 325 mg BID PO Last administered on 08/04/18 09:43; Admin Dose 325 MG; Start 07/23/18 at 21:00; Stop 08/22/18 at 20:59 Docusate Sodium (Colace) 100 mg BID PRN PO CONSTIPATION Last administered on 07/24/18 12:11; Admin Dose 100 MG; Start 07/23/18 at 13:00 Lisinopril (Zestril) 40 mg DAILY PO Last administered on 08/04/18 09:48; Admin Dose 40 MG; Start 07/24/18 at 09:00 Ascorbic Acid (Vitamin C) 500 mg BID PO Last administered on 08/04/18 09:45; Admin Dose 500 MG; Start 07/24/18 at 21:00; Stop 08/23/18 at 20:59 Metoprolol Succinate (Toprol Xl) 50 mg Q12H PO Last administered on 08/04/18 11:56; Admin Dose 50 MG; Start 07/25/18 at 11:00 Magnesium Oxide (Mag-Ox 400) 400 mg DAILY PO Last administered on 08/04/18 09:45; Admin Dose 400 MG; Start 07/26/18 at 09:00 Multivitamins Therapeutic (Theragran) 1 tab DAILY PO Last administered on 08/04/18 09:44; Admin Dose 1 TAB; Start 07/27/18 at 09:00 Al Hydrox/Mg Hydrox/Simethicone (Mag-Al Plus) 30 ml Q4H PRN PO GASTROINTESTINAL UPSET; Start 07/27/18 at 12:00 Alprazolam (Xanax) 0.125 mg Q12H PRN PO ANXIETY Last administered on 07/27/18 20:37; Admin Dose 0.125 MG; Start 07/27/18 at 20:30 Ondansetron HCl (Zofran Odt) 4 mg Q6H PRN ODT NAUSEA AND/OR VOMITING; Start 07/29/18 at 11:00 Pantoprazole (Protonix Tab) 40 mg 0600,1800 PO Last administered on 08/04/18 06:52; Admin Dose 40 MG; Start 07/29/18 at 18:00 Gabapentin (Neurontin) 100 mg WITH DINNER PO ; Start 08/04/18 at 17:35 DARLENE RODRÍGUEZ NP August 04, 2018 12:50
[2018-08-04 14:00] VITALS: BP 131/60; PULSE 78; RESP 20
[2018-08-04] MEDS: GABAPENTIN 100 MG CAP PO SCH (18:05)
[2018-08-04 19:33] VITALS: BP 134/65; PULSE 74; RESP 18
[2018-08-04] MEDS: ROPINIROLE 1 MG TAB PO SCH (21:52)
[2018-08-05] MEDS: METOPROLOL (XL) 50 MG TAB PO SCH ×3 (00:07→22:56)
[2018-08-05 02:00] VITALS: BP 122/62; PULSE 71; RESP 18
[2018-08-05] MEDS: PANTOPRAZOLE (EC) 40 MG TAB PO SCH ×2 (06:24→17:05)
[2018-08-05 07:00] VITALS: BP 159/69; PULSE 68; RESP 18
--- NOTE | 2018-08-05 07:15 | PN ---
DATE: 08/04/2018 PSYCHOLOGY -- INDIVIDUAL SESSION -- [id number] This is a followup on a patient who was seen last week. The patient was seen up in her wheelchair. The patient reports that she feels stronger. The patient is motivated and wants to get better and re turn home as soon as possible. I worked with the patient to try to continue to encourage her to work on her physical as well as her emotional issues. Dictated By: ROSIBEL JESUS PHD ZOHRA/NAVID Conf#: [id number] DID#: [id number] CC: KIARA GRACIA MD;*EndCC*
[2018-08-05] MEDS: MULTIVITAMINS THERAPEUTIC TAB PO SCH (08:59)
[2018-08-05] MEDS: ASCORBIC ACID 500 MG TAB PO SCH ×2 (09:00→21:35)
[2018-08-05] MEDS: FERROUS SULFATE (EC) 325 MG TAB PO SCH ×2 (09:00→21:35)
[2018-08-05] MEDS: SERTRALINE 100 MG TAB PO SCH (09:00)
[2018-08-05] MEDS: ASPIRIN 81 MG TAB PO SCH ×2 (09:00→21:35)
[2018-08-05] MEDS: MAGNESIUM OXIDE 400 MG TAB PO SCH (09:00)
[2018-08-05] MEDS: LISINOPRIL 20 MG TAB PO SCH (09:03)
[2018-08-05] MEDS: AMLODIPINE 10 MG TAB PO SCH (09:03)
--- NOTE | 2018-08-05 10:06 | PN ---
DATE: 08/05/2018 SUBJECTIVE: The patient is stable. No events overnight. No fevers, chills, nausea, vomiting. OBJECTIVE: VITAL SIGNS: Blood pressure is 122/62, respiration 18, pulse 71, temperature 98.2. HEENT: Head is normocephalic. NECK: Supple. HEART: Regular rate. LUNGS: Show diminished breath sounds at the base. ABDOMEN: Soft, nontender to palpation without rebound or guarding. EXTREMITIES: Negative for clubbing, cyanosis, no edema. DERMATOLOGIC: No rashes. MUSCULOSKELETAL: No joint effusion. NEUROLOGIC: No change in exam. MEDICATIONS: Reviewed. LABORATORY DATA: Reviewed. ASSESSMENT AND PLAN: 1. Nonoliguric acute kidney injury. Etiology is secondary to hemodynamics. Renal function is impro luanne. 2. Anemia. Monitor hemoglobin and hematocrit levels. 3. Mineral bone disorder. Monitor calcium and phosphorus levels. 4. Hypertension. Blood pressure improved. 5. Hip fracture, status post arthroplasty. Will sign off. Please reconsult as needed. Dictated By: STEPH MARTINEZ DO NR/NTS Conf#: [id number] DID#: [id number] CC: KIARA GARCIA MD;*EndCC*
[2018-08-05] MEDS: ACETAMINOPHEN 325 MG TAB PO PRN ×2 (10:27→21:34)
--- NOTE | 2018-08-05 11:26 | PN ---
Date/Time of Note Date/Time of Note DATE: 08/05/18 TIME: 11:25 Assessment/Plan VTE Prophylaxis Risk score (from Ns)>0 risk: 9 SCD applied (from Ns): Yes Pharmacological prophylaxis: other (aspirin per ortho) Lines/Catheters IV Catheter Type (from Nrs): Saline Lock Urinary Cath still in place: No Assessment/Plan Hospital Course SUBJECTIVE: no acute distress. Tolerates physical therapy well. OBJECTIVE: Vital signs-see below PHYSICAL EXAM: Constitutional: Adequately built, elderly female not in acute distress. HEENT: Head atraumatic and normocephalic. Eyes: Extraocular muscles intact. Anicteric sclerae. Pupils equal bilaterally, reactive to light. NECK: Supple without lymph node. CHEST: Clear and good breath sounds equally. No wheezing. No rhonchi. HEART: S1, S2. Regular rate and rhythm. ABDOMEN: Soft/non tender with no rebound tenderness. Bowel sounds were present. EXTREMITIES: RLE w/ intact dressing. No cyanosis, clubbing or edema. NEUROLOGIC: Alert and oriented x3. No focal deficit. No sensory deficit. PSYCHOSOCIAL: No signs of depression. INTEGUMENTARY: No open wounds. ASSESSMENT AND PLAN: 88-year-old female, status post right hip ORIF transferred to acute rehabilitation unit for inpatient rehab. Right hip fracture s/p ORIF 07/14/18 - DVT ppx,pain control - Rehab - Ortho f/u in 2 weeks Hypertension -stable.cont.antihypertensives. Iron deficient anemia -Continue oral replacement Mood disorder -Continue sertraline Restless leg syndrome -on ropinirole Constipation - bowel regimen History of overactive bladder -Currently stable and patient refuses to take Vesicare. Her bladder fxn is stable. GERD -symptoms improved -cont.ppi -Outpatient EGD eval after dc if symptoms recur. DVT prophylaxis: Aspirin per orthopedic recommendations. Patient is seen in collaboration with Exam/Review of Systems Exam Vitals Vital Signs Date Temp Pulse Resp B/P (MAP) Pulse Ox O2 O2 Flow FiO2 Time Delivery Rate 08/05/18 97.7 68 18 159/69 95 Room Air 07:00 (99) Intake and Output 08/04/18 08/04/18 08/05/18 1515:00 23:00 07:00 IntakeIntake Total 860 ml 850 ml BalanceBalance 860 ml 850 ml Medications Medication Current Medications Magnesium Hydroxide (Milk Of Mag) 30 ml BID PRN PO CONSTIPATION Last administered on 07/31/18 06:59; Admin Dose 30 ML; Start 07/22/18 at 16:00 Lactulose (Enulose) 20 gm DAILY PRN PO CONSTIPATION Last administered on 07/25/18 14:25; Admin Dose 20 GM; Start 07/22/18 at 16:00 Bisacodyl (Dulcolax Supp) 10 mg DAILY PRN [place] CONSTIPATION; Start 07/22/18 at 16:00 Acetaminophen (Tylenol Tab) 650 mg Q4H PRN PO PAIN Last administered on 08/05/18 10:27; Admin Dose 650 MG; Start 07/22/18 at 16:00 [facility] 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 PRN PRN XX WOUND CARE; Start 07/22/18 at 16:00 Amlodipine Besylate (Norvasc) 10 mg DAILY PO Last administered on 08/05/18 09:03; Admin Dose 10 MG; Start 07/23/18 at 09:00 Clonidine (Catapres) 0.1 mg Q6H PRN PO ELEVATED BLOOD PRESSURE Last administered on 07/25/18 21:06; Admin Dose 0.1 MG; Start 07/22/18 at 16:30 Acetaminophen/ Hydrocodone Bitart ([place] (5/325)) 1 tab Q4H PRN PO MODERATE PAIN LEVEL 4-6; Start 07/22/18 at 16:30 Ropinirole HCl (Requip) 1 mg HS PO Last administered on 08/04/18 21:52; Admin Dose 1 MG; Start 07/22/18 at 21:00 Sertraline HCl (Zoloft) 100 mg DAILY PO Last administered on 08/05/18 09:00; Admin Dose 100 MG; Start 07/23/18 at 09:00 Tramadol HCl (Ultram) 25 mg Q6H PRN GTB MODERATE PAIN LEVEL 4-6 Last administered on 07/27/18 16:04; Admin Dose 25 MG; Start 07/22/18 at 16:30 Aspirin (Aspirin) 81 mg BID PO Last administered on 08/05/18 09:00; Admin Dose 81 MG; Start 07/22/18 at 21:00 Hydrocortisone (Procto-Juan Antonio) 1 applic DAILY PRN [place] HEMORROID PAIN/ITCHING; Start 07/22/18 at 16:30 Ferrous Sulfate (Ferrous Sulfate (Ec)) 325 mg BID PO Last administered on 09:00; Admin Dose 325 MG; Start 07/23/18 at 21:00; Stop 08/22/18 at 20:59 Docusate Sodium (Colace) 100 mg BID PRN PO CONSTIPATION Last administered on 07/24/18 12:11; Admin Dose 100 MG; Start 07/23/18 at 13:00 Lisinopril (Zestril) 40 mg DAILY PO Last administered on 08/05/18 09:03; Admin Dose 40 MG; Start 07/24/18 at 09:00 Ascorbic Acid (Vitamin C) 500 mg BID PO Last administered on 08/05/18 09:00; Admin Dose 500 MG; Start 07/24/18 at 21:00; Stop 08/23/18 at 20:59 Metoprolol Succinate (Toprol Xl) 50 mg Q12H PO Last administered on 08/05/18 00:07; Admin Dose 50 MG; Start 07/25/18 at 11:00 Magnesium Oxide (Mag-Ox 400) 400 mg DAILY PO Last administered on 08/05/18 09:00; Admin Dose 400 MG; Start 07/26/18 at 09:00 Multivitamins Therapeutic (Theragran) 1 tab DAILY PO Last administered on 08/05/18 08:59; Admin Dose 1 TAB; Start 07/27/18 at 09:00 Al Hydrox/Mg Hydrox/Simethicone (Mag-Al Plus) 30 ml Q4H PRN PO GASTROINTESTINAL UPSET; Start 07/27/18 at 12:00 Alprazolam (Xanax) 0.125 mg Q12H PRN PO ANXIETY Last administered on 07/27/18 20:37; Admin Dose 0.125 MG; Start 07/27/18 at 20:30 Ondansetron HCl (Zofran Odt) 4 mg Q6H PRN ODT NAUSEA AND/OR VOMITING; Start 07/29/18 at 11:00 Pantoprazole (Protonix Tab) 40 mg 0600,1800 PO Last administered on 08/05/18 06:24; Admin Dose 40 MG; Start 07/29/18 at 18:00 Gabapentin (Neurontin) 100 mg WITH DINNER PO Last administered on 08/04/18at 18: 05; Admin Dose 100 MG; Start 08/04/18 at 17:35 DARLENE RODRÍGUEZ NP August 05, 2018 11:26
--- NOTE | 2018-08-05 13:07 | PN ---
Date/Time of Note Date/Time of Note DATE: 08/05/18 TIME: 13:06 Subjective Patient feels comfortable Objective Vital Signs Date Temp Pulse Resp B/P (MAP) Pulse Ox O2 O2 Flow FiO2 Time Delivery Rate 08/05/18 97.7 68 18 159/69 95 Room Air 07:00 (99) Intake and Output 08/04/18 08/04/18 08/05/18 1515:00 23:00 07:00 IntakeIntake Total 860 ml 850 ml BalanceBalance 860 ml 850 ml Exam pulm-cta abd-soft min/mod transfer Results/Medications Medications Current Medications Magnesium Hydroxide (Milk Of Mag) 30 ml BID PRN PO CONSTIPATION Last administered on 07/31/18 06:59; Admin Dose 30 ML; Start 07/22/18 at 16:00 Lactulose (Enulose) 20 gm DAILY PRN PO CONSTIPATION Last administered on 14:25; Admin Dose 20 GM; Start 07/22/18 at 16:00 Bisacodyl (Dulcolax Supp) 10 mg DAILY PRN [place] CONSTIPATION; Start 07/22/18 at 16:00 Acetaminophen (Tylenol Tab) 650 mg Q4H PRN PO PAIN Last administered on 08/05/18 10:27; Admin Dose 650 MG; Start 07/22/18 at 16:00 Miscellaneous Information (Pending [facility] Order For Wound Care) 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 PRN PRN XX WOUND CARE; Start 07/22/18 at 16:00 Amlodipine Besylate (Norvasc) 10 mg DAILY PO Last administered on 08/05/18 09:03; Admin Dose 10 MG; Start 07/23/18 at 09:00 Clonidine (Catapres) 0.1 mg Q6H PRN PO ELEVATED BLOOD PRESSURE Last administered on 07/25/18 21:06; Admin Dose 0.1 MG; Start 07/22/18 at 16:30 Acetaminophen/ Hydrocodone Bitart ([place] (5/325)) 1 tab Q4H PRN PO MODERATE PAIN LEVEL 4-6; Start 07/22/18 at 16:30 Ropinirole HCl (Requip) 1 mg HS PO Last administered on 08/04/18 21:52; Admin Dose 1 MG; Start 07/22/18 at 21:00 Sertraline HCl (Zoloft) 100 mg DAILY PO Last administered on 08/05/18 09:00; Admin Dose 100 MG; Start 07/23/18 at 09:00 Tramadol HCl (Ultram) 25 mg Q6H PRN GTB MODERATE PAIN LEVEL 4-6 Last administered on 07/27/18 16:04; Admin Dose 25 MG; Start 07/22/18 at 16:30 Aspirin (Aspirin) 81 mg BID PO Last administered on 08/05/18 09:00; Admin Dose 81 MG; Start 07/22/18 at 21:00 Hydrocortisone (Procto-Juan Antonio) 1 applic DAILY PRN [place] HEMORROID PAIN/ITCHING; Start 07/22/18 at 16:30 Ferrous Sulfate (Ferrous Sulfate (Ec)) 325 mg BID PO Last administered on 08/05/18 09:00; Admin Dose 325 MG; Start 07/23/18 at 21:00; Stop 08/22/18 at 20 :59 Docusate Sodium (Colace) 100 mg BID PRN PO CONSTIPATION Last administered on 07/24/18 12:11; Admin Dose 100 MG; Start 07/23/18 at 13:00 Lisinopril (Zestril) 40 mg DAILY PO Last administered on 08/05/18 09:03; Admin Dose 40 MG; Start 07/24/18 at 09:00 Ascorbic Acid (Vitamin C) 500 mg BID PO Last administered on 08/05/18 09:00; Admin Dose 500 MG; Start 07/24/18 at 21:00; Stop 08/23/18 at 20:59 Metoprolol Succinate (Toprol Xl) 50 mg Q12H PO Last administered on 08/05/18 00:07; Admin Dose 50 MG; Start 07/25/18 at 11:00 Magnesium Oxide (Mag-Ox 400) 400 mg DAILY PO Last administered on 08/05/18 09:00; Admin Dose 400 MG; Start 07/26/18 at 09:00 Multivitamins Therapeutic (Theragran) 1 tab DAILY PO Last administered on 08/05/18 08:59; Admin Dose 1 TAB; Start 07/27/18 at 09:00 Al Hydrox/Mg Hydrox/Simethicone (Mag-Al Plus) 30 ml Q4H PRN PO GASTROINTESTINAL UPSET; Start 07/27/18 at 12:00 Alprazolam (Xanax) 0.125 mg Q12H PRN PO ANXIETY Last administered on 07/27/18at 20:37; Admin Dose 0.125 MG; Start 07/27/18 at 20:30 Ondansetron HCl (Zofran Odt) 4 mg Q6H PRN ODT NAUSEA AND/OR VOMITING; Start 07/29/18 at 11:00 Pantoprazole (Protonix Tab) 40 mg 0600,1800 PO Last administered on 08/05/18at 06:24; Admin Dose 40 MG; Start 07/29/18 at 18:00 Gabapentin (Neurontin) 100 mg WITH DINNER PO Last administered on 08/04/18at 18:05; Admin Dose 100 MG; Start 08/04/18 at 17:35 Assessment/Plan Additional Assessment/Plan Rehab- Right intertrochanteric hip fracture status post ORIF; 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 Anemia- monitor KIARA GARCIA MD August 05, 2018 13:07
[2018-08-05 14:00] VITALS: BP 152/69; PULSE 75; RESP 18
[2018-08-05] MEDS: GABAPENTIN 100 MG CAP PO SCH (17:06)
[2018-08-05 20:00] VITALS: BP 136/61; PULSE 79; RESP 19
[2018-08-05] MEDS: ROPINIROLE 1 MG TAB PO SCH (21:34)
[2018-08-06 02:43] VITALS: BP 130/60; PULSE 74; RESP 19
--- NOTE | 2018-08-06 06:27 | PN ---
Date/Time of Note Date/Time of Note DATE: 08/06/18 TIME: 06:27 Subjective motivated Objective Vital Signs Date Temp Pulse Resp B/P (MAP) Pulse Ox O2 O2 Flow FiO2 Time Delivery Rate 08/06/18 97.8 74 19 130/60 94 Room Air 02:43 (83) Intake and Output 08/05/18 08/05/18 08/06/18 1515:00 23:00 07:00 IntakeIntake Total 1400 ml OutputOutput Total 800 ml BalanceBalance 600 ml Exam pulm-cta abd-soft min ambulation Results/Medications Medications Current Medications Magnesium Hydroxide (Milk Of Mag) 30 ml BID PRN PO CONSTIPATION Last administered on 07/31/18 06:59; Admin Dose 30 ML; Start 07/22/18 at 16:00 Lactulose (Enulose) 20 gm DAILY PRN PO CONSTIPATION Last administered on 06/29 14:25; Admin Dose 20 GM; Start 07/22/18 at 16:00 Bisacodyl (Dulcolax Supp) 10 mg DAILY PRN [place] CONSTIPATION; Start 07/22/18 at 16:00 Acetaminophen (Tylenol Tab) 650 mg Q4H PRN PO PAIN Last administered on 08/05/18 21:34; Admin Dose 650 MG; Start 07/22/18 at 16:00 [facility]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 PRN PRN XX WOUND CARE; Start 07/22/18 at 16:00 Amlodipine Besylate (Norvasc) 10 mg DAILY PO Last administered on 08/05/18 09:03; Admin Dose 10 MG; Start 07/23/18 at 09:00 Clonidine (Catapres) 0.1 mg Q6H PRN PO ELEVATED BLOOD PRESSURE Last administered on 07/25/18 21:06; Admin Dose 0.1 MG; Start 07/22/18 at 16:30 Acetaminophen/ Hydrocodone Bitart ([place] (5/325)) 1 tab Q4H PRN PO MODERATE PAIN LEVEL 4-6; Start 07/22/18 at 16:30 Ropinirole HCl (Requip) 1 mg HS PO Last administered on 08/05/18 21:34; Admin Dose 1 MG; Start 07/22/18 at 21:00 Sertraline HCl (Zoloft) 100 mg DAILY PO Last administered on 08/05/18 09:00; Admin Dose 100 MG; Start 07/23/18 at 09:00 Tramadol HCl (Ultram) 25 mg Q6H PRN GTB MODERATE PAIN LEVEL 4-6 Last administered on 07/27/18 16:04; Admin Dose 25 MG; Start 07/22/18 at 16:30 Aspirin (Aspirin) 81 mg BID PO Last administered on 08/05/18 21:35; Admin Dose 81 MG; Start 07/22/18 at 21:00 Hydrocortisone (Procto-Juan Antonio) 1 applic DAILY PRN [place] HEMORROID PAIN/ITCHING; Start 07/22/18 at 16:30 Ferrous Sulfate (Ferrous Sulfate (Ec)) 325 mg BID PO Last administered on 08/05/18 21:35; Admin Dose 325 MG; Start 07/23/18 at 21:00; Stop 08/22/18 at 20:59 Docusate Sodium (Colace) 100 mg BID PRN PO CONSTIPATION Last administered on 07/24/18 12:11; Admin Dose 100 MG; Start 07/23/18 at 13:00 Lisinopril (Zestril) 40 mg DAILY PO Last administered on 08/05/18 09:03; Admin Dose 40 MG; Start 07/24/18 at 09:00 Ascorbic Acid (Vitamin C) 500 mg BID PO Last administered on 08/05/18 21:35; Admin Dose 500 MG; Start 07/24/18 at 21:00; Stop 08/23/18 at 20:59 Metoprolol Succinate (Toprol Xl) 50 mg Q12H PO Last administered on 08/05/18 22:56; Admin Dose 50 MG; Start 07/25/18 at 11:00 Magnesium Oxide (Mag-Ox 400) 400 mg DAILY PO Last administered on 08/05/18 09:00; Admin Dose 400 MG; Start 07/26/18 at 09:00 Multivitamins Therapeutic (Theragran) 1 tab DAILY PO Last administered on 08/05/18 08:59; Admin Dose 1 TAB; Start 07/27/18 at 09:00 Al Hydrox/Mg Hydrox/Simethicone (Mag-Al Plus) 30 ml Q4H PRN PO GASTROINTESTINAL UPSET; Start 07/27/18 at 12:00 Alprazolam (Xanax) 0.125 mg Q12H PRN PO ANXIETY Last administered on 07/27/18at 20:37; Admin Dose 0.125 MG; Start 07/27/18 at 20:30 Ondansetron HCl (Zofran Odt) 4 mg Q6H PRN ODT NAUSEA AND/OR VOMITING; Start 07/29/18 at 11:00 Pantoprazole (Protonix Tab) 40 mg 0600,1800 PO Last administered on 08/05/18at 17:05; Admin Dose 40 MG; Start 07/29/18 at 18:00 Gabapentin (Neurontin) 100 mg WITH DINNER PO Last administered on 08/05/18at 17:06; Admin Dose 100 MG; Start 08/04/18 at 17:35 Assessment/Plan Additional Assessment/Plan Rehab- Right intertrochanteric hip fracture status post ORIF; 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 Anemia- monitor KIARA GARCIA MD August 06, 2018 06:27
[2018-08-06] MEDS: PANTOPRAZOLE (EC) 40 MG TAB PO SCH ×2 (06:28→18:00)
[2018-08-06 07:30] VITALS: BP 96/52; PULSE 72; RESP 18
[2018-08-06] MEDS: ASPIRIN 81 MG TAB PO SCH ×2 (09:46→22:21)
[2018-08-06] MEDS: MAGNESIUM OXIDE 400 MG TAB PO SCH (09:46)
[2018-08-06] MEDS: FERROUS SULFATE (EC) 325 MG TAB PO SCH ×2 (09:46→22:21)
[2018-08-06] MEDS: SERTRALINE 100 MG TAB PO SCH (09:47)
[2018-08-06] MEDS: LISINOPRIL 20 MG TAB PO SCH (09:47)
[2018-08-06] MEDS: ASCORBIC ACID 500 MG TAB PO SCH ×2 (09:47→22:21)
[2018-08-06] MEDS: MULTIVITAMINS THERAPEUTIC TAB PO SCH (09:47)
[2018-08-06] MEDS: AMLODIPINE 10 MG TAB PO SCH (09:48)
[2018-08-06] MEDS: METOPROLOL (XL) 50 MG TAB PO SCH ×2 (11:00→22:22)
--- NOTE | 2018-08-06 11:52 | PN ---
Date/Time of Note Date/Time of Note DATE: 08/06/18 TIME: 11:50 Assessment/Plan VTE Prophylaxis Risk score (from Ns)>0 risk: 10 SCD applied (from Ns): Yes Pharmacological prophylaxis: other (aspirin ) Lines/Catheters IV Catheter Type (from Nrs): Saline Lock Urinary Cath still in place: No Assessment/Plan Hospital Course SUBJECTIVE: no acute distress. Tolerates physical therapy well. OBJECTIVE: Vital signs-see below PHYSICAL EXAM: Constitutional: Adequately built, elderly female not in acute distress. HEENT: Head atraumatic and normocephalic. Eyes: Extraocular muscles intact. Anicteric sclerae. Pupils equal bilaterally, reactive to light. NECK: Supple without lymph node. CHEST: Clear and good breath sounds equally. No wheezing. No rhonchi. HEART: S1, S2. Regular rate and rhythm. ABDOMEN: Soft/non tender with no rebound tenderness. Bowel sounds were present. EXTREMITIES: RLE w/ intact dressing. No cyanosis, clubbing or edema. NEUROLOGIC: Alert and oriented x3. No focal deficit. No sensory deficit. PSYCHOSOCIAL: No signs of depression. INTEGUMENTARY: No open wounds. ASSESSMENT AND PLAN: 88-year-old female, status post right hip ORIF transferred to acute rehabilitation unit for inpatient rehab. Right hip fracture s/p ORIF 07/14/18 - DVT ppx,pain control - Rehab - Ortho f/u in 2 weeks Hypertension -stable.cont.antihypertensives. Iron deficient anemia -Continue oral replacement Mood disorder -Continue sertraline Restless leg syndrome -on ropinirole Constipation - bowel regimen History of overactive bladder -Currently stable and patient refuses to take Vesicare. Her bladder fxn is stable. GERD -symptoms improved -cont.ppi -Outpatient EGD eval after dc if symptoms recur. DVT prophylaxis: Aspirin per orthopedic recommendations. Patient is seen in collaboration with Exam/Review of Systems Exam Vitals Vital Signs Date Temp Pulse Resp B/P (MAP) Pulse Ox O2 O2 Flow FiO2 Time Delivery Rate 08/06/18 98.0 72 18 96/52 (67) 96 Room Air 07:30 Intake and Output 08/05/18 08/05/18 08/06/18 1515:00 23:00 07:00 IntakeIntake Total 1400 ml OutputOutput Total 800 ml BalanceBalance 600 ml Medications Medication Current Medications Magnesium Hydroxide (Milk Of Mag) 30 ml BID PRN PO CONSTIPATION Last administered on 07/31/18 06:59; Admin Dose 30 ML; Start 07/22/18 at 16:00 Lactulose (Enulose) 20 gm DAILY PRN PO CONSTIPATION Last administered on 07/25/18 14:25; Admin Dose 20 GM; Start 07/22/18 at 16:00 Bisacodyl (Dulcolax Supp) 10 mg DAILY PRN [place] CONSTIPATION; Start 07/22/18 at 16:00 Acetaminophen (Tylenol Tab) 650 mg Q4H PRN PO PAIN Last administered on 08/05/18 21:34; Admin Dose 650 MG; Start 07/22/18 at 16:00 Miscellaneous Information (Pending [facility] Order For Wound Care) 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 PRN PRN XX WOUND CARE; Start 07/22/18 at 16:00 Amlodipine Besylate (Norvasc) 10 mg DAILY PO Last administered on 08/06/18 09:48; Admin Dose 10 MG; Start 07/23/18 at 09:00 Clonidine (Catapres) 0.1 mg Q6H PRN PO ELEVATED BLOOD PRESSURE Last administered on 07/25/18 21:06; Admin Dose 0.1 MG; Start 07/22/18 at 16:30 Acetaminophen/ Hydrocodone Bitart ([place] (5/325)) 1 tab Q4H PRN PO MODERATE PAIN LEVEL 4-6; Start 07/22/18 at 16:30 Ropinirole HCl (Requip) 1 mg HS PO Last administered on 08/05/18 21:34; Admin Dose 1 MG; Start 07/22/18 at 21:00 Sertraline HCl (Zoloft) 100 mg DAILY PO Last administered on 08/06/18 09:47; Admin Dose 100 MG; Start 07/23/18 at 09:00 Tramadol HCl (Ultram) 25 mg Q6H PRN GTB MODERATE PAIN LEVEL 4-6 Last administered on 07/27/18 16:04; Admin Dose 25 MG; Start 07/22/18 at 16:30 Aspirin (Aspirin) 81 mg BID PO Last administered on 08/06/18 09:46; Admin Dose 81 MG; Start 07/22/18 at 21:00 Hydrocortisone (Procto-Juan Antonio) 1 applic DAILY PRN [place] HEMORROID PAIN/ITCHING; Start 07/22/18 at 16:30 Ferrous Sulfate (Ferrous Sulfate (Ec)) 325 mg BID PO Last administered on 08/06/18 09:46; Admin Dose 325 MG; Start 07/23/18 at 21:00; Stop 08/22/18 at 20:59 Docusate Sodium (Colace) 100 mg BID PRN PO CONSTIPATION Last administered on 07/24/18 12:11; Admin Dose 100 MG; Start 07/23/18 at 13:00 Lisinopril (Zestril) 40 mg DAILY PO Last administered on 08/06/18 09:47; Admin Dose 40 MG; Start 07/24/18 at 09:00 Ascorbic Acid (Vitamin C) 500 mg BID PO Last administered on 08/06/18 09:47; Admin Dose 500 MG; Start 07/24/18 at 21:00; Stop 08/23/18 at 20:59 Metoprolol Succinate (Toprol Xl) 50 mg Q12H PO Last administered on 08/05/18 22:56; Admin Dose 50 MG; Start 07/25/18 at 11:00 Magnesium Oxide (Mag-Ox 400) 400 mg DAILY PO Last administered on 08/06/18 09:46; Admin Dose 400 MG; Start 07/26/18 at 09:00 Multivitamins Therapeutic (Theragran) 1 tab DAILY PO Last administered on 08/06/18 09:47; Admin Dose 1 TAB; Start 07/27/18 at 09:00 Al Hydrox/Mg Hydrox/Simethicone (Mag-Al Plus) 30 ml Q4H PRN PO GASTROINTESTINAL UPSET; Start 07/27/18 at 12:00 Alprazolam (Xanax) 0.125 mg Q12H PRN PO ANXIETY Last administered on 07/27/18 20:37; Admin Dose 0.125 MG; Start 07/27/18 at 20:30 Ondansetron HCl (Zofran Odt) 4 mg Q6H PRN ODT NAUSEA AND/OR VOMITING; Start 07/29/18 at 11:00 Pantoprazole (Protonix Tab) 40 mg 0600,1800 PO Last administered on 08/06/18 06:28; Admin Dose 40 MG; Start 07/29/18 at 18:00 Gabapentin (Neurontin) 100 mg WITH DINNER PO Last administered on 08/05/18at 17:06; Admin Dose 100 MG; Start 08/04/18 at 17:35 DARLENE RODRÍGUEZ NP August 06, 2018 11:52
[2018-08-06 14:00] VITALS: BP 131/60; PULSE 73; RESP 20
[2018-08-06] MEDS: GABAPENTIN 100 MG CAP PO SCH (18:22)
[2018-08-06 19:31] VITALS: BP 119/57; PULSE 74; RESP 18
[2018-08-06] MEDS: ROPINIROLE 1 MG TAB PO SCH (22:21)
[2018-08-07 02:00] VITALS: BP 125/61; PULSE 76; RESP 18
[2018-08-07] MEDS: PANTOPRAZOLE (EC) 40 MG TAB PO SCH ×2 (06:56→17:17)
[2018-08-07 07:00] VITALS: BP 132/61; PULSE 67; RESP 18
--- NOTE | 2018-08-07 07:47 | PN ---
Date/Time of Note Date/Time of Note DATE: 08/07/18 TIME: 07:45 Subjective AWAKE ALERT MILD PAIN Objective Vital Signs Date Temp Pulse Resp B/P (MAP) Pulse Ox O2 O2 Flow FiO2 Time Delivery Rate 08/07/18 97.8 76 18 125/61 96 Room Air 02:00 (82) Intake and Output 08/06/18 08/06/18 08/07/18 1515:00 23:00 07:00 IntakeIntake Total 200 ml 980 ml 970 ml OutputOutput Total 200 ml BalanceBalance 0 ml 980 ml 970 ml Exam LUNGS CTA COR RRR - HOMANS CLOF XT AND GAIAT MIN/MOD A Results/Medications Medications Current Medications Magnesium Hydroxide (Milk Of Mag) 30 ml BID PRN PO CONSTIPATION Last administered on 07/31/18 06:59; Admin Dose 30 ML; Start 07/22/18 at 16:00 Lactulose (Enulose) 20 gm DAILY PRN PO CONSTIPATION Last administered on 07/25/18 14:25; Admin Dose 20 GM; Start 07/22/18 at 16:00 Bisacodyl (Dulcolax Supp) 10 mg DAILY PRN [place] CONSTIPATION; Start 07/22/18 at 16:00 Acetaminophen (Tylenol Tab) 650 mg Q4H PRN PO PAIN Last administered on 08/05/18 21:34; Admin Dose 650 MG; Start 07/22/18 at 16:00 [facility]isc[facility] 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 PRN PRN XX WOUND CARE; Start 07/22/18 at 16:00 Amlodipine Besylate (Norvasc) 10 mg DAILY PO Last administered on 08/06/18 09:48; Admin Dose 10 MG; Start 07/23/18 at 09:00 Clonidine (Catapres) 0.1 mg Q6H PRN PO ELEVATED BLOOD PRESSURE Last administered on 07/25/18 21:06; Admin Dose 0.1 MG; Start 07/22/18 at 16:30 Acetaminophen/ Hydrocodone Bitart ([place] (5/325)) 1 tab Q4H PRN PO MODERATE PAIN LEVEL 4-6; Start 07/22/18 at 16:30 Ropinirole HCl (Requip) 1 mg HS PO Last administered on 08/06/18 22:21; Admin Dose 1 MG; Start 07/22/18 at 21:00 Sertraline HCl (Zoloft) 100 mg DAILY PO Last administered on 08/06/18 09:47; Admin Dose 100 MG; Start 07/23/18 at 09:00 Tramadol HCl (Ultram) 25 mg Q6H PRN GTB MODERATE PAIN LEVEL 4-6 Last administered on 07/27/18 16:04; Admin Dose 25 MG; Start 07/22/18 at 16:30 Aspirin (Aspirin) 81 mg BID PO Last administered on 08/06/18 22:21; Admin Dose 81 MG; Start 07/22/18 at 21:00 Hydrocortisone (Procto-Juan Antonio) 1 applic DAILY PRN [place] HEMORROID PAIN/ITCHING; Start 07/22/18 at 16:30 Ferrous Sulfate (Ferrous Sulfate (Ec)) 325 mg BID PO Last administered on 08/06/18 22:21; Admin Dose 325 MG; Start 07/23/18 at 21:00; Stop 08/22/18 at 20:59 Docusate Sodium (Colace) 100 mg BID PRN PO CONSTIPATION Last administered on 07/24/18 12:11; Admin Dose 100 MG; Start 07/23/18 at 13:00 Lisinopril (Zestril) 40 mg DAILY PO Last administered on 08/06/18 09:47; Admin Dose 40 MG; Start 07/24/18 at 09:00 Ascorbic Acid (Vitamin C) 500 mg BID PO Last administered on 08/06/18 22:21; Admin Dose 500 MG; Start 07/24/18 at 21:00; Stop 08/23/18 at 20:59 Metoprolol Succinate (Toprol Xl) 50 mg Q12H PO Last administered on 08/06/18 22:22; Admin Dose 50 MG; Start 07/25/18 at 11:00 Magnesium Oxide (Mag-Ox 400) 400 mg DAILY PO Last administered on 08/06/18 09:46; Admin Dose 400 MG; Start 07/26/18 at 09:00 Multivitamins Therapeutic (Theragran) 1 tab DAILY PO Last administered on 08/06/18 09:47; Admin Dose 1 TAB; Start 07/27/18 at 09:00 Al Hydrox/Mg Hydrox/Simethicone (Mag-Al Plus) 30 ml Q4H PRN PO GASTROINTESTINAL UPSET; Start 07/27/18 at 12:00 Alprazolam (Xanax) 0.125 mg Q12H PRN PO ANXIETY Last administered on 07/27/18at 20:37; Admin Dose 0.125 MG; Start 07/27/18 at 20:30 Ondansetron HCl (Zofran Odt) 4 mg Q6H PRN ODT NAUSEA AND/OR VOMITING; Start 07/29/18 at 11:00 Pantoprazole (Protonix Tab) 40 mg 0600,1800 PO Last administered on 08/07/18at 06:56; Admin Dose 40 MG; Start 07/29/18 at 18:00 Gabapentin (Neurontin) 100 mg WITH DINNER PO Last administered on 08/06/18at 18:22; Admin Dose 100 MG; Start 08/04/18 at 17:35 Assessment/Plan Additional Assessment/Plan Rehab- Right intertrochanteric hip fracture status post ORIF; 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 ASA 81 BID AND SCDS GI- Bowel program Acute pain syndrome-continue current medications Acute kidney injury- improving Hypertension. Anemia- monitor NALDO GARCIA MD August 07, 2018 07:47
[2018-08-07] MEDS: ACETAMINOPHEN 325 MG TAB PO PRN ×2 (09:23→21:18)
[2018-08-07] MEDS: ASPIRIN 81 MG TAB PO SCH ×2 (09:23→21:15)
[2018-08-07] MEDS: SERTRALINE 100 MG TAB PO SCH (09:24)
[2018-08-07] MEDS: MAGNESIUM OXIDE 400 MG TAB PO SCH (09:24)
[2018-08-07] MEDS: AMLODIPINE 10 MG TAB PO SCH (09:24)
[2018-08-07] MEDS: FERROUS SULFATE (EC) 325 MG TAB PO SCH ×2 (09:24→21:14)
[2018-08-07] MEDS: MULTIVITAMINS THERAPEUTIC TAB PO SCH (09:24)
[2018-08-07] MEDS: ASCORBIC ACID 500 MG TAB PO SCH ×2 (09:24→21:14)
[2018-08-07] MEDS: LISINOPRIL 20 MG TAB PO SCH (09:25)
--- NOTE | 2018-08-07 10:34 | PN ---
Date/Time of Note Date/Time of Note DATE: 08/07/18 TIME: 10:32 Assessment/Plan VTE Prophylaxis Risk score (from [facility])>0 risk: 9 SCD applied (from [facility]): Yes Pharmacological prophylaxis: heparin Lines/Catheters IV Catheter Type (from [facility]): Saline Lock Urinary Cath still in place: No Assessment/Plan Problems: (1) Closed right hip fracture Status: Acute Comment: Progressing nicely with acute rehabilitation unit protocol. Qualifiers: Encounter type: initial encounter Qualified Codes: S72.001A - Fracture of unspecified part of neck of right femur, initial encounter for closed fracture (2) Status post open reduction with internal fixation of fracture Onset Date: ~ 07/14/2018 Status: Acute Comment: No surgical complications (3) Iron deficiency anemia due to chronic blood loss Status: Chronic Comment: Recheck blood counts Subjective 24 Hr Interval Summary Free Text/Dictation Sitting up in chair interacting with family members Constitutional: no complaints Respiratory: no complaints Cardiovascular: no complaints Gastrointestinal: no complaints Genitourinary: no complaints Exam/Review of Systems Exam Vitals Vital Signs Date Temp Pulse Resp B/P (MAP) Pulse Ox O2 O2 Flow FiO2 Time Delivery Rate 08/07/18 97.8 67 18 132/61 98 Room Air 07:00 (84) Intake and Output 08/06/18 08/06/18 08/07/18 1515:00 23:00 07:00 IntakeIntake Total 200 ml 980 ml 970 ml OutputOutput Total 200 ml BalanceBalance 0 ml 980 ml 970 ml Constitutional: alert, oriented Respiratory: clear to auscultation, normal air movement Cardiovascular: regular rate and rhythm, nl pulses Medications Medication Current Medications Magnesium Hydroxide (Milk Of Mag) 30 ml BID PRN PO CONSTIPATION Last administered on 07/31/18at 06:59; Admin Dose 30 ML; Start 07/22/18 at 16:00 Lactulose (Enulose) 20 gm DAILY PRN PO CONSTIPATION Last administered on 07/25/18at 14:25; Admin Dose 20 GM; Start 07/22/18 at 16:00 Bisacodyl (Dulcolax Supp) 10 mg DAILY PRN [place] CONSTIPATION; Start 07/22/18 at 16:00 Acetaminophen (Tylenol Tab) 650 mg Q4H PRN PO PAIN Last administered on 08/07/18at 09:23; Admin Dose 650 MG; Start 07/22/18 at 16:00 Miscellaneous Information (Pending [facility] Order For Wound Care) 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 PRN PRN XX WOUND CARE; Start 07/22/18 at 16:00 Amlodipine Besylate (Norvasc) 10 mg DAILY PO Last administered on 08/07/18 09:24; Admin Dose 10 MG; Start 07/23/18 at 09:00 Clonidine (Catapres) 0.1 mg Q6H PRN PO ELEVATED BLOOD PRESSURE Last administered on 07/25/18 21:06; Admin Dose 0.1 MG; Start 07/22/18 at 16:30 Acetaminophen/ Hydrocodone Bitart ([place] (5/325)) 1 tab Q4H PRN PO MODERATE PAIN LEVEL 4-6; Start 07/22/18 at 16:30 Ropinirole HCl (Requip) 1 mg HS PO Last administered on 08/06/18 22:21; Admin Dose 1 MG; Start 07/22/18 at 21:00 Sertraline HCl (Zoloft) 100 mg DAILY PO Last administered on 08/07/18 09:24; Admin Dose 100 MG; Start 07/23/18 at 09:00 Tramadol HCl (Ultram) 25 mg Q6H PRN GTB MODERATE PAIN LEVEL 4-6 Last administered on 07/27/18 16:04; Admin Dose 25 MG; Start 07/22/18 at 16:30 Aspirin (Aspirin) 81 mg BID PO Last administered on 08/07/18 09:23; Admin Dose 81 MG; Start 07/22/18 at 21:00 Hydrocortisone (Procto-Juan Antonio) 1 applic DAILY PRN [place] HEMORROID PAIN/ITCHING; Start 07/22/18 at 16:30 Ferrous Sulfate (Ferrous Sulfate (Ec)) 325 mg BID PO Last administered on 08/07/18 09:24; Admin Dose 325 MG; Start 07/23/18 at 21:00; Stop 08/22/18 at 20:59 Docusate Sodium (Colace) 100 mg BID PRN PO CONSTIPATION Last administered on 07/24/18 12:11; Admin Dose 100 MG; Start 07/23/18 at 13:00 Lisinopril (Zestril) 40 mg DAILY PO Last administered on 08/07/18 09:25; Admin Dose 40 MG; Start 07/24/18 at 09:00 Ascorbic Acid (Vitamin C) 500 mg BID PO Last administered on 08/07/18 09:24; Admin Dose 500 MG; Start 07/24/18 at 21:00; Stop 08/23/18 at 20:59 Metoprolol Succinate (Toprol Xl) 50 mg Q12H PO Last administered on 08/06/18 22:22; Admin Dose 50 MG; Start 07/25/18 at 11:00 Magnesium Oxide (Mag-Ox 400) 400 mg DAILY PO Last administered on 08/07/18 09:24; Admin Dose 400 MG; Start 07/26/18 at 09:00 Multivitamins Therapeutic (Theragran) 1 tab DAILY PO Last administered on 08/07/18 09:24; Admin Dose 1 TAB; Start 07/27/18 at 09:00 Al Hydrox/Mg Hydrox/Simethicone (Mag-Al Plus) 30 ml Q4H PRN PO GASTROINTESTINAL UPSET; Start 07/27/18 at 12:00 Alprazolam (Xanax) 0.125 mg Q12H PRN PO ANXIETY Last administered on 07/27/18 20:37; Admin Dose 0.125 MG; Start 07/27/18 at 20:30 Ondansetron HCl (Zofran Odt) 4 mg Q6H PRN ODT NAUSEA AND/OR VOMITING; Start 07/29/18 at 11:00 Pantoprazole (Protonix Tab) 40 mg 0600,1800 PO Last administered on 08/07/18 06:56; Admin Dose 40 MG; Start 07/29/18 at 18:00 Gabapentin (Neurontin) 100 mg WITH DINNER PO Last administered on 08/06/18 18:22; Admin Dose 100 MG; Start 08/04/18 at 17:35 DARLIN MINOR MD August 07, 2018 10:34
[2018-08-07] MEDS: METOPROLOL (XL) 50 MG TAB PO SCH ×2 (11:00→22:46)
[2018-08-07 14:00] VITALS: BP 108/58; PULSE 62; RESP 18
[2018-08-07] MEDS: GABAPENTIN 100 MG CAP PO SCH (17:17)
[2018-08-07 19:22] VITALS: BP 108/55; PULSE 80; RESP 18
[2018-08-07] MEDS: ROPINIROLE 1 MG TAB PO SCH (21:13)
[2018-08-08 02:00] VITALS: BP 124/58; PULSE 72; RESP 18
[2018-08-08] MEDS: PANTOPRAZOLE (EC) 40 MG TAB PO SCH ×2 (06:46→17:42)
[2018-08-08 07:00] VITALS: BP 114/59; PULSE 80; RESP 18
[2018-08-08] MEDS: FERROUS SULFATE (EC) 325 MG TAB PO SCH ×2 (08:28→21:30)
[2018-08-08] MEDS: ASPIRIN 81 MG TAB PO SCH ×2 (08:28→21:30)
[2018-08-08] MEDS: ASCORBIC ACID 500 MG TAB PO SCH ×2 (08:29→21:30)
[2018-08-08] MEDS: MAGNESIUM OXIDE 400 MG TAB PO SCH (08:29)
[2018-08-08] MEDS: LISINOPRIL 20 MG TAB PO SCH (08:29)
[2018-08-08] MEDS: MULTIVITAMINS THERAPEUTIC TAB PO SCH (08:29)
[2018-08-08] MEDS: SERTRALINE 100 MG TAB PO SCH (08:29)
[2018-08-08] MEDS: AMLODIPINE 10 MG TAB PO SCH (08:33)
--- NOTE | 2018-08-08 10:17 | PN ---
Date/Time of Note Date/Time of Note DATE: 08/08/18 TIME: 10:13 Assessment/Plan VTE Prophylaxis Risk score (from Ns)>0 risk: 9 SCD applied (from Ns): Yes Pharmacological prophylaxis: heparin Lines/Catheters IV Catheter Type (from Nrs): Saline Lock Urinary Cath still in place: No Assessment/Plan Problems: (1) Status post open reduction with internal fixation of fracture Onset Date: ~ 07/14/2018 Status: Acute Comment: Dressing nicely with the protocol from the acute rehabilitation unit. Anticipate she will still have some needs at discharge but she is overall doing much better (2) Iron deficiency anemia due to chronic blood loss Status: Chronic Comment: Continues with oral replacement therapy (3) OAB (overactive bladder) Status: Chronic Comment: Stable on treatment Result Diagram: 08/08/18 0651 08/08/18 0651 Results 24hrs Laboratory Tests Test 08/08/18 06:51 White Blood Count 3.5 #L Red Blood Count 3.36 L Hemoglobin 9.3 L Hematocrit 31.1 L Mean Corpuscular Volume 92.6 Mean Corpuscular Hemoglobin 27.7 L Mean Corpuscular Hemoglobin Concent 29.9 L Red Cell Distribution Width 14.6 H Platelet Count 194 # Mean Platelet Volume 9.7 Immature Granulocytes % 0.300 Neutrophils % 44.2 Lymphocytes % 41.0 Monocytes % 10.8 Eosinophils % 3.1 Basophils % 0.6 Nucleated Red Blood Cells % 0.0 Immature Granulocytes # 0.010 Neutrophils # 1.6 Lymphocytes # 1.4 Monocytes # 0.4 Eosinophils # 0.1 Basophils # 0.0 Nucleated Red Blood Cells # 0.0 Sodium Level 142 Potassium Level 5.2 H Chloride Level 104 Carbon Dioxide Level 29 Anion Gap 9 Blood Urea Nitrogen 63 H Creatinine 1.52 H Est Glomerular Filtrat Rate mL/min Glucose Level 98 Calcium Level 9.3 Magnesium Level 2.3 Total Bilirubin 0.2 Direct Bilirubin 0.00 Indirect Bilirubin 0.2 Aspartate Amino Transf (AST/SGOT) 22 Alanine Aminotransferase (ALT/SGPT) 17 Alkaline Phosphatase 128 H Total Protein 7.0 Albumin 3.5 Globulin 3.50 H Albumin/Globulin Ratio 1.00 Subjective 24 Hr Interval Summary Free Text/Dictation Patient reports she is continue to work hard with the acute rehabilitation protocol Constitutional: no complaints Cardiovascular: no complaints Gastrointestinal: no complaints Genitourinary: no complaints Exam/Review of Systems Exam Vitals Vital Signs Date Temp Pulse Resp B/P (MAP) Pulse Ox O2 O2 Flow FiO2 Time Delivery Rate 08/08/18 98.3 80 18 114/59 95 Room Air 07:00 (77) Intake and Output 08/07/18 08/07/18 08/08/18 1515:00 23:00 07:00 IntakeIntake Total 840 ml 300 ml BalanceBalance 840 ml 300 ml Constitutional: alert, oriented Respiratory: clear to auscultation, normal air movement Cardiovascular: regular rate and rhythm, nl pulses Gastrointestinal: soft, nl liver, spleen, non-tender Results Results 24hrs Laboratory Tests Test 08/08/18 06:51 White Blood Count 3.5 #L Red Blood Count 3.36 L Hemoglobin 9.3 L Hematocrit 31.1 L Mean Corpuscular Volume 92.6 Mean Corpuscular Hemoglobin 27.7 L Mean Corpuscular Hemoglobin Concent 29.9 L Red Cell Distribution Width 14.6 H Platelet Count 194 # Mean Platelet Volume 9.7 Immature Granulocytes % 0.300 Neutrophils % 44.2 Lymphocytes % 41.0 Monocytes % 10.8 Eosinophils % 3.1 Basophils % 0.6 Nucleated Red Blood Cells % 0.0 Immature Granulocytes # 0.010 Neutrophils # 1.6 Lymphocytes # 1.4 Monocytes # 0.4 Eosinophils # 0.1 Basophils # 0.0 Nucleated Red Blood Cells # 0.0 Sodium Level 142 Potassium Level 5.2 H Chloride Level 104 Carbon Dioxide Level 29 Anion Gap 9 Blood Urea Nitrogen 63 H Creatinine 1.52 H Est Glomerular Filtrat Rate mL/min Glucose Level 98 Calcium Level 9.3 Magnesium Level 2.3 Total Bilirubin 0.2 Direct Bilirubin 0.00 Indirect Bilirubin 0.2 Aspartate Amino Transf (AST/SGOT) 22 Alanine Aminotransferase (ALT/SGPT) 17 Alkaline Phosphatase 128 H Total Protein 7.0 Albumin 3.5 Globulin 3.50 H Albumin/Globulin Ratio 1.00 Medications Medication Current Medications Magnesium Hydroxide (Milk Of Mag) 30 ml BID PRN PO CONSTIPATION Last administered on 07/31/18at 06:59; Admin Dose 30 ML; Start 07/22/18 at 16:00 Lactulose (Enulose) 20 gm DAILY PRN PO CONSTIPATION Last administered on 07/25/18at 14:25; Admin Dose 20 GM; Start 07/22/18 at 16:00 Bisacodyl (Dulcolax Supp) 10 mg DAILY PRN [place] CONSTIPATION; Start 07/22/18 at 16:00 Acetaminophen (Tylenol Tab) 650 mg Q4H PRN PO PAIN Last administered on 21:18; Admin Dose 650 MG; Start 07/22/18 at 16:00 Miscellaneous Information (Pending Santyl Order For Wound Care) 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 PRN PRN XX WOUND CARE; Start 07/22/18 at 16:00 Amlodipine Besylate (Norvasc) 10 mg DAILY PO Last administered on 08/07/18 09:24; Admin Dose 10 MG; Start 07/23/18 at 09:00 Clonidine (Catapres) 0.1 mg Q6H PRN PO ELEVATED BLOOD PRESSURE Last administered on 07/25/18 21:06; Admin Dose 0.1 MG; Start 07/22/18 at 16:30 Acetaminophen/ Hydrocodone Bitart ([place] (5/325)) 1 tab Q4H PRN PO MODERATE PAIN LEVEL 4-6; Start 07/22/18 at 16:30 Ropinirole HCl (Requip) 1 mg HS PO Last administered on 08/07/18 21:13; Admin Dose 1 MG; Start 07/22/18 at 21:00 Sertraline HCl (Zoloft) 100 mg DAILY PO Last administered on 08/08/18 08:29; Admin Dose 100 MG; Start 07/23/18 at 09:00 Tramadol HCl (Ultram) 25 mg Q6H PRN GTB MODERATE PAIN LEVEL 4-6 Last administered on 07/27/18 16:04; Admin Dose 25 MG; Start 07/22/18 at 16:30 Aspirin (Aspirin) 81 mg BID PO Last administered on 08/08/18 08:28; Admin Dose 81 MG; Start 07/22/18 at 21:00 Hydrocortisone (Procto-Juan Antonio) 1 applic DAILY PRN [place] HEMORROID PAIN/ITCHING; Start 07/22/18 at 16:30 Ferrous Sulfate (Ferrous Sulfate (Ec)) 325 mg BID PO Last administered on 08/08/18 08:28; Admin Dose 325 MG; Start 07/23/18 at 21:00; Stop 08/22/18 at 20:59 Docusate Sodium (Colace) 100 mg BID PRN PO CONSTIPATION Last administered on 07/24/18 12:11; Admin Dose 100 MG; Start 07/23/18 at 13:00 Lisinopril (Zestril) 40 mg DAILY PO Last administered on 08/08/18 08:29; Admin Dose 40 MG; Start 07/24/18 at 09:00 Ascorbic Acid (Vitamin C) 500 mg BID PO Last administered on 08/08/18 08:29; Admin Dose 500 MG; Start 07/24/18 at 21:00; Stop 08/23/18 at 20:59 Metoprolol Succinate (Toprol Xl) 50 mg Q12H PO Last administered on 08/06/18 22:22; Admin Dose 50 MG; Start 07/25/18 at 11:00 Magnesium Oxide (Mag-Ox 400) 400 mg DAILY PO Last administered on 08/08/18 08:29; Admin Dose 400 MG; Start 07/26/18 at 09:00 Multivitamins Therapeutic (Theragran) 1 tab DAILY PO Last administered on 08/08/18 08:29; Admin Dose 1 TAB; Start 07/27/18 at 09:00 Al Hydrox/Mg Hydrox/Simethicone (Mag-Al Plus) 30 ml Q4H PRN PO GASTROINTESTINAL UPSET; Start 07/27/18 at 12:00 Alprazolam (Xanax) 0.125 mg Q12H PRN PO ANXIETY Last administered on 07/27/18 20:37; Admin Dose 0.125 MG; Start 07/27/18 at 20:30 Ondansetron HCl (Zofran Odt) 4 mg Q6H PRN ODT NAUSEA AND/OR VOMITING; Start 07/29/18 at 11:00 Pantoprazole (Protonix Tab) 40 mg 0600,1800 PO Last administered on 08/08/18 06:46; Admin Dose 40 MG; Start 07/29/18 at 18:00 Gabapentin (Neurontin) 100 mg WITH DINNER PO Last administered on 08/07/18 17:17; Admin Dose 100 MG; Start 08/04/18 at 17:35 DARLIN MINOR MD August 08, 2018 10:17
[2018-08-08] MEDS ORDERED: LACTATED RINGER'S 500 ML IV ONE ×2 (10:30→13:30)
[2018-08-08] MEDS: METOPROLOL (XL) 50 MG TAB PO SCH ×2 (11:20→22:56)
[2018-08-08 14:00] VITALS: BP 137/63; PULSE 80; RESP 18
[2018-08-08] MEDS: GABAPENTIN 100 MG CAP PO SCH (17:42)
[2018-08-08 20:00] VITALS: BP 114/58; PULSE 82; RESP 18
[2018-08-08] MEDS: ROPINIROLE 1 MG TAB PO SCH (21:30)
[2018-08-08] MEDS: ACETAMINOPHEN 325 MG TAB PO PRN (21:30)
[2018-08-09 02:00] VITALS: BP 120/56; PULSE 78; RESP 18
[2018-08-09] MEDS: PANTOPRAZOLE (EC) 40 MG TAB PO SCH ×2 (06:41→17:33)
[2018-08-09 07:00] VITALS: BP 145/67; PULSE 71; RESP 18
[2018-08-09] MEDS: MULTIVITAMINS THERAPEUTIC TAB PO SCH (08:43)
[2018-08-09] MEDS: ASCORBIC ACID 500 MG TAB PO SCH ×2 (08:44→20:36)
[2018-08-09] MEDS: SERTRALINE 100 MG TAB PO SCH (08:44)
[2018-08-09] MEDS: ASPIRIN 81 MG TAB PO SCH ×2 (08:44→20:36)
[2018-08-09] MEDS: FERROUS SULFATE (EC) 325 MG TAB PO SCH ×2 (08:44→20:36)
[2018-08-09] MEDS: LISINOPRIL 20 MG TAB PO SCH (08:45)
[2018-08-09] MEDS: AMLODIPINE 10 MG TAB PO SCH (08:45)
[2018-08-09] MEDS: MAGNESIUM OXIDE 400 MG TAB PO SCH (08:46)
[2018-08-09] MEDS: ACETAMINOPHEN 325 MG TAB PO PRN (09:43)
--- NOTE | 2018-08-09 13:31 | PN ---
Date/Time of Note Date/Time of Note DATE: 08/09/18 TIME: 13:31 Objective Vital Signs Date Temp Pulse Resp B/P (MAP) Pulse Ox O2 O2 Flow FiO2 Time Delivery Rate 08/09/18 97.8 71 18 145/67 95 Room Air 07:00 (93) Intake and Output 08/08/18 08/08/18 08/09/18 1515:00 23:00 07:00 IntakeIntake Total 1250 ml 1200 ml 300 ml OutputOutput Total 800 ml 200 ml BalanceBalance 1250 ml 400 ml 100 ml Exam INTERDISCIPLINARY TEAM CONFERENCE Attended by PT, OT, ST, Residential Plumber, Social Work, Rehabilitation Nursing, Technical Translator and Agricultural Produce WasherTomahawk Weapon System Operator Exam: Pulm- cta Abd-soft BOWEL- Cont BLADDER-Cont SKIN- improving OT- DRESSING-min/mod BATHING-mod TOILETING-mod PT- BED MOBILITY-min TRANSFERS-min AMBULATION-min 40 feet A/P- Interdisciplinary team conference held today. Please see interdisciplinary sheet. Working toward d.c. on 08/12 with post discharge follow up of physical therapy, occupational therapy. Results/Medications Result Diagram: 08/08/18 0651 08/09/18 0623 Results 24 hrs Laboratory Tests Test 08/09/18 06:23 Sodium Level 141 Potassium Level 4.7 Chloride Level 104 Carbon Dioxide Level 29 Anion Gap 8 Blood Urea Nitrogen 56 H Creatinine 1.24 H Est Glomerular Filtrat Rate mL/min Glucose Level 89 Calcium Level 9.6 Medications Current Medications Magnesium Hydroxide (Milk Of Mag) 30 ml BID PRN PO CONSTIPATION Last administered on 07/31/18at 06:59; Admin Dose 30 ML; Start 07/22/18 at 16:00 Lactulose (Enulose) 20 gm DAILY PRN PO CONSTIPATION Last administered on 07/25/18at 14:25; Admin Dose 20 GM; Start 07/22/18 at 16:00 Bisacodyl (Dulcolax Supp) 10 mg DAILY PRN [place] CONSTIPATION; Start 07/22/18 at 16:00 Acetaminophen (Tylenol Tab) 650 mg Q4H PRN PO PAIN Last administered on 08/09/18 at 09:43; Admin Dose 650 MG; Start 07/22/18 at 16:00 Miscellaneous Information (Pending [facility] Order For Wound Care) 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 PRN PRN XX WOUND CARE; Start 07/22/18 at 16:00 Amlodipine Besylate (Norvasc) 10 mg DAILY PO Last administered on 08/09/18 08:45; Admin Dose 10 MG; Start 07/23/18 at 09:00 Clonidine (Catapres) 0.1 mg Q6H PRN PO ELEVATED BLOOD PRESSURE Last administered on 07/25/18 21:06; Admin Dose 0.1 MG; Start 07/22/18 at 16:30 Acetaminophen/ Hydrocodone Bitart ([place] (5/325)) 1 tab Q4H PRN PO MODERATE PAIN LEVEL 4-6; Start 07/22/18 at 16:30 Ropinirole HCl (Requip) 1 mg HS PO Last administered on 08/08/18 21:30; Admin Dose 1 MG; Start 07/22/18 at 21:00 Sertraline HCl (Zoloft) 100 mg DAILY PO Last administered on 08/09/18 08:44; Admin Dose 100 MG; Start 07/23/18 at 09:00 Tramadol HCl (Ultram) 25 mg Q6H PRN GTB MODERATE PAIN LEVEL 4-6 Last administered on 07/27/18 16:04; Admin Dose 25 MG; Start 07/22/18 at 16:30 Aspirin (Aspirin) 81 mg BID PO Last administered on 08/09/18 08:44; Admin Dose 81 MG; Start 07/22/18 at 21:00 Hydrocortisone (Procto-Juan Antonio) 1 applic DAILY PRN [place] HEMORROID PAIN/ITCHING; Start 07/22/18 at 16:30 Ferrous Sulfate (Ferrous Sulfate (Ec)) 325 mg BID PO Last administered on 08/09/18 08:44; Admin Dose 325 MG; Start 07/23/18 at 21:00; Stop 08/22/18 at 20:59 Docusate Sodium (Colace) 100 mg BID PRN PO CONSTIPATION Last administered on 07/24/18 12:11; Admin Dose 100 MG; Start 07/23/18 at 13:00 Lisinopril (Zestril) 40 mg DAILY PO Last administered on 08/09/18 08:45; Admin Dose 40 MG; Start 07/24/18 at 09:00 Ascorbic Acid (Vitamin C) 500 mg BID PO Last administered on 08/09/18 08:44; Admin Dose 500 MG; Start 07/24/18 at 21:00; Stop 08/23/18 at 20:59 Metoprolol Succinate (Toprol Xl) 50 mg Q12H PO Last administered on 08/08/18 11:20; Admin Dose 50 MG; Start 07/25/18 at 11:00 Magnesium Oxide (Mag-Ox 400) 400 mg DAILY PO Last administered on 08/09/18 08:46; Admin Dose 400 MG; Start 07/26/18 at 09:00 Multivitamins Therapeutic (Theragran) 1 tab DAILY PO Last administered on 08/09/18 08:43; Admin Dose 1 TAB; Start 07/27/18 at 09:00 Al Hydrox/Mg Hydrox/Simethicone (Mag-Al Plus) 30 ml Q4H PRN PO GASTROINTESTINAL UPSET; Start 07/27/18 at 12:00 Alprazolam (Xanax) 0.125 mg Q12H PRN PO ANXIETY Last administered on 07/27/18at 20:37; Admin Dose 0.125 MG; Start 07/27/18 at 20:30 Ondansetron HCl (Zofran Odt) 4 mg Q6H PRN ODT NAUSEA AND/OR VOMITING; Start 07/29/18 at 11:00 Pantoprazole (Protonix Tab) 40 mg 0600,1800 PO Last administered on 08/09/18 06:41; Admin Dose 40 MG; Start 07/29/18 at 18:00 Gabapentin (Neurontin) 100 mg WITH DINNER PO Last administered on 08/08/18at 17:42; Admin Dose 100 MG; Start 08/04/18 at 17:35 KIARA GARCIA MD August 09, 2018 13:31
[2018-08-09] MEDS: METOPROLOL (XL) 50 MG TAB PO SCH ×2 (13:52→23:10)
[2018-08-09 14:00] VITALS: BP 145/67; PULSE 71; RESP 18
--- NOTE | 2018-08-09 14:42 | PN ---
Date/Time of Note Date/Time of Note DATE: 08/09/18 TIME: 14:41 Assessment/Plan VTE Prophylaxis Risk score (from Nsg)>0 risk: 10 SCD applied (from Ns): Yes Pharmacological prophylaxis: other (aspirin per ortho) Lines/Catheters IV Catheter Type (from Nrs): Saline Lock Urinary Cath still in place: No Assessment/Plan Hospital Course SUBJECTIVE: no acute distress. Tolerates physical therapy well. OBJECTIVE: Vital signs-see below PHYSICAL EXAM: Constitutional: Adequately built, elderly female not in acute distress. HEENT: Head atraumatic and normocephalic. Eyes: Extraocular muscles intact. Anicteric sclerae. Pupils equal bilaterally, reactive to light. NECK: Supple without lymph node. CHEST: Clear and good breath sounds equally. No wheezing. No rhonchi. HEART: S1, S2. Regular rate and rhythm. ABDOMEN: Soft/non tender with no rebound tenderness. Bowel sounds were present. EXTREMITIES: RLE w/ intact dressing. No cyanosis, clubbing or edema. NEUROLOGIC: Alert and oriented x3. No focal deficit. No sensory deficit. PSYCHOSOCIAL: No signs of depression. INTEGUMENTARY: No open wounds. ASSESSMENT AND PLAN: 88-year-old female, status post right hip ORIF transferred to acute rehabilitation unit for inpatient rehab. Right hip fracture s/p ORIF 07/14/18 - DVT ppx,pain control - Rehab - Ortho f/u in 2 weeks Hypertension -stable.cont.antihypertensives. Iron deficient anemia -Continue oral replacement Mood disorder -Continue sertraline Restless leg syndrome -on ropinirole Constipation - bowel regimen History of overactive bladder -Currently stable and patient refuses to take Vesicare. Her bladder fxn is stable. GERD -symptoms improved -cont.ppi -Outpatient EGD eval after dc if symptoms recur. Acute kidney injury, likely hemodynamic/dehydration -Status post fluids with improvement in creatinine. Will reconsult nephrology. DVT prophylaxis: Aspirin per orthopedic recommendations. Patient is seen in collaboration with Result Diagram: 08/08/18 0651 08/09/18 0623 Results 24hrs Laboratory Tests Test 08/09/18 06:23 Sodium Level 141 Potassium Level 4.7 Chloride Level 104 Carbon Dioxide Level 29 Anion Gap 8 Blood Urea Nitrogen 56 H Creatinine 1.24 H Est Glomerular Filtrat Rate mL/min Glucose Level 89 Calcium Level 9.6 Exam/Review of Systems Exam Vitals Vital Signs Date Temp Pulse Resp B/P (MAP) Pulse Ox O2 O2 Flow FiO2 Time Delivery Rate 08/09/18 97.8 71 18 145/67 95 Room Air 07:00 (93) Intake and Output 08/08/18 08/08/18 08/09/18 1515:00 23:00 07:00 IntakeIntake Total 1250 ml 1200 ml 300 ml OutputOutput Total 800 ml 200 ml BalanceBalance 1250 ml 400 ml 100 ml Results Results 24hrs Laboratory Tests Test 08/09/18 06:23 Sodium Level 141 Potassium Level 4.7 Chloride Level 104 Carbon Dioxide Level 29 Anion Gap 8 Blood Urea Nitrogen 56 H Creatinine 1.24 H Est Glomerular Filtrat Rate mL/min Glucose Level 89 Calcium Level 9.6 Medications Medication Current Medications Magnesium Hydroxide (Milk Of Mag) 30 ml BID PRN PO CONSTIPATION Last administered on 07/31/18at 06:59; Admin Dose 30 ML; Start 07/22/18 at 16:00 Lactulose (Enulose) 20 gm DAILY PRN PO CONSTIPATION Last administered on 06/29 11/15at 14:25; Admin Dose 20 GM; Start 07/22/18 at 16:00 Bisacodyl (Dulcolax Supp) 10 mg DAILY PRN [place] CONSTIPATION; Start 07/22/18 at 16:00 Acetaminophen (Tylenol Tab) 650 mg Q4H PRN PO PAIN Last administered on 08/09/18at 09:43; Admin Dose 650 MG; Start 07/22/18 at 16:00 Miscellaneous Information (Pending Santyl Order For Wound Care) 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 PRN PRN XX WOUND CARE; Start 07/22/18 at 16:00 Amlodipine Besylate (Norvasc) 10 mg DAILY PO Last administered on 08/09/18at 08:45; Admin Dose 10 MG; Start 07/23/18 at 09:00 Clonidine (Catapres) 0.1 mg Q6H PRN PO ELEVATED BLOOD PRESSURE Last a dministered on 07/25/18at 21:06; Admin Dose 0.1 MG; Start 07/22/18 at 16:30 Acetaminophen/ Hydrocodone Bitart ([place] (5/325)) 1 tab Q4H PRN PO MODERATE PAIN LEVEL 4-6; Start 07/22/18 at 16:30 Ropinirole HCl (Requip) 1 mg HS PO Last administered on 08/08/18 21:30; Admin Dose 1 MG; Start 07/22/18 at 21:00 Sertraline HCl (Zoloft) 100 mg DAILY PO Last administered on 08/09/18 08:44; Admin Dose 100 MG; Start 07/23/18 at 09:00 Tramadol HCl (Ultram) 25 mg Q6H PRN GTB MODERATE PAIN LEVEL 4-6 Last a dministered on 07/27/18 16:04; Admin Dose 25 MG; Start 07/22/18 at 16:30 Aspirin (Aspirin) 81 mg BID PO Last administered on 08/09/18 08:44; Admin Dose 81 MG; Start 07/22/18 at 21:00 Hydrocortisone (Procto-Juan Antonio) 1 applic DAILY PRN [place] HEMORROID PAIN/ITCHING; Start 07/22/18 at 16:30 Ferrous Sulfate (Ferrous Sulfate (Ec)) 325 mg BID PO Last administered on 08/09/18 08:44; Admin Dose 325 MG; Start 07/23/18 at 21:00; Stop 08/22/18 at 20:59 Docusate Sodium (Colace) 100 mg BID PRN PO CONSTIPATION Last administered on 07/24/18 12:11; Admin Dose 100 MG; Start 07/23/18 at 13:00 Lisinopril (Zestril) 40 mg DAILY PO Last administered on 08/09/18 08:45; Admin Dose 40 MG; Start 07/24/18 at 09:00 Ascorbic Acid (Vitamin C) 500 mg BID PO Last administered on 08/09/18 08:44; Admin Dose 500 MG; Start 07/24/18 at 21:00; Stop 08/23/18 at 20:59 Metoprolol Succinate (Toprol Xl) 50 mg Q12H PO Last administered on 08/09/18 13:52; Admin Dose 50 MG; Start 07/25/18 at 11:00 Magnesium Oxide (Mag-Ox 400) 400 mg DAILY PO Last administered on 08/09/18 08:46; Admin Dose 400 MG; Start 07/26/18 at 09:00 Multivitamins Therapeutic (Theragran) 1 tab DAILY PO Last administered on 5/13/19at 08:43; Admin Dose 1 TAB; Start 07/27/18 at 09:00 Al Hydrox/Mg Hydrox/Simethicone (Mag-Al Plus) 30 ml Q4H PRN PO GASTROINTESTINAL UPSET; Start 07/27/18 at 12:00 Alprazolam (Xanax) 0.125 mg Q12H PRN PO ANXIETY Last administered on 07/27/18at 20:37; Admin Dose 0.125 MG; Start 07/27/18 at 20:30 Ondansetron HCl (Zofran Odt) 4 mg Q6H PRN ODT NAUSEA AND/OR VOMITING; Start 07/29/18 at 11:00 Pantoprazole (Protonix Tab) 40 mg 0600,1800 PO Last administered on 08/09/18at 06:41; Admin Dose 40 MG; Start 07/29/18 at 18:00 Gabapentin (Neurontin) 100 mg WITH DINNER PO Last administered on 08/08/18at 17:42; Admin Dose 100 MG; Start 08/04/18 at 17:35 DARLENE RODRÍGUEZ NP August 09, 2018 14:42
[2018-08-09] MEDS: GABAPENTIN 100 MG CAP PO SCH (17:33)
[2018-08-09 19:55] VITALS: BP 124/60; PULSE 78; RESP 18
[2018-08-09] MEDS: ROPINIROLE 1 MG TAB PO SCH (20:36)
[2018-08-10 02:15] VITALS: BP 135/63; PULSE 77; RESP 16
[2018-08-10] MEDS: PANTOPRAZOLE (EC) 40 MG TAB PO SCH ×2 (06:28→17:12)
[2018-08-10 07:00] VITALS: BP 174/74; PULSE 73; RESP 18
--- NOTE | 2018-08-10 09:32 | PN ---
DATE: 08/10/2018 SUBJECTIVE: The patient has been stable. No acute events noted overnight. No hemoptysis, hematemes is or hematochezia. OBJECTIVE: VITAL SIGNS: Blood pressure is 135/63, respirations 16, pulse 77, temperature 98.2. HEENT: Head is normocephalic. NECK: Supple. HEART: Regular rate. LUNGS: Show diminished breath sounds at the base. ABDOMEN: Soft, nontender to palpation. No rebound or guarding. EXTREMITIES: Negative for clubbing, cyanosis, no edema. DERMATOLOGIC: No rashes. MUSCULOSKELETAL: No joint effusion. NEUROLOGIC: No change in exam. No focal deficits. MEDICATIONS: Reviewed. LABORATORY DATA: From 08/09/2018 has been reviewed. ASSESSMENT AND PLAN: 1. Nonoliguric acute kidney injury. Etiology is secondary to hemodynamics. Renal function has init ially improved. However, most recent laboratory data showed elevation of creatinine. This may be se condary to hemodynamics. We will continue to monitor. Repeat renal panel. 2. Anemia. Monitor hemoglobin and hematocrit levels. 3. Mineral bone disorder. Monitor calcium and phosphorus levels. 4. Hypertension. Continue current blood pressure regimen. Continue EMILIANO inhibitor for now, monitor renal function closely. 5. Hip fracture, status post arthroplasty. Dictated By: STEPH MARTINEZ DO NR/NTS Conf#: [id number] DID#: [id number] CC: FRANSISCO TOLEDO MD; KIARA GARCIA MD;*EndCC*
[2018-08-10] MEDS: LISINOPRIL 20 MG TAB PO SCH (09:40)
[2018-08-10] MEDS: ASCORBIC ACID 500 MG TAB PO SCH ×2 (09:41→21:19)
[2018-08-10] MEDS: FERROUS SULFATE (EC) 325 MG TAB PO SCH ×2 (09:41→21:00)
[2018-08-10] MEDS: SERTRALINE 100 MG TAB PO SCH (09:41)
[2018-08-10] MEDS: MULTIVITAMINS THERAPEUTIC TAB PO SCH (09:41)
[2018-08-10] MEDS: ASPIRIN 81 MG TAB PO SCH ×2 (09:41→21:19)
[2018-08-10] MEDS: AMLODIPINE 10 MG TAB PO SCH (09:41)
[2018-08-10] MEDS: MAGNESIUM OXIDE 400 MG TAB PO SCH (09:41)
[2018-08-10 10:15] VITALS: BP 137/61; RESP 19
[2018-08-10] MEDS: METOPROLOL (XL) 50 MG TAB PO SCH (12:23)
--- NOTE | 2018-08-10 13:02 | PN ---
Date/Time of Note Date/Time of Note DATE: 08/10/18 TIME: 13:01 Assessment/Plan VTE Prophylaxis Risk score (from Nsg)>0 risk: 10 SCD applied (from Ns): Yes Pharmacological prophylaxis: other (aspirin per ortho) Lines/Catheters IV Catheter Type (from Nrs): Saline Lock Urinary Cath still in place: No Assessment/Plan Hospital Course SUBJECTIVE: no acute distress. Tolerates physical therapy well. OBJECTIVE: Vital signs-see below PHYSICAL EXAM: Constitutional: Adequately built, elderly female not in acute distress. HEENT: Head atraumatic and normocephalic. Eyes: Extraocular muscles intact. Anicteric sclerae. Pupils equal bilaterally, reactive to light. NECK: Supple without lymph node. CHEST: Clear and good breath sounds equally. No wheezing. No rhonchi. HEART: S1, S2. Regular rate and rhythm. ABDOMEN: Soft/non tender with no rebound tenderness. Bowel sounds were present. EXTREMITIES: RLE w/ intact dressing. No cyanosis, clubbing or edema. NEUROLOGIC: Alert and oriented x3. No focal deficit. No sensory deficit. PSYCHOSOCIAL: No signs of depression. INTEGUMENTARY: No open wounds. ASSESSMENT AND PLAN: 88-year-old female, status post right hip ORIF transferred to acute rehabilitation unit for inpatient rehab. Right hip fracture s/p ORIF 07/14/18 - DVT ppx,pain control - Rehab - Ortho f/u in 2 weeks Hypertension -fairly stable.cont.antihypertensives. Iron deficient anemia -Continue oral replacement Mood disorder -Continue sertraline Restless leg syndrome -on ropinirole Constipation - bowel regimen History of overactive bladder -Currently stable and patient refuses to take Vesicare. Her bladder fxn is stable. GERD -symptoms improved -cont.ppi -Outpatient EGD eval after dc if symptoms recur. Acute kidney injury, likely hemodynamic/dehydration -Status post fluids with improvement in creatinine. -f/u nephro recs DVT prophylaxis: Aspirin per orthopedic recommendations. Patient is seen in collaboration with Result Diagram: 08/08/18 0651 08/09/18 0623 Exam/Review of Systems Exam Vitals Vital Signs Date Temp Pulse Resp B/P (MAP) Pulse Ox O2 O2 Flow FiO2 Time Delivery Rate 08/10/18 98.3 73 18 174/74 94 Room Air 07:00 (107) Intake and Output 08/09/18 08/09/18 08/10/18 1515:00 23:00 07:00 IntakeIntake Total 1500 ml OutputOutput Total 600 ml BalanceBalance 900 ml Medications Medication Current Medications Magnesium Hydroxide (Milk Of Mag) 30 ml BID PRN PO CONSTIPATION Last administered on 07/31/18 06:59; Admin Dose 30 ML; Start 07/22/18 at 16:00 Lactulose (Enulose) 20 gm DAILY PRN PO CONSTIPATION Last administered on 07/25/18 14:25; Admin Dose 20 GM; Start 07/22/18 at 16:00 Bisacodyl (Dulcolax Supp) 10 mg DAILY PRN [place] CONSTIPATION; Start 07/22/18 at 16:00 Acetaminophen (Tylenol Tab) 650 mg Q4H PRN PO PAIN Last administered on 08/09/18 09:43; Admin Dose 650 MG; Start 07/22/18 at 16:00 [facility] 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 PRN PRN XX WOUND CARE; Start 07/22/18 at 16:00 Amlodipine Besylate (Norvasc) 10 mg DAILY PO Last administered on 08/10/18 09:41; Admin Dose 10 MG; Start 07/23/18 at 09:00 Clonidine (Catapres) 0.1 mg Q6H PRN PO ELEVATED BLOOD PRESSURE Last administered on 07/25/18 21:06; Admin Dose 0.1 MG; Start 07/22/18 at 16:30 Acetaminophen/ Hydrocodone Bitart ([place] (5/325)) 1 tab Q4H PRN PO MODERATE PAIN LEVEL 4-6; Start 07/22/18 at 16:30 Ropinirole HCl (Requip) 1 mg HS PO Last administered on 08/09/18 20:36; Admin Dose 1 MG; Start 07/22/18 at 21:00 Sertraline HCl (Zoloft) 100 mg DAILY PO Last administered on 08/10/18 09:41; Admin Dose 100 MG; Start 07/23/18 at 09:00 Tramadol HCl (Ultram) 25 mg Q6H PRN GTB MODERATE PAIN LEVEL 4-6 Last administered on 07/27/18 16:04; Admin Dose 25 MG; Start 07/22/18 at 16:30 Aspirin (Aspirin) 81 mg BID PO Last administered on 08/10/18 09:41; Admin Dose 81 MG; Start 07/22/18 at 21:00 Hydrocortisone (Procto-Juan Antonio) 1 applic DAILY PRN [place] HEMORROID PAIN/ITCHING; Start 07/22/18 at 16:30 Ferrous Sulfate (Ferrous Sulfate (Ec)) 325 mg BID PO Last administered on 08/10/18 09:41; Admin Dose 325 MG; Start 07/23/18 at 21:00; Stop 08/22/18 at 2 0:59 Docusate Sodium (Colace) 100 mg BID PRN PO CONSTIPATION Last administered on 07/24/18 12:11; Admin Dose 100 MG; Start 07/23/18 at 13:00 Lisinopril (Zestril) 40 mg DAILY PO Last administered on 08/10/18 09:40; Admin Dose 40 MG; Start 07/24/18 at 09:00 Ascorbic Acid (Vitamin C) 500 mg BID PO Last administered on 08/10/18 09:41; Admin Dose 500 MG; Start 07/24/18 at 21:00; Stop 08/23/18 at 20:59 Metoprolol Succinate (Toprol Xl) 50 mg Q12H PO Last administered on 08/10/18 12:23; Admin Dose 50 MG; Start 07/25/18 at 11:00 Magnesium Oxide (Mag-Ox 400) 400 mg DAILY PO Last administered on 08/10/18 09:41; Admin Dose 400 MG; Start 07/26/18 at 09:00 Multivitamins Therapeutic (Theragran) 1 tab DAILY PO Last administered on 08/10/18 09:41; Admin Dose 1 TAB; Start 07/27/18 at 09:00 Al Hydrox/Mg Hydrox/Simethicone (Mag-Al Plus) 30 ml Q4H PRN PO GASTROINTESTINAL UPSET; Start 07/27/18 at 12:00 Alprazolam (Xanax) 0.125 mg Q12H PRN PO ANXIETY Last administered on 07/27/18 20:37; Admin Dose 0.125 MG; Start 07/27/18 at 20:30 Ondansetron HCl (Zofran Odt) 4 mg Q6H PRN ODT NAUSEA AND/OR VOMITING; Start 07/29/18 at 11:00 Pantoprazole (Protonix Tab) 40 mg 0600,1800 PO Last administered on 08/10/18at 06:28; Admin Dose 40 MG; Start 07/29/18 at 18:00 Gabapentin (Neurontin) 100 mg WITH DINNER PO Last administered on 08/09/18at 17:33; Admin Dose 100 MG; Start 08/04/18 at 17:35 DARLENE RODRÍGUEZ NP August 10, 2018 13:02
[2018-08-10 14:00] VITALS: BP 132/60; PULSE 69; RESP 18
--- NOTE | 2018-08-10 14:07 | PN ---
Date/Time of Note Date/Time of Note DATE: 08/10/18 TIME: 14:07 Subjective No new complaints Objective Vital Signs Date Temp Pulse Resp B/P (MAP) Pulse Ox O2 O2 Flow FiO2 Time Delivery Rate 08/10/18 98.3 73 18 174/74 94 Room Air 07:00 (107) Intake and Output 08/09/18 08/09/18 08/10/18 1515:00 23:00 07:00 IntakeIntake Total 1500 ml OutputOutput Total 600 ml BalanceBalance 900 ml Exam pulm-cta abd-soft min ambulation Results/Medications Result Diagram: 08/08/18 0651 08/09/18 0623 Medications Current Medications Magnesium Hydroxide (Milk Of Mag) 30 ml BID PRN PO CONSTIPATION Last administered on 07/31/18 06:59; Admin Dose 30 ML; Start 07/22/18 at 16:00 Lactulose (Enulose) 20 gm DAILY PRN PO CONSTIPATION Last administered on 07/25/18 14:25; Admin Dose 20 GM; Start 07/22/18 at 16:00 Bisacodyl (Dulcolax Supp) 10 mg DAILY PRN [place] CONSTIPATION; Start 07/22/18 at 16:00 Acetaminophen (Tylenol Tab) 650 mg Q4H PRN PO PAIN Last administered on 08/09/18 09:43; Admin Dose 650 MG; Start 07/22/18 at 16:00 Miscellaneous Information [facility] 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 PRN PRN XX WOUND CARE; Start 07/22/18 at 16:00 Amlodipine Besylate (Norvasc) 10 mg DAILY PO Last administered on 08/10/18 09:41; Admin Dose 10 MG; Start 07/23/18 at 09:00 Clonidine (Catapres) 0.1 mg Q6H PRN PO ELEVATED BLOOD PRESSURE Last administered on 07/25/18 21:06; Admin Dose 0.1 MG; Start 07/22/18 at 16:30 Acetaminophen/ Hydrocodone Bitart ([place] (5/325)) 1 tab Q4H PRN PO MODERATE PAIN LEVEL 4-6; Start 07/22/18 at 16:30 Ropinirole HCl (Requip) 1 mg HS PO Last administered on 08/09/18 20:36; Admin Dose 1 MG; Start 07/22/18 at 21:00 Sertraline HCl (Zoloft) 100 mg DAILY PO Last administered on 08/10/18 09:41; Admin Dose 100 MG; Start 07/23/18 at 09:00 Tramadol HCl (Ultram) 25 mg Q6H PRN GTB MODERATE PAIN LEVEL 4-6 Last administered on 07/27/18 16:04; Admin Dose 25 MG; Start 07/22/18 at 16:30 Aspirin (Aspirin) 81 mg BID PO Last administered on 08/10/18 09:41; Admin Dose 81 MG; Start 07/22/18 at 21:00 Hydrocortisone (Procto-Juan Antonio) 1 applic DAILY PRN [place] HEMORROID PAIN/ITCHING; Start 07/22/18 at 16:30 Ferrous Sulfate (Ferrous Sulfate (Ec)) 325 mg BID PO Last administered on 08/10/18 09:41; Admin Dose 325 MG; Start 07/23/18 at 21:00; Stop 08/22/18 at 20:59 Docusate Sodium (Colace) 100 mg BID PRN PO CONSTIPATION Last administered on 07/24/18 12:11; Admin Dose 100 MG; Start 07/23/18 at 13:00 Lisinopril (Zestril) 40 mg DAILY PO Last administered on 08/10/18 09:40; Admin Dose 40 MG; Start 07/24/18 at 09:00 Ascorbic Acid (Vitamin C) 500 mg BID PO Last administered on 08/10/18 09:41; Admin Dose 500 MG; Start 07/24/18 at 21:00; Stop 08/23/18 at 20:59 Metoprolol Succinate (Toprol Xl) 50 mg Q12H PO Last administered on 08/10/18 12:23; Admin Dose 50 MG; Start 07/25/18 at 11:00 Magnesium Oxide (Mag-Ox 400) 400 mg DAILY PO Last administered on 08/10/18 09:41; Admin Dose 400 MG; Start 07/26/18 at 09:00 Multivitamins Therapeutic (Theragran) 1 tab DAILY PO Last administered on 08/10/18 09:41; Admin Dose 1 TAB; Start 07/27/18 at 09:00 Al Hydrox/Mg Hydrox/Simethicone (Mag-Al Plus) 30 ml Q4H PRN PO GASTROINTESTINAL UPSET; Start 07/27/18 at 12:00 Alprazolam (Xanax) 0.125 mg Q12H PRN PO ANXIETY Last administered on 07/27/18at 20:37; Admin Dose 0.125 MG; Start 07/27/18 at 20:30 Ondansetron HCl (Zofran Odt) 4 mg Q6H PRN ODT NAUSEA AND/OR VOMITING; Start 07/29/18 at 11:00 Pantoprazole (Protonix Tab) 40 mg 0600,1800 PO Last administered on 08/10/18at 06:28; Admin Dose 40 MG; Start 07/29/18 at 18:00 Gabapentin (Neurontin) 100 mg WITH DINNER PO Last administered on 08/09/18at 17:33; Admin Dose 100 MG; Start 08/04/18 at 17:35 Assessment/Plan Additional Assessment/Plan Rehab- Right intertrochanteric hip fracture status post ORIF; 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 Anemia- monitor KIARA GARCIA MD August 10, 2018 14:07
[2018-08-10] MEDS: GABAPENTIN 100 MG CAP PO SCH (17:13)
[2018-08-10] MEDS: ROPINIROLE 1 MG TAB PO SCH (21:18)
[2018-08-10] MEDS: ACETAMINOPHEN 325 MG TAB PO PRN (21:19)
[2018-08-11] MEDS: METOPROLOL (XL) 50 MG TAB PO SCH ×3 (01:44→22:24)
[2018-08-11 02:09] VITALS: BP 125/63; PULSE 71; RESP 18
[2018-08-11] MEDS: PANTOPRAZOLE (EC) 40 MG TAB PO SCH ×2 (06:42→17:42)
[2018-08-11 07:30] VITALS: BP 124/58; PULSE 65; RESP 18
[2018-08-11] MEDS: MULTIVITAMINS THERAPEUTIC TAB PO SCH (09:24)
[2018-08-11] MEDS: ASPIRIN 81 MG TAB PO SCH ×2 (09:24→20:25)
[2018-08-11] MEDS: AMLODIPINE 10 MG TAB PO SCH (09:24)
[2018-08-11] MEDS: SERTRALINE 100 MG TAB PO SCH (09:24)
[2018-08-11] MEDS: ASCORBIC ACID 500 MG TAB PO SCH ×2 (09:24→20:25)
[2018-08-11] MEDS: FERROUS SULFATE (EC) 325 MG TAB PO SCH ×2 (09:24→20:25)
[2018-08-11] MEDS: MAGNESIUM OXIDE 400 MG TAB PO SCH (09:24)
[2018-08-11] MEDS: LISINOPRIL 20 MG TAB PO SCH (09:25)
--- NOTE | 2018-08-11 10:14 | PN ---
DATE: 08/11/2018 SUBJECTIVE: The patient is stable, no events overnight. No fevers, chills, nausea or vomiting. OBJECTIVE: VITAL SIGNS: Blood pressure is 125/63, respirations 18, pulse 71, temperature 98.1. HEENT: Head is normocephalic. NECK: Supple. HEART: Regular rate. LUNGS: Show diminished breath sounds at the base. ABDOMEN: Soft, nontender to palpation without rebound or guarding. EXTREMITIES: Negative for clubbing, cyanosis, no edema. DERMATOLOGIC: No rashes. MUSCULOSKELETAL: No joint effusion. NEUROLOGIC: No change in exam. MEDICATIONS: Reviewed. LABORATORY DATA: Reviewed. ASSESSMENT AND PLAN: 1. Nonoliguric acute kidney injury. Etiology is secondary to hemodynamics. Renal function is fluct uating. We will continue to monitor. Continue current treatment plan, supportive care, renally dose all medications. 2. Anemia. Monitor hemoglobin and hematocrit levels. 3. Mineral bone disorder. Monitor calcium and phosphorus levels. 4. Hypertension. Continue current blood pressure regimen. Continue EMILIANO inhibitor at this time. Mo nitor renal function closely. 5. Hip fracture, status post arthroplasty. Dictated By: STEPH MARTINEZ DO NR/NTS Conf#: [id number] DID#: [id number] CC: FRANSISCO TOLEDO MD; KIARA GARCIA MD;*End*
--- NOTE | 2018-08-11 12:45 | PN ---
Date/Time of Note Date/Time of Note DATE: 08/11/18 TIME: 12:44 Assessment/Plan VTE Prophylaxis Risk score (from Ns)>0 risk: 10 SCD applied (from Ns): Yes Pharmacological prophylaxis: other (aspirin) Lines/Catheters IV Catheter Type (from Nrs): Saline Lock Urinary Cath still in place: No Assessment/Plan Hospital Course SUBJECTIVE: no acute distress. Tolerates physical therapy well. OBJECTIVE: Vital signs-see below PHYSICAL EXAM: Constitutional: Adequately built, elderly female not in acute distress. HEENT: Head atraumatic and normocephalic. Eyes: Extraocular muscles intact. Anicteric sclerae. Pupils equal bilaterally, reactive to light. NECK: Supple without lymph node. CHEST: Clear and good breath sounds equally. No wheezing. No rhonchi. HEART: S1, S2. Regular rate and rhythm. ABDOMEN: Soft/non tender with no rebound tenderness. Bowel sounds were present. EXTREMITIES: RLE w/ intact dressing. No cyanosis, clubbing or edema. NEUROLOGIC: Alert and oriented x3. No focal deficit. No sensory deficit. PSYCHOSOCIAL: No signs of depression. INTEGUMENTARY: No open wounds. ASSESSMENT AND PLAN: 88-year-old female, status post right hip ORIF transferred to acute rehabilitation unit for inpatient rehab. Right hip fracture s/p ORIF 07/14/18 - DVT ppx,pain control - Rehab - Ortho f/u in 2 weeks Hypertension -fairly stable.cont.antihypertensives. Iron deficient anemia -Continue oral replacement Mood disorder -Continue sertraline Restless leg syndrome -on ropinirole Constipation - bowel regimen History of overactive bladder -Currently stable and patient refuses to take Vesicare. Her bladder fxn is stable. GERD -symptoms improved -cont.ppi -Outpatient EGD eval after dc if symptoms recur. Acute kidney injury, likely hemodynamic/dehydration -Stable -f/u nephro recs DVT prophylaxis: Aspirin per orthopedic recommendations. Patient is seen in collaboration with Result Diagram: 08/08/18 0651 08/11/18 0736 Results 24hrs Laboratory Tests Test 08/11/18 07:36 Sodium Level 142 Potassium Level 5.8 H Chloride Level 104 Carbon Dioxide Level 32 H Anion Gap 6 Blood Urea Nitrogen 50 H Creatinine 1.24 H Est Glomerular Filtrat Rate mL/min Glucose Level 95 Calcium Level 9.7 Phosphorus Level 5.3 H Magnesium Level 2.1 Exam/Review of Systems Exam Vitals Vital Signs Date Temp Pulse Resp B/P (MAP) Pulse Ox O2 O2 Flow FiO2 Time Delivery Rate 08/11/18 98.3 65 18 124/58 96 Room Air 07:30 (80) Intake and Output 08/10/18 08/10/18 08/11/18 1515:00 23:00 07:00 IntakeIntake Total 200 ml 1200 ml OutputOutput Total 600 ml 400 ml BalanceBalance 200 ml 600 ml -400 ml Results Results 24hrs Laboratory Tests Test 08/11/18 07:36 Sodium Level 142 Potassium Level 5.8 H Chloride Level 104 Carbon Dioxide Level 32 H Anion Gap 6 Blood Urea Nitrogen 50 H Creatinine 1.24 H Est Glomerular Filtrat Rate mL/min Glucose Level 95 Calcium Level 9.7 Phosphorus Level 5.3 H Magnesium Level 2.1 Medications Medication Current Medications Magnesium Hydroxide (Milk Of Mag) 30 ml BID PRN PO CONSTIPATION Last administered on 07/31/18at 06:59; Admin Dose 30 ML; Start 07/22/18 at 16:00 Lactulose (Enulose) 20 gm DAILY PRN PO CONSTIPATION Last administered on 07/25/18at 14:25; Admin Dose 20 GM; Start 07/22/18 at 16:00 Bisacodyl (Dulcolax Supp) 10 mg DAILY PRN [place] CONSTIPATION; Start 07/22/18 at 16:00 Acetaminophen (Tylenol Tab) 650 mg Q4H PRN PO PAIN Last administered on 08/10/18at 21:19; Admin Dose 650 MG; Start 07/22/18 at 16:00 Miscellaneous Information (Pending [facility] Order For Wound Care) 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 PRN PRN XX WOUND CARE; Start 07/22/18 at 16:00 Amlodipine Besylate (Norvasc) 10 mg DAILY PO Last administered on 08/11/18at 09:24; Admin Dose 10 MG; Start 07/23/18 at 09:00 Clonidine (Catapres) 0.1 mg Q6H PRN PO ELEVATED BLOOD PRESSURE Last administered on 07/25/18at 21:06; Admin Dose 0.1 MG; Start 07/22/18 at 16:30 Acetaminophen/ Hydrocodone Bitart ([place] (5/325)) 1 tab Q4H PRN PO MODERATE PAIN LEVEL 4-6; Start 07/22/18 at 16:30 Ropinirole HCl (Requip) 1 mg HS PO Last administered on 08/10/18 21:18; Admin Dose 1 MG; Start 07/22/18 at 21:00 Sertraline HCl (Zoloft) 100 mg DAILY PO Last administered on 08/11/18 09:24; Admin Dose 100 MG; Start 07/23/18 at 09:00 Tramadol HCl (Ultram) 25 mg Q6H PRN GTB MODERATE PAIN LEVEL 4-6 Last administered on 07/27/18 16:04; Admin Dose 25 MG; Start 07/22/18 at 16:30 Aspirin (Aspirin) 81 mg BID PO Last administered on 08/11/18 09:24; Admin Dose 81 MG; Start 07/22/18 at 21:00 Hydrocortisone (Procto-Juan Antonio) 1 applic DAILY PRN [place] HEMORROID PAIN/ITCHING; Start 07/22/18 at 16:30 Ferrous Sulfate (Ferrous Sulfate (Ec)) 325 mg BID PO Last administered on 09:24; Admin Dose 325 MG; Start 07/23/18 at 21:00; Stop 08/22/18 at 20:59 Docusate Sodium (Colace) 100 mg BID PRN PO CONSTIPATION Last administered on 07/24/18 12:11; Admin Dose 100 MG; Start 07/23/18 at 13:00 Lisinopril (Zestril) 40 mg DAILY PO Last administered on 08/11/18 09:25; Admin Dose 40 MG; Start 07/24/18 at 09:00 Ascorbic Acid (Vitamin C) 500 mg BID PO Last administered on 08/11/18 09:24; Admin Dose 500 MG; Start 07/24/18 at 21:00; Stop 08/23/18 at 20:59 Metoprolol Succinate (Toprol Xl) 50 mg Q12H PO Last administered on 08/11/18 12:12; Admin Dose 50 MG; Start 07/25/18 at 11:00 Magnesium Oxide (Mag-Ox 400) 400 mg DAILY PO Last administered on 08/11/18 09:24; Admin Dose 400 MG; Start 07/26/18 at 09:00 Multivitamins Therapeutic (Theragran) 1 tab DAILY PO Last administered on 08/11/18at 09:24; Admin Dose 1 TAB; Start 07/27/18 at 09:00 Al Hydrox/Mg Hydrox/Simethicone (Mag-Al Plus) 30 ml Q4H PRN PO GASTROINTESTINAL UPSET; Start 07/27/18 at 12:00 Alprazolam (Xanax) 0.125 mg Q12H PRN PO ANXIETY Last administered on 07/27/18at 20:37; Admin Dose 0.125 MG; Start 07/27/18 at 20:30 Ondansetron HCl (Zofran Odt) 4 mg Q6H PRN ODT NAUSEA AND/OR VOMITING; Start 07/29/18 at 11:00 Pantoprazole (Protonix Tab) 40 mg 0600,1800 PO Last administered on 08/11/18at 06:42; Admin Dose 40 MG; Start 07/29/18 at 18:00 Gabapentin (Neurontin) 100 mg WITH DINNER PO Last administered on 08/10/18at 17:13; Admin Dose 100 MG; Start 08/04/18 at 17:35 DARLENE RODRÍGUEZ NP August 11, 2018 12:45
[2018-08-11 14:00] VITALS: BP 101/54; PULSE 71; RESP 18
--- NOTE | 2018-08-11 14:57 | PN ---
Date/Time of Note Date/Time of Note DATE: 08/11/18 TIME: 14:56 Subjective She is looking forward to going home Objective Vital Signs Date Temp Pulse Resp B/P (MAP) Pulse Ox O2 O2 Flow FiO2 Time Delivery Rate 08/11/18 98.3 65 18 124/58 96 Room Air 07:30 (80) Intake and Output 08/10/18 08/10/18 08/11/18 1515:00 23:00 07:00 IntakeIntake Total 200 ml 1200 ml OutputOutput Total 600 ml 400 ml BalanceBalance 200 ml 600 ml -400 ml Exam min transfer min ambulation Results/Medications Result Diagram: 08/08/18 0651 08/11/18 0736 Results 24 hrs Laboratory Tests Test 08/11/18 07:36 Sodium Level 142 Potassium Level 5.8 H Chloride Level 104 Carbon Dioxide Level 32 H Anion Gap 6 Blood Urea Nitrogen 50 H Creatinine 1.24 H Est Glomerular Filtrat Rate mL/min Glucose Level 95 Calcium Level 9.7 Phosphorus Level 5.3 H Magnesium Level 2.1 Medications Current Medications Magnesium Hydroxide (Milk Of Mag) 30 ml BID PRN PO CONSTIPATION Last administered on 07/31/18at 06:59; Admin Dose 30 ML; Start 07/22/18 at 16:00 Lactulose (Enulose) 20 gm DAILY PRN PO CONSTIPATION Last administered on 07/25/18 14:25; Admin Dose 20 GM; Start 07/22/18 at 16:00 Bisacodyl (Dulcolax Supp) 10 mg DAILY PRN [place] CONSTIPATION; Start 07/22/18 at 16:00 Acetaminophen (Tylenol Tab) 650 mg Q4H PRN PO PAIN Last administered on 21:19; Admin Dose 650 MG; Start 07/22/18 at 16:00 Miscellaneous Information (Pending [facility] Order For Wound Care) 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 PRN PRN XX WOUND CARE; Start 07/22/18 at 16:00 Amlodipine Besylate (Norvasc) 10 mg DAILY PO Last administered on 08/11/18at 09:24; Admin Dose 10 MG; Start 07/23/18 at 09:00 Clonidine (Catapres) 0.1 mg Q6H PRN PO ELEVATED BLOOD PRESSURE Last administered on 07/25/18at 21:06; Admin Dose 0.1 MG; Start 07/22/18 at 16:30 Acetaminophen/ Hydrocodone Bitart ([place] (5/325)) 1 tab Q4H PRN PO MODERATE PAIN LEVEL 4-6; Start 07/22/18 at 16:30 Ropinirole HCl (Requip) 1 mg HS PO Last administered on 08/10/18 21:18; Admin Dose 1 MG; Start 07/22/18 at 21:00 Sertraline HCl (Zoloft) 100 mg DAILY PO Last administered on 08/11/18 09:24; Admin Dose 100 MG; Start 07/23/18 at 09:00 Tramadol HCl (Ultram) 25 mg Q6H PRN GTB MODERATE PAIN LEVEL 4-6 Last administered on 07/27/18 16:04; Admin Dose 25 MG; Start 07/22/18 at 16:30 Aspirin (Aspirin) 81 mg BID PO Last administered on 08/11/18 09:24; Admin Dose 81 MG; Start 07/22/18 at 21:00 Hydrocortisone (Procto-Juan Antonio) 1 applic DAILY PRN [place] HEMORROID PAIN/ITCHING; Start 07/22/18 at 16:30 Ferrous Sulfate (Ferrous Sulfate (Ec)) 325 mg BID PO Last administered on 08/11/18 09:24; Admin Dose 325 MG; Start 07/23/18 at 21:00; Stop 08/22/18 at 20:59 Docusate Sodium (Colace) 100 mg BID PRN PO CONSTIPATION Last administered on 07/24/18 12:11; Admin Dose 100 MG; Start 07/23/18 at 13:00 Lisinopril (Zestril) 40 mg DAILY PO Last administered on 08/11/18 09:25; Admin Dose 40 MG; Start 07/24/18 at 09:00 Ascorbic Acid (Vitamin C) 500 mg BID PO Last administered on 08/11/18 09:24; Admin Dose 500 MG; Start 07/24/18 at 21:00; Stop 08/23/18 at 20:59 Metoprolol Succinate (Toprol Xl) 50 mg Q12H PO Last administered on 08/11/18 12:12; Admin Dose 50 MG; Start 07/25/18 at 11:00 Magnesium Oxide (Mag-Ox 400) 400 mg DAILY PO Last administered on 5/15/19at 09:24; Admin Dose 400 MG; Start 07/26/18 at 09:00 Multivitamins Therapeutic (Theragran) 1 tab DAILY PO Last administered on 08/11/18at 09:24; Admin Dose 1 TAB; Start 07/27/18 at 09:00 Al Hydrox/Mg Hydrox/Simethicone (Mag-Al Plus) 30 ml Q4H PRN PO GASTROINTESTINAL UPSET; Start 07/27/18 at 12:00 Alprazolam (Xanax) 0.125 mg Q12H PRN PO ANXIETY Last administered on 07/27/18at 20:37; Admin Dose 0.125 MG; Start 07/27/18 at 20:30 Ondansetron HCl (Zofran Odt) 4 mg Q6H PRN ODT NAUSEA AND/OR VOMITING; Start 07/29/18 at 11:00 Pantoprazole (Protonix Tab) 40 mg 0600,1800 PO Last administered on 08/11/18at 06:42; Admin Dose 40 MG; Start 07/29/18 at 18:00 Gabapentin (Neurontin) 100 mg WITH DINNER PO Last administered on 08/10/18at 17:13; Admin Dose 100 MG; Start 08/04/18 at 17:35 Assessment/Plan Additional Assessment/Plan Rehab- Right intertrochanteric hip fracture status post ORIF; 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 Anemia- monitor KIARA GARCIA MD August 11, 2018 14:57
[2018-08-11] MEDS ORDERED: SODIUM POLYSTYRENE 15 GM KIT (POWDER + SORBITOL) PO ONE (16:30)
[2018-08-11] MEDS: GABAPENTIN 100 MG CAP PO SCH (17:42)
--- NOTE | 2018-08-11 18:17 | PN ---
DATE: 08/11/2018 PSYCHOLOGY -- INDIVIDUAL SESSION -- [id number] This is a followup on a patient who was seen last week. The patient is feeling positive about her pr ogress. The patient feels like she is stronger. The patient is discharged tomorrow and is very happ y about this. The patient did see herself as making progress and her mood is better. Dictated By: ROSIBEL JESUS PHD ZOHRA/NAVID Conf#: [id number] DID#: [id number]
[2018-08-11 19:12] VITALS: BP 107/58; PULSE 75; RESP 18
[2018-08-11] MEDS: ROPINIROLE 1 MG TAB PO SCH (20:25)
[2018-08-11] MEDS: ACETAMINOPHEN 325 MG TAB PO PRN (22:30)
[2018-08-12 02:00] VITALS: BP 126/60; PULSE 68; RESP 18
[2018-08-12] MEDS: PANTOPRAZOLE (EC) 40 MG TAB PO SCH (06:07)
[2018-08-12] MEDS: MULTIVITAMINS THERAPEUTIC TAB PO SCH (09:03)
[2018-08-12] MEDS: ASPIRIN 81 MG TAB PO SCH (09:03)
[2018-08-12] MEDS: FERROUS SULFATE (EC) 325 MG TAB PO SCH (09:03)
[2018-08-12] MEDS: ASCORBIC ACID 500 MG TAB PO SCH (09:03)
[2018-08-12] MEDS: MAGNESIUM OXIDE 400 MG TAB PO SCH (09:03)
[2018-08-12] MEDS: SERTRALINE 100 MG TAB PO SCH (09:03)
[2018-08-12] MEDS: AMLODIPINE 10 MG TAB PO SCH (09:05)
--- NOTE | 2018-08-12 09:56 | PN ---
DATE: 08/12/2018 SUBJECTIVE: The patient is stable. No events overnight. No fevers, chills, nausea or vomiting. OBJECTIVE: VITAL SIGNS: Blood pressure is 126/60, respirations 18, pulse 68, temperature 97.8. HEENT: Head is normocephalic. NECK: Supple. HEART: Regular rate. LUNGS: Show diminished breath sounds at the base. ABDOMEN: Soft, nontender to palpation without rebound or guarding. EXTREMITIES: Negative for clubbing, cyanosis, no edema. DERMATOLOGIC: No rashes. MUSCULOSKELETAL: No joint effusion. NEUROLOGIC: No change in exam. MEDICATIONS: Reviewed. LABORATORY DATA: Reviewed. ASSESSMENT AND PLAN: 1. Nonoliguric acute kidney injury. Etiology is secondary to hemodynamics. Renal function remained stable around a creatinine of 1.2 mg/dL. Etiology in part is due to hemodynamics, EMILIANO inhibitor eff ect. The patient's EMILIANO inhibitor will be held. We will continue to monitor renal function closely. 2. Hyperkalemia. Etiology is secondary to acute kidney injury, EMILIANO inhibitor effect. The patient i s status post Kayexalate with normalization of potassium levels. We will hold EMILIANO inhibitor. Contin ue low-potassium diet. Monitor closely. 3. Anemia. Monitor hemoglobin and hematocrit levels. 4. Mineral bone disorder. Monitor calcium and phosphorus levels. 5. Hypertension. Blood pressure controlled. We will hold EMILIANO inhibitor at this time. Monitor bloo d pressure closely. 6. Hip fracture, status post arthroplasty. Dictated By: STEPH MARTINEZ DO NR/NTS Conf#: [id number] DID#: [id number] CC: KIARA GARCIA MD; FRANSISCO TOLEDO MD;*End*
[2018-08-12 10:26] VITALS: BP 140/64; PULSE 70; RESP 18
--- NOTE | 2018-08-12 11:49 | PN ---
Date/Time of Note Date/Time of Note DATE: 08/12/18 TIME: 11:48 Assessment/Plan VTE Prophylaxis Risk score (from Nsg)>0 risk: 12 SCD applied (from Nsg): Yes Pharmacological prophylaxis: other (aspirin per ortho) Lines/Catheters IV Catheter Type (from Nrsg): Saline Lock Urinary Cath still in place: No Assessment/Plan Hospital Course SUBJECTIVE: no acute distress. for dc today OBJECTIVE: Vital signs-see below PHYSICAL EXAM: Constitutional: Adequately built, elderly female not in acute distress. HEENT: Head atraumatic and normocephalic. Eyes: Extraocular muscles intact. Anicteric sclerae. Pupils equal bilaterally, reactive to light. NECK: Supple without lymph node. CHEST: Clear and good breath sounds equally. No wheezing. No rhonchi. HEART: S1, S2. Regular rate and rhythm. ABDOMEN: Soft/non tender with no rebound tenderness. Bowel sounds were present. EXTREMITIES: RLE w/ intact dressing. No cyanosis, clubbing or edema. NEUROLOGIC: Alert and oriented x3. No focal deficit. No sensory deficit. PSYCHOSOCIAL: No signs of depression. INTEGUMENTARY: No open wounds. ASSESSMENT AND PLAN: 88-year-old female, status post right hip ORIF transferred to acute rehabilitation unit for inpatient rehab. Right hip fracture s/p ORIF 07/14/18 - DVT ppx,pain control - Rehab - Ortho f/u in 2 weeks Hypertension -fairly stable.cont.antihypertensives. Iron deficient anemia -Continue oral replacement Mood disorder -Continue sertraline Restless leg syndrome -on ropinirole Constipation - bowel regimen History of overactive bladder -Currently stable and patient refuses to take Vesicare. Her bladder fxn is stable. GERD -symptoms improved -cont.ppi -Outpatient EGD eval after dc if symptoms recur. Acute kidney injury, likely hemodynamic/dehydration -Stable -f/u nephro recs DVT prophylaxis: Aspirin per orthopedic recommendations. Patient is seen in collaboration with Dr.Vadgama Veras w/ discharge planning on current medications. Result Diagram: 08/08/18 0651 08/12/18 0606 Results 24hrs Laboratory Tests Test 08/11/18 17:38 08/12/18 06:06 Phosphorus Level 5.8 H Magnesium Level 2.2 Sodium Level 143 Potassium Level 4.2 Chloride Level 104 Carbon Dioxide Level 30 Anion Gap 9 Blood Urea Nitrogen 50 H Creatinine 1.24 H Est Glomerular Filtrat Rate mL/min Glucose Level 98 Calcium Level 9.1 Exam/Review of Systems Exam Vitals Vital Signs Date Temp Pulse Resp B/P (MAP) Pulse Ox O2 O2 Flow FiO2 Time Delivery Rate 08/12/18 98.3 70 18 140/64 96 Room Air 10:26 (89) Intake and Output 08/11/18 08/11/18 08/12/18 1515:00 23:00 07:00 IntakeIntake Total 300 ml 980 ml BalanceBalance 300 ml 980 ml Results Results 24hrs Laboratory Tests Test 08/11/18 17:38 08/12/18 06:06 Phosphorus Level 5.8 H Magnesium Level 2.2 Sodium Level 143 Potassium Level 4.2 Chloride Level 104 Carbon Dioxide Level 30 Anion Gap 9 Blood Urea Nitrogen 50 H Creatinine 1.24 H Est Glomerular Filtrat Rate mL/min Glucose Level 98 Calcium Level 9.1 Medications Medication Current Medications Magnesium Hydroxide (Milk Of Mag) 30 ml BID PRN PO CONSTIPATION Last administered on 07/31/18at 06:59; Admin Dose 30 ML; Start 07/22/18 at 16:00 Lactulose (Enulose) 20 gm DAILY PRN PO CONSTIPATION Last administered on 07/25/18at 14:25; Admin Dose 20 GM; Start 07/22/18 at 16:00 Bisacodyl (Dulcolax Supp) 10 mg DAILY PRN TN CONSTIPATION; Start 07/22/18 at 16:00 Acetaminophen (Tylenol Tab) 650 mg Q4H PRN PO PAIN Last administered on 08/11/18at 22:30; Admin Dose 650 MG; Start 07/22/18 at 16:00 Miscellaneous Information (Pending Santyl Order For Wound Care) 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 PRN PRN XX WOUND CARE; Start 07/22/18 at 16:00 Amlodipine Besylate (Norvasc) 10 mg DAILY PO Last administered on 08/12/18at 09:05; Admin Dose 10 MG; Start 07/23/18 at 09:00 Clonidine (Catapres) 0.1 mg Q6H PRN PO ELEVATED BLOOD PRESSURE Last adminis tered on 07/25/18at 21:06; Admin Dose 0.1 MG; Start 07/22/18 at 16:30 Acetaminophen/ Hydrocodone Bitart ([place] (5/325)) 1 tab Q4H PRN PO MODERATE PAIN LEVEL 4-6; Start 07/22/18 at 16:30 Ropinirole HCl (Requip) 1 mg HS PO Last administered on 08/11/18 20:25; Admin Dose 1 MG; Start 07/22/18 at 21:00 Sertraline HCl (Zoloft) 100 mg DAILY PO Last administered on 08/12/18 09:03; Admin Dose 100 MG; Start 07/23/18 at 09:00 Tramadol HCl (Ultram) 25 mg Q6H PRN GTB MODERATE PAIN LEVEL 4-6 Last adminis tered on 07/27/18 16:04; Admin Dose 25 MG; Start 07/22/18 at 16:30 Aspirin (Aspirin) 81 mg BID PO Last administered on 08/12/18 09:03; Admin Dose 81 MG; Start 07/22/18 at 21:00 Hydrocortisone (Procto-Juan Antonio) 1 applic DAILY PRN TN HEMORROID PAIN/ITCHING; Start 07/22/18 at 16:30 Ferrous Sulfate (Ferrous Sulfate (Ec)) 325 mg BID PO Last administered on 08/12/18 09:03; Admin Dose 325 MG; Start 07/23/18 at 21:00; Stop 08/22/18 at 20:59 Docusate Sodium (Colace) 100 mg BID PRN PO CONSTIPATION Last administered on 07/24/18 12:11; Admin Dose 100 MG; Start 07/23/18 at 13:00 Lisinopril (Zestril) 40 mg DAILY PO Last administered on 08/11/18 09:25; Admin Dose 40 MG; Start 07/24/18 at 09:00; Status Hold Ascorbic Acid (Vitamin C) 500 mg BID PO Last administered on 08/12/18 09:03; Admin Dose 500 MG; Start 07/24/18 at 21:00; Stop 08/23/18 at 20:59 Metoprolol Succinate (Toprol Xl) 50 mg Q12H PO Last administered on 08/11/18 22:24; Admin Dose 50 MG; Start 07/25/18 at 11:00 Magnesium Oxide (Mag-Ox 400) 400 mg DAILY PO Last administered on 08/12/18 09:03; Admin Dose 400 MG; Start 07/26/18 at 09:00 Multivitamins Therapeutic (Theragran) 1 tab DAILY PO Last administered on 08/12/18at 09:03; Admin Dose 1 TAB; Start 07/27/18 at 09:00 Al Hydrox/Mg Hydrox/Simethicone (Mag-Al Plus) 30 ml Q4H PRN PO GASTROINTESTINAL UPSET; Start 07/27/18 at 12:00 Alprazolam (Xanax) 0.125 mg Q12H PRN PO ANXIETY Last administered on 07/27/18at 20:37; Admin Dose 0.125 MG; Start 07/27/18 at 20:30 Ondansetron HCl (Zofran Odt) 4 mg Q6H PRN ODT NAUSEA AND/OR VOMITING; Start 07/29/18 at 11:00 Pantoprazole (Protonix Tab) 40 mg 0600,1800 PO Last administered on 08/12/18at 06:07; Admin Dose 40 MG; Start 07/29/18 at 18:00 Gabapentin (Neurontin) 100 mg WITH DINNER PO Last administered on 08/11/18at 17:42; Admin Dose 100 MG; Start 08/04/18 at 17:35 DARLENE RODRÍGUEZ NP August 12, 2018 11:49
[2018-08-12] MEDS: METOPROLOL (XL) 50 MG TAB PO SCH (12:16)
--- NOTE | 2018-08-12 13:00 | DS ---
Date/Time of Note Date/Time of Note DATE: 08/12/18 TIME: 12:59 Discharge Summary Admission/Discharge Info Admit Date/Time Jul 22, 2018 at 15:38 Discharge Date/Time Discharge Diagnosis 1. Right intertrochanteric hip fracture status post ORIF. 2. Acute pain syndrome. 3. Hypertension. 4. Anemia. 5. History of right shoulder fracture treated conservatively. Currently with decreased range of motion. 6. Improvements in self-care and mobility. Patient Condition: Good Hospital Course The patient was admitted for comprehensive interdisciplinary rehabilitation and made steady functional gains from a Max level to a SBA level for self care tasks and mobility including ambulating 100 feet with the use of a FWW. Patient is being discharged home with the recommendation of home health PT, OT and RN follow up. The DC meds are per the medication reconciliation sheet. The discharge equipment recommendations include: FWW, BSC, shower chair. The patient will follow up with PMD upon DC. Home Meds Active Scripts Aspirin (Aspirin) 81 Mg Chew, 81 MG PO BID for 30 Days, TAB Prov:FARIDEH MANTILLA 07/22/18 Lisinopril* (Lisinopril*) 10 Mg Tablet, 20 MG PO DAILY for 30 Days, TAB Prov:FARIDEH MANTILLA 07/22/18 Amlodipine Besylate* (Amlodipine Besylate*) 10 Mg Tablet, 10 MG PO DAILY for 30 Days, TAB Prov:FARIDEH MANTILLA 07/22/18 Reported Medications Solifenacin* (Vesicare*) 5 Mg Tablet, 5 MG PO DAILY, TAB 07/12/18 Ropinirole Hcl* (Ropinirole Hcl*) 1 Mg Tablet, 1 MG PO HS, TAB 07/12/18 Sertraline Hcl* (Sertraline Hcl*) 100 Mg Tablet, 100 MG PO DAILY, #30 TAB 07/12/18 Metoprolol Succinate* (Toprol XL*) 50 Mg Tab.er.24h, 50 MG PO DAILY, #30 TAB 07/12/18 Esomeprazole Mag Trihydrate (Nexium) 40 Mg Capsule.dr, 40 MG PO DAILY, #30 CAP 07/12/18 Primary Care Provider Andrew Rios MD Pending Labs Laboratory Tests Test 08/11/18 17:38 08/12/18 06:06 Phosphorus Level 5.8 mg/dl (2.5-4.9) Magnesium Level 2.2 mg/dl (1.7-2.5) Sodium Level 143 mmol/L (135-144) Potassium Level 4.2 mmol/L (3.5-5.1) Chloride Level 104 mmol/L (97-110) Carbon Dioxide Level 30 mmol/L (21-31) Anion Gap 9 (5-13) Blood Urea Nitrogen 50 mg/dl (7-20) Creatinine 1.24 mg/dl (0.44-1.00) Est Glomerular Filtrat Rate mL/min mL/min (>60) Glucose Level 98 mg/dl (70-220) Calcium Level 9.1 mg/dl (8.4-10.2) KIARA GARCIA MD August 12, 2018 13:00
== END 2018-08-12 13:30 | disposition home health service (06) | DRG 560 ==
LOC: VRC 15:38
PROVIDERS: ADMIT Physical Medicine & Rehabilitation; ATTEND Internal Medicine Pulmonary Disease
PROC: F07Z5ZZ Bed Mobility Treatment (ICD-10-PCS; principal; 2018-07-22)
PROC: F08Z2ZZ Grooming/Personal Hygiene Treatment (ICD-10-PCS; 2018-07-22)
DX: S72.144D Nondisplaced intertrochanteric fracture of right femur, subsequent encounter for closed fracture with routine healing (principal); N17.9 Acute kidney failure, unspecified; F33.1 Major depressive disorder, recurrent, moderate; G89.18 Other acute postprocedural pain; S42.91XD Fracture of right shoulder girdle, part unspecified, subsequent encounter for fracture with routine healing; E83.42 Hypomagnesemia; E83.9 Disorder of mineral metabolism, unspecified; S72.001D Fracture of unspecified part of neck of right femur, subsequent encounter for closed fracture with routine healing; F39 Unspecified mood [affective] disorder; G25.81 Restless legs syndrome; R31.9 Hematuria, unspecified; D50.0 Iron deficiency anemia secondary to blood loss (chronic); R94.5 Abnormal results of liver function studies; N32.81 Overactive bladder; I12.9 Hypertensive chronic kidney disease with stage 1 through stage 4 chronic kidney disease, or unspecified chronic kidney disease; N18.9 Chronic kidney disease, unspecified; D64.9 Anemia, unspecified; Z79.82 Long term (current) use of aspirin; F06.32 Mood disorder due to known physiological condition with major depressive-like episode; K59.00 Constipation, unspecified; K21.9 Gastro-esophageal reflux disease without esophagitis
CPT/HCPCS: 73500; 80048; 80053; 81001; 83735; 84100; 85025; 87081; 87086; 97110; 97112; 97116; 97150; 97163; 97166; 97530; 97535; 97542; J7120

== ENCOUNTER 2019-01-28 02:07 | Inpatient (IN) | payer MEDICARE, OTHER ==
[~2019-01-28] VITALS: Ht 152.4 cm; Wt 72.5 kg
[~2019-01-28 02:07] MED LIST changes: +ASPI-817 PO; -ASPI325T32 PO; +IBUP-1544 PO; +LEVO25TA6 PO; +METO-335 PO; +PANT40TA4 PO
[2019-01-28] MEDS ORDERED: ONDANSETRON 4 MG INJ IV STA (02:22)
[2019-01-28] MEDS ORDERED: ONDANSETRON 4 MG INJ IV ONE (03:43)
[2019-01-28] MEDS ORDERED: PANTOPRAZOLE 40 MG INJ IV ONE (04:00)
[2019-01-28] MEDS ORDERED: PIPER-TAZO 2.25 GM (PMX) 50 ML IVPB ONE (04:00)
[2019-01-28] MEDS ORDERED: SOD CHLORIDE 0.9% 500 ML IV ONE (04:00)
[2019-01-28] MEDS ORDERED: morphine 2 MG INJ IV STA (05:39)
[2019-01-28] MEDS ORDERED: NACL 0.9% 3 ML SYG IV SCH (06:00)
[2019-01-28] MEDS ORDERED: DOCUSATE SODIUM 100 MG CAP PO PRN (06:00)
[2019-01-28] MEDS ORDERED: ONDANSETRON 4 MG INJ IV PRN (06:00)
[2019-01-28] MEDS ORDERED: morphine 2 MG INJ IV PRN (06:00)
[2019-01-28] MEDS ORDERED: BISACODYL (EC) 5 MG TAB PO PRN (06:00)
[2019-01-28 07:30] VITALS: BP 114/56; PULSE 86; RESP 18
[2019-01-28] MEDS: ACETAMINOPHEN 325 MG TAB PO PRN ×2 (08:22→20:23)
[2019-01-28] MEDS: SOD CHLORIDE 0.9% 1,000 ML IV SCH ×2 (08:30→17:32)
[2019-01-28] MEDS: METOPROLOL (XL) 25 MG TAB PO SCH (09:00)
[2019-01-28] MEDS ORDERED: AMLODIPINE 10 MG TAB PO SCH (09:00)
[2019-01-28 09:50] VITALS: BP 105/53; PULSE 83
[2019-01-28] MEDS: SERTRALINE 100 MG TAB PO SCH (09:55)
[2019-01-28] MEDS: LEVOTHYROXINE 25 MCG TAB PO SCH (09:55)
[2019-01-28] MEDS: PANTOPRAZOLE (EC) 40 MG TAB PO SCH (09:55)
[2019-01-28] MEDS: PIPER-TAZO 2.25 GM (PMX) 50 ML IVPB SCH ×2 (09:57→18:29)
[2019-01-28 10:37] VITALS: Ht 152.4 cm; Wt 72.5 kg
[2019-01-28 15:12] VITALS: BP 87/50; PULSE 85; RESP 18
[2019-01-28 15:23] VITALS: BP 104/64; PULSE 74
[2019-01-28] MEDS ORDERED: SOD CHLORIDE 0.9% 250 ML IV* ONE (16:39)
[2019-01-28] MEDS ORDERED: PHYTONADIONE 10 MG/ML INJ SC ONE (17:00)
[2019-01-28 20:13] VITALS: BP 126/60; PULSE 89; RESP 17
[2019-01-28] MEDS: ROPINIROLE 1 MG TAB PO SCH (20:23)
[2019-01-29] VITALS (17 sets, daily range): BP systolic 118–144; BP diastolic 56–81; PULSE 75–83; RESP 11–22
[2019-01-29] MEDS: PIPER-TAZO 2.25 GM (PMX) 50 ML IVPB SCH ×4 (00:39→17:40)
[2019-01-29] MEDS: LEVOTHYROXINE 25 MCG TAB PO SCH (05:53)
[2019-01-29] MEDS: PANTOPRAZOLE (EC) 40 MG TAB PO SCH (05:53)
[2019-01-29] MEDS: METOPROLOL (XL) 25 MG TAB PO SCH (08:28)
[2019-01-29] MEDS: SERTRALINE 100 MG TAB PO SCH (08:29)
[2019-01-29] MEDS ORDERED: INDOMETHACIN 50 MG SUPP PR ONE (09:00)
[2019-01-29] MEDS ORDERED: IOHEXOL 300MG/ML 30 ML BTL ONE (09:15)
[2019-01-29] MEDS ORDERED: POTASSIUM CHLORIDE 100 ML IVPB ONE (10:00)
[2019-01-29] MEDS ORDERED: PROPOFOL 20 ML ONE (10:08)
[2019-01-29] MEDS ORDERED: SEVOFLURANE 15 MIN ONE (10:08)
[2019-01-29] MEDS ORDERED: ROCURONIUM 50 MG INJ ONE (10:08)
[2019-01-29] MEDS ORDERED: LIDOCAINE 2% (SDV) 5 ML INJ ONE (10:08)
[2019-01-29] MEDS ORDERED: FENTAnyl 50 MCG/ML VIAL ONE (10:15)
[2019-01-29] MEDS ORDERED: SUGAMMADEX SODIUM 200 MG/2 ML VIAL IV ONE (11:15)
[2019-01-29] MEDS ORDERED: HYDROmorphONE 1 MG/5 ML IV SYRINGE IV PRN ×3 (11:30)
[2019-01-29] MEDS ORDERED: KETOROLAC 30 MG INJ IV PRN (11:30)
[2019-01-29] MEDS ORDERED: ONDANSETRON 4 MG INJ IV PRN (11:30)
[2019-01-29] MEDS ORDERED: MEPERIDINE 25 MG INJ IV PRN (11:30)
[2019-01-29] MEDS ORDERED: MIDAZOLAM 1 MG/ML 2 ML INJ IV PRN (11:30)
[2019-01-29] MEDS ORDERED: hydrALAzine 20 MG INJ IV PRN (11:30)
[2019-01-29] MEDS ORDERED: FENTAnyl 50 MCG/ML VIAL IV PRN ×3 (11:30)
[2019-01-29] MEDS ORDERED: EPHEDrine 25 MG/5 ML SYG IV PRN (11:30)
[2019-01-29] MEDS ORDERED: LABETALOL HCL 20MG INJ IV PRN (11:30)
[2019-01-29] MEDS ORDERED: OXYCODONE/ACETAMINOPHEN (5/325) TAB PO PRN ×2 (11:30)
[2019-01-29] MEDS ORDERED: ALBUTEROL 0.083% (NEB) 2.5 MG/3 ML AMP HHN PRN (11:30)
[2019-01-29] MEDS ORDERED: DIPHENHYDRAMINE 50 MG INJ IV PRN (11:30)
[2019-01-29] MEDS: SOD CHLORIDE 0.9% 1,000 ML IV SCH (13:47)
[2019-01-29] MEDS: ROPINIROLE 1 MG TAB PO SCH (21:06)
[2019-01-29] MEDS: ACETAMINOPHEN 325 MG TAB PO PRN (22:13)
[2019-01-30] MEDS: PIPER-TAZO 2.25 GM (PMX) 50 ML IVPB SCH ×3 (00:16→12:24)
[2019-01-30 02:28] VITALS: BP 131/60; PULSE 72; RESP 18
[2019-01-30] MEDS: SOD CHLORIDE 0.9% 1,000 ML IV SCH (02:49)
[2019-01-30] MEDS: LEVOTHYROXINE 25 MCG TAB PO SCH (05:56)
[2019-01-30] MEDS: PANTOPRAZOLE (EC) 40 MG TAB PO SCH (05:56)
[2019-01-30] MEDS: SERTRALINE 100 MG TAB PO SCH (08:27)
[2019-01-30] MEDS: METOPROLOL (XL) 25 MG TAB PO SCH (08:28)
[2019-01-30 08:46] VITALS: BP 159/69; PULSE 67; RESP 17
[2019-01-30] MEDS: ACETAMINOPHEN 325 MG TAB PO PRN (12:35)
[2019-01-30 14:00] VITALS: BP 130/63; PULSE 66; RESP 18
[2019-01-30] MEDS ORDERED: POTASSIUM CHLORIDE (SR) 10 MEQ TAB PO ONE (14:00)
== END 2019-01-30 15:03 | disposition home or self-care (01) | DRG 445 ==
LOC: E/R 02:07 → 5EC 04:51
PROVIDERS: ADMIT Family Medicine; ATTEND Family Medicine
PROC: 30233K1 Transfusion of Nonautologous Frozen Plasma into Peripheral Vein, Percutaneous Approach (ICD-10-PCS; 2019-01-28)
PROC: 0F7D8DZ Dilation of Pancreatic Duct with Intraluminal Device, Via Natural or Artificial Opening Endoscopic (ICD-10-PCS; 2019-01-29)
PROC: 0F998ZZ Drainage of Common Bile Duct, Via Natural or Artificial Opening Endoscopic (ICD-10-PCS; 2019-01-29)
PROC: 0F778DZ Dilation of Common Hepatic Duct with Intraluminal Device, Via Natural or Artificial Opening Endoscopic (ICD-10-PCS; principal; 2019-01-29 10:00)
DX: K83.8 Other specified diseases of biliary tract (principal); N39.0 Urinary tract infection, site not specified; N17.9 Acute kidney failure, unspecified; E86.0 Dehydration; K80.20 Calculus of gallbladder without cholecystitis without obstruction; D50.9 Iron deficiency anemia, unspecified; N32.81 Overactive bladder; G25.81 Restless legs syndrome; I25.10 Atherosclerotic heart disease of native coronary artery without angina pectoris; I12.9 Hypertensive chronic kidney disease with stage 1 through stage 4 chronic kidney disease, or unspecified chronic kidney disease; N18.9 Chronic kidney disease, unspecified; F39 Unspecified mood [affective] disorder; Z79.82 Long term (current) use of aspirin
CPT/HCPCS: 36415; 36430; 71045; 71250; 74176; 74181; 74330; 76705; 76775; 80048; 80053; 81001; 81003; 82105; 83036; 83605; 83690; 83735; 83880; 84443; 85025; 85610; 86301; 86850; 86900; 86901; 87086; 88104; 88305; 93005; 96374; 96375; 96376; C2617; C9113; J2175; J2270; J2405; J2543; J3010; J3480; J7030; J7040; P9059; P9612; Q9967